=== PATIENT | female | born 1940 | race Caucasian/White ===

== ENCOUNTER 2019-07-25 18:19 | Inpatient (IN) | payer SELFPAY ==
[~2019-07-25] VITALS: Ht 162.6 cm; Wt 57.6 kg
--- OUTSIDE RECORDS SUMMARY | ~2019-07-25 | XMS | Encounter Summary ---
Demographics + + + | Address | [address] | | | [place] [address] | + + + | Home Phone | | + + + | Preferred Language | Unknown | + + + | Marital Status | | + + + | Restorationist Affiliation | 1025 | + + + | Race | Unknown | + + + | Ethnic Group | Unknown | + + + Author + + + | Author | [facility] | | | and [place] | + + + | Organization | [facility] | | | and [place] | + + + | Address | Unknown | + + + | Phone | Unavailable | + + + Support + + + + + | Name | Relationship | Address | Phone | + + + + + | Eron Benoit | ECON | NA | | | | | NA, | | + + + + + | Eron Benoit | ECON | [address] [place] [address] | | | | | [place] [address] | | + + + + + Care Team Providers + +------+ + | Care Sap Business Objects Developer Name | Role | Phone | + +------+ + | Juan M Huang DO | PCP | | + +------+ + Encounter Details +--------+ + + + + | Date | Type | Department | Care Team | Description | +--------+ + + + + | 09/12/ | Orders Only | [facility] | Cristian Tinoco, | Neck pain (Primary | | 2013 | | NEUROSURGERY [address] | DO [address] | Dx); Cervical | | | | [address] | [address] [place], [place] | spondylosis with | | | | [place], [place] | [address] | myelopathy; S/P | | | | [address] | | cervical spinal | | | | [phone] | | fusion; Cervical | | | | | | stenosis of spinal | | | | | | canal | +--------+ + + + + Social History + +-------+ +--------+------+ | Tobacco Use | Types | Packs/Day | Years | Date | | | | | Used | | + +-------+ +--------+------+ | Never Smoker | | | | | + +-------+ +--------+------+ + +---+---+---+ | Smokeless Tobacco: | | | | | Never Used | | | | + +---+---+---+ + + +---------+ + | Alcohol Use | Drinks/Week | oz/Week | Comments | + + +---------+ + | No | | | | + + +---------+ + + + + | Sex Assigned at | Date Recorded | | | | + + + | Not on file | | + + + + + + + | Job Start Date | Occupation | Industry | + + + + | Not on file | Not on file | Not on file | + + + + + + + + | Travel History | Travel Start | Travel End | + + + + + + | No recent travel history available. | + + documented as of this encounter Plan of Treatment Not on filedocumented as of this encounter Results XR Cervical Spine 4 or 5 Vws (09/20/2012 1:09 PM PDT) + + | Specimen | + + | | + + + + + | Narrative | Performed At | + + + | [facility] | [place] | | Department [address] [place] | [facility] | | [ rep [address]] [ rep ct [facility] | | st zip] Signed | - IMAGING | | | | | Patient Name: AKREN BENOIT Physician: | | | [id number] : 1940 Age: 72 Sex: F Unit #: [id number] | | | Exam Date: 09/20/12 Location[place] [facility] [place] | | | Report #: [id number] Page: | | | %(RAD)RES..mtdd.print.filter("pg") of %(RAD) | | | RES..mtdd.print.filter("tpg") | | | | | | Accession Number: [id number] | | | CERVICAL SPINE, 09/20/2012 CLINICAL HISTORY: NECK PAIN. | | | COMPARISON: None. FINDINGS: Four views | | | of the cervical spine. Alignment is assessed from C2 | | | through C7. There is fusion of C4-5. There is mild disk narrowing at | | | C3- 4 and C5-6. On flexion and extension, no abnormal translation | | | above or below the fused level. The atlantodens interval is | | | maintained throughout. There is some diffuse facet arthrosis. Uncinate | | | hypertrophy is present bilaterally at C4, C5, C6, and to a lesser | | | extent C7. The visible lung apices are clear. | | | IMPRESSION: 1. FUSION OF C4-5. 2. DEGENERATIVE | | | CHANGES ABOVE AND BELOW THE FUSED LEVEL. Dictated | | | Date/Time: 09/20/2012 13:09 Transcribed Date/Time: 09/20/2012 | | | 13:40 New Grad Rn: <<Signature | | | on File>> | | | Eron | | | Roxy Moreno MD09/20/12 [id number] <Electronically signed by Eron Ramsey | | Nhung Moreno MD> Eron Moreno MD 09/20/12 1309 | | | New Grad Rn: [employer] [id number]/17/13 1340 | | | | | + + + + + + + + | Performing | Address | City/State/Zipcode | Phone Number | | Organization | | | | + + + + + | [facility] | [address] | [place] | [phone] | | [facility] | | [address] | | | - IMAGING | | | | + + + + + documented in this encounter Visit Diagnoses + + | Diagnosis | + + | Neck pain - Primary Cervicalgia | + + | Cervical spondylosis with myelopathy | + + | S/P cervical spinal fusion Arthrodesis status | + + | Cervical stenosis of spinal canal Spinal stenosis in cervical region | + + documented in this encounter
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
--- OUTSIDE RECORDS SUMMARY | ~2019-07-25 | XMS | Encounter Summary ---
Demographics + + + | Address | [address] | | | [place] [address] | + + + | Home Phone | | + + + | Preferred Language | Unknown | + + + | Marital Status | | + + + | Latter Day Affiliation | Unknown | + + + | Race | White | + + + | Ethnic Group | Not or | + + + Author + + + | Author | [facility] | + + + | Organization | [facility] | + + + | Address | Unknown | + + + | Phone | Unavailable | + + + Support + + + + + | Name | Relationship | Address | Phone | + + + + + | Eron Gottlieb | ECON | [place] | | + + + + + Care Team Providers + +------+ + | Care Tree Fruit And Nut Crops Farmer Name | Role | Phone | + +------+ + PCP | Unavailable | + +------+ + Encounter Details +--------+ + + + + | Date | Type | Department | Care Team | Description | +--------+ + + + + | 11/21/ | Results | Registration [id number] | | | | 1996 | Only | [address] | | | | | | [address] Mailcode: [address] | | | | | | [place], [place] | | | | | | [address] | | | | | | [phone] | | | +--------+ + + + + Social History + +-------+ +--------+------+ | Tobacco Use | Types | Packs/Day | Years | Date | | | | | Used | | + +-------+ +--------+------+ | Never Assessed | | | | | + +-------+ +--------+------+ + + + | Sex Assigned at [...] Not on filedocumented as of this encounter Procedures + +--------+ + + + | Procedure Name | Priori | Date/Time | Associated Diagnosis | Comments | | | ty | | | | + +--------+ + + + | CHEMISTRY TESTS 4 | Routin | 11/21/1996 | | Results for this | | | e | 4:35 PM | | procedure are in the | | | | PDT | | results section. | + +--------+ + + + | CBC TESTS 2 | Routin | 11/21/1996 | | Results for this | | | e | 4:35 PM | | procedure are in the | | | | PDT | | results section. | + +--------+ + + + | COAGULATION TESTS 2 | Routin | 11/21/1996 | | Results for this | | | e | 4:35 PM | | procedure are in the | | | | PDT | | results section. | + +--------+ + + + | URINALYSIS TESTS | Routin | 11/21/1996 | | Results for this | | | e | 4:30 PM | | procedure are in the | | | | PDT | | results section. | + +--------+ + + + documented in this encounter Results CHEMISTRY TESTS 4 (11/21/1996 4:35 PM PDT) + + + + + + | Component | Value | Ref Range | Performed | Pathologist | | | | | At | Signature | + + + + + + | SODIUM, | 141. | mmol/l | | | | PLASMA | | | | | | (LAB) | | | | | + + + + + + | POTASSIUM, | 4.2 | mmol/l | | | | PLASMA | | | | | | (LAB) | | | | | + + + + + + | CHLORIDE, | 106. | mmol/l | | | | PLASMA | | | | | | (LAB) | | | | | + + + + + + | TOTAL CO2, | 29. | mmol/l | | | | PLASMA | | | | | | (LAB) | | | | | + + + + + + + + | Specimen | + + | | + + + + + + + | Performing | Address | City/State/Zipcode | Phone Number | | Organization | | | | + + + + + | [facility] | [address] | [place] [address] | | | PATHOLOGY | [address] | | | + + + + + COAGULATION TESTS 2 (11/21/1996 4:35 PM PDT) + + + + + + | Component | Value | Ref Range | Performed | Pathologist | | | | | At | Signature | + + + + + + | PROTHROMBIN | 11.9 | SECONDS | | | | TIME | | | | | + + + + + + | PROTIME | 1. | SECONDS | | | | RATIO | | | | | + + + + + + | PROTHROMBIN | 1.02 | INR | | | | INR | | | | | + + + + + + | APTT | 29. | SECONDS | | | + + + + + + + + | Specimen | + + | | + + + + + + + | Performing | Address | City/State/Zipcode | Phone Number | | Organization | | | | + + + + + | [facility] | [address] | [place] [address] | | | PATHOLOGY | [address] | | | + + + + + CBC TESTS 2 (11/21/1996 4:35 PM PDT) + + + + + + | Component | Value | Ref Range | Performed | Pathologist | | | | | At | Signature | + + + + + + | WHITE CELL | 6.3 | K/CU MM | | | | COUNT | | | | | + + + + + + | RED CELL | 4.72 | M/CU MM | | | | COUNT | | | | | + + + + + + | HEMOGLOBIN | 14.1 | GM/DL | | | + + + + + + | HEMATOCRIT | 42.1 | % | | | + + + + + + | MCV | 89. | FL | | | + + + + + + | MCH | 29.8 | PG | | | + + + + + + | MCHC | 33.5 | GM/DL | | | + + + + + + | RDW | 13.2 | % | | | + + + + + + | PLATELET | 310. | K/CU MM | | | | COUNT | | | | | + + + + + + | MPV | 8.3 | FL | | | + + + + + + + + | Specimen | + + | | + + + + + + + | Performing | Address | City/State/Zipcode | Phone Number | | Organization | | | | + + + + + | [facility] | [address] | [place] [address] | | | PATHOLOGY | [address] | | | + + + + + URINALYSIS TESTS (11/21/1996 4:30 PM PDT) + + + + + + | Component | Value | Ref Range | Performed | Pathologist | | | | | At | Signature | + + + + + + | COLOR(UR) | STRAW | | | | + + + + + + | APPEARANCE | SLIGHTLY CLOUDY | | | | + + + + + + | GLUCOSE(UR) | NEG | mg/dL | | | + + + + + + | BILIRUBIN | NEG | mg/dL | | | + + + + + + | KETONES | NEG | mg/dL | | | + + + + + + | SPECIFIC | 1.01 | mg/dL | | | | GRAVITY | | | | | + + + + + + | BLOOD | NEG | mg/dL | | | + + + + + + | PH(UR) | 5. | mg/dL | | | + + + + + + | PROTEIN(LAB | NEG | mg/dL | | | | ) | | | | | + + + + + + | UROBILINOGE | 0.2 | EDGARDO UNITS | | | | N | | | | | + + + + + + | NITRITES | NEG | EDGARDO UNITS | | | + + + + + + | LEUKOCYTE | NEG | [facility]ARDO UNITS | | | | ESTERASE | | | | | + + + + + + | URINE | MICROSCOPIC NOT | EDGARDO UNITS | | | | COMMENT1 | INDICATED | | | | + + + + + + + + | Specimen | + + | | + + + + + + + | Performing | Address | City/State/Zipcode | Phone Number | | Organization | | | | + + + + + | [facility] | [address] | [place] [address] | | | PATHOLOGY | [address] | | | + + + + + documented in this encounter Visit Diagnoses Not on filedocumented in this encounter"
--- OUTSIDE RECORDS SUMMARY | ~2019-07-25 | XMS | Encounter Summary ---
Demographics + + + | Address | [address] | | | [place] [address] | + + + | Home Phone | | + + + | Preferred Language | Unknown | + + + | Marital Status | | + + + | Hinduism Affiliation | 1025 | + + + | Race | Unknown | + + + | Ethnic Group | Unknown | + + + Author + + + | Author | [facility] | | | and [place] | + + + | Organization | [facility] | | | [...] Eron Benoit | ECON | [address] [place] [address] | | | | | [place] [address] | | + + + + + Care Team Providers + +------+ + | Care Rotary Furnace Tender Name | Role | Phone | + +------+ + | Juan M Huang DO | PCP | | + +------+ + Encounter Details +--------+ + + + + | Date | Type | Department | Care Team | Description | +--------+ + + + + | 06/13/ | Orders Only | [facility] | Jac Riley | Status post lumbar | | 2012 | | NEUROSURGERY [address] | F, [address] | spinal fusion | | | | [address] | [place], [place] | (Primary Dx); Back | | | | [place], [place] | [address] | pain | | | | [address] | [phone] | | | | | [phone] | | | +--------+ + + + [...] filedocumented as of this encounter Results XR Lumbar Spine 4 + Vw (06/21/2012 1:31 PM PDT) + + | Specimen | + + | | + + + + + | Narrative | Performed At | + + + | [facility] | [place] | | Department [address] | [facility] | | [ rep [address]] [ rep [facility] | | [facility]] Signed | - IMAGING | | | | | Patient Name: KAREN BENOIT Physician: | | | MILLY.01 : 1940 Age: 72 Sex: F Unit #: [id number] | | | Exam Date: 06/21/12 Location: [facility] | | | Report #: [id number] Page: | | | %(RAD)RES..mtdd.print.filter("pg") of %(RAD) | | | RES..mtdd.print.filter("tpg") | | | | | | Accession Number: [id number] | | | LUMBAR SPINE, 06/21/2012 CLINICAL HISTORY: STATUS POST | | | LUMBAR FUSION. COMPARISON: Numerous previous MRIs and | | | x-rays of the lumbar spine, most recently 11/12/2011. | | | FINDINGS: Four views of the lumbar spine including flexion and | | | extension were obtained. There is mild levoscoliosis of the | | | thoracolumbar spine. Again seen is hardware for posterior fusion | | | extending from L3 through S1 with interbody graft material at these | | | levels. Hardware remain intact. Vertebral body heights are | | | preserved with no evidence for compression fractures. Mild to | | | moderate anterior osteophytes are seen from L1 through L3. There | | | is no evidence for instability. Moderate disk height loss are at | | | L2-3. There is no evidence of spondylolysis. IMPRESSION: | | | 1. STATUS POST POSTERIOR FUSION FROM L3 THROUGH S1 WITH | | | HARDWARE INTACT. THERE IS NO EVIDENCE FOR INSTABILITY. | | | 2. DEGENERATIVE CHANGES DESCRIBED ABOVE. Dictated | | | Date/Time: 06/21/2012 13:31 Transcribed Date/Time: 06/21/2012 | | | 13:51 Plastic Tile Setter: <<Signature on | | | File>> | | | Augusto | | | MD Shaji06/21/[id number] <Electronically signed by Augusto Girard MD> | | | Augusto Girard MD 06/21/12 1331 Plastic Tile Setter: [employer] | | | Gnkobioyrtuuo16/17/13 5291 Jac Riley MD | | | | | + + + + + + + + | Performing | Address | City/State/Zipcode | Phone Number | | Organization | | | | + + + + + | [facility] | [address] | [place] | [phone] | | [facility] | | [address] | | | - IMAGING | | | | + + + + + documented in this encounter Visit Diagnoses + + | Diagnosis | + + | Status post lumbar spinal fusion - Primary Arthrodesis status | + + | Back pain Backache, unspecified | + + documented in this encounter
--- OUTSIDE RECORDS SUMMARY | ~2019-07-25 | XMS | Encounter Summary ---
Demographics + + + | Address | [address] | | | [place] [address] | + + + | Home Phone | | + + + | Preferred Language | Unknown | + + + | Marital Status | | + + + | Congregational Affiliation | Unknown | + + + | Race | White | + + + | Ethnic Group | Not or | + + + Author + + + | Author | [facility] | + + + | Organization | [facility] | + + + | Address | Unknown | + + + | Phone | Unavailable | + + + Support + + + + + | Name | Relationship | Address | Phone | + + + + + | Eron Benoit | ECON | [place] | | + + + + + Care Team Providers + +------+ + | Care Quality Control Supervisor Name | Role | Phone | + +------+ + PCP | Unavailable | + +------+ + Encounter Details +--------+ + + + + | Date | Type | Department | Care Team | Description | +--------+ + + + + | 06/08/ | Office | Registration [address] | [address] | | | 2006 | Visit - | [address] | [facility] | | | | Rehab | [address] Mail[address]: [address] | | | | | | [place], [place] | | | | | | [address] | | | | | | [phone] | | | +--------+ + + + [...] | + +--------+ + + + | PHYSICAL THERAPY | Routin | 06/08/2006 | | Results for this | | EVAL | e | 4:50 PM | | procedure are in the | | | | PDT | | results section. | + +--------+ + + + documented in this encounter Results PHYSICAL THERAPY EVAL (06/08/2006 4:50 PM PDT) + + + + + + | Component | Value | Ref Range | Performed | Pathologist | | | | | At | Signature | + + + + + + | PHYSICAL | [facility] | | [facility] | | | THERAPY | INITIAL EVALUATION | | REHABILITAT | | | EVAL | KAREN BENOIT MR# | | [facility] THERAPY | | | | [id number] Start of | | | | | | Care: 06/08/2006 | | | | | | Referring/Attending | | | | | | Practitioner: Alexei | | | | | | MD Quin | | | | | | Primary/Referral | | | | | | Diagnosis/ICD-9: | | | | | | Fibromyalgia/Myofascia | | | | | | l Pain/729.1/ Rule out | | | | | | Fibromyalgia/Myofascial | | | | | | pain Date of onset: | | | | | | 03/07/1995 ; in clinic | | | | | | today for FM diagnosis | | | | | | on 06/08/2006 Insurance: | | | | | | Commercial. Number | | | | | | of visits used: 1 | | | | | | Medicare 06/08/2006 | | | | | | to: 07/07/2006 | | | | | | SUBJECTIVE: History of | | | | | | Presenting Problem: | | | | | | Patient is a 66 year | | | | | | old F who wasdiagnosed | | | | | | with fibromyalgia. no | | | | | | known onset. Pt has | | | | | | sleep apnea but noton | | | | | | CPAP. Presently has R | | | | | | ankle/tibial stress | | | | | | fracture and ankle | | | | | | sparin 6 weeks ago.This | | | | | | is limiting her motion | | | | | | an dstanding ROM and | | | | | | endurance. Patient | | | | | | presents with the | | | | | | following complaints: | | | | | | fatigue,sleepdisturbance | | | | | | ,increased | | | | | | pain,depression,cognitiv | | | | | | e problem, | | | | | | exerciseintolerance,st | | | | | | iffness,no exercise | | | | | | program, | | | | | | hypersensitivity to | | | | | | light,noise, smells and | | | | | | or chemicals,work | | | | | | problems, Denies | | | | | | headaches, Precautions: | | | | | | recent Brain scan | | | | | | reviewed white dots in | | | | | | tht posteriorportion of | | | | | | her head: may be | | | | | | scaring, lesions or | | | | | | plaques. 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 Not | | | | | | able to move eyes | | | | | | inferiorly sometimes | | | | | | when reading (reads same | | | | | | line 2-3 times. | | | | | | History of Fainting: | | | | | | yes. History of | | | | | | lightheadedness and/or | | | | | | dizziness: yes with | | | | | | fatigue. but | | | | | | not able to describe | | | | | | other related sx. | | | | | | History of Radiation | | | | | | Exposure: no. . | | | | | | Negative history of | | | | | | diabetes. Pt describes | | | | | | potential history of | | | | | | ischemic or structural | | | | | | heart disease w/PVC | | | | | | potential, arrhythmia | | | | | | Patient currently on | | | | | | medications for blood | | | | | | pressure or heart | | | | | | conditions:see epic. | | | | | | Medications: see | | | | | | physician's note for | | | | | | this data. | | | | | | Prior/concurrent | | | | | | services related to the | | | | | | present problem: none | | | | | | massage no | | | | | | Patient Goals: safe | | | | | | exercise program,learn | | | | | | to manage pain,keep | | | | | | working, Present | | | | | | status: Current | | | | | | functional status: | | | | | | fatigue, cognitive | | | | | | issues impact | | | | | | dailyactivities. 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 not need to go | | | | | | up stairs as ahs | | | | | | allthings on main level | | | | | | they need. Activity | | | | | | Level/Exercise: none. | | | | | | walking Patient | | | | | | currently has access to | | | | | | the following equipment: | | | | | | treadmill, | | | | | | Shoes: non-supportive, | | | | | | heeled shoes mostly | | | | | | for work Pain is | | | | | | currently, on a scale of | | | | | | 0-10: 7 and riseing The | | | | | | best the pain ever gets | | | | | | on a scale of 0-10 is: | | | | | | 3 The worst the pain | | | | | | ever gets on a scale of | | | | | | 0-10 is: 10 Pain | | | | | | worsens with: | | | | | | overactivity,inactivit | | | | | | y,prolongedpositions,col | | | | | | d/dampness,weather | | | | | | changes,poor sleep, pain | | | | | | alwasys gets worse in | | | | | | the evenings and night. | | | | | | denies falls but noght | | | | | | balance is very poor and | | | | | | feels she falls back | | | | | | everytime she walks in | | | | | | dark or extends neck and | | | | | | walks Pain improves | | | | | | with: rest/good sleep, | | | | | | heat, stretching, | | | | | | balance ofrest/activity. | | | | | | Living | | | | | | situation/environment is | | | | | | limiting function: | | | | | | steps are limiting dueto | | | | | | LE and back pains. | | | | | | Equipment at home: none | | | | | | Requests family members | | | | | | or friends involved | | | | | | with rehabilitation | | | | | | therapy: | | | | | | present today . | | | | | | Anxieties or concerns | | | | | | about therapy: no | | | | | | OBJECTIVE: | | | | | | R hip sititng, legs | | | | | | crossed. Cranial nerves | | | | | | III-XII grossly intact. | | | | | | L deviation of | | | | | | tongue in tounge | | | | | | extension. Posture: | | | | | | Sitting Posture: flat | | | | | | low back, round/forward | | | | | | shoulders, forwardhead, | | | | | | Sitting Posture: | | | | | | head tilted to right. | | | | | | ROM (limitations | | | | | | only): Limited Arom hip | | | | | | flexion to PROM (25%), | | | | | | limted GHjnt mobility | | | | | | all planes R side bend | | | | | | pain on ipsilateral SI, | | | | | | back. Flexion wosre then | | | | | | ext. both limited. | | | | | | Cervical 50% or less all | | | | | | planes MMT | | | | | | (limitations only): 4/5 | | | | | | hils and ankles, 4/5 Gh | | | | | | jnoint flexio ext. 55 | | | | | | elbows 4/5 trunk | | | | | | Balance/coordination | | | | | | 360 degree turn | | | | | | continuous. head ext | | | | | | no falls or LOB in | | | | | | session. neutral | | | | | | vestibular apparatus w/ | | | | | | head ext no dizziness | | | | | | noted. sway eyes closed | | | | | | narrow VENECIA--no falls. | | | | | | Right unilateral stance | | | | | | duration (seconds): 11/19 | | | | | | sec Left | | | | | | unilateralstance | | | | | | duration (seconds): 10/19 | | | | | | sec Gait for 25 feet | | | | | | (Normal 5 sec for men, 6 | | | | | | seconds for | | | | | | women):Self-selectedspee | | | | | | d in seconds: 6.91 in 12 | | | | | | steps Fast speed in | | | | | | seconds: 5.83 in 10 | | | | | | steps Gait Deviations: | | | | | | forward lean(history | | | | | | of speed walking) | | | | | | Patient not able to heel | | | | | | walk. Patient limited | | | | | | in toe walk. negative | | | | | | vestibualr drift eyes | | | | | | closed marching Balance: | | | | | | Activities-specific | | | | | | Balance confidence (ABC) | | | | | | Scale: 700/1600=43.75% | | | | | | indicating poor | | | | | | confidence in balance in | | | | | | most of | | | | | | his/herenvironments. | | | | | | Pt notes most she | | | | | | avoids due to pains and | | | | | | fatigue. alloutside of | | | | | | home scores are | | | | | | estimates and coached by | | | | | | her . decreased | | | | | | light touch L LE. | | | | | | TREATMENT TODAY: | | | | | | Evaluation completed, | | | | | | Gave information | | | | | | on recommended PT and OT | | | | | | appointments. | | | | | | Discussed PT concept of | | | | | | pain is not bad,, will | | | | | | teach strategies | | | | | | tominimize/control in | | | | | | PT. pain is not | | | | | | idicative of something | | | | | | "going wrong or braking" | | | | | | ASSESSMENT: Treatment | | | | | | diagnosis/ICD-9 code = | | | | | | Fibromyalgia/729.1 | | | | | | *needs screaning for | | | | | | potenial CVA or MS due | | | | | | to scarring in brain | | | | | | scans Problems: Pain, | | | | | | morning stiffness, | | | | | | minimal activity and/or | | | | | | decreased ROMand | | | | | | inadequate/no program | | | | | | for exercise. Reported | | | | | | falling, pain with | | | | | | walkingand/or gait | | | | | | deviations noted. Pain | | | | | | and/or poor | | | | | | posture/positioning | | | | | | andinadequate seating at | | | | | | home, work, and/or car. | | | | | | Pain and needs | | | | | | instruction | | | | | | incompensation/pain | | | | | | management. pt has | | | | | | PT in local area that | | | | | | per pt desciprion is | | | | | | able to treat FM | | | | | | patients and has similar | | | | | | treatments as [facility] | | | | | | PT's. Short-term goals, | | | | | | as discussed with the | | | | | | patient, due in 13 | | | | | | weeks: Independent | | | | | | with 3 lower extremity | | | | | | stretches. Obtain/wear | | | | | | supportive shoewear. | | | | | | Know/demonstrate 1-2 | | | | | | strategies to decrease | | | | | | pain and increase | | | | | | function. Know how to | | | | | | initiate better seated | | | | | | posture. Long-term | | | | | | goals, as discussed | | | | | | with the patient, due in | | | | | | 26 weeks: | | | | | | Demonstrate independent | | | | | | home exercise program. | | | | | | Demonstrate safe, | | | | | | independent walking. | | | | | | Know proper seating for | | | | | | work, home and/or car. | | | | | | Demonstrate knowledge of | | | | | | pain | | | | | | compensation/management | | | | | | techniques todecrease | | | | | | pain and increase | | | | | | function. Obtain and use | | | | | | identified equipment | | | | | | /tools for pain | | | | | | management athome/work. | | | | | | PLAN: | | | | | | Treatment plan: One | | | | | | on one treatment to | | | | | | instruct in home | | | | | | exercise programwith | | | | | | appropriate | | | | | | self-monitoring, pain | | | | | | management/compensation | | | | | | techniques,posture/posit | | | | | | ioning during | | | | | | activities, proper gait | | | | | | with correct | | | | | | equipmentand | | | | | | identification of | | | | | | equipment needed as | | | | | | indicated in initial | | | | | | evaluation.Frequency/Dur | | | | | | ation: Treatment will be | | | | | | six visits for | | | | | | approximately one time | | | | | | per week over several | | | | | | months to give patient | | | | | | time to make | | | | | | recommendedchanges, | | | | | | begin home exercise | | | | | | program, note response | | | | | | and return to therapyfor | | | | | | further modifications | | | | | | if needed. Treatment | | | | | | began: 1350 Treatment | | | | | | ended: 1420 This note | | | | | | is to serve as the | | | | | | discharge summary if the | | | | | | patient fails toattend | | | | | | further Physical Therapy | | | | | | appointments or contact | | | | | | the therapistregarding | | | | | | any change in their | | | | | | status. The below | | | | | | signatures are only for | | | | | | completing Medicare | | | | | | charting. Non-Medicare | | | | | | patients do not need | | | | | | this section completed. | | | | | | Therapist Initials: | | | | | | I | | | | | | agree with the above | | | | | | proposed treatment plan. | | | | | | MD signature: | | | | | | | | | | | | Date: | | | | | | Print name: | | | | | | ___Alexei Tsai MD | | | | | | Jaspal Gauthier DPT | | | | | | License | | | | | | Number [id number] | | | | + + + + + + + + | Specimen | + + | | + + + + + + + | Performing | Address | City/State/Zipcode | Phone Number | | Organization | | | | + + + + + | [facility] | [address] | [place], [place] | | | REHABILITATION | [address] | [address] | | | THERAPY | | | | + + + + + | [facility] | [address] | [place], [place] | | | REHABILITATION | [address] | [address] | | | THERAPY | | | | + + + + + documented in this encounter Visit Diagnoses Not on filedocumented in this encounter
--- OUTSIDE RECORDS SUMMARY | ~2019-07-25 | XMS | Encounter Summary ---
Demographics + + + | Address | [address] | | | [place] [address] | + + + | Home Phone | | + + + | Preferred Language | Unknown | + + + | Marital Status | | + + + | Anglican Affiliation | 1025 | + + + | Race | Unknown | + + + | Ethnic Group | Unknown | + + + Author + + + | Author | [facility] | | | and [place] | + + + | Organization | [facility] | | | and [...] Eron Gottlieb | ECON | [address] [place] [address] | | | | | [place] [address] | | + + + + + Care Team Providers + +------+ + | Care Product Strategy Director Name | Role | Phone | + +------+ + | Juan M Huang DO | PCP | | + +------+ + Encounter Details +--------+ + + + + | Date | Type | Department | Care Team | Description | +--------+ + + + + | 06/21/ | Abstract | [facility] | Jac Riley | | | 2012 | | NEUROSURGERY [address] | F, MD [address] | | | | | [address] | [place], [place] | | | | | [place], [place] | [address] | | | | | [address] | [phone] | | | | [phone] | | | +--------+ + + + [...] filedocumented as of this encounter Visit Diagnoses Not on filedocumented in this encounter"
--- OUTSIDE RECORDS SUMMARY | ~2019-07-25 | XMS | Encounter Summary ---
Demographics + + + | Address | [address] | | | [place] [address] | + + + | Home Phone | | + + + | Preferred Language | Unknown | + + + | Marital Status | | + + + | Methodist Affiliation | Unknown | + + + | Race | White | + + + | Ethnic Group | Not or | + + + Author + + + | Author | [facility] | + + + | Organization | [facility] | + + + | Address | Unknown | + + + | Phone | Unavailable | + + + Support + + + + + | Name | Relationship | Address | Phone | + + + + + | Eron Gottlieb | ECON | [place] | | + + + + + Care Team Providers + +------+ + | Care Cooperage Shop Supervisor Name | Role | Phone | + +------+ + PCP | Unavailable | + +------+ + Encounter Details +--------+ + + + + | Date | Type | Department | Care Team | Description | +--------+ + + + + | 11/22/ | Procedure - | [facility] | Record, Operation | Operative Report | | 1996 | | [place] [address] | | | | | Transcribed | [address] | | | | | | Mailcode: [place] | | | | | | [facility] | | | | | | Healing, [address] | | | | | | [place], [place] | | | | | | [address] | | | | | | [phone] | | | +--------+ + + + [...] | + +--------+ + + + | OPERATION RECORD | | 11/22/1996 | | Results for this | | | | 12:00 AM | | procedure are in the | | | | PDT | | results section. | + +--------+ + + + documented in this encounter Results OPERATION RECORD (11/22/1996 12:00 AM PDT) + + | Procedure Note | + + | 11/22/1996 12:00 AM PDT [place] | | [facility] | | [address], [place] [address] | | [facility] | | | | OPERATION RECORD | | | | Med Rec No.: [id number] Date: 11/22/96 | | | | Name: Karen Gottlieb | | | | | | ATTENDING SURGEON: Brad Acharya Jr., M.D. | | Agency Service Coordinator, | | Neurosurgery | | | | | | TECHNOLOGY AUDITOR(S): Agatha Klein M.D. | | Resident, Neurosurgery | | | | | | POSTOPERATIVE DIAGNOSIS(ES): C4-5 herniated disk. | | | | OPERATION(S) PERFORMED: C4-5 anterior cervical diskectomy and | | fusion. | | | | SPECIMEN(S) REMOVED: None. | | | | COMPLICATIONS: None. | | | | ESTIMATED BLOOD LOSS: 50 cc. | | | | FINDINGS: Herniated disk at C4-5, worse on the right. | | | | INDICATIONS: The patient is a 56-year-old female with | | multiple neurologic complaints. Examination | | was consistent with a | | C5 radiculopathy, and imaging revealed a herniated disk at C4-5. This has | | failed to respond to conservative treatment. | | | | PROCEDURE: Informed consent was obtained and the | | patient was identified, then brought to the | | Operating Room where | | general endotracheal anesthesia was induced. Preoperative IV antibiotics | | and steroids were administered, and she was placed supine with the head | | supported on a horseshoe head char filter tank tender and a Holter traction device applied. | | The right side of the neck was prepped and draped in the usual sterile | | fashion, after a preoperative localizing film was obtained. Local | | anesthetic was not infiltrated into the skin, because of a previous adverse | | reaction. | | | | An incision was then made in a skin crease overlying C4-5, and carried | | through the level of the platysma, which was divided with the | | electrocautery. Dissection was then further carried out along the medial | | aspect of the sternocleidomastoid muscle and the medial aspect of the | | carotid sheath. Retraction was then placed in the plane of dissection along | | the anterior surface of the vertebral bodies. The fascia was dissected from | | the spine, using a peanut dissector. A second localizing film was obtained | | and the longus colli muscle was dissected from either side at the C4-5 | | level. Self-retaining retractors were placed and the disk space was incised | | with the #11 blade, to gauge the angle of the disk space. | | | | Once this had been done, the high speed drill was used to create the hole | | for the bone dowel to the predetermined depth of 15 mm. Because of bleeding | | from the dowel hole, Gelfoam was placed into the bone. This resulted in | | satisfactory hemostasis. The socrates bit was then attached and the end | | plates were drilled to widen the intervertebral space and facilitate access | | for removal of the disk. A moderate disk fragment and withdrawn, using | | pituitary rongeurs. Further disk material was removed, using the curets. | | | | Using the microscope, high magnification and microdissection, the posterior | | longitudinal ligament was then identified and incised using a blunt nerve | | hook and a #11 blade. The posterior longitudinal ligament was then removed | | using Kerrison rongeurs. This was done first towards the left, and then | | towards the right. There was a moderate amount of compression on the right | | side and a removal of posterior longitudinal ligament and disk material was | | carried out quite far laterally, until satisfactory decompression was | | obtained. The adequacy of the decompression was assessed using a blunt | | nerve hook. The nerve roots could be seen to be quite well-decompressed, as | | was the thecal sac. Once the decompression was satisfactory, the wound was | | copiously irrigated and inspected for hemostasis. As this was satisfactory, | | a small piece of Gelfoam was placed and the wound was prepared for the bone | | dowel. | | | | The entire dissection and removal of disk had been carried out under high | | magnification using the microscope. At the point when the dowel was ready | | to be placed, the operating microscope was withdrawn and the | | anesthesiologist was asked to maintain traction. The necessary size for the | | dowel hole was measured using the calipers and the dowel was then cut to | | fit. The dowel was then tamped into the hole until it was flush with the | | anterior surface of the spine. The anesthesiologist then discontinued the | | traction, and the fit of the dowel was assessed. This was very solid. | | | | The wound was again inspected for hemostasis, which was satisfactory. | | Further irrigation was performed and the wound was closed. This was done | | using interrupted #3-0 Vicryl for the platysma, and a running #4-0 Vicryl | | subcutaneous stitch for the skin. Steri-strips and dressing were placed. | | The patient was taken to the Post Anesthesia Recovery Unit in awake and | | stable condition. There were no complications noted from the procedure. | | Sponge and needle counts was reported as correct x 2. No specimens were | | sent. | | | | | | | | | | Agatha Klein M.D. | | Resident, Neurosurgery | | | | Brad Acharya Jr., M.D. | | Agency Service Coordinator, | | Neurosurgery | | | | | | AUDRA /liz | | | | P | | C: 12/24/96 allison | | | + + documented in this encounter Visit Diagnoses Not on filedocumented in this encounter"
--- OUTSIDE RECORDS SUMMARY | ~2019-07-25 | XMS | Encounter Summary ---
Demographics + + + | Address | [address] | | | [place] [address] | + + + | Home Phone | | + + + | Preferred Language | Unknown | + + + | Marital Status | | + + + | Temple Affiliation | 1025 | + + + | Race | Unknown | + + + | Ethnic Group | Unknown | + + + Author + + + | Author | [facility] | | | and [place] | + + + | Organization | [facility] | | | [...] Eron Gottlieb | ECON | [address] [place] [address] | | | | | [place] [address] | | + + + + + Care Team Providers + +------+ + | Care College Counselor Name | Role | Phone | + +------+ + | Juan M Huang DO | PCP | | + +------+ + Reason for Visit +--------+ + | Reason | Comments | +--------+ + | Other | | +--------+ + Encounter Details +--------+ + + + + | Date | Type | Department | Care Team | Description | +--------+ + + + + | 09/18/ | Telephone | [facility] | Cristian Tinoco, | Other | | 2013 | | NEUROSURGERY [address] | DO [address] | | | | | [address] | [address] [place], [place] | | | | | [place], [place] | [id number] | | | | | [address] | | | | | | [phone] | | | +--------+ + + + [...]
--- OUTSIDE RECORDS SUMMARY | ~2019-07-25 | XMS | Encounter Summary ---
Demographics + + + | Address | [address] | | | [place] [address] | + + + | Home Phone | | + + + | Preferred Language | Unknown | + + + | Marital Status | | + + + | Mormon Affiliation | 1025 | + + + | Race | Unknown | + + + | Ethnic Group | Unknown | + + + Author + + + | Author | [facility] | | | and [place] | + + + | Organization | [facility] | | | [...] Eron Gottlieb | ECON | [address] [place] [address] | | | | | , [place] [address] | | + + + + + Care Team Providers + +------+ + | Care Cooker Operator Name | Role | Phone | + +------+ + PCP | Unavailable | + +------+ + Encounter Details +--------+ + + + + | Date | Type | Department | Care Team | Description | +--------+ + + + + | 05/31/ | Hospital | [facility] | | | | 1994 | Encounter | [facility] | | | | | | [address] | | | | | | [place], [place] | | | | | | [address] | | | | | | [phone] | | | +--------+ + + + [...]
--- OUTSIDE RECORDS SUMMARY | ~2019-07-25 | XMS | Encounter Summary ---
Demographics + + + | Address | [address] | | | [place] [address] | + + + | Home Phone | | + + + | Preferred Language | Unknown | + + + | Marital Status | | + + + | Mosque Affiliation | Unknown | + + + | Race | White | + + + | Ethnic Group | Not or | + + + Author + + + | Organization | Unknown | + + + | Address | Unknown | + + + | Phone | Unavailable | + + + Support + + + + + | Name | Relationship | Address | Phone | + + + + + | Eron Benoit | CRISTINA | [place] | | + + + + + Care Team Providers + +------+ + | Care Tapper Balance Wheel Screw Hole Name | Role | Phone | + +------+ + PCP | Unavailable | + +------+ + Encounter Details +--------+ + + + + | Date | Type | Department | Care Team | Description | +--------+ + + + + | 08/29/ | Transcribed | | Dictation, Other | Transcribed | | 2001 | | | | | +--------+ + + + [...] + + documented as of this encounter Progress Notes Interface, Medical Service Representative In - 12/26/2005 3:01 AM [facility] [place] [address] [place], [place] [address] or August 29, 2000 Brad Acharya M.D. [facility] Department of Neurosurgery -3200 RE: KAREN BENOIT MR #: [id number] Dear Dr. Acharya: Thank you for consulting the [facility] Pain Management Center regarding Ms. Karen Benoit. I evaluated her today with a fellow. Please anticipate our detailed initial evaluation coming under separate cover. As you know, Ms. Benoit has a fairly complicated set of problems which she associates with work-related injury in 1992. She has mechanical back pain and has evidence of several levels of severe internal disk degeneration on her plain x-ray and MRI. She has a rather severe limitation in her functional range of motion, and when asked to lumbar flex, got to about 30 degree before she started to fall over forwards. She has a substantial amount of myofascial pain and has 18/18 myofascial tender points and 2/3 controls on the myofascial tender point survey today. This exam has more control points than is strictly allowable for the diagnosis of fibromyalgia, but her overall presentation was certainly consistent with this. She is also severely deactivated and deconditioned and apparently spends most of her time crying. Her has retired to look after her. She states that she wishes to remain out of a wheelchair and feels that her proposed diagnostic and therapeutic plan is her only hope for doing so. Her neurological examination is abnormal but not strictly diagnostic. She has some hypoesthesia on the right lateral foot and leg consistent with an L5 dermatomal defect. However, her left leg has a stocking-like distribution of hypoesthesia and dysesthesia at the level of the knee which is not consistent with either peripheral polyneuropathy or a radiculopathy. The diagnosis is unclear. Her reflex examination indicates global hyperreflexia in the lower extremities. Her power exam is complicated by a rather profound giveaway weakness. She has chronic depressed mood which is probably consistent with the diagnosis of major depression but may branch into other long-term depressed mood diagnoses. She has incomplete relief with her current medications despite the fact that she is using the long-acting opioids. Her medical regimen appears to be quite reasonable and is not based on short-acting opioids. She does not have acetaminophen overdose or risk for nonsteriodal anti-inflammatory drug toxicity at this point. I am quite concerned about Ms. Benoit' ability to tolerate diskography and obtain meaningful results. Certainly, her imagery indicates that she has intervertebral disk degeneration, but the fact that we had such a difficult time doing a physical examination and that she has such profound mood disorder associated with severe deactivation and deconditioning makes it seem to me that it is highly unlikely that we will get useful information and that the tests will be highly noxious for her. I went over in incredible detail what the potential risks of the procedure of diskography are and the likelihood that her hypersensitivity would affect the results in an untoward way. She wished to continue forward with this procedure. She also had some literature regarding intradiscal electrothermal therapy. While I can certainly try to do a diskography to assist with surgical diagnosis of her, I would not consider her a candidate for IDET in this institution. She would require extensive psychological counseling and rehabilitation to become prepared for this. Given her distance from [place] and her current medical insurance which would cover none of these benefits including IDET, physical therapy, or psychological services, I would definitely not consider her a candidate for this procedure at this institution nor do I know of any other institutions that would consider her a good candidate. Because you may find the diskography information useful and she was most insistent, I went ahead and scheduled the diskography. Hopefully, we will be able to get some useful information. However, if the procedure becomes exceedingly uncomfortable for her, I will have to terminate it before completion. I will keep you updated regarding our progress on this issue. Thank you again for this consultation. Please feel free to contact me for any further questions regarding this assessment. Very truly yours, Jeff Avila M.D. [facility], Pain Management Center [facility] / [id number] / [id number] / [id number] / cc: Juan M Huang D.O. [address] [place] [id number] signed by Interface, Medical Service Representative In at 12/26/2005 3:01 AM PDTdocume nted in this encounter Plan of Treatment Not on filedocumented as of this encounter Visit Diagnoses Not on filedocumented in this encounter"
--- OUTSIDE RECORDS SUMMARY | ~2019-07-25 | XMS | Encounter Summary ---
Demographics + + + | Address | [address] | | | [place] [address] | + + + | Home Phone | | + + + | Preferred Language | Unknown | + + + | Marital Status | | + + + | Nondenominational Affiliation | Unknown | + + + | Race | White | + + + | Ethnic Group | Not or | + + + Author + + + | Author | [facility] | + + + | Organization | [facility] | + + + | Address | Unknown | + + + | Phone | Unavailable | + + + Support + + + + + | Name | Relationship | Address | Phone | + + + + + | Eron Benoit | ECON | [place] | | + + + + + Care Team Providers + +------+ + | Care Sausage Machine 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 Name | Role | Phone | + +------+ + PCP | Unavailable | + +------+ + Encounter Details +--------+ + + + + | Date | Type | Department | Care Team | Description | +--------+ + + + + | 06/08/ | [facility] Allergy Clinic at | Letter, Clinic | Letters | | 2006 | scribed | [facility] [address] | | | | | | [facility] | | | | | | [facility] | | | | | | [address] | | | | | | [place], [place] | | | | | | [address] | | | | | | [phone] | | | +--------+ + + + [...] as of this encounter Progress Notes 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 [address] [place] [address] RE: KAREN BENOIT MR #: [id number] Dear Dr. Huang, Thank you for asking me to evaluate your delightful patient Karen Benoit. She and her , Drake, were seen at the [facility] on Thursday, June 08, 2006. The evaluation consisted of a fibromyalgia-focused history, physical examination, psychosocial questionnaires, evaluation by a physical therapist, occupational therapist, science tutor, and a 1-hour education session. I spent approximately 120 minutes with Karen and Him of which 50 percent of that time was spent in individualized treatment planning and counseling. History of the current problem: Karen was in her usual excellent state of health until 1994 when she had an on-the-job injury. She was working at [employer] and lifted a dahl of water. When she did she slightly slipped and felt a sharp, singing pain in her neck and upper back. Within a year that pain became widespread. Today she indicates she has pain above the waist, below the waist, to the left of midline, and the right of midline including the axial spine. In general, her lower body symptoms are worse than her upper body symptoms. On a good day, her pain is a 4. On a bad day, it is a 10. She has stiffness that is consistent with fibromyalgia in that it is worse in the morning and evening and somewhat relieved midday. She has no joint swelling which is consistent with fibromyalgia. She has muscle pain and weakness after exertion which is consistent with fibromyalgia and does not sound to be neurologic in nature. She also has unrefreshing sleep and daytime fatigue. When I asked her more about her unrefreshing sleep, it turns out that she had a sleep study in the . I am not sure why she had that, but she was diagnosed with sleep apnea at that time and not put on CPAP. Today her sleep history questionnaire screens positive for probable sleep apnea, so she may need to have that reevaluated. Her sleep questionnaire was also positive for restless leg syndrome in that she has uncomfortable restless feelings in her legs that are worse at night and worse with lying prone. It spares the body and is relieved by moving. She has never tried a dopamine agonist for that. Her opioid medicine does help. She says it has been years since she has had refreshing, restorative sleep despite staying in bed 8-10 hours at night. She also has jaw pain consistent with TMJ, and she also reports several falls or near-fall episodes which did not include syncope. She also has quite a history of being worked up for the neck and back pain related to a worker's comp issue. This even included having cervical spinal fusion at C4-C5 which she said did not help the pain or her functionality at all. This was in 1997. The remainder of her review of systems is noncontributory. Her past medical history is significant for carpal tunnel syndrome, hypertension, some sort of cardiac arrhythmia well controlled with medication and osteoporosis which we did not talk about. Family History: Her father at age 81. He had heart disease and had pneumonia after a bowel surgery. Her mother at age 75 of heart disease. She also had arthritis and lung cancer. A brother, age 69, alive with a similar heart rhythm disorder. A sister, age 55, with fibromyalgia. Two children, ages 44 and 46, both in good health with no signs of fibromyalgia. Her medication history is significant for an anaphylactic reaction after a Marcaine injection into the cerebrospinal space cervically and then a near syncopal and shaking reaction to a dental injection of a liberty-type drug. Her current treatments include ( ) in mood with that drug but very little improvement in pain, oxycodone ER 80 mg twice a day for 4 years and then was on short-acting for a total of an additional 8 years, stool softener as needed, verapamil 250 mg for her arrhythmia, triamterene 75 mg for hypertension, Protonix 40 mg for GERD, TENS unit, and heat treatment. Personal History: She is . This seems to be a safe, supportive relationship. Drake is in the room with her today. Her current exercise program is light exercise with a therapeutic ball and walking, and she was very active prior to 1994, and she stopped most of her physical activity in 1997. Her habits are negative for concerning dietary patterns, alcohol abuse, tobacco use, marijuana use, amphetamine use, or cocaine use. Her surgeries include a back surgery in 2003, C-spine fusion in 1997, tonsils and adenoids in 1955, carpal tunnel in 1996, some sort of bowel procedure in 1991, hysterectomy unrelated to cancer in 1975, sinus surgery in 1976 and 1997, and hemorrhoid and fissure repair in 1985. She has not worked since 1991 which is a bit confusing because I thought her symptoms starting in 1994 with an on-the-job injury. Her persistent stressors are her health and a neighbor who hernández a logging truck within just a few feet of their house and cranks the engines several times during the night. This keeps her from getting sleep and certainly worsens her fibromyalgia. There is a preponderance of evidence in fibromyalgia about light, fragmented, nonrefreshing sleep and easy arousability and about the strong correlation between sleep deficit and worsening pain and worsening overall fibromyalgia. Her PRIME-MD emotional problem checklist is positive for dysthymia but not major depressive disorder, positive for mild anxiety but not generalized anxiety disorder, PTSD, or panic, alcohol, drug abuse, or eating disorder. We do not screen specifically on this questionnaire for OCD. Her fibromyalgia impact questionnaire shows that her most distressing symptom is inability to sleep followed by pain. The labs that you did for us show that she had a normal TSH at 1.46, a negative hepatitis C, a sed rate of 5, an IGF-1 low at 54, a vitamin D 25 low at 18, a CBC normal, and a chem profile normal. She tells me in the past that she had an MRI for a lesion in her brain in 1979 that was followed up in 1996 with a negative lumbar puncture. I am not sure what the time lag represents there, and she says she has also had negative lower extremity EMG studies. She had 1 cortisone injection into her lumbar spine in 2004 with no improvement. Today, her vital signs are 160/80, pulse is 80. HEENT: PERRLA. Normal oropharynx. No lymphadenopathy or thyromegaly. Chest clear to auscultation A and P. Heart: Regular rate and rhythm without murmur, click, gallop or rub. Abdomen noted without masses or organomegaly. Skin noted without rashes or other lesions. Musculoskeletal: The small joints of her hands and feet are noted with full range of motion without deformity. She is not hypermobile per Beighton score. Her C-spine is about 30% normal range of motion whereas her L-spine is about 60% normal range of motion, so her C-spine is considerably more impaired. She has no obvious bursitis, tendinitis, plantar fasciitis, or digital neuroma, but she does have tenderness and pain over her TMJ joint and clicking when she opens her mouth. She has 16 of 18 ACR tender points equally scattered throughout. Her mini-cranial exam 2-12 is grossly intact. She is strong and equal in all 5 major muscle groups. Tone is appropriate. Tremors are absent. Cutting Table Operator First strength is equal. Her reflexes, however, are discordant in that her upper reflexes are 3 to 4+, and her lower reflexes are 1. She has a positive Bayron's and a negative Babinski's which may indicate a cervical myelopathy. Sensation is appropriate to sharp and dull. Coordination is normal for rapid hand, [id number] and xvtf-ic-xile exam. Gait is normal for casual, tandem, toe, and Trendelenburg. Diagnoses: 1. Fibromyalgia per 1990 ACR criteria. 2. Chronic fatigue syndrome per 1994 CDC criteria. 3. Temporomandibular joint dysfunction with headache. 4. Low vitamin D. 5. Restless leg syndrome. 6. Cardiac conduction problem, well controlled with verapamil. 7. Sleep apnea on sleep study in , not sure why she is not on CPAP. 8. Balance deficits and fall history. 9. Possible cervical myelopathy, may not be treatable post fusion. Recommendations: 1. Education. Attend the post-clinic education meeting where we discuss the etiology and treatments for fibromyalgia. Encouraged to go to our website, [employer], and read more about the treatments. Encouraged to go to our website, [employer], and read more about the treatments. Encouraged to go to [employer] and order the magazine, Fibromyalgia Aware. We endorse the articles but not the ads. Encouraged to go to [employer] and order a quarterly newsletter. Encouraged to read An Idiot's Guide to Fibromyalgia by Jena Royal and Fibromyalgia for Dummies by Serjio Prado. 2. Pain medication. Her most effective pain medication is oxycodone. I would keep that, but I would try some adjunctive medications to eventually give her better pain control and lower the total opioid dose. She is already on 1 of those medications, that being the SNRI Cymbalta, so I would consider trying Lyrica. Start with 50 mg nightly and slowly titrate up to 300 mg nightly and slowly titrate the morning dose up to 150 mg. Side effects of this are fluid retention and weight gain. If this happens, she may have to discontinue the drug. Alternatively she could try Neurontin, but its clinical efficacy does not seem to be quite as strong as Lyrica in fibromyalgia. Another adjunctive medication she has not tried is Zanaflex 2 mg nightly increasing by 2 mg per week to a maximum of 8-10 mg. This could be done in conjunction with Lyrica and oxycodone. In several months if her pain is significantly better, she may be able to reduce her oxycodone dose or even replace some of it with Ultram. These are my major pain medication recommendations with the exception of considering a GARRETT-2 NSAID for her osteoarthritis. 3. Sleep medications. The biggest problem with her sleep is her neighbor with the logging truck, and she and Drake have tried multiple legal channels to stop this problem. That is definitely making her fibromyalgia worse and adding to her dysfunctional sleep, her daytime fatigue, and her pain levels. Additionally, we could try treating her restless leg syndrome with a dopamine agonist. We most commonly use Mirapex 0.25 mg increasing every week to a maximum of 2 mg. Sometimes we divide the nighttime dose into 6 p.m. and 9 p.m. to minimize dizziness and nausea. If that is not effective, we move to Requip or Sinemet. Also for sleep, we often use short-acting hypnotics such as Ambien, Lunesta, or zopiclone or low-dose benzodiazepines such as Ativan or Klonopin. She could also read the book, A Woman's Guide to Sleep, use blackout curtains, Ruddy's silicone earplugs, and do whatever is legally possible to deal with the neighbor with the logging truck. 4. Psychiatric medications. She does not have an underlying psychiatric disorder and would not benefit from referral to see a psychiatrist. She is on an SNRI which has significantly helped her mood but is not helping her pain that much. I would not change her psychiatric medications at this point. 5. Fatigue medications. If she could get better sleep at night, she may not need a fatigue-enhancing medication. However, if she is not, we often using Provigil. It comes in 200-mg tablets. We use 50 in the morning and 50 at lunch. She did not screen positive for neurally mediated hypotension. We just finished a 4-year NIH-funded study with Mestinon 60 mg t.i.d. in conjunction with exercise. It helped anxiety and sleep but did not help pain or raise IGF-1. The side effect of that drug that was problematic was abdominal pain (2 of 165 people in the study discontinued due to that), but many people found relief from their constipation from the side effect of loosening of the stool. 6. Counseling. I think it is essential that she and Drake have some cognitive behavioral counseling focused on disease severity, realistic expectations, boundary setting for self and others particularly related to the neighbor with the logging truck issue. I recommend that they read several books. One is called, The End of Stress As We Know It, another is called, Does Stress Damage the Brain?, and the last is called The Relaxation and Stress Reduction Workbook. 7. Exercise. It is essential that she do some balance training. She has had recent falls and balance deficit and by self-report has osteoporosis. We have website videotape and DVD available on balance training at [employer]. She could also read the book, Fibromyalgia, Gentle Relief Through Movement. 8. PT and OT. She saw the physical and occupational therapists today who discussed myofascial techniques, pacing, ergonomic evaluation, and, if appropriate, orthotics. 9. Injections. I am concerned for her to have future tender point injection with any of the liberty medications because of her anaphylactic reaction to intrathecal Marcaine and then a more minor reaction to dental use of one of the bibiana. She could roll against the wall with a racket ball or tennis ball to do some myofascial release in place of tender point injections. She could do electroacupuncture in place of tender point injections or she could have dry needling done which in many studies have been shown to be as effective as a tender point injection. 10. TMJ and headaches. I think the Mirapex dopamine agonist may help her TMJ along with physical therapy delivered ultrasound treatment to the TMJ joint and anti-inflammatories for her osteoarthritis. 11. Further investigations. I think we should revisit why she is not on a CPAP machine if she had a positive sleep study for sleep apnea in the . 12. Low vitamin D and low IGF-1. I think her vitamin D is just borderline low, so I would consider treating it with [id number] 800 international units of vitamin D every day for the next 3 months and recheck it at that point. If it is still low, consider 50,000 units once a week for 8 weeks. If she did not have fibromyalgia, her IGF-1 would definitely need to be worked up with an arginine growth hormone stimulation test as usually any number below 80 is fairly sensitive and specific for a pituitary of origin growth hormone deficiency syndrome. However, this does not hold true in fibromyalgia in that it is usually of hypothalamic rather than pituitary origin, and growth hormone stimulation tests are usually positive. However, if you know that she has a history of head trauma, head and neck radiation, or pituitary disease, it would be worth getting an arginine growth hormone release and hormone stimulation test. We do those at the [facility]ocrine [facility] here at [facility]. I did not order that because I did not hear that in her history. 13. Regarding the neurological symptoms and the signs and the history consistent with possible cervical myelopathy, this is a growing interest in fibromyalgia, but we generally do not have a treatment for that once someone has had cervical fusion. There is some specific physical therapy that the PT will work on regarding body alignment and neck positioning, but I do not think it is worth ordering a flexion/extension MRI of her neck to further work that up. I think it could, however, be adding to her balance deficits and her fall risk. If you have any further questions about this patient, please feel free to call me at my desk at [phone]. Otherwise, thank you for asking me to see Karen and Drake and suggest some treatment options. Sincerely, Martita Javier N.P., Ph. D / [id number] / [id number] / [id number] / documented in this encounter Plan of Treatment Not on filedocumented as of this encounter Visit Diagnoses Not on filedocumented in this encounter"
--- OUTSIDE RECORDS SUMMARY | ~2019-07-25 | XMS | Encounter Summary ---
Demographics + + + | Address | [address] | | | [place] [address] | + + + | Home Phone | | + + + | Preferred Language | Unknown | + + + | Marital Status | | + + + | Taoism Affiliation | 1025 | + + + | Race | Unknown | + + + | Ethnic Group | Unknown | + + + Author + + + | Author | [facility] | | | and [place]ana | + + + | Organization | [facility] | | | [...] Eron Benoit | ECON | [address] [place] [address] | | | | | [place] [address] | | + + + + + Care Team Providers + +------+ + | Care Heat Treat Furnace Operator Name | Role | Phone | + +------+ + | Juan M Huang DO | PCP | | + +------+ + Encounter Details +--------+ + + + + | Date | Type | Department | Care Team | Description | +--------+ + + + + | 09/20/ | Hospital | [facility] | | Abnormal chest | | 2012 | Encounter | MED CTR XRAY [address] | | x-ray; Preoperative | | | | [place] | | testing; Neck pain; | | | | [place] [address] | | Cervical spondylosis | | | | [phone] | | with myelopathy; | | | | | | S/P cervical spinal | | | | | | fusion; Cervical | | | [...] + + documented as of this encounter Medications at Time of Discharge + + + +---------+ + + | Medication | Sig | Dispensed | Refills | Start | End Date | | | | | | Date | | + + + +---------+ + + | aspirin 81 mg EC | Take 81 mg by mouth | | 0 | | | | tablet | 2 times daily. | | | | | + + + +---------+ + + | Calcium Carbonate | Take 500 mg by mouth | | 0 | | | | (CALCIUM 500 PO) | Daily. | | | | | + + + +---------+ + + | Cholecalciferol | Take by mouth | | 0 | | | | (VITAMIN D3) 2000 | Daily. | | | | | | UNITS CAPS | | | | | | + + + +---------+ + + | cyclobenzaprine | Take 10 mg by mouth | | 0 | 11/19/19 | | | (FLEXERIL) 10 mg | 3 times daily. | | | 12 | | | tablet | | | | | | + + + +---------+ + + | | Take 25 mg by mouth | | 0 | | | | hydrochlorothiazide | Daily. | | | | | | 25 mg tablet | | | | | | + + + +---------+ + + | lidocaine | Place 1 patch onto | | 0 | | | | (LIDODERM) 5% patch | the skin Daily. | | | | | | | Apply for 12 hours, | | | | | | | then remove for 12 | | | | | | | hours. | | | | | + + + +---------+ + + | lubiprostone | Take 24 mcg by mouth | | 0 | 11/19/19 | | | (AMITIZA) 24 mcg | 2 times daily. | | | 12 | | | capsule | | | | | | + + + +---------+ + + | meloxicam (MOBIC) | Take 7.5 mg by mouth | | 0 | | | | 7.5 mg tablet | Daily. | | | | | + + + +---------+ + + | metoprolol | 1/2-1 tablets by | | 0 | 11/19/19 | | | succinate (TOPROL | mouth at bedtime | | | 12 | | | XL) 50 mg 24 hr | | | | | | | tablet | | | | | | + + + +---------+ + + | OxyCODONE HCl | Take 60 mg by mouth | | 0 | | | | (OXYCONTIN PO) | 2 times daily. | | | | | + + + +---------+ + + | | Take 1-3 tablets by | | 0 | | | | oxyCODONE-acetaminop | mouth Daily as | | | | | | hen (ENDOCET) | needed. | | | | | | 7.5-325 mg per | | | | | | | tablet | | | | | | + + + +---------+ + + | pantoprazole | Take 40 mg by mouth | | 0 | | | | (PROTONIX) 40 mg | Daily. | | | | | | tablet | | | | | | + + + +---------+ + + | venlafaxine | Take 75 mg by mouth | | 0 | | | | (EFFEXOR) 75 MG | Daily. | | | | | | tablet | | | | | | + + + +---------+ + + | verapamil (VERELAN | 03/08-1 tablet at | | 0 | 11/19/19 | | | PM) 240 MG 24 hr | bedtime | | | 12 | | | capsule | | | | | | + + + +---------+ + + documented as of this encounter Plan of Treatment Not on filedocumented as of this encounter Procedures + +--------+ + + + | Procedure Name | Priori | Date/Time | Associated Diagnosis | Comments | | | ty | | | | + +--------+ + + + | XR CHEST PA AND | Routin | 09/20/2012 | Abnormal chest | Results for this | | LATERAL | e | 1:11 PM | x-ray Preoperative | procedure are in the | | | | PDT | testing | results section. | + +--------+ + + + | XR CERVICAL SPINE 4 | Routin | 09/20/2012 | Neck pain | Results for this | | OR 5 VWS | e | 1:09 PM | Cervical spondylosis | procedure are in the | | | | PDT | with myelopathy | results section. | | | | | S/P cervical spinal | | | | | | fusion Cervical | | | | | | stenosis of spinal | | | | | | canal | | + +--------+ + + + documented in this encounter Results XR Chest PA and Lateral (09/20/2012 1:11 PM PDT) + + | Specimen | + + | | + + + + + | Narrative | Performed At | + + + | [facility] Diagnostic Imaging | STORY | | Department [address] [facility] [address], [place] | [facility] | | [ rep [address]] [ rep [facility] | | [facility]] Signed | - IMAGING | | | | | Patient Name: KAREN BENOIT Ricardo Physician: | | | [id number] : 1940 Age: 72 Sex: F Unit #: [id number] | | | Exam Date: 09/20/12 [place] [facility] [place] | | | Report #: [id number] Page: | | | %(RAD)RES..mtdd.print.filter("pg") of %(RAD) | | | RES..mtdd.print.filter("tpg") | | | | | | Accession Number: [id number] | | | CHEST PA AND LATERAL CLINICAL HISTORY: ABNORMAL | | | CHEST X-RAY ON PRIOR PREOP STUDY. COMPARISON: | | | 09/12/2012 FINDINGS: Frontal and lateral views of the | | | chest. Symmetric aeration of the lungs. The lungs are now | | | clear. No pleural effusions. No pneumothorax. Cardiac silhouette | | | is not enlarged. Hilar contours are not enlarged. Osseous | | | structures are unremarkable. IMPRESSION: 1. | | | NEGATIVE 2-VIEW CHEST RADIOGRAPH. Dictated | | | Date/Time: 09/20/2012 13:11 Transcribed Date/Time: 09/20/2012 | | | 13:39 Environmental Health Inspector: | | | <<Signature on File>> | | | Eron | | | Roxy Moreno MD09/20/12 2135 <Electronically signed by Eron Ramsey | | | Josh TRISTAN> Eron Moreno MD 09/20/12 1311 | | | Environmental Health Inspector: YASSSU Bwiowilpamhqo73/17/13 1339 | | | | | + + + + + + + + | Performing | Address | City/State/Zipcode | Phone Number | | Organization | | | | + + + + + | [facility] | [address] | [place], [place] | [phone] | | [facility] | | [address] | | | - IMAGING | | | | + + + + + XR Cervical Spine 4 or 5 Vws (09/20/2012 1:09 PM PDT) + + | Specimen | + + | | + + + + + | Narrative | Performed At | + + + | [facility] Diagnostic Imaging | STORY | | Department [address] [facility], [place] | [facility] | | [ rep [address]] [ rep ct [facility] | | st zip] Signed | - IMAGING | | | | | Patient Name: KAREN BENOIT Physician: | | | [id number] : 1940 Age: 72 Sex: F Unit #: [id number] | | | Exam Date: 09/20/12 Location: [facility] [place] | | | Report #: [id number] Page: | | | %(RAD)RES..mtdd.print.filter("pg") of %(RAD) | | | RES..mtdd.print.filter("tpg") | | | | | | Accession Number: [id number] | | | CERVICAL SPINE, 09/20/2012 CLINICAL [...] Transcribed Date/Time: 09/20/2012 | | | 13:40 Environmental Health Inspector: ÁngelJANET <<Signature | | | on File>> | | | Eron | | | Roxy Moreno MD09/20/12 2135 <Electronically signed by Eron Hooker | Nhung Moreno MD> Eron Moreno MD 09/20/12 1309 | | | Environmental Health Inspector: YASSSU [id number]/17/13 1340 | | | | | + + + + + + + + | Performing | Address | City/State/Zipcode | Phone Number | | Organization | | | | + + + + + | [facility] | [address] | [place] | [phone] | | [facility] | | [address] | | | - IMAGING | | | | + + + + + documented in this encounter Visit Diagnoses + + | Diagnosis | + + | Abnormal chest x-ray Other nonspecific abnormal finding of lung field | + + | Preoperative testing Preoperative examination, unspecified | + + | Neck pain Cervicalgia | + + | Cervical spondylosis with myelopathy | + + | S/P cervical spinal fusion Arthrodesis status | + + | Cervical stenosis of spinal canal Spinal stenosis in cervical region | + + documented in this encounter
--- OUTSIDE RECORDS SUMMARY | ~2019-07-25 | XMS | Encounter Summary ---
Demographics + + + | Address | [address] | | | [place] [address] | + + + | Home Phone | | + + + | Preferred Language | Unknown | + + + | Marital Status | | + + + | Buddhist Affiliation | 1025 | + + + | Race | Unknown | + + + | Ethnic Group | Unknown | + + + Author + + + | Author | [facility] | | | and [place] | + + + | Organization | [facility] | | | and [...] Eron Gottlieb | ECON | [address] [place] [address] | | | | | , [place] [address] | | + + + + + Care Team Providers + +------+ + | Care Shoeshiner Name | Role | Phone | + +------+ + PCP | Unavailable | + +------+ + Encounter Details +--------+ + + + + | Date | Type | Department | Care Team | Description | +--------+ + + + + | 10/31/ | Hospital | [facility] | Jac Riley | | | 2011 | Encounter | MED CTR XRAY [address] | F, MD [address] | | | | | [address] [place] | [address] [place], [place] | | | | | [place] [address] | [address] | | | | | [phone] | [phone] | | | | | | | | +--------+ + [...] + +--------+ + + + | XR LUMBAR SPINE 2 OR | | 11/01/2011 | | Results for this | | 3 VW | | 12:54 PM | | procedure are in the | | | | PDT | | results section. | + +--------+ + + + documented in this encounter Results XR Lumbar Spine 2 or 3 Vw (11/01/2011 12:54 PM PDT) + + | Specimen | + + | | + + + + + | Narrative | Performed At | + + + | [facility] Diagnostic Imaging Department | [facility] | | [address] [facility] [address] [facility] | [facility] | | TWO VIEWS LUMBAR SPINE, | DIAG IMG | | 11/01/2011 CLINICAL HISTORY: FOLLOWUP LUMBAR FUSION. | | | COMPARISON: Lumbar radiographs 09/09/2011 and 07/09/2011, lumbar MRI | | | 12/18/2010. FINDINGS: Five [id number]-[id number], lumbar-type | | | vertebrae are again visible. Interbody and posterior vu and pedicle | | | screw fusion hardware again extends from L3 through S1 and appears | | | stable and satisfacto ry in position and alignment. Leftward lumbar | | | curvature centered at L2-3 persists. Lumbar vertebral h eight and | | | alignment are otherwise maintained, without evident fracture or | | | spondylolisthesis. Moderate disk space narrowing and vertebral | | | spondylosis persist at L2-3, with slightly lesser degenerative ch | | | anges present at L1-2. The sacroiliac joints, imaged sacrum, bony | | | pelvis and lower ribs are unremarka ble. Surgical clips again project | | | at the level of the gallbladder fossa. IMPRESSION: 1. STABLE, | | | SATISFACTORY APPEARANCE STATUS POST INTERBODY AND POSTERIOR VU AND | | | PEDICLE SCREW FUSION A T L3-4, L4-5 AND L5-S1. 2. LUMBAR | | | LEVOSCOLIOSIS WITH DEGENERATIVE DISK DISEASE AND SPONDYLOSIS AT L1-2 | | | AND L2-3. Dictated Date/Time: 11/01/2011 13:55 Transcribed | | | Date/Time: 11/01/2011 14:19 Skimmer: | | | <Electronically Signed by Sammy Menezes MD> 11/01/112050 | | + + + + + | Procedure Note | + + | Tommy, Rad Conversion - 04/13/2013 5:55 PM [facility] | | Diagnostic Imaging Department [address] [place] [address] | | TWO VIEWS LUMBAR SPINE, 11/01/2011 CLINICAL HISTORY: | | FOLLOWUP LUMBAR FUSION. COMPARISON: Lumbar radiographs 09/09/2011 and 07/09/2011, | | lumbar MRI 12/18/2010. FINDINGS: Five lrw-[id number]-kyvjqhp, lumbar-type vertebrae are again | | visible. Interbody and posterior vu and pedicle screw fusion hardware again extends | | from L3 through S1 and appears stable and satisfactory in position and alignment. | | Leftward lumbar curvature centered at L2-3 persists. Lumbar vertebral height and | | alignment are otherwise maintained, without evident fracture or spondylolisthesis. | | Moderate disk space narrowing and vertebral spondylosis persist at L2-3, with slightly | | lesser degenerative changes present at L1-2. The sacroiliac joints, imaged sacrum, bony | | pelvis and lower ribs are unremarkable. Surgical clips again project at the level of the | | gallbladder fossa. IMPRESSION: 1. STABLE, SATISFACTORY APPEARANCE STATUS POST | | INTERBODY AND POSTERIOR VU AND PEDICLE SCREW FUSION AT L3-4, L4-5 AND L5-S1. 2. LUMBAR | | LEVOSCOLIOSIS WITH DEGENERATIVE DISK DISEASE AND SPONDYLOSIS AT L1-2 AND L2-3. | | Dictated Date/Time: 11/01/2011 13:55Transcribed Date/Time: 11/01/2011 | | 14:19Transcriptionist: <Electronically Signed by Sammy Menezes MD> 11/01/112050 | |anges present at L1-2. The sacroiliac joints, imaged sacrum, bony pelvis and lower ribs are unremarka | |ble. Surgical clips again project at the level of the gallbladder fossa. | | | |IMPRESSION: | |1. STABLE, SATISFACTORY APPEARANCE STATUS POST INTERBODY AND POSTERIOR VU AND PEDICLE SCRE W FUSION A | |T L3-4, L4-5 AND L5-S1. | | | |2. LUMBAR LEVOSCOLIOSIS WITH DEGENERATIVE DISK DISEASE AND SPONDYLOSIS AT L1-2 AND L2-3. | | | |Dictated Date/Time: 11/01/2011 13:55 | |Transcribed Date/Time: 11/01/2011 14:19 | |Skimmer: | |<Electronically Signed by Sammy Menezes MD> 11/01/112050 | + + + +---------+ + + | Performing | Address | City/State/[facility] | Phone Number | | Organization | | | | + +---------+ + + | [place] | | | | | [place] | | | | + +---------+ + + documented in this encounter Visit Diagnoses Not on filedocumented in this encounter"
--- OUTSIDE RECORDS SUMMARY | ~2019-07-25 | XMS | Encounter Summary ---
Demographics + + + | Address | [address] | | | [place] [address] | + + + | Home Phone | | + + + | Preferred Language | Unknown | + + + | Marital Status | | + + + | Jew Affiliation | Unknown | + + + | Race | White | + + + | Ethnic Group | Not or | + + + Author + + + | Author | [facility] | + + + | Organization | [facility] | + + + | Address [...] Team Providers + +------+ + | Care Assembler Bicycle Name | Role | Phone | + +------+ + PCP | Unavailable | + +------+ + Encounter Details +--------+ + + + + | Date | Type | Department | Care Team | Description | +--------+ + + + + | 08/09/ | Results | Registration [id number] | | | | 1997 | Only | [address] | | | | | | [address] Mailcode: [address] | | | | | | [place], [place] | | | | | | [address] | | | | | | [phone] | | | +--------+ + + + [...] | + +--------+ + + + | MISCELLANEOUS | Routin | 08/09/1997 | | Results for this | | CHEMISTRY TESTS | e | 6:20 PM | | procedure are in the | | | | PDT | | results section. | + +--------+ + + + | CHEMISTRY TESTS 4 | Routin | 08/09/1997 | | Results for this | | | e | 4:51 PM | | procedure are in the | | | | PDT | | results section. | + +--------+ + + + | CHEMISTRY TESTS 4 | Routin | 08/09/1997 | | Results for this | | | e | 4:51 PM | | procedure are in the | | | | PDT | | results section. | + +--------+ + + + | CBC TESTS 2 | Routin | 08/09/1997 | | Results for this | | | e | 4:51 PM | | procedure are in the | | | | PDT | | results section. | + +--------+ + + + | IMMUNOLOGY TESTS 1 | Routin | 08/09/1997 | | Results for this | | | e | 4:51 PM | | procedure are in the | | | | PDT | | results section. | + +--------+ + + + | MISCELLANEOUS | Routin | 08/09/1997 | | Results for this | | CHEMISTRY TESTS | e | 4:51 PM | | procedure are in the | | | | PDT | | results section. | + +--------+ + + + | URINALYSIS TESTS | Routin | 08/09/1997 | | Results for this | | | e | 4:51 PM | | procedure are in the | | | | PDT | | results section. | + +--------+ + + + documented in this encounter Results MISCELLANEOUS CHEMISTRY TESTS (08/09/1997 6:20 PM PDT) + + + + + + | Component | Value | Ref Range | Performed | Pathologist | | | | | At | Signature | + + + + + + | SAMPLE | GREEN TOP PLASMA | | | | | TYPE-ROUTIN | | | | | | G | | | | | + + + + + + | TEST | VERY LONG CHAIN FATTY | | | | | REQUESTED | ACIDS | | | | + + + + + + | SENT TO | [facility] | | | | | | LAB:EXT [phone] | | | | + + + + + + + + | Specimen | + + | | + + + + + + + | Performing | Address | City/State/Zipcode | Phone Number | | Organization | | | | + + + + + | [facility] | [address] | [place] [address] | | | PATHOLOGY | [address] | | | + + + + + CHEMISTRY TESTS 4 (08/09/1997 4:51 PM PDT) + + + + + [...] + + + + | POTASSIUM, | 4. | mmol/l | | | | PLASMA | | | | | | (LAB) | | | | | + + + + + + | CHLORIDE, | 107. | mmol/l | | | | PLASMA | | | | | | (LAB) | | | | | + + + + + + | TOTAL CO2, | 29. | mmol/l | | | | PLASMA | | | | | | (LAB) | | | | | + + + + + + | BUN, PLASMA | 15. | mg/dL | | | | (LAB) | | | | | + + + + + + | CREATININE | 1. | mg/dL | | | | PLASMA | | | | | | (LAB) | | | | | + + + + + + | GLUCOSE, | 100. | mg/dL | | | | PLASMA | | | | | | (LAB) | | | | | + + + + + + + + | Specimen | + + | | + + + + + + + | Performing | Address | City/State/Zipcode | Phone Number | | Organization | | | | + + + + + | [facility] | [address] | [place] [address] | | | PATHOLOGY | [address] | | | + + + + + URINALYSIS TESTS (08/09/1997 4:51 PM PDT) + + + + + + | Component | Value | Ref Range | Performed | Pathologist | | | | | At | Signature | + + + + + + | COLOR(UR) | STRAW | | | | + + + + + + | APPEARANCE | CLEAR | | | | + + + + + + | GLUCOSE(UR) | NEG | mg/dL | | | + + + + + + | BILIRUBIN | NEG | mg/dL | | | + + + + + + | KETONES | NEG | mg/dL | | | + + + + + + | SPECIFIC | 1.005 | mg/dL | | | | GRAVITY [...] | + + + + + | [facility] | [address] | [place] [address] | | | PATHOLOGY | [address] | | | + + + + + CBC TESTS 2 (08/09/1997 4:51 PM PDT) + + + + + + | Component | Value | Ref Range | Performed | Pathologist | | | | | At | Signature | + + + + + + | SEDIMENTATI | 11. | MM/HR | | | | ON RATE | | | | | + + + + + + + + | Specimen | + + | | + + + + + + + | Performing | Address | City/State/Zipcode | Phone Number | | Organization | | | | + + + + + | [facility] | [address] | [place] [address] | | | PATHOLOGY | [address] | | | + + + + + IMMUNOLOGY TESTS 1 (08/09/1997 4:51 PM PDT) + + + + + + | Component | Value | Ref Range | Performed | Pathologist | | | | | At | Signature | + + + + + + | LAKISHA SCREEN | POSITIVE | | | | | ON HEP | | | | | | 2,SERUM | | | | | + + + + + + | LAKISHA PATTERN | HOMOGENEOUS | | | | + + + + + + | LAKISHA TITER | 1:40 | DIL. | | | | ON HEP2 | | | | | + + + + + + | VITAMIN | 365. | pg/mL | | | | B12, SERUM | | | | | + + + + + + + + | Specimen | + + | | + + + + + + + | Performing | Address | City/State/Zipcode | Phone Number | | Organization | | | | + + + + + | [facility] | [address] | [place] [address] | | | PATHOLOGY | [address] | | | + + + + + MISCELLANEOUS CHEMISTRY TESTS (08/09/1997 4:51 PM PDT) + + + + + + | Component | Value | Ref Range | Performed | Pathologist | | | | | At | Signature | + + + + + + | TSH | 0.86 | mIU/ML | | | + + + + + + + + | Specimen | + + | | + + + + + + + | Performing | Address | City/State/Zipcode | Phone Number | | Organization | | | | + + + + + | [facility] | [address] | [place] [address] | | | PATHOLOGY | [address] | | | + + + + + CHEMISTRY TESTS 4 (08/09/1997 4:51 PM PDT) + + + + + + | Component | Value | Ref Range | Performed | Pathologist | | | | | At | Signature | + + + + + + | HEMOGLOBIN | 5.7 | % | | | | A1C | | | | | + + + + + + + + | Specimen | + + | | + + + + + + + | Performing | Address | City/State/Zipcode | Phone Number | | Organization | | | | + + + + + | [facility] | [address] | [place] [address] | | | PATHOLOGY | [address] | | | + + + + + documented in this encounter Visit Diagnoses Not on filedocumented in this encounter"
--- OUTSIDE RECORDS SUMMARY | ~2019-07-25 | XMS | Encounter Summary ---
Demographics + + + | Address | [address] | | | [place] [address] | + + + | Home Phone | | + + + | Preferred Language | Unknown | + + + | Marital Status | | + + + | Orthodoxy Affiliation | Unknown | + + + [...] + + + | Eron Gottlieb | CRISTINA | [place] | | + + + + + Care Team Providers + +------+ + | Care Cook Vegetable Name | Role | Phone | + +------+ + PCP | Unavailable | + +------+ + Encounter Details +--------+ + + + + | Date | Type | Department | Care Team | Description | +--------+ + + + + | 11/04/ | Procedure - | | Record, Operation | Operative Report | | 2000 | | | | | | | Transcribed | | | | +--------+ + + [...] + + | OPERATION RECORD | | 11/04/2000 | | Results for this | | | | | | procedure are in the | | | | | | results section. | + +--------+ + + + documented in this encounter Results OPERATION RECORD (11/04/2000) + + | Transcriptions | + + | Interface, Comparator Operator In - 12/13/2005 3:11 AM PDT | | [place] [address] | | [place], [place] [address] | | [facility] RECORDMed Rec No.: | | [id number] Date: 11/04/2000Name: Magdalene Gottlieb SURGEON: | | Jeff Avila M.D.MAP COMPILER: Cata | | Bartolome GarcíaPREOPERATIVE DIAGNOSIS:Mechanical lumbosacral pain.POSTOPERATIVE | | DIAGNOSIS:Mechanical lumbosacral pain probably associated with internal | | discdegeneration.PRINCIPAL PROCEDURE PERFORMED:Lumbosacral provocative | | discography.ANESTHESIA:Local anesthesia with sedation and monitoring supervised by | | Jeff Hart M.D., delivered by Werner Garcia R.N.SPECIMENS:None.URINE | | OUTPUT:None.ESTIMATED BLOOD LOSS:None.DRAINS:None.INTRAVENOUS FLUIDS:Lactated Ringers, | | 500 mL.COMPLICATIONS:There were no complications.INDICATIONS:The patient is a | | 61-year-old female with history of mechanical back painand evidence of several levels | | of severe internal disc degeneration on aplain x-ray and magnetic resonance | | imaging study. She has severelimitation in her function rate of motion. She also | | has a substantialamount of myofascial pain. The patient is here today for a | | lumbosacralprovacative discography in order to find out if she would be a | | surgicalcandidate.The patient, in the past, had been scheduled for a discography | | which waspostponed as the patient had an episode of probable | | paroxysmalsupraventricular tachycardia which resolved on its own without treatment.We | | had advised the patient to undergo a cardiological evaluation followingwhich we would | | do the procedure if everything was normal.The patient was evaluated by cardiology and | | the reports and consult sent tous by the loader operator/ground leader were reviewed and the decision | | was taken to proceedwith the procedure as there were no apparent contra-indications as | | far ascardiology was concerned.The patient today, again described her pain as 7/10 | | in her lower back onthe visual analog scale. The patient states that since her last | | visit, herpain has not changed considerably. She has numbness in the left side inthe | | front and back of her upper body and she complains of weakness in herlegs and arms. | | She does complain of some constipation and bowel pain. Hercurrent pain regimen provides | | her about 70 percent pain relief and she suzan OxyContin, 40 mg twice a day, | | lorazepam, 1 mg, 1 to 3 times a day foranxiety. She also takes Effexor XR, 75 mg | | once a day for sleep. Thepatient also takes some cardiac medications for her blood | | pressure.OPERATIVE FINDINGS:1) L2-L3 disc opening pressure is 6 PSI. The patient | | reported 5/10 pressure sensation at 32 PSI.2) L3-L4 opening pressure is 4 PSI. | | The patient reports pain in herback of 5/10 at 49 PSI.3) L4-5 opening pressure 8 PSI. | | The patient complained of her typicalpain at 37 PSI.4) L5-S1 opening pressure of 16 | | PSI and the patient reported her typicalpain at 37 PSI.5) Also the discs at L2-L3 | | and L3-L4 levels were incontinent.DESCRIPTION OF PROCEDURE:A detailed PARQ discussion | | was held with the patient. All questions wereanswered. The patient agreed to proceed | | with the procedure and signed awritten consent. A 20 gauge intravenous catheter | | was placed in her lefthand and 2 mg of intravenous cefazolin were given 1-1/2 hours | | prior to theprocedure. She was then escorted to the [facility] | | [facility] procedure suite, where she positioned herself proneon | | the examination table. Her back was prepared with Hibiclens, alcoholand Duraprep. | | She was prepped out in a sterile fashion and steriletechnique was used during the | | procedure.A fluoroscope was positioned to count the five lumbar vertebrae | | thenpositioned in a right lateral oblique position to expose the intersectionof the | | inferior endplate of the L5-S1 interspace at the facet articularprocess. Then 1 | | percent lidocaine skin wheal was placed here and a 20gauge introducer needle was | | then placed through that wheal. A 22 gauge 6.5inch Chiba needle was positioned during | | intermittent fluoroscopic guidanceinto the intervertebral discs and then was further | | positioned so the tipwas in the geometrical center of the disc. There were | | paraesthesias duringthe placement.At this point, the fluoroscope was positioned to | | indicate the L4-L5 disc germán similar fashion. After placement of a skin wheal and | | introducer needle,another Chiba needle was positioned under intermittent fluoroscopy | | into thegeometric center of the L4-L5 intervertebral disc on the first attempt.There | | were no paraesthesias.The fluoroscopy was repositioned over the L3-L4 intervertebral | | disc and inthe right oblique position, a skin wheal and introducer needle were placedin | | a similar fashion. The Chiba needle was then placed under intermittentfluoroscopy | | into the geometrical center of the intervertebral disc. Werepeated the same | | technique for the L2-L3 intervertebral disc and a 22gauge 6.5 inch Chiba needle was | | then placed into the geometrical center ofthe intervertebral disc.During this period | | of time, the patient had remained sedated with propofolintravenous infusion. This was | | discontinued and once the patient wasawake, we began to inject the L2-L3 | | intervertebral discs with Omnipaque 300with 10 mg per cc of cefazolin. The results of | | the injections are found inthe findings section.We then proceed to inject the L3-L4, | | L4-L5 and L5-S1 discs. The patientreported her typical pain sensations at the | | L4-L5 and the L5-S1 discinjections. After adequate clinical and fluoroscopic data | | were obtained,the needles were removed and the patient was given some | | intravenousfentanyl for pain control. She was then transferred by a stretcher to | | [facility] | | where she had an uneventful recovery.She was discharged with oral analgesic medications | | and we will review hercomputerized tomography scan before determining further plan. | | The patienttolerated the procedure well and had no apparent complications.ATTENDING | | SURGEON'S ATTESTATION:Pursuant to Federal Medicare billing and coding regulations, I | | certify thatduring this entire procedure, Jeff Avila M.D. was present.[facility] | | Amy García. Jeff Avila M.D.:x63D: 11/04/2000T: | | 11/06/2000cc:Brad Acharya Jr., M.D.[facility] | | [facility] [address] [place] [address] [id number]: | |1) L2-L3 disc opening pressure is 6 PSI. The patient reported 5/10 | | pressure sensation at 32 PSI. | |2) L3-L4 opening pressure is 4 PSI. The patient reports pain in her | |back of 5/10 at 49 PSI. | |3) L4-5 opening pressure 8 PSI. The patient complained of her typical | |pain at 37 PSI. | |4) L5-S1 opening pressure of 16 PSI and the patient reported her typical | |pain at 37 PSI. | |5) Also the discs at L2-L3 and L3-L4 levels were incontinent. | | | |DESCRIPTION OF PROCEDURE: | |A detailed PARQ discussion was held with the patient. All questions were | |answered. The patient agreed to proceed with the procedure and signed a | |written consent. A 20 gauge intravenous catheter was placed in her left | |hand and 2 mg of intravenous cefazolin were given 1-1/2 hours prior to the | |procedure. She was then escorted to the [facility] | |[facility] procedure suite, where she positioned herself prone | |on the examination table. Her back was prepared with Hibiclens, alcohol | |and Duraprep. She was prepped out in a sterile fashion and sterile | |technique was used during the procedure. | | | |A fluoroscope was positioned to count the five lumbar vertebrae then | |positioned in a right lateral oblique position to expose the intersection | |of the inferior endplate of the L5-S1 interspace at the facet articular | |process. Then 1 percent lidocaine skin wheal was placed here and a 20 | |gauge introducer needle was then placed through that wheal. A 22 gauge 6.5 | |inch Chiba needle was positioned during intermittent fluoroscopic guidance | |into the intervertebral discs and then was further positioned so the tip | |was in the geometrical center of the disc. There were paraesthesias during | |the placement. | | | |At this point, the fluoroscope was positioned to indicate the L4-L5 disc in | |a similar fashion. After placement of a skin wheal and introducer needle, | |another Chiba needle was positioned under intermittent fluoroscopy into the | |geometric center of the L4-L5 intervertebral disc on the first attempt. | |There were no paraesthesias. | | | |The fluoroscopy was repositioned over the L3-L4 intervertebral disc and in | |the right oblique position, a skin wheal and introducer needle were placed | |in a similar fashion. The Chiba needle was then placed under intermittent | |fluoroscopy into the geometrical center of the intervertebral disc. We | |repeated the same technique for the L2-L3 intervertebral disc and a 22 | |gauge 6.5 inch Chiba needle was then placed into the geometrical center of | |the intervertebral disc. | | | |During this period of time, the patient had remained sedated with propofol | |intravenous infusion. This was discontinued and once the patient was | |awake, we began to inject the L2-L3 intervertebral discs with Omnipaque 300 | |with 10 mg per cc of cefazolin. The results of the injections are found in | |the findings section. | | | |We then proceed to inject the L3-L4, L4-L5 and L5-S1 discs. The patient | |reported her typical pain sensations at the L4-L5 and the L5-S1 disc | |injections. After adequate clinical and fluoroscopic data were obtained, | |the needles were removed and the patient was given some intravenous | |fentanyl for pain control. She was then transferred by a stretcher to the | |[facility] Post Anest[facility] | |Care Unit where she had an uneventful recovery. | | | |She was discharged with oral analgesic medications and we will review her | |computerized tomography scan before determining further plan. The patient | |tolerated the procedure well and had no apparent complications. | | | |ATTENDING SURGEON'S ATTESTATION: | |Pursuant to Federal Medicare billing and coding regulations, I certify that | |during this entire procedure, Jeff Avila M.D. was present. | | | | | | | |Cata RickyBartolome M.D. | | | |:x63 | | | | | | | | | | | |cc: | | | | | | | |Brad Acharya Jr., M.D. | |[facility] | | | | | | | |THUAN TOLBERT DO | | [address] | |[facility] [address] | | | | | | | |[id number] | | | |CC: | + + documented in this encounter Visit Diagnoses Not on filedocumented in this encounter"
--- OUTSIDE RECORDS SUMMARY | ~2019-07-25 | XMS | Encounter Summary ---
Demographics + + + | Address | [address] | | | [place] [address] | + + + | Home Phone | | + + + | Preferred Language | Unknown | + + + | Marital Status | | + + + | Shinto Affiliation | Unknown | + + + | Race | White | + + + | Ethnic Group | Not or | + + + Author + + + | Author | [facility] | + + + | Organization | [facility] | + + + | Address [...] Team Providers + +------+ + | Care Truck Loader And Unloader Name | Role | Phone | + +------+ + PCP | Unavailable | + +------+ + Encounter Details +--------+ + + + + | Date | Type | Department | Care Team | Description | +--------+ + + + + | 02/19/ | Results | Registration [id number] | | | | 1996 | Only | [address] | | | | | | [address] Mailcode: [id number] | | | | | | [place], [place] | | | | | | [address] | | | | | | [phone] | | | +--------+ + + + [...] + + | MISCELLANEOUS | Routin | 04/30/1998 | | Results for this | | CHEMISTRY TESTS | e | 11:26 AM | | procedure are in the | | | | PST | | results section. | + +--------+ + + + | MISCELLANEOUS | Routin | 04/30/1998 | | Results for this | | CHEMISTRY TESTS | e | 11:24 AM | | procedure are in the | | | | PST | | results section. | + +--------+ + + + | MISCELLANEOUS | Routin | 04/30/1998 | | Results for this | | CHEMISTRY TESTS | e | 11:22 AM | | procedure are in the | | | | PST | | results section. | + +--------+ + + + | CHEMISTRY TESTS 4 | Routin | 02/19/1998 | | Results for this | | | e | 10:02 AM | | procedure are in the | | | | PST | | results section. | + +--------+ + + + | CHEMISTRY TESTS 4 | Routin | 02/19/1998 | | Results for this | | | e | 10:02 AM | | procedure are in the | | | | PST | | results section. | + +--------+ + + + | CHEMISTRY TESTS 4 | Routin | 02/19/1998 | | Results for this | | | e | 10:02 AM | | procedure are in the | | | | PST | | results section. | + +--------+ + + + | CBC TESTS 2 | Routin | 02/19/1998 | | Results for this | | | e | 10:02 AM | | procedure are in the | | | | PST | | results section. | + +--------+ + + + | IMMUNOLOGY TESTS 1 | Routin | 02/19/1998 | | Results for this | | | e | 10:02 AM | | procedure are in the | | | | PST | | results section. | + +--------+ + + + | IMMUNOLOGY TESTS 1 | Routin | 02/19/1998 | | Results for this | | | e | 10:02 AM | | procedure are in the | | | | PST | | results section. | + +--------+ + + + | MISCELLANEOUS | Routin | 02/19/1998 | | Results for this | | CHEMISTRY TESTS | e | 10:02 AM | | procedure are in the | | | | PST | | results section. | + +--------+ + + + documented in this encounter Results MISCELLANEOUS CHEMISTRY TESTS (04/30/1998 11:26 AM PST) + + + + + + | Component | Value | Ref Range | Performed | Pathologist | | | | | At | Signature | + + + + + + | MISC REF | GM1 AB, SERUM | | | | | TEST NAME | | | | | + + + + + + | MISC REF | <10 | | | | | TEST RESULT | | | | | + + + + + + | MISC REF | EIA UNITS | | | | | TEST UNITS | | | | | + + + + + + | REFERRAL | SPECIALTY,[facility] | | | | | LAB NAME | | | | | + + + + + + | NORMAL | <10 | | | | | RANGE | | | | | + + + + + + + + | Specimen | + + | | + + + + + + + | Performing | Address | City/State/Zipcode | Phone Number | | Organization | | | | + + + + + | [facility] | [address] | [place] [address] | | | PATHOLOGY | [address] | | | + + + + + MISCELLANEOUS CHEMISTRY TESTS (04/30/1998 11:24 AM PST) + + + + + + | Component | Value | Ref Range | Performed | Pathologist | | | | | At | Signature | + + + + + + | MISC REF | SULFATIDE AB, SERUM | | | | | TEST NAME | | | | | + + + + + + | MISC REF | <15 | | | | | TEST RESULT | | | | | + + + + + + | MISC REF | EIA UNITS | | | | | TEST UNITS | | | | | + + + + + + | REFERRAL | [facility] | | | | | LAB NAME | | | | | + + + + + + | NORMAL | <15 | | | | | RANGE | | | | | + + + + + + + + | Specimen | + + | | + + + + + + + | Performing | Address | City/State/Zipcode | Phone Number | | Organization | | | | + + + + + | [facility] | [address] | [place] [address] | | | PATHOLOGY | [address] | | | + + + + + MISCELLANEOUS CHEMISTRY TESTS (04/30/1998 11:22 AM PST) + + + + + + | Component | Value | Ref Range | Performed | Pathologist | | | | | At | Signature | + + + + + + | MISC REF | MAG AB, SERUM | | | | | TEST NAME | | | | | + + + + + + | MISC REF | <10 | | | | | TEST RESULT | | | | | + + + + + + | MISC REF | EIA UNITS | | | | | TEST UNITS | | | | | + + + + + + | REFERRAL | [facility] | | | | | LAB NAME | | | | | + + + + + + | NORMAL | <10 | | | | | RANGE | | | | | + + + + + + + + | Specimen | + + | | + + + + + + + | Performing | Address | City/State/Zipcode | Phone Number | | Organization | | | | + + + + + | [facility] | [address] | [place] [address] | | | PATHOLOGY | [address] | | | + + + + + CHEMISTRY TESTS 4 (02/19/1998 10:02 AM PST) + + + + + + | Component | Value | Ref Range | Performed | Pathologist | | | | | At | Signature | + + + + + + | LACTIC ACID | 0.9 | mmol/l | | | + + + + + + + + | Specimen | + + | | + + + + + + + | Performing | Address | City/State/Zipcode | Phone Number | | Organization | | | | + + + + + | [facility] | [address] | [place] [address] | | | PATHOLOGY | [address] | | | + + + + + CHEMISTRY TESTS 4 (02/19/1998 10:02 AM PST) + + + + + + | Component | Value | Ref Range | Performed | Pathologist | | | | | At | Signature | + + + + + + | AMMONIA | 49. (H) | umol/L | | | | (LAB) | | | | | + + + + + + + + | Specimen | + + | | + + + + + + + | Performing | Address | City/State/Zipcode | Phone Number | | Organization | | | | + + + + + | [facility] | [address] | [place] [address] | | | PATHOLOGY | [address] | | | + + + + + CHEMISTRY TESTS 4 (02/19/1998 10:02 AM PST) + + + + + + | Component | Value | Ref Range | Performed | Pathologist | | | | | At | Signature | + + + + + + | CK | 149. | U/L | | | + + + + + + + + | Specimen | + + | | + + + + + + + | Performing | Address | City/State/Zipcode | Phone Number | | Organization | | | | + + + + + | [facility] | [address] | [place] [address] | | | PATHOLOGY | [address] | | | + + + + + MISCELLANEOUS CHEMISTRY TESTS (02/19/1998 10:02 AM PST) + + + + + + | Component | Value | Ref Range | Performed | Pathologist | | | | | At | Signature | + + + + + + | TOTAL | 6.8 | GM/DL | | | | PROTEIN, | | | | | | SERUM - | | | | | | SPEP | | | | | + + + + + + | ALBUMIN,SER | 3.6 | GM/DL | | | | UM - SPEP | | | | | + + + + + + | ALPHA-1, | 0.5 (H) | GM/DL | | | | SERUM - | | | | | | SPEP | | | | | + + + + + + | ALPHA-2, | 0.8 | GM/DL | | | | SERUM - | | | | | | SPEP | | | | | + + + + + + | BETA, SERUM | 1. | GM/DL | | | | - SPEP | | | | | + + + + + + | GAMMA, | 0.9 | GM/DL | | | | SERUM - | | | | | | SPEP | | | | | + + + + + + | SPEP | NORMAL PATTERN | GM/DL | | | | COMMENT | | | | | + + + + + + | IMMUNOFIXAT | TEST NOT INDICATED | GM/DL | | | | ION, SERUM | | | | | + + + + + + + + | Specimen | + + | | + + + + + + + | Performing | Address | City/State/Zipcode | Phone Number | | Organization | | | | + + + + + | [facility] | [address] | [place] [address] | | | PATHOLOGY | [address] | | | + + + + + CBC TESTS 2 (02/19/1998 10:02 AM PST) + + + + + + | Component | Value | Ref Range | Performed | Pathologist | | | | | At | Signature | + + + + + + | WHITE CELL | 5.6 | K/CU MM | | | | COUNT | | | | | + + + + + + | RED CELL | 4.51 | M/CU MM | | | | COUNT | | | | | + + + + + + | HEMOGLOBIN | 13.7 | GM/DL | | | + + + + + + | HEMATOCRIT | 40.3 | % | | | + + + + + + | MCV | 89.4 | FL | | | + + + + + + | MCH | 30.3 | PG | | | + + + + + + | MCHC | 33.9 | GM/DL | | | + + + + + + | RDW | 12.6 | % | | | + + + + + + | PLATELET | 271. | K/CU MM | | | | COUNT | | | | | + + + + + + | MPV | 8. | FL | | | + + + + + + | NEUTROPHIL | 71. | % | | | | % | | | | | + + + + + + | LYMPHOCYTE | 22. | % | | | | % | | | | | + + + + + + | MONOCYTE % | 6. | % | | | + + + + + + | EOS % | 1. | % | | | + + + + + + | BASO % | 1. | % | | | + + + + + + | NEUTROPHIL | 4. | K/CU MM | | | | # | | | | | + + + + + + | LYMPHOCYTE | 1.2 | K/CU MM | | | | # | | | | | + + + + + + | MONOCYTE # | 0.3 | K/CU MM | | | + + + + + + | EOS # | 0.1 | K/CU MM | | | + + + + + + | BASO # | 0. | K/CU MM | | | + + + + + + | SEDIMENTATI | 36. (H) | MM/HR | | | | ON RATE | | | | | + + + + + + + + | Specimen | + + | | + + + + + + + | Performing | Address | City/State/Zipcode | Phone Number | | Organization | | | | + + + + + | [facility] | [address] | [place] [address] | | | PATHOLOGY | [address] | | | + + + + + IMMUNOLOGY TESTS 1 (02/19/1998 10:02 AM PST) + + + + + + | Component | Value | Ref Range | Performed | Pathologist | | | | | At | Signature | + + + + + + | CENTROMERE | NEGATIVE | | | | | AB | | | | | + + + + + + | MARTA AB | COLLECTD | | | | | IDENT. | | | | | + + + + + + | SSA AB | NEGATIVE | | | | + + + + + + | SSB AB | NEGATIVE | | | | + + + + + + | SM AB | NEGATIVE | | | | + + + + + + | RN STARS AB | NEGATIVE | | | | + + + + + + | SCL-70 AB | NEGATIVE | | | | + + + + + + | CHRISTIANO-1 AB | NEGATIVE | | | | + + + + + + + + | Specimen | + + | | + + + + + + + | Performing | Address | City/State/Zipcode | Phone Number | | Organization | | | | + + + + + | [facility] | [address] | [place] [address] | | | PATHOLOGY | [address] | | | + + + + + IMMUNOLOGY TESTS 1 (02/19/1998 10:02 AM PST) + +-------+ + + + | Component | Value | Ref Range | Performed | Pathologist | | | | | At | Signature | + +-------+ + + + | RHEUMATOID | <20 | IU/mL | | | | FACTOR | | | | | + +-------+ + + + + + | Specimen | + + | | + + + + + + + | Performing | Address | City/State/Zipcode | Phone Number | | Organization | | | | + + + + + | [facility] | [address] | [place] [address] | | | PATHOLOGY | [address] | | | + + + + + documented in this encounter Visit Diagnoses Not on filedocumented in this encounter"
--- OUTSIDE RECORDS SUMMARY | ~2019-07-25 | XMS | Encounter Summary ---
Demographics + + + | Address | [address] | | | [place] [address] | + + + | Home Phone | | + + + | Preferred Language | Unknown | + + + | Marital Status | | + + + | Tenriism Affiliation | 1025 | + + + | Race | Unknown | + + + | Ethnic Group | Unknown | + + + Author + + + | Author | [facility] | | | and [place] | + + + | Organization | [facility] | | [...] Eron Gottlieb | ECON | [address] [place] [address] | | | | | [place] [address] | | + + + + + Care Team Providers + +------+ + | Care Rn Baby Name | Role | Phone | + +------+ + | Juan M Huang DO | PCP | | + +------+ + Encounter Details +--------+ + + + + | Date | Type | Department | Care Team | Description | +--------+ + + + + | 08/18/ | Imaging | [facility] | Provider, | | | 2017 | Exam | [facility] | [facility] [address] | | | | | IMAGING [address] | | | | | [address] | [place] [address] | | | | | [place] [address] | | | | | | [phone] | | | +--------+ + + + [...] | + +--------+ + + + | MRI LUMBAR SPINE W | Routin | 08/27/2013 | | Results for this | | WO CONTRAST | e | 10:05 AM | | procedure are in the | | | | PDT | | results section. | + +--------+ + + + documented in this encounter Results MRI Lumbar Spine w wo Contrast (08/27/2013 10:05 AM PDT) + + | Specimen | + + | | + + + + + | Narrative | Performed At | + + + | External films for comparison only - no result from [facility]. | [facility] | + + + + +---------+ + + | Performing | Address | City/State/Zipcode | Phone Number | | Organization | | | | + +---------+ + + | [facility] | | | | + +---------+ + + documented in this encounter Visit Diagnoses Not on filedocumented in this encounter"
--- OUTSIDE RECORDS SUMMARY | ~2019-07-25 | XMS | Encounter Summary ---
Demographics + + + | Address | [address] | | | [place] [address] | + + + | Home Phone | | + + + | Preferred Language | Unknown | + + + | Marital Status | | + + + | Hindu Affiliation | Unknown | + + + | Race | White | + + + | Ethnic Group | Not or | + + + Author + + + | Author | [facility] | + + + | Organization | [facility] | + + + | [...] Team Providers + +------+ + | Care Storage Solutions Architect Name | Role | Phone | + +------+ + PCP | Unavailable | + +------+ + Encounter Details +--------+ + + + + | Date | Type | Department | Care Team | Description | +--------+ + + + + | 08/02/ | Transcribed | Allergy [facility] at | Dictation, Other | Transcribed | | 1997 | | [facility] | | | | | | [facility] | | | | | | [facility] | | | | | | [facility], [address] [place] [address] | | | | | | [place], [place] | | | | | | [address] | | | | | | [phone] | | | +--------+ + + + [...] as of this encounter Progress Notes Interface, Supervising Film Or Videotape Editor In - 03/25/2006 5:08 AM PST [address] [address] or August 02, 1997 THUAN TOLBERT MD [address] [place] [address] [place] [address] RE:KAREN BENOIT MR#:[id number] Tolbert: I had the pleasure of seeing Karen Benoit today in the Neurology area. As you know, she had been previously here by Dr. Acharya who operated on her neck in 1995, at the C4-5 level. He re-evaluated her in June of this year and didn't feel, based on her review of her more recent MRI of her cervical spine, that there was something further for him to do independent of a non-mechanical reason for her symptoms. I have the 1995 and 1996 MRIs to review. The previous preoperative MRI of the neck showed a C4-5 disk with several bulges at C3-4 and C6-7 as well, but the C4-5 level was the worst level. The lumbar region showed some disk bulges as well, but nothing outstanding, and on the 1996 MRI the cervical spine is entirely different with some relief of the C4-5 area. She has had complaints since 1992, when she slipped at that time, but didn't fall down, and jerked her body carrying a heavy pot of grease and since that time, she has had trouble with her neck and low back, pretty much the same symptoms, although they tend to be getting worse and sensory level of dysesthesias from T5 down on the left side. Her most outstanding complaints are her dysesthesias on the left side. She also claims the left leg is getting weak and the right leg is getting weak. She also has low back pain and radicular pain down the right leg. There is also low back pain radiating to the left hip area but not down the leg. She says that the left side of her body is numb including her vagina on the left side. Coughing and sneezing doesn't make this worse. She is not able to work. She is taking carbamazepine and opiates without much relief. On examination, she is bright, alert and cooperative. The gait is a bit antalgic. I am not sure there is any weakness but I can't be sure. She walks somewhat stiff-legged and protects her left hip. The heel and toe walking was done in a way that I wasn't sure there was or was not any weakness. The cranial nerves were unremarkable. Eye movements were full. Fundi were unremarkable. The neck was relatively supple. There was a spasm in the trapezius bilaterally. The strength in the uppers was normal at 5/5 and biceps, triceps, brachial radialis, finger flexor, hand extensors and flexors and the strength in the lowers was normal at 5/5 in the right iliopsoas. On the left she didn't give me full effort but was maybe 4+/5 and distally there seemed to be some decrease in strength and the foot dorsi and plantar flexion are 4/5 on the left compared to the right, but again it is not certain that I got a full effort there. The reflexes in the uppers revealed 1+ biceps, triceps, brachial radialis and finger flexors. The knee jerk was 1+ to 2 on the right and was absent on the left and the ankle jerk was diminished on the right but present with reinforcement at 1+ on the right at the ankle jerk and absent on the left, either with reinforcement. There were no Babinski signs. There were hard to do because of the sensory disturbance on the left, but the Chaddock and Jose are negative. The sensory exam revealed diminution touch and pin and dysesthesias on the entire left side including the buttocks and proximal buttock regions on the left, all the way to T5 on the left. That is an area under the breast that came around from the back from the T5 distribution. I think this sensory level is believable on the left as are the dysesthesias. Also believable are the lack of reflexes in the knee and ankle jerk on the left. The strength I don't know for sure about weakness in the left leg at this time. My impression is that there ought to be a lesion in the thoracic cord around T5 which is giving her sensory dysesthesias on the left. The vibration sense also, by the way, is down on the left. In a Brown-Sequard syndrome, the pin sensory and cold sensory disturbance should be on the other side not the same side, so it doesn't look like a typical Brown-Sequard syndrome. 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 Our plan is to follow-up with an MRI scan of the thoracic spine which has never been done and with gadolinium to look for a cord lesion. Since she had it since the time of the initial slip or fall, did she have some kind of a cord injury at that time? The second issue is the lower motor neuron findings on the left and I plan to get an MRI of the lumbosacral spine again which hasn't been done for several years and to do an EMG nerve conduction study on her leg and we will schedule these over a day or two period in the near future and will follow-up after that. I did switch her from carbamazepine, which I discontinued, to Neurontin 300 mg t.i.d. which she can advance up to 4, 5 or 6 a day, depending on relief, 300 mg three times a day or advance it. Thank you for this referral. Sincerely, Trent Borjas M.D. Professor and Aircraft Cleaner, Department of Neurology Nicola cc: Brad Acharya Jr., M.D. Teacher Kindergarten, Neurosurgery documented in this encounter Plan of Treatment Not on filedocumented as of this encounter Visit Diagnoses Not on filedocumented in this encounter"
--- OUTSIDE RECORDS SUMMARY | ~2019-07-25 | XMS | Encounter Summary ---
Demographics + + + | Address | [address] | | | [place] [address] | + + + | Home Phone | | + + + | Preferred Language | Unknown | + + + | Marital Status | | + + + | Confucianism Affiliation | 1025 | + + + | Race | Unknown | + + + | Ethnic Group | Unknown | + + + Author + + + | Author | [facility] | | | and [place] | + + + | Organization | [facility] | | | [...] Eron Benoit | ECON | [address] [place] [address] | | | | | [place] [address] | | + + + + + Care Team Providers + +------+ + | Care Circular Ripsaw Operator Name | Role | Phone | + +------+ + | Juan M Huang DO | PCP | | + +------+ + Encounter Details +--------+ + + + + | Date | Type | Department | Care Team | Description | +--------+ + + + + | 09/12/ | Hospital | [facility] | Jeff Guy MD | | | 2013 | Encounter | [facility] | [address] | | | | | [address] [place] | [place] [address] | | | | | [place] | [phone] | | | | | [address] | | | | | | [phone] | | | +--------+ + + + [...] XR CHEST PA AND | Routin | 09/12/2012 | | Results for this | | LATERAL | e | 4:28 PM | | procedure are in the | | | | PDT | | results section. | + +--------+ + + + | PTT | Routin | 09/12/2012 | | Results for this | | | e | 4:07 PM | | procedure are in the | | | | PDT | | results section. | + +--------+ + + + | PROTIME INR | Routin | 09/12/2012 | | Results for this | | | e | 4:07 PM | | procedure are in the | | | | PDT | | results section. | + +--------+ + + + | CBC NO DIFFERENTIAL | Routin | 09/12/2012 | | Results for this | | | e | 4:07 PM | | procedure are in the | | | | PDT | | results section. | + +--------+ + + + | BASIC METABOLIC | Routin | 09/12/2012 | | Results for this | | PANEL | e | 4:07 PM | | procedure are in the | | | | PDT | | results section. | + +--------+ + + + documented in this encounter Results XR Chest PA and Lateral (09/12/2012 4:28 PM PDT) + + | Specimen | + + | | + + + + + | Narrative | Performed At | + + + | [facility] | [place] | | Department [address] [facility] [place] | [facility] | | [ rep [address]] [ rep ct city | MEDICAL CENTER | | st zip] Signed | - IMAGING | | | | | Patient Name: KAREN BENOIT Physician: | | | HUMAD. : 1940 Age: 72 Sex: F Unit #: [id number] | | | Exam Date: 09/12/12 Location: LAB | | | Report #: [id number] Page: | | | %(RAD)RES..mtdd.print.filter("pg") of %(RAD) | | | RES..mtdd.print.filter("tpg") | | | | | | Accession Number: [id number] | | | CHEST, PA AND LATERAL CLINICAL HISTORY: PREOP. | | | COMPARISON: None. FINDINGS: Frontal and lateral | | | views of the chest. Frontal view is hypoventilatory. This results | | | in bronchovascular crowding bilaterally. This is somewhat | | | asymmetric with increased parenchymal densities on the left. There | | | is no pneumothorax. The cardiac contour is not enlarged given the | | | technique. There are no pleural effusions. The lungs appear more | | | clear on the lateral view. Again, no pleural effusions are | | | confirmed on this view. Osseous structures are unremarkable for age. | | | IMPRESSION: 1. FRONTAL VIEW. INCREASED PARENCHYMAL | | | DENSITIES BILATERALLY. THESE LIKELY ARE AT LEAST IN PART TECHNIQUE | | | RELATED. IT WOULD BE DIFFICULT TO EXCLUDE UNDERLYING PULMONARY VENOUS | | | CONGESTION AND EVEN EARLY INFILTRATE IN THE LEFT LUNG. CONSIDER PA | | | AND LATERAL TO ESTABLISH THE FINDINGS TECHNIQUE RELATED | | | OPPOSED TO TRUE ABNORMALITY. PLEASE CORRELATE CLINICALLY FOR ANY | | | SYMPTOMS RELATED RELATIVE TO THE CARDIOPULMONARY SYSTEM. | | | Dictated Date/Time: 09/12/2012 16:28 Transcribed Date/Time: | | | 09/12/2012 19:26 Facing Slitter: [email or web address] | | | <<Signature on File>> | | | Eron Hooker | | Roxy Moreno MD09/12/129 <Electronically signed by Eron Ramsey | Nhung Moreno MD> Eron Moreno MD 09/12/12 1628 | | | Facing Slitter: [email or web address] [id number] | | | Jeff Guy MD | | + + + + + + + + | Performing | Address | City/State/Zipcode | Phone Number | | Organization | | | | + + + + + | [facility] | [address] | [place] | [phone] | | [facility] | | [address] | | | - IMAGING | | | | + + + + + PTT (09/12/2012 4:07 PM PDT) + + + + + + | Component | Value | Ref Range | Performed | Pathologist | | | | | At | Signature | + + + + + + | aPTT | 48.1 (H)Comment: Normal | 22.1 - 36.0 | [facility] | | | | Patient Mean Value: 29.0 | seconds | [facility] | | | | seconds | | MEDICAL | | | | | | CENTER - | | | | | | LABORATORY | | + + + + + + + + | Specimen | + + | | + + + + + + + | Performing | Address | City/State/Zipcode | Phone Number | | Organization | | | | + + + + + | [facility] | [address] | [place], [place] | [phone] | | [facility] | | [address] | | | - LABORATORY | | | | + + + + + | [facility] | [address] | [place], [place] | | | [facility] | | [id number] [place] [address] | | | - LABORATORY | | | | + + + + + Eunime INR (09/12/2012 4:07 PM PDT) + + + + + + | Component | Value | Ref Range | Performed | Pathologist | | | | | At | Signature | + + + + + + | Prothrombin | 12.3 | 11.3 - 13.9 | [facility] | | | Time | | seconds | [facility] | | | | | | MEDICAL | | | | | | CENTER - | | | | | | LABORATORY | | + + + + + + | PATIENT | 12.5 | seconds | [facility] | | | NORMAL MEAN | | | [facility] | | | | | | MEDICAL | | | | | | CENTER - | | | | | | LABORATORY | | + + + + + + | INR | 1.0Comment: INR: USUAL | 0.9 - 1.1 | [facility] | | | | ORAL ANTICOAGULATION | | [facility] | | | | RANGE | | MEDICAL | | | | 2.0-3.0 HIGH | | CENTER - | | | | LEVEL ORAL | | LABORATORY | | | | ANTICOAGULATION RANGE | | | | | | 2.5-3.5 | | | | + + + + + + + + | Specimen | + + | | + + + + + + + | Performing | Address | City/State/Zipcode | Phone Number | | Organization | | | | + + + + + | [facility] | [address] | [place] | [phone] | | [facility] | | [address] | | | - LABORATORY | | | | + + + + + | [facility] | [address] | [place] | | | [facility] | | [address], [facility] | | | - LABORATORY | | | | + + + + + CBC no Differential (09/12/2012 4:07 PM PDT) + +-------+ + + + | Component | Value | Ref Range | Performed | Pathologist | | | | | At | Signature | + +-------+ + + + | WBC | 8.1 | 4.0 - 11.0 K/uL | [facility] | | | | | | [facility] | | | | | | MEDICAL | | | | | | CENTER - | | | | | | LABORATORY | | + +-------+ + + + | RBC | 4.77 | 3.70 - 5.20 | [facility] | | | | | M/uL | [facility] | | | | | | MEDICAL | | | | | | CENTER - | | | | | | LABORATORY | | + +-------+ + + + | Hemoglobin | 13.9 | 11.5 - 16.0 | [facility] | | | | | gm/dL | [facility] | | | | | | MEDICAL | | | | | | CENTER - | | | | | | LABORATORY | | + +-------+ + + + | Hematocrit | 43.2 | 34.0 - 47.0 % | [facility] | | | | | | [facility] | | | | | | MEDICAL | | | | | | CENTER - | | | | | | LABORATORY | | + +-------+ + + + | MCV | 90.5 | 83.0 - 101.0 fL | [facility] | | | | | | [facility] | | | | | | MEDICAL | | | | | | CENTER - | | | | | | LABORATORY | | + +-------+ + + + | MCH | 29.1 | 28.0 - 35.0 pg | [facility] | | | | | | [facility] | | | | | | MEDICAL | | | | | | CENTER - | | | | | | LABORATORY | | + +-------+ + + + | MCHC | 32.1 | 32.0 - 36.0 | [facility] | | | | | g/dL | [facility] | | | | | | MEDICAL | | | | | | CENTER - | | | | | | LABORATORY | | + +-------+ + + + | RDW-CV | 14.3 | <15.0 % | [facility] | | | | | | [facility] | | | | | | MEDICAL | | | | | | CENTER - | | | | | | LABORATORY | | + +-------+ + + + | Platelet | 201 | 140 - 440 K/uL | [facility] | | | Count | | | [facility] | | | | | | MEDICAL | | | | | | CENTER - | | | | | | LABORATORY | | + +-------+ + + + + + | Specimen | + + | | + + + + + + + | Performing | Address | City/State/Zipcode | Phone Number | | Organization | | | | + + + + + | [facility] | [address] | [place], [place] | [phone] | | [facility] | | [address] | | | - LABORATORY | | | | + + + + + | [facility] | [address] | [place], [place] | | | [facility] | | [id number] | | | - LABORATORY | | | | + + + + + Basic Metabolic Panel (09/12/2012 4:07 PM PDT) + + + + + + | Component | Value | Ref Range | Performed | Pathologist | | | | | At | Signature | + + + + + + | Glucose | 85 | 70 - 109 mg/dL | [facility] | | | | | | [facility] | | | | | | MEDICAL | | | | | | CENTER - | | | | | | LABORATORY | | + + + + + + | Calcium | 9.1 | 8.3 - 10.5 | [facility] | | | | | mg/dL | [facility] | | | | | | MEDICAL | | | | | | CENTER - | | | | | | LABORATORY | | + + + + + + | BUN | 17 | 7 - 18 mg/dL | [facility] | | | | | | [facility] | | | | | | MEDICAL | | | | | | CENTER - | | | | | | LABORATORY | | + + + + + + | Creatinine | 1.11 | 0.60 - 1.30 | [facility] | | | | | mg/dL | [facility] | | | | | | MEDICAL | | | | | | CENTER - | | | | | | LABORATORY | | + + + + + + | Estimated | 48 (L)Comment: For | >60 mL/min/A | [facility] | | | GFR | -Americans, | | [facility] | | | | please multiply the | | MEDICAL | | | | result by 1.210 | | CENTER - | | | | This is an estimated GFR | | LABORATORY | | | | and is based on a | | | | | | standard adult | | | | | | body mass (A=1.73m2) and | | | | | | serum creatinine | | | | + + + + + + | BUN/Creatin | 15.3 | 12 - 20 | [facility] | | | ine Ratio | | | [facility] | | | | | | MEDICAL | | | | | | CENTER - | | | | | | LABORATORY | | + + + + + + | Na | 138 | 136 - 149 mEq/L | [facility] | | | | | | [facility] | | | | | | MEDICAL | | | | | | CENTER - | | | | | | LABORATORY | | + + + + + + | K | 3.8 | 3.5 - 5.1 mEq/l | [facility] | | | | | | [facility] | | | | | | MEDICAL | | | | | | CENTER - | | | | | | LABORATORY | | + + + + + + | Cl | 106 | 98 - 109 mEq/l | [facility] | | | | | | [facility] | | | | | | MEDICAL | | | | | | CENTER - | | | | | | LABORATORY | | + + + + + + | CO2 | 28 | 24 - 31 mEq/L | [facility] | | | | | | [facility] | | | | | | MEDICAL | | | | | | CENTER - | | | | | | LABORATORY | | + + + + + + | Anion Gap | 7.8 | 6.0 - 17.0 | [facility] | | | | | | [facility] | | | | | | MEDICAL | | | | | | CENTER - | | | | | | LABORATORY | | + + + + + + + + | Specimen | + + | | + + + + + + + | Performing | Address | City/State/Zipcode | Phone Number | | Organization | | | | + + + + + | [facility] | [address] | [place] | [phone] | | [facility] | | [address] | | | - LABORATORY | | | | + + + + + | [facility] | [address] | [place] | | | [facility] | | [id number] | | | - LABORATORY | | | | + + + + + documented in this encounter Visit Diagnoses Not on filedocumented in this encounter
--- OUTSIDE RECORDS SUMMARY | ~2019-07-25 | XMS | Encounter Summary ---
Demographics + + + | Address | [address] | | | [place] [address] | + + + | Home Phone | | + + + | Preferred Language | Unknown | + + + | Marital Status | | + + + | Voodoo Affiliation | 1025 | + + + | Race | Unknown | + + + | Ethnic Group | Unknown | + + + Author + + + | Author | [facility] | | | and [place] | + + + | Organization | [facility] | | | [...] Eron Gottlieb | ECON | [address] [place] [address] | | | | | [place] [address] | | + + + + + Care Team Providers + +------+ + | Care Non Destructive Evaluation Manager Name | Role | Phone | + +------+ + PCP | Unavailable | + +------+ + Reason for Referral Evaluate & Treat (Routine) +--------+ + + + + + | Status | Reason | Specialty | Diagnoses / | Referred By | Referred To | | | | | Procedures | Contact | Contact | +--------+ + + + + + | Closed | Specialty | Physical | Diagnoses | Riley, | [facility] | | | Services | Therapy | Status post | Jac Aguilera, | [facility] | | | Required | | lumbar | MD [address] | HOSPITAL | | | | | spinal | [address] | [address] | | | | | fusion | [place], | [address]VE | | | | | | [place] [address] | [place], [place] | | | | | | Phone: | [address] | | | | | | [phone] | Phone: | | | | | | [phone] Fax: | [phone] | | | | | | | Fax: | | | | | | [phone] | [phone] | +--------+ + + + + + Encounter Details +--------+ + + + + | Date | Type | Department | Care Team | Description | +--------+ + + + + | 03/15/ | Orders Only | [facility] | Jac Riley | Status post lumbar | | 2012 | | NEUROSURGERY [address] | F, [address] | spinal fusion | | | | [address] | [place] | (Primary Dx) | | | | [place], [place] | [address] | | | | | [address] | [phone] | | | | | [phone] | | | +--------+ + + + [...] as of this encounter Plan of Treatment + + +--------+ + + | Name | Type | Priori | Associated Diagnoses | Order Schedule | | | | ty | | | + + +--------+ + + | Ambulatory referral | Outpatient | Routin | Status post lumbar | 1 Occurrences | | to Physical Therapy | Referral | e | spinal fusion | starting 03/15/2012 | | | | | | until 03/15/2013 | + + +--------+ + + documented as of this encounter Visit Diagnoses + + | Diagnosis | + + | Status post lumbar spinal fusion - Primary Arthrodesis status | + + documented in this encounter"
--- OUTSIDE RECORDS SUMMARY | ~2019-07-25 | XMS | Encounter Summary ---
Demographics + + + | Address | [address] | | | [place] [address] | + + + | Home Phone | | + + + | Preferred Language | Unknown | + + + | Marital Status | | + + + | Muslim Affiliation | 1025 | + + + | Race | Unknown | + + + | Ethnic Group | Unknown | + + + Author + + + | Author | [facility] | | | and [place] | + + + | Organization | [facility] | | | and [...] Eron Gottlieb | ECON | [address] [place] [address] | | | | | , [place] [address] | | + + + + + Care Team Providers + +------+ + | Care Industrial Truck Mechanic Name | Role | Phone | + +------+ + PCP | Unavailable | + +------+ + Encounter Details +--------+ + + + + | Date | Type | Department | Care Team | Description | +--------+ + + + + | 05/31/ | Hospital | [facility] | Unknown, | | | 1994 | Encounter | MED CTR XRAY [address] | MD Cesar . | | | | | [address] [place] | | | | | | [place] [address] | (Fax) | | | | | [phone] | | | +--------+ + + + [...]
--- OUTSIDE RECORDS SUMMARY | ~2019-07-25 | XMS | Encounter Summary ---
Demographics + + + | Address | [address] | | | [place] [address] | + + + | Home Phone | | + + + | Preferred Language | Unknown | + + + | Marital Status | | + + + | Cheondoism Affiliation | 1025 | + + + | Race | Unknown | + + + | Ethnic Group | Unknown | + + + Author + + + | Author | [facility] | | | and [place] | + + + | Organization | [facility] | | | and [...] Eron Gottlieb | ECON | [address] [place] [address] | | | | | [place] [address] | | + + + + + Care Team Providers + +------+ + | Care Fur Grader Name | Role | Phone | + +------+ + | Juan M Huang DO | PCP | | + +------+ + Reason for Visit +--------+ + | Reason | Comments | +--------+ + | Other | back and leg pain/weakness | +--------+ + Encounter Details +--------+ + + + + | Date | Type | Department | Care Team | Description | +--------+ + + + + | 06/08/ | Telephone | [facility] | Jac Riley | Other (back and leg | | 2012 | | NEUROSURGERY [address] | [facility] [address] | pain/weakness ) | | | | [address] | [place], [place] | | | | | [place] | [address] | | | | | [address] | [phone] | | | | | [phone] | | | +--------+ + + + [...]
--- OUTSIDE RECORDS SUMMARY | ~2019-07-25 | XMS | Encounter Summary ---
Demographics + + + | Address | [address] | | | [place] [address] | + + + | Home Phone | | + + + | Preferred Language | Unknown | + + + | Marital Status | | + + + | Jainism Affiliation | Unknown | + + + | Race | White | + + + | Ethnic Group | Not or | + + + Author + + + | Author | [facility] | + + + | Organization | [facility] | + + + | Address [...] Team Providers + +------+ + | Care Package Lift Operator Name | Role | Phone | + +------+ + PCP | Unavailable | + +------+ + Encounter Details +--------+ + + + + | Date | Type | Department | Care Team | Description | +--------+ + + + + | 06/14/ | Transcribed | Allergy Clinic at | Dictation, Other | Transcribed | | 1997 | | [facility] [address] | | | | | | [facility] | | | | | | [facility] | | | | | | [facility], [address] [place] [address] | | | | | | [place], [place] | | | | | | [address] | | | | | | [phone] | | | +--------+ + + + [...] as of this encounter Progress Notes Interface, Bss Solution Architect In - 04/01/2006 3:06 AM PST [address] [address] or June 14, 1997 THUAN TOLBERT MD [address] [place] [address] [place] [address] RE:Karen Gottlieb MR#:[id number] Tolbert: I had the privilege of seeing Karen Gottlieb back in my neurosurgery clinic. She is the one who I saw in 1995 with complaints of neck and pain radiating to the right side. She underwent an anterior cervical discectomy and fusion at that time and had improvement of her pain. This was at C4,5. She now presents to me with complaints of neck stiffness. She denies any radicular complaints in her upper extremities but also complains of complete numbness in her left leg extending up into her groin region and vagina and extending up into the middle portion of her back. She denies any numbness in her right leg, although she does say it is starting to have pain on that side occur at times. She indicates that her legs feel burning and cold and her entire skin is sensitive to touch. She also feels that she is diffusely weak in that leg. Ms. Gottlieb carries a diagnosis of fibromyalgia in the past and during our discussion discusses this quite frequently. She denies any bowel or bladder problems. She denies any other significant complaints. Her examination shows she is alert and oriented, times three, her speech is fluent. Her extraocular movements are intact, her pupils are equal, round, reactive to light. Her face is symmetrical, tongue protrudes to midline, palate is midline, she has normal sensation to the face. She has full range of motion of her neck. She has 5/5 strength in her deltoids, biceps, triceps, hand lamp shade joiner and muscles bilaterally. She has some mild decreased sensation on the left index finger compared to the right, but otherwise I find no sensory deficits to light touch. She has negative Spurling sign. Reflexes are one plus in the biceps and triceps bilaterally. Lower extremity exam reveals 5/5 strength on the right, lower extremity being an iliopsoas, quadriceps, gastrocnemius, tibialis anterior, and extensor longus and 4/5 on the left leg in the same muscles. Reflexes are absent in the knees and ankles. She has decreased sensation throughout her entire leg up into her back region. She has decreased sensation up the entire left leg up to her waist and normal sensation on the right. She is using a walker to walk. [id number] exam shows no evidence of dysmetria. I reviewed her recent cervical MRI and she does have some mild cervical spondylosis. She does not have any evidence of cord compression nor of foraminosus causing nerve root compression. She has had a lumbar MRI done last year, which essentially shows some mild bulges in several levels, but no nerve root compression. When discussing with her the leg symptoms on the left, she says that she had these last year when she had the MRI, but now they have become worse. They are in the same distribution as before. It is my impression that Ms. Gottlieb has complaints not compatible with a structure abnormality. I think it would be reasonable at this time to ask one of our neurology colleagues to evaluate her to be absolutely sure she does not have a systemic disease process or metabolic disease process regarding her complaints. I have also recommended that she may consider physical therapy to her neck. We will wait for our neurology service to evaluate her regarding whether she needs additional imaging studies of her low back and thoracic spine and whether an EMG might be helpful. Sincerely, Brad Acharya Jr., M.D. Client Application Support Engineer, Neurosurgery CARMENCITA/maisha C: 06/28/97 ds documented in this encounter Plan of Treatment Not on filedocumented as of this encounter Visit Diagnoses Not on filedocumented in this encounter"
--- OUTSIDE RECORDS SUMMARY | ~2019-07-25 | XMS | Encounter Summary ---
Demographics + + + | Address | [address] | | | [place] [address] | + + + | Home Phone | | + + + | Preferred Language | Unknown | + + + | Marital Status | | + + + | Yarsanism Affiliation | Unknown | + + + [...] Team Providers + +------+ + | Care Chemical Milling Processor Name | Role | Phone | + +------+ + PCP | Unavailable | + +------+ + Encounter Details +--------+ + + + + | Date | Type | Department | Care Team | Description | +--------+ + + + + | 08/08/ | Results | | Other, Faculty | | | 1998 | Only | | [phone] | | +--------+ + + + + [...] + +--------+ + + + | MRI T SPINE WO/W | Routin | 08/08/1997 | | Results for this | | [facility] | e | 5:50 PM | | procedure are in the | | | | PDT | | results section. | + +--------+ + + + | MRI L SPINE WO/W | Routin | 08/08/1997 | | Results for this | | [facility] | e | 5:50 PM | | procedure are in the | | | | PDT | | results section. | + +--------+ + + + documented in this encounter Results MRI T SPINE WO/W [facility] (08/08/1997 5:50 PM PDT) + + + + + + | Component | Value | Ref Range | Performed | Pathologist | | | | | At | Signature | + + + + + + | MRI T SPINE | Radiologist 1: ALIN, | | | | | WO/W | CHATA Steele, | | | | | [facility] | MÁngelDÁngel-Radiologist 2: | | | | | | CHATA OGDEN M.D.MRI | | | | | | THORACIC AND LUMBAR | | | | | | SPINE: 08/08/97 AT | | | | | | 1750 HOURS DICTATED: | | | | | | 08/09/97 CLINICAL | | | | | | INFORMATION: | | | | | | Myelopathy. TECHNIQUE: | | | | | | Pre and post contrast | | | | | | thoracic and lumbar | | | | | | spine MRI withT1, T2, | | | | | | and post contrast axial | | | | | | and sagittal images. | | | | | | FINDINGS: The thoracic | | | | | | and lumbar spine are | | | | | | normally aligned | | | | | | withgood preservation of | | | | | | vertebral body heights. | | | | | | Mild disc | | | | | | spacenarrowing is | | | | | | present at L2-L3 with | | | | | | degenerative signal disc | | | | | | signalchanges present | | | | | | in the lumbar spine as | | | | | | well as some mild | | | | | | facetdegenerative | | | | | | changes in the mid to | | | | | | lower lumbar spine. | | | | | | Marrow anddisc signal | | | | | | are otherwise | | | | | | unremarkable. The | | | | | | thoracic and spinal | | | | | | canalare normal in | | | | | | caliber. The spinal | | | | | | cord is also normal in | | | | | | caliber andwithout | | | | | | signal abnormality. | | | | | | Visualized neural | | | | | | foramina | | | | | | areunremarkable. | | | | | | IMPRESSION: Mild lumbar | | | | | | degenerative changes but | | | | | | otherwise unremarkable | | | | | | thoracicand lumbar spine | | | | | | study. No abnormally | | | | | | enhancing structures | | | | | | areidentified. END OF | | | | | | IMPRESSION: | | | | + + + + + + + + | Specimen | + + | | + + + + + | Narrative | Performed At | + + + | Ordered by LINDA ELISE M.D. | | + + + + +---------+ + + | Performing | Address | City/State/Zipcode | Phone Number | | Organization | | | | + +---------+ + + | [facility] DEPARTMENT OF | | | | | RADIOLOGY | | | | + +---------+ + + MRI L SPINE WO/W [facility] (08/08/1997 5:50 PM PDT) + + + + + + | Component | Value | Ref Range | Performed | Pathologist | | | | | At | Signature | + + + + + + | MRI L SPINE | Radiologist 1: ALIN, | | | | | WO/Stephany | Nhugn KNIGHT | | | | WINSOME HIDALGO | Bartolome-Radiologist 2: | | | | | | ALIN, CHATA M., M.D.MRI | | | | | | THORACIC AND LUMBAR | | | | | | SPINE: 08/08/97 AT | | | | | | 1750 HOURS DICTATED: | | | | | | 08/09/97 CLINICAL | | | | | | INFORMATION: | | | | | | Myelopathy. TECHNIQUE: | | | | | | Pre and post contrast | | | | | | thoracic and lumbar | | | | | | spine MRI withT1, T2, | | | | | | and post contrast axial | | | | | | and sagittal images. | | | | | | FINDINGS: The thoracic | | | | | | and lumbar spine are | | | | | | normally aligned | | | | | | withgood preservation of | | | | | | vertebral body heights. | | | | | | Mild disc | | | | | | spacenarrowing is | | | | | | present at L2-L3 with | | | | | | degenerative signal disc | | | | | | signalchanges present | | | | | | in the lumbar spine as | | | | | | well as some mild | | | | | | facetdegenerative | | | | | | changes in the mid to | | | | | | lower lumbar spine. | | | | | | Marrow anddisc signal | | | | | | are otherwise | | | | | | unremarkable. The | | | | | | thoracic and spinal | | | | | | canalare normal in | | | | | | caliber. The spinal | | | | | | cord is also normal in | | | | | | caliber andwithout | | | | | | signal abnormality. | | | | | | Visualized neural | | | | | | foramina | | | | | | areunremarkable. | | | | | | IMPRESSION: Mild lumbar | | | | | | degenerative changes but | | | | | | otherwise unremarkable | | | | | | thoracicand lumbar spine | | | | | | study. No abnormally | | | | | | enhancing structures | | | | | | areidentified. END OF | | | | | | IMPRESSION: | | | | + + + + + + + + | Specimen | + + | | + + + + + | Narrative | Performed At | + + + | Ordered by LINDA ELISE M.D. | | + + + + +---------+ + + | Performing | Address | City/State/Zipcode | Phone Number | | Organization | | | | + +---------+ + + | [facility] DEPARTMENT OF | | | | | RADIOLOGY | | | | + +---------+ + + documented in this encounter Visit Diagnoses Not on filedocumented in this encounter"
--- OUTSIDE RECORDS SUMMARY | ~2019-07-25 | XMS | Encounter Summary ---
Demographics + + + | Address | [address] | | | [place] [address] | + + + | Home Phone [...] Eron Gottlieb | ECON | [address] [place] [address] | | | | | [place] [address] | | + + + + + Care Team Providers + +------+ + | Care Lithograph Printer Name | Role | Phone | + +------+ + | Juan M Huang DO | PCP | | + +------+ + Encounter Details +--------+ + + + + | Date | Type | Department | Care Team | Description | +--------+ + + + + | 09/21/ | Orders Only | [facility] | Cristian Tinoco, | Status post cervical | | 2013 | | NEUROSURGERY [address] | DO [address] | spinal fusion | | | | [address] | [address] [place], [place] | (Primary Dx) | | | | [place], [place] | [address] | | | | | [address] | | | | | | [phone] | | | +--------+ + + + [...] Diagnosis | + + | Status post cervical spinal fusion - Primary Arthrodesis status | + + documented in this encounter"
--- OUTSIDE RECORDS SUMMARY | ~2019-07-25 | XMS | Encounter Summary ---
Demographics + + + | Address | [address] | | | [place] [address] | + + + | Home Phone | | + + + | Preferred Language | Unknown | + + + | Marital Status | | + + + | Christian Affiliation | Unknown | + + + | Race | White | + + + | Ethnic Group | Not or | + + + Author + + + | Author | [facility] | + + + | Organization | [facility] | + + + | Address [...] Team Providers + +------+ + | Care Tile Machine Operator Name | Role | Phone | + +------+ + PCP | Unavailable | + +------+ + Encounter Details +--------+ + + + + | Date | Type | Department | Care Team | Description | +--------+ + + + + | 12/07/ | Office | General Internal | Note, Outpatient | Progress Note | | 1996 | Visit-Trans | Medicine [address] | Clinic | | | | cribed | [address] | | | | | | Mailcode: [id number] | | | | | | Outpatient Clinic | | | | | | [facility], [address] | | | | | | [place], [place] | | | | | | [address] | | | | | | [phone] | | | +--------+ + + + [...] as of this encounter Progress Notes Interface, Blower Room Attendant In - 04/19/2006 5:03 AM PST CLINIC DATE: 12/07/96 NEUROSURGERY CLINIC: Ms. Gottlieb returns two weeks status post C4-5 anterior cervical discectomy fusion (ACDF). She has a complaint of some right shoulder pain in addition to some left leg pain. Her incision is healing nicely. An x-ray was obtained which shows good fusion and no evidence of graft collapse or motion. Neurologically she is unchanged. We have plans to see her back in one month. Prescription for Tylox was given, #40, and we will see her in one month to determine whether she needs to be seen by Physical Therapy. Bryon White M.D. Resident, Neurosurgery Brad Acharya Jr., M.D. Resourcing Consultant, Neurosurgery TK:allison C: 12/17/96 shravan documented in this encounter Plan of Treatment Not on filedocumented as of this encounter Visit Diagnoses Not on filedocumented in this encounter"
--- OUTSIDE RECORDS SUMMARY | ~2019-07-25 | XMS | Encounter Summary ---
Demographics + + + | Address | [address] | | | [place] [address] | + + + | Home Phone | | + + + | Preferred Language | Unknown | + + + | Marital Status | | + + + | Taoism Affiliation | 1025 | + + + | Race | Unknown | + + + | Ethnic Group | Unknown | + + + Author + + + | Author | [facility] | | | and [place] | + + + | Organization | [facility] | | | [...] Eron Gottlieb | ECON | [address] [place] [address] | | | | | [place] [address] | | + + + + + Care Team Providers + +------+ + | Care Psychologist Military Personnel Name | Role | Phone | + +------+ + | Juan M Huang DO | PCP | | + +------+ + Reason for Referral Diagnostic/Screening (Routine) +--------+--------+ + + + + | Status | Reason | Specialty | Diagnoses / | Referred By | Referred To | | | | | Procedures | Contact | Contact | +--------+--------+ + + + + | Closed | | Radiology | Diagnoses | Van Amrit, | [facility] | | | | | Failed back | Troy, | [address] | | | | | syndrome | PA-C [address] | [place], | | | | | Lumbar | [address] | [place] | | | | | radicular | [place], | [address] | | | | | pain | [place] [address] | Phone: | | | | | Lumbago | Phone: | [phone] | | | | | Neural | [phone] | Fax: | | | | | foraminal | Fax: | [phone] | | | | | stenosis of | [phone] | | | | | | lumbar spine | | | | | | | S/P lumbar | | | | | | | fusion | | | | | | | Procedures | | | | | | | MRI Lumbar | | | | | | | Spine w wo | | | | | | | Contrast | | | +--------+--------+ + + + + Reason for Visit + + + | Reason | Comments | + + + | Follow-up | back pain | + + + Evaluate & Treat (Routine) +--------+--------+ + + + + | Status | Reason | Specialty | Diagnoses / | Referred By | Referred To | | | | | Procedures | Contact | Contact | +--------+--------+ + + + + | Closed | | Neurosurgery | Diagnoses | Sal, | Earnest, | | | | | | Juan M Jimenez DO | Cristian Norris DO | | | | | Displacement | [address] | [address] | | | | | of lumbar | [address] | [address] | | | | | intervertebr | [place] | YOBANI MD | | | | | al disc | 3-106 | [address] Phone: | | | | | without | [place] | [phone] | | | | | myelopathy | [phone] | Fax: | | | | | Procedures | Phone: | [phone] | | | | | [place] OFFICE | [phone] | | | | | | CONSULTATION | | | | | | | NEW/ESTAB | | | | | | | PATIENT 60 | | | | | | | MIN | | | +--------+--------+ + + + + Encounter Details +--------+---------+ + + + | Date | Type | Department | Care Team | Description | +--------+---------+ + + + | 08/16/ | Office | [facility] | Troy Goel, | Failed back syndrome | | 2013 | Visit | NEUROSURGERY [address] | PA-C [address] | (Primary Dx); | | | | [address] | [place], [place] | Lumbar radicular | | | | [place], [place] | [address] | pain; Lumbago; | | | | [address] | | Neural foraminal | | | | [phone] | | stenosis of lumbar | | | | | | spine; S/P lumbar | | | | | | fusion; S/P cervical | | | | | | spinal fusion | +--------+---------+ + + + Social History [...] + + + | Blood Pressure | 110/60 | 08/16/2013 8:32 AM | | | | | PDT | | + + + + + | Pulse | 50 | 08/16/2013 8:32 AM | | | | | PDT | | + + + + + | Temperature | - | - | | + + + + + | Respiratory Rate | 18 | 08/16/2013 8:32 AM | | | | | PDT | | + + + + + | Oxygen Saturation | - | - | | + + + + + | Inhaled Oxygen | - | - | | | Concentration | | | | + + + + + | Weight | 90.7 kg (200 lb) | 08/16/2013 8:32 AM | | | | | PDT | | + + + + + | Height | 160 cm (5' 3") | 08/16/2013 8:32 AM | | | | | PDT | | + + + + + | Body Mass Index | 35.43 | 08/16/2013 8:32 AM | | | | | PDT | | + + + + + documented in this encounter Patient Instructions Patient Instructions Troy Goel PA-C - 08/16/2013 9:20 AM PDTPlease have a lumbar MRI and let Dr. Huang know the plans. I will have you come back to see Dr. Tinoco to discuss surgery documented in this encounter Progress Notes Troy Goel PA-C - 08/16/2013 8:34 AM PDT Troy Goel PA-C [address] [facility], [address] [place], [place] [address] FAX: NEUROSURGERY SURGICAL FOLLOW-UP CHIEF COMPLAINT: Chief Complaint Patient presents with Follow-up back pain HISTORY OF PRESENT ILLNESS: The patient is a 73 y.o. female that had a C3-4 cervical fusio n by Dr. Tinoco for myelopathy 09/28/2012. She returns and overall is doing well. The patie nt has been walking as much as possible and has been following their restrictions overall. The patient has had no issues with her surgical site. So far issues with swallowing have no t been a major issue. She has not had major issues with hoarseness. She says her headaches from before surgery are resolved. In addition, she continues to complain of constant low back pain, which is dull in nature a nd never goes away. She rates her pain a constant 8/10 on the pain scale. She reports that ever since she had lumbar surgery 09/07/[address] Riley that she "just never felt any b sheryl." She has attempted 6+ months of physical therapy both land and aqua and has not felt any relief of symptoms. Her main complaint is left sided leg pain, which feels like a ligh tening bolt of pain down the lateral aspect of her and thigh and front of her lower leg and includes the top of her foot. Her right side is less severe, but she feels like it is start ing to feel like her left side too. She is tired of this pain and wants to have something a ddressed. CURRENT MEDICATIONS: Current Outpatient Prescriptions Medication Sig Dispense Refill aspirin 81 mg EC tablet Take 81 mg by mouth 2 times daily. Calcium Carbonate (CALCIUM 500 PO) Take 500 mg by mouth Daily. Cholecalciferol (VITAMIN D3) 2000 UNITS CAPS Take by mouth Daily. cyclobenzaprine (FLEXERIL) 10 mg tablet Take 10 mg by mouth 3 times daily. diazepam (VALIUM) 5 mg tablet Take 1 tablet by mouth every 6 hours as needed for Anxiet y. 60 tablet 0 hydrochlorothiazide 25 mg tablet Take 25 mg by mouth Daily. Lactulose 20 GM/30ML SOLN Take 20 g by mouth every 6 hours as needed. 240 mL 1 lidocaine (LIDODERM) 5% patch Place 1 patch [...] tablet Take 40 mg by mouth Daily. UNABLE TO FIND Med Name: Tenbinafine HCl 250 mg once a day venlafaxine (EFFEXOR) 75 MG tablet Take 75 mg by mouth Daily. verapamil (VERELAN PM) 240 MG 24 hr capsule 1/2-1 tablet at bedtime ALLERGIES: Allergies Allergen Reactions Marcaine Anaphylaxis Fentanyl Meperidine Nausea Only Mushroom Extract Complex Other (See Comments) Yeast Infection Morphine Sulfate REVIEW OF SYSTEMS GENERALLY: No fever, no night sweats, no anemia, + fatigue, + recent profound weight change s. EYES: + eye problems, no use of corrective lenses, no eye injury, no double vision, no blin dness. EARS, NOSE, AND THROAT: No changes in taste or smell, + hearing difficulty, no ringing in t he ears, no ear drainage, no dizziness, no voice changes, no difficulty swallowing, + signif icant snoring, + sleep apnea, + sinus problems, + major dental work. NEUROLOGICALLY: Please see the review of systems discussed above in the history of present illness. In addition, the patient has numbness/pain of legs, awake with numbness/pain, pain in back, shaking, numbness of face. PSYCHIATRIC: + depression, no sleep disorders, no anxiety, no bipolar disorder, no psychoti c episodes. CARDIOVASCULAR: No heart attacks, no heart murmur, no heart fluttering, no chest pain, no a nkle swelling. LUNG DISEASE: No shortness of breath, no cough, no tuberculosis, no bloody cough, no asthma , no emphysema/COPD. GASTROINTESTINAL: No bowel disease, no nausea or vomiting, no rectal bleeding, no constipat ion, no stool incontinence, no liver disease, no gallbladder disease, no abdominal pain, no ulcers. KIDNEY DISEASE: No urinary frequency, no painful or difficult urination, no incontinence. ENDOCRINE: No diabetes, no thyroid disease, no osteopenia or osteoporosis, no breast draina ge. SKIN: No breast lumps, no skin changes, no rashes, no itches. HEMATOLOGIC/LYMPHATIC: No enlarged lymph nodes, no easy or unusual bleeding, no personal hi story of cancer. RHEUMATOLOGIC: No joint arthritis, no rheumatoid arthritis. SOCIAL HISTORY: The patient reports that she has never smoked. She has never used smokeless tobacco. She r eports that she does not drink alcohol or use illicit drugs. INTERIM PHYSICAL EXAMINATION: Height 1.6 m (5' 3"), weight 90.719 kg (200 lb). Body mass index is 35.44 kg/(m^2). GENERAL: Karen Gottlieb is in no acute distress with unlabored respirations. HEENT: HEAD/FACE: Normocephalic and atraumatic. There are no areas of recent trauma. SPINE: The patient s incision is healed There is not significant erythema or discharge. EXTREMITIES: No lower extremity edema. NEUROLOGICAL EXAMINATION: MENTAL STATUS: The patient is awake, alert, and oriented. She follows simple and complex commands MOTOR EXAM: Motor strength is 4/5 throughout the left lower extremity. 5/5 on the right. SENSORY EXAM: The sensory examination shows subjective left L5 dysethesia. REFLEXES: Reflexes are 0 to lower extremities. Escalera's sign persists on the left. Positive left SLR. RADIOGRAPHIC REVIEW: Lumbar MRI from 07/10/2012 shows lumbar fusion from L3-S1. Left L5-S1 neural foraminal steno sis, otherwise normal postoperative changes. ASSESSMENT: Lumbar L5 radiculopathy S/P fusion C3-4 No diagnosis found. Past Medical History Diagnosis Date Hypertension Atrial fibrillation (HCC) Gastric reflux Diverticulosis Anxiety Depression Fibromyalgia Sleep apnea Arthritis TMJ syndrome Injury Right leg fracture and neck injury 1996. 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 She is having a progressive left L5 radiculopathy. I will have her get a new lumbar w/ and w/o. She has e xhausted conservative therapy and failed this and she would like to proceed with surgical in tervention. She reports that her pain is too intense to continue doing nothing. She reports that she is doing well since her cervical fusion and continues to be headache f ree. She retains her left Escalera's sign. She will follow up with Dr. Tinoco to discuss options further. ELECTRONICALLY SIGNED BY: Troy Goel PA-C, 08/16/2013 8:45 documented in thi s encounter Plan of Treatment + +---------+--------+ + + | Name | Type | Priori | Associated Diagnoses | Order Schedule | | | | ty | | | + +---------+--------+ + + | MRI Lumbar Spine w | Imaging | Routin | Failed back | Expected: 08/26/2013 | | wo Contrast | | e | syndrome Lumbar | (Approximate), | | | | | radicular pain | Expires: 08/15/2014 | | | | | Lumbago Neural | | | | | | foraminal stenosis | | | | | | of lumbar spine S/P | | | | | | lumbar fusion | | + +---------+--------+ + + documented as of this encounter Visit Diagnoses + + | Diagnosis | + + | Failed back syndrome - Primary Other unspecified back disorder | + + | Lumbar radicular pain Thoracic or lumbosacral neuritis or radiculitis, unspecified | + + | Lumbago | + + | Neural foraminal stenosis of lumbar spine Spinal stenosis, lumbar region, without | | neurogenic claudication | + + | S/P lumbar fusion Arthrodesis status | + + | S/P cervical spinal fusion Arthrodesis status | + + documented in this encounter
--- OUTSIDE RECORDS SUMMARY | ~2019-07-25 | XMS | Encounter Summary ---
Demographics + + + | Address | [address] | | | [place] [address] | + + + | Home Phone | | + + + | Preferred Language | Unknown | + + + | Marital Status | | + + + | Mandaen Affiliation | Unknown | + + + | Race | White | + + + | Ethnic Group | Not or | + + + Author + + + | Author | [facility] | + + + | Organization | [facility] | + + + | Address [...] Team Providers + +------+ + | Care Progress Clerk Name | Role | Phone | + +------+ + PCP | Unavailable | + +------+ + Encounter Details +--------+ + + + + | Date | Type | Department | Care Team | Description | +--------+ + + + + | 02/09/ | Document-Sc | UNKNOWN DEPARTMENT | Other, Faculty | | | 2009 | anned | [address] [facility] | [phone] | | | | | [address] | | | | | | [place], [place] | | | | | | [address] | | | +--------+ + + + [...]
--- OUTSIDE RECORDS SUMMARY | ~2019-07-25 | XMS | Encounter Summary ---
Demographics + + + | Address | [address] | | | [place] [address] | + + + | Home Phone | | + + + | Preferred Language | Unknown | + + + | Marital Status | | + + + | Catholic Affiliation | Unknown | + + + | Race | White | + + + | Ethnic Group | Not or | + + + Author + + + | Author | [facility] | + + + | Organization | [facility] | + + + | Address [...] Team Providers + +------+ + | Care Senior Mechanical Estimator Name | Role | Phone | + +------+ + PCP | Unavailable | + +------+ + Encounter Details +--------+ + + + + | Date | Type | Department | Care Team | Description | +--------+ + + + + | 08/09/ | Procedure - | UNKNOWN DEPARTMENT | Other, Faculty | EEG | | 1997 | | [address] [facility] | [phone] | | | | Transcribed | [address] | | | | | | [place], [place] | | | | | | [address] | | | +--------+ + + + [...] documented as of this encounter Progress Notes Other, Faculty - 08/09/1997 12:00 AM PDTAssociated Order(s): EEG ROUTINE CLINIC DATE: 08/09 Log #[id number] CLINICAL COMMENTS: The patient is a 57-year-old woman who complains of several years of numbness over the left leg that has slowly spread proximally all the way to the left shoulder blade. On the other hand, she also notes similar but milder numbness over the right foot. She attributed all these symptoms to a slip (without falling) while she was carrying hot water in 1992. Her current symptoms, however, did not appear until about a year later. Brief examination was only notable for giveaway weakness in the left leg, brisk reflexes in the arms, 1+ knee jerks bilaterally, and absent ankle jerks. TEST DESCRIPTION: Bilateral peroneal and left tibial motor nerve conduction studies were normal. F-responses were of normal latencies. Bilateral sural sensory nerve conduction studies were only notable for mild reduction of amplitude of the sensory nerve action potentials bilaterally. Needle electromyographic examination of the left L4 to S1 myotomes showed no evidence of significant denervation or reinnervation. IMPRESSION: These electrodiagnostic studies provide evidence for a mild, predominantly sensory, axonal polyneuropathy. There is no evidence for a radiculopathy or cauda equina lesion to account for the patient's symptoms. Clinical correlation is suggested. Silvia Young M.D., Ph.D. Building Consultant, Neurology [facility] documented in this encou nter Plan of Treatment Not on filedocumented as of this encounter Procedures + +--------+ + + + | Procedure Name | Priori | Date/Time | Associated Diagnosis | Comments | | | ty | | | | + +--------+ + + + | EEG ROUTINE | | 08/09/1997 | | Results for this | | | | 12:00 AM | | procedure are in the | | | | PDT | | results section. | + +--------+ + + + documented in this encounter Results EEG ROUTINE (08/09/1997 12:00 AM PDT) + + | Procedure Note | + + | Other, Faculty - 08/09/1997 12:00 AM PDT CLINIC DATE: 08/09/97 | | Log #[id number] | | | | | | CLINICAL COMMENTS: | | | | The patient is a 57-year-old woman who complains of several years of | | numbness over the left leg that has slowly spread proximally all the way to | | the left shoulder blade. On the other hand, she also notes similar but | | milder numbness over the right foot. She attributed all these symptoms to a | | slip (without falling) while she was carrying hot water in 1992. Her | | current symptoms, however, did not appear until about a year later. | | | | Brief examination was only notable for giveaway weakness in the left leg, | | brisk reflexes in the arms, 1+ knee jerks bilaterally, and absent ankle | | jerks. | | | | | | TEST DESCRIPTION: | | | | Bilateral peroneal and left tibial motor nerve conduction studies were | | normal. F-responses were of normal latencies. Bilateral sural sensory | | nerve conduction studies were only notable for mild reduction of amplitude | | of the sensory nerve action potentials bilaterally. | | | | Needle electromyographic examination of the left L4 to S1 myotomes showed no | | evidence of significant denervation or reinnervation. | | | | | | IMPRESSION: | | | | These electrodiagnostic studies provide evidence for a mild, predominantly | | sensory, axonal polyneuropathy. There is no evidence for a radiculopathy or | | cauda equina lesion to account for the patient's symptoms. Clinical | | correlation is suggested. | | | | | | | | | | Silvia Young M.D., Ph.D. | | Building Consultant, Neurology | | | | [facility] | | | | | | | + + documented in this encounter Visit Diagnoses Not on filedocumented in this encounter"
--- OUTSIDE RECORDS SUMMARY | ~2019-07-25 | XMS | Encounter Summary ---
Demographics + + + | Address | [address] | | | [place] [address] | + + + | Home Phone | | + + + | Preferred Language | Unknown | + + + | Marital Status | | + + + | Taoism Affiliation | Unknown | + + + | Race | White | + + + | Ethnic Group | Not or | + + + Author + + + | Author | [facility] | + + + | Organization | [facility] | + + + | Address [...] Team Providers + +------+ + | Care Chain Maker Hand Name | Role | Phone | + +------+ + PCP | Unavailable | + +------+ + Encounter Details +--------+ + + + + | Date | Type | Department | Care Team | Description | +--------+ + + + + | 08/29/ | Office | [facility] | Report, Outpatient | Progress Note | | 2000 | Visit-Trans | | Consultation | | | | cribed | | | | +--------+ + + [...] as of this encounter Progress Notes Interface, Needle Maker In - 12/26/2005 3:01 AM [facility] OR [facility] OUTPATIENT CONSULTATION REPORT [id number] [place], [place] [address] or REFERRING PHYSICIANS: Nasir Graves M.D. ATTENDING PHYSICIAN: Jeff Avila M.D. DICTATING PHYSICIAN: Shanita Green M.D. PATIENT: Karen Gottlieb MR#: [id number] DATE OF CONSULTATION: August 29, 2000 REASON FOR CONSULTATION: Karen Gottlieb is a 60-year-old white woman who presents with a chief complaint of back pain. HISTORY OF PRESENT ILLNESS: Ms. Gottlieb presents to the pain management center with a chief complaint of back pain and leg pain. However, she also endorses pain in numerous other areas of her body including her neck and her right upper arm. She states that the onset of her pain dates to February 1993 when she sustained an injury at work. She states she was carrying something and slipped. She did not fall, but she sustained what she describes as a whiplash-like injury. She states the next day she noted pain in her neck and radiating into her arm, but over the years she has developed increasing problems with low back pain as well as leg pain. She states her worst pain is in her lower back and in her left leg. She states she has consulted numerous physicians regarding the pain. Has had medications for the pain. She has had spinal manipulation, physical therapy, TENS (transcutaneous electrical nerve stimulator) unit and traction. She states that the medications have been helpful. She did have a neck fusion in 1994 that was helpful. She had nerve blocks, manipulations and physical therapy which she describes as not that helpful. TENS (transcutaneous electrical nerve stimulator) unit has been somewhat helpful and she states that traction has been helpful as well. She describes her pain as a deep intense throbbing that is present continuously. It is worse in the lower back and leg, worse in the left leg. She states that traction and massage as well as medications are helpful and she states the pain is made worse by riding in a bumpy car, lifting, bending forward, walking, cold, stressful situations, sexual activity, and weather changes. She states she has been on a variety of medications for her pain. She states that she had adverse reactions to fentanyl, Demerol, marcaine and Lanacane. She has been on amitriptyline which she states made her feel "weird and gain weight". She states she had a bowel obstruction from Neurontin. She did not describe any other nonsteroidal antiinflammatory drugs or other anticonvulsants. She states she has also been on other antidepressants, either for depression or pain, including Zoloft and Prozac which were not helpful, and she is currently on Effexor which she believes is helpful for sleep. She states that her pain interferes with all aspects of her life and has made her feel somewhat depressed. She is currently able to sleep eight hours a night and she denies any suicidal ideation. She states she has been sent to this clinic for discography to rule out degenerative disk disease which hopefully would lead to a diagnosis and the patient states she is hoping for "the back surgery she needs." The patient also describes associated numbness with her pain. She states she has numbness of her entire left leg from her toes up to the top of her thighs. Also has numbness along her left flank to just below her shoulder and around her left breast. She describes numbness on her right lower leg from the lateral aspect of the toes up to the knees. She states she does have some weakness of her left leg and denies any tingling anywhere. She also states she has been diagnosed with fibromyalgia and chronic fatigue syndrome which she describes as being tired all the time and having aches all over. PAST MEDICAL HISTORY: Significant for history of hypertension. She states also she has had problems with chest pain, has been in the emergency room a number of times with symptoms consistent with myocardial infarction, but apparently has always ruled out. She states she has been diagnosed with fibromyalgia. She states she has arthritis of her neck and back. She states she has mild depression. She states she has been diagnosed with chronic fatigue syndrome as well as "nervous legs syndrome." PAST SURGICAL HISTORY: She has had a tonsillectomy and adenoidectomy in 1955, tick removal in 1968. Hysterectomy in 1975, sinus surgery in 1981, hemorrhoidectomy in 1983, release of a bowel obstruction in 1977, right carpal tunnel surgery in 1993, right and left carpal tunnel surgery in 1995, neck fusion in 1994, sinus surgery in 2000, and another hospitalization in 1995 for anaphylactic shock. MEDICATIONS: 1. OxyContin 20 mg t.i.d. 2. Hydrocodone APAP 7.5, 750, 1 tablet every 6 hours for breakthrough pain. 3. Toprol XL 50 mg, two tablets a day for hypertension. 4. Triamterene hydrochorothiazide 75/50, 1 tablet a day for hypertension. 5. Miacalcin nasal spray, daily for osteoporosis. 6. Climara patch 0.1 mg weekly. 7. Effexor XR 75 mg h.s. 8. Pepcid 40 mg per day. 9. Verapamil 120 mg a day for hypertension. 10. Vitamins. ALLERGIES: SHE DESCRIBES BEING ALLERGIC TO FENTANYL PATCH HAVING RESPIRATORY DEPRESSION WELL BOWEL AND BLADDER DYSFUNCTION. SHE DESCRIBES NAUSEA WITH DEMEROL. SHE STATES SHE HAD ANAPHYLACTIC SHOCK WITH MARCAINE WHICH MAY HAVE ACTUALLY BEEN COMPLICATIONS OF IT BEING INJECTED INTO A VEIN, AND ARM SWELLING WITH LANACANE. FAMILY HISTORY: Noncontributory. SOCIAL HISTORY: The patient is , lives with her spouse in [facility]. 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 She is currently on social security disability and apparently has litigation pending because of her work related injury. REVIEW OF SYSTEMS: Significant for the history of hypertension, history of chest pain, history of fibromyalgia. She has had a history of pneumonia once in the remote past. History of constipation secondary to medications. History of recurrent urinary tract infections, history of arthritis, history of neck and lower back neuropathy, history of depression. She has a history of easy bruisability, she has chronic fatigue syndrome, fibromyalgia and "nervous legs syndrome." PHYSICAL EXAMINATION: GENERAL: This is a well-developed, well-nourished pleasant, neatly dressed and groomed white woman who is cooperative with the interview and examination. HEENT: Grossly shows no abnormalities. LUNGS: Clear to auscultation. CARDIAC: Regular rate and rhythm with no murmurs, rubs or gallops. ABDOMEN: Moderately obese, soft with voluntary guarding. There are good bowel sounds. MUSCULOSKELETAL: She is well-developed. Examination of the thorax shows flexion is performed to 30 degrees with the patient having trouble with falling forward at that point and complaining of low back pain. Extension is to less than 10 degrees with complaint of low back pain. Right rotation and extension is intact to 30 degrees with complaint of low back pain. Left rotation and extension also to 30 degrees with complaint of low back pain. Side glide is positive on the left to right with complaint of right hip pain. Negative right to left. Straight leg raising is performed on the right to 45 degrees with complaint of low back pain, and on the left to 20 degrees also with complaint of severe low back pain. NEUROLOGIC: Gait is intact. The patient is able to walk on her heels and toes. She is able to tandem walk, but is somewhat unbalanced. Her Romberg is negative. Deep tendon reflexes are 2+ and equal in the upper extremities. 1+ right patellar reflex. Left patellar reflex is absent and Achilles reflexes are absent bilaterally. SENSORY: In the left lower extremity she has decreased sensation to pinprick and vibration and complains of tingling with light touch in the entire left lower extremity. In the right lower extremity she has decreased sensation to pinprick and light touch laterally, but otherwise intact. MOTOR EXAMINATION: Give away weakness in the lower extremities bilaterally. Manual tender point survey, 18 sites were positive and two control sites were positive. IMPRESSION: This is a 60-year-old woman with the following problems: 1. Mechanical low back pain. She has several levels of degenerative disk disease and arthritis. 2. Myofascial pain and fibromyalgia. She has deactivation and deconditioning. 3. She has an abnormal, nondiagnostic neurologic examination. 4. She has chronic depression. 5. She has issues with medications and incomplete relief from her current medications. RECOMMENDATIONS: 1. The patient comes in requesting discography and possible procedure following the discography, assuming it was diagnostic. After a long discussion with the patient in which it was noted that discography was an extremely painful procedure, and it might not be diagnostic in her case, the patient elected to proceed. 2. The alternatives of physical therapy and more conservative approaches were suggested. The patient is agreeable to having physical therapy, but did not feel that as the only therapy that it would be that helpful to her. 3. No recommendations are made at this point with regard to changing her medications. 4. The patient did give informed consent to the discography procedure after a long discussion. The procedure was explained to her. The risks were explained, the alternatives were explained, and the patient did give informed consent to discography at this time. This will be scheduled in the near future. The patient was seen and evaluated with Dr. Jeff Avila present and he participated in the evaluation. Thank you for the opportunity to see this patient. Shanita Green M.D. Jeff Avila M.D. MF:[id number] CC: THUAN TOLBERT DO [address] [facility] [address] [facility] [id number] Brad Acharya M.D. [facility] cc: [id number] signed by Interface, Needle Maker In at 12/26/2005 3:01 AM PDTdocume nted in this encounter Plan of Treatment Not on filedocumented as of this encounter Visit Diagnoses Not on filedocumented in this encounter
--- OUTSIDE RECORDS SUMMARY | ~2019-07-25 | XMS | Encounter Summary ---
Demographics + + + | Address | [address] | | | [place] [address] | + + + | Home Phone | | + + + | Preferred Language | Unknown | + + + | Marital Status | | + + + | Episcopal Affiliation | [id number] | + + + | Race | Unknown | + + + | Ethnic Group | Unknown | + + + Author + + + | Author | [facility] | | | and [place] | + + + | Organization | [facility] | | | [...] Eron Gottlieb | ECON | [address] [place] [address] | | | | | , [place] [address] | | + + + + + Care Team Providers + +------+ + | Care In Flight Refueling Craftsman Name | Role | Phone | + +------+ + PCP | Unavailable | + +------+ + Encounter Details +--------+ + + + + | Date | Type | Department | Care Team | Description | +--------+ + + + + | 04/08/ | Hospital | [facility] | Phillip Max | | | 2011 | Encounter | MED CTR XRAY [address] | T, MD [address] | | | | | [address] | [address] [place], [place] | | | | | [place] [address] | [address] | | | | | [phone] | | | +--------+ + + + [...] | + +--------+ + + + | FL EPIDURAL STEROID | | 04/08/2011 | | Results for this | | INJECTION LUMBAR | | 12:46 PM | | procedure are in the | | TRANSFORAMINAL | | PST | | results section. | + +--------+ + + + documented in this encounter Results FL VY Lumbar Transforaminal (04/08/2011 12:46 PM PST) + + | Specimen | + + | | + + + + + | Narrative | Performed At | + + + | [facility] | [facility] | | [address], [facility] | [facility] | | PROCEDURE: EPIDURAL STEROID | DIAG IMG | | INJECTION ICD-9 code 724.4, lumbar radiculitis. Ms. Jones | | | Bull presents to the fluoroscopy suite for a fluoroscopically guided | | | right L3-L4 transfor aminal epidural steroid injection and a left | | | L4-L5 transforaminal epidural steroid injection as part of | | | conservative management for chronic pain and lumbar radiculopathy with | | | degenerative disc disease. After informed consent was obtained, | | | the patient lay in a prone position on the fluoroscopy table. The | | | areas were identified under fluoroscopic guidance. The areas were | | | prepped and draped in a sterile fashion. A 25-gauge 1.5-inch | | | needle was inserted into each region and approximately 2 mL of buffere | | | d 1% lidocaine was infused. Then a 22-gauge spinal needle was | | | inserted into the posterior superior tr ansforaminal space at each | | | level and advanced into the epidural space under fluoroscopic | | | guidance. C onfirmation into the epidural space was obtained with | | | infusion of approximately 1 mL of Isovue contra st, which showed | | | epidural flow as well as nerve sheath flow, then a combination of 2 mL | | | of 1% lidocai ne and 2 mL of 6 mg/mL Celestone was infused divided | | | between the two sides. The patient tolerated th e procedure well | | | without complications. Pre- and postprocedure blood pressures were | | | stable. The pat ient was given verbal as well as written followup | | | instructions. The patient reported good improvemen t in pain | | | symptoms postprocedure. Prior to the start of the procedure the | | | following were performed or verified including correct patien t | | | identity, correct site and side marked and visible, agreement on the | | | procedure to be done, correct patient positioning and an accurate | | | procedure consent form, and any safety precautions based on clini heather | | | history and/or medications have been addressed. I personally | | | performed the procedure above. Dictated Date/Time: 04/08/2011 | | | 15:13 Transcribed Date/Time: 04/08/2011 15:19 Corporate Manager: | | | <Electronically Signed by Phillip Max MD> 04/14/11 | | | 0847 | | + + + + + | Procedure Note | + + | Roberto Sanders Conversion - 04/13/2013 4:40 PM [facility] | | Diagnostic Imaging Department [address] [place] [address] | | PROCEDURE: EPIDURAL STEROID INJECTION ICD-9 code 724.4, | | lumbar radiculitis. Ms. Karen Gottlieb presents to the fluoroscopy suite for a | | fluoroscopically guided right L3-L4 transforaminal epidural steroid injection and a left | | L4-L5 transforaminal epidural steroid injection as part of conservative management for | | chronic pain and lumbar radiculopathy with degenerative disc disease. After informed | | consent was obtained, the patient lay in a prone position on the fluoroscopy table. The | | areas were identified under fluoroscopic guidance. The areas were prepped and draped in | | a sterile fashion. A 25-gauge 1.5-inch needle was inserted into each region and | | approximately 2 mL of buffered 1% lidocaine was infused. Then a 22-gauge spinal needle | | was inserted into the posterior superior transforaminal space at each level and advanced | | into the epidural space under fluoroscopic guidance. Confirmation into the epidural | | space was obtained with infusion of approximately 1 mL of Isovue contrast, which showed | | epidural flow as well as nerve sheath flow, then a combination of 2 mL of 1% lidocaine | | and 2 mL of 6 mg/mL Celestone was infused divided between the two sides. The patient | | tolerated the procedure well without complications. Pre- and postprocedure blood | | pressures were stable. The patient was given verbal as well as written followup | | instructions. The patient reported good improvement in pain symptoms postprocedure. | | Prior to the start of the procedure the following were performed or verified including | | correct patient identity, correct site and side marked and visible, agreement on the | | procedure to be done, correct patient positioning and an accurate procedure consent | | form, and any safety precautions based on clinical history and/or medications have been | | addressed. I personally performed the procedure above. Dictated Date/Time: 04/08/2011 | | 15:13Transcribed Date/Time: 04/08/2011 15:19Transcriptionist: <Electronically | | Signed by Phillip Max MD> 04/14/11 0847 | |t identity, correct site and side marked and visible, agreement on the procedure to be done , correct | |patient positioning and an accurate procedure consent form, and any safety precautions base d on clini | |heather history and/or medications have been addressed. | | | |I personally performed the procedure above. | | | |Dictated Date/Time: 04/08/2011 15:13 | |Transcribed Date/Time: 04/08/2011 15:19 | |Corporate Manager: | |<Electronically Signed by Phillip Max MD> 04/14/11 0847 | + + + +---------+ + + | Performing | Address | City/State/Zipcode | Phone Number | | Organization | | | | + +---------+ + + | [place] | | | | | [facility] | | | | + +---------+ + + documented in this encounter Visit Diagnoses Not on filedocumented in this encounter"
--- OUTSIDE RECORDS SUMMARY | ~2019-07-25 | XMS | Clinical Summary ---
Demographics + + + | Address | [address] | | | [place] [address] | + + + | Home Phone | | + + + | Preferred Language | Unknown | + + + | Marital Status | | + + + | Catholic Affiliation | Unknown | + + + | Race | White | + + + | Ethnic Group | Not or | + + + Author + + + | Author | [facility] | + + + | Organization | [facility] | + + + | Address | Unknown | + + + | Phone | Unavailable | + + + Support + + + + + | Name | Relationship | Address | Phone | + + + + + | Eron Gottlieb | ECON | [place] | | + + + + + Care Team Providers + +------+ + | Care Boiler Mechanic Name | Role | Phone | + +------+ + PCP | Unavailable | + +------+ + Source Comments KRISHNA is fully live on both [facility] Allergies + + + + + + | Active Allergy | Reactions | Severity | Noted | Comments | | | | | Date | | + + + + + + | Bupivacaine Hcl | | | 11/22/18 | | | | | | 97 | | + + + + + + | Meperidine Hcl | | | 11/22/18 | | | | | | 97 | | + + + + + + Medications + + + +---------+------+------+-------+ | Medication | Sig | Dispensed | Refills | Star | End | Statu | | | | | | t | Date | s | | | | | | Date | | | + + + +---------+------+------+-------+ | OXYCODONE SR 80 MG | None Entered | | 0 | | | Activ | | 12 HR TAB | | | | | | e | + + + +---------+------+------+-------+ | EFFEXOR OR | None Entered | | 0 | | | Activ | | | | | | | | e | + + + +---------+------+------+-------+ | VERAPAMIL SR 240 | None Entered | | 0 | | | Activ | | MG 24 HR CAP | | | | | | e | + + + +---------+------+------+-------+ | PROTONIX 40 MG TAB | None Entered | | 0 | | | Activ | | | | | | | | e | + + + +---------+------+------+-------+ Active Problems Not on file Social History + +-------+ +--------+------+ | Tobacco [...] recent travel history available. | + + Last Filed Vital Signs Not on file Plan of Treatment + + + + + | Health Maintenance | Due Date | Last Done | Comments | + + + + + | Pneumococcal | | | | | vaccination (1 of 2 | 7 | | | | - PCV13) | | | | + + + + + | Influenza (Flu) | | | | | vaccination (#1) | 9 | | | + + + + + Results Not on filefrom Last 3 Months Insurance + +--------+ +--------+-------+---------+------+ | Payer | Benefi | Subscriber | Effect | Phone | Address | Type | | | t Plan | ID | antionette | | | | | | / | | Dates | | | | | | Group | | | | | | + +--------+ +--------+-------+---------+------+ | MEDICARE HMO | MEDICA | xxxxxxxxxxx | 03/07/19 | | | HMO | | | RE HMO | | 07-Pre | | | | | | | | sent | | | | + +--------+ +--------+-------+---------+------+ + +--------+ +--------+ + + | Guarantor Name | Accoun | Relation to | Date | Phone | Billing Address | | | t Type | Patient | of | | | | | | | | | | + +--------+ +--------+ + + | KAREN GOTTLIEB | Person | Self | [birth year] | [address] [employer] | | | al/Fam | | 1941 | [phone] | [place] [address] | | | jennifer | | | 1 (Home) | | + +--------+ +--------+ + + Advance Directives + + + + + | Type | Date Recorded | Patient | Explanation | | | | Manager Car | | + + + + + | Advance | | | | | Directives and | | | | | Living Will | | | | + + + + + | Power of | | | | | On Site Services Specialist | | | | + + + + +"
--- OUTSIDE RECORDS SUMMARY | ~2019-07-25 | XMS | Encounter Summary ---
Demographics + + + | Address | [address] | | | [place] [address] | + + + | Home Phone | | + + + | Preferred Language | Unknown | + + + | Marital Status | | + + + | Religion Affiliation | 1025 | + + + | Race | Unknown | + + + | Ethnic Group | Unknown | + + + Author + + + | Author | [facility] | | | and [place] | + + + | Organization | [facility] | | [...] Gottlieb | ECON | [address] [place] [address] | | | | | , [place] [address] | | + + + + + Care Team Providers + +------+ + | Care Commercial Electrician Name | Role | Phone | + +------+ + PCP | Unavailable | + +------+ + Encounter Details +--------+ + + + + | Date | Type | Department | Care Team | Description | +--------+ + + + + | 09/06/ | Hospital | [facility] | Jac Riley | | | 2011 - | Encounter | MED CTR SURGICAL | MD Ale [address] | | | | | [address] | [facility] [place] | | | 09/09/ | | [place] [address] | [id number] | | | 2011 | | [phone] | [phone] | | | | | | | [...] + + documented as of this encounter Discharge Summaries Jac Riley MD - 01/01/2012 10:19 [place] [address] Patient Name: KAYCEEKAREN Provider: Jac Riley MD Unit #: [id number] Location : 3ES : 1940 ADMISSION DATE: 09/07/2011 DISCHARGE DATE: 09/10/2011 DISCHARGE SUMMARY ATTENDING PHYSICIAN: Jac Riley MD. ADMITTING DIAGNOSIS 1. Degenerative levoscoliosis. 2. Lumbar spondylolisthesis and instability. 3. Coronal instability. 4. Neural foraminal stenosis. 5. Radiculopathy. 6. Osteopenia. 7. Hypertension. 8. History of cardiac dysrhythmia. 9. Anxiety. 10. Depression. 11. Fibromyalgia. 12. Diverticulosis. 13. Gastric reflux. 14. Obesity. 15. Arthritis. DISCHARGE DIAGNOSES 1. STATUS POST L3-4 AND L4-5 LATERAL ANTERIOR INTERBODY ARTHRODESIS WITH L5-S1 TRANSFORAMI NAL LUMBAR INTERBODY ARTHRODESIS AND BILATERAL POSTERIOR SEGMENTAL PEDICLE SCREW ARTHRODESI S L3-4, L4-5, L5-S1. 2. DEGENERATIVE LEVOSCOLIOSIS. 3. LUMBAR SPONDYLOLISTHESIS AND INSTABILITY. 4. CORONAL INSTABILITY. 5. NEURAL FORAMINAL STENOSIS. 6. RADICULOPATHY. 7. OSTEOPENIA. 8. HYPERTENSION. 9. HISTORY OF CARDIAC DYSRHYTHMIA. 10. ANXIETY. 11. DEPRESSION. 12. FIBROMYALGIA. 13. DIVERTICULOSIS. 14. GASTRIC REFLUX. 15. OBESITY. 16. ARTHRITIS. PROCEDURES 1. L3-4, L4-5 lateral interbody arthrodesis. 2. L5-S1 transforaminal lumbar interbody arthrodesis. 3. L3-4, L4-5 and L5-S1 bilateral posterior segmental pedicle screw arthrodesis. CONSULTATIONS 1. Hospitalist, Aramis Harrison MD. 2. Rehab, Rowena Giraldo MD, PHD. BRIEF HISTORY: Ms. Gottlieb is a 71-year-old female with a long history of significant back a nd leg pains who has attempted and failed conservative management. After discussion of the risks, alternatives and benefits of surgical intervention in clinic, she has elected to pro ceed with surgical intervention. HOSPITAL COURSE: Ms. Gottlieb was admitted to Same Day and underwent her surgical procedure. She tolerated the procedure well. Postoperatively, she did develop some atrial fibrillation intermittently. She remains relatively asymptomatic from it, but did have some issues with rate control. A hospitalist consult was obtained and they assisted in management with beta blockade. Aspirin was restarted on postoperative day #2. She was evaluated by rehab and fe lt to be a good candidate. Neurologically she remained in good condition, gradually progres sing with her ambulation, improving strength and pain control and sensation. On 07/06, post operative day #3, she was deemed to be stable and in good condition and ready for discharge to rehab. DISCHARGE DISPOSITION: To rehab. CONDITION: Good. DISCHARGE INSTRUCTIONS: She is to continue on lumbosacral precautions which means no heavy lifting anything greater than 5 pounds, no bending or twisting, and no sitting for greater than 45 minutes. DISCHARGE MEDICATIONS She is to continue on her pain medications and her cardiac medications, and further medic ation changes per the hospitalist and rehab team. DISCHARGE DIET: She is to continue on her preoperative diet. FOLLOWUP: With me approximately 2 weeks after discharge from rehab. DICTATED BY: Jac Riley MD Neurosurgery JOB #: [id number] EXT JOB #:[id number] <<Signature on File>> Jac Riley MD01/03/12 0729 < Brian Pal MD - 09/07/2011 11:30 PM PDTADMISSION DATE: 09/07/2011 DISCHARGE DATE: 09/10/2011 DISCHARGE SUMMARY ATTENDING PHYSICIAN: Jac Riley MD. ADMITTING DIAGNOSIS 1. Degenerative levoscoliosis. 2. Lumbar spondylolisthesis and instability. 3. Coronal instability. 4. Neural foraminal stenosis. 5. Radiculopathy. 6. Osteopenia. 7. Hypertension. 8. History of cardiac dysrhythmia. 9. Anxiety. 10. Depression. 11. Fibromyalgia. 12. Diverticulosis. 13. Gastric reflux. 14. Obesity. 15. Arthritis. DISCHARGE DIAGNOSES 1. STATUS POST L3-4 AND L4-5 LATERAL ANTERIOR INTERBODY ARTHRODESIS WITH L5-S1 TRANSFORAMIN AL LUMBAR INTERBODY ARTHRODESIS AND BILATERAL POSTERIOR SEGMENTAL PEDICLE SCREW ARTHRODESIS L3-4, L4-5, L5-S1. 2. DEGENERATIVE LEVOSCOLIOSIS. 3. LUMBAR SPONDYLOLISTHESIS AND INSTABILITY. 4. CORONAL INSTABILITY. 5. NEURAL FORAMINAL STENOSIS. 6. RADICULOPATHY. 7. OSTEOPENIA. 8. HYPERTENSION. 9. HISTORY OF CARDIAC DYSRHYTHMIA. 10. ANXIETY. 11. DEPRESSION. 12. FIBROMYALGIA. 13. DIVERTICULOSIS. 14. GASTRIC REFLUX. 15. OBESITY. 16. ARTHRITIS. PROCEDURES 1. L3-4, L4-5 lateral interbody arthrodesis. 2. L5-S1 transforaminal lumbar interbody arthrodesis. 3. L3-4, L4-5 and L5-S1 bilateral posterior segmental pedicle screw arthrodesis. CONSULTATIONS 1. Hospitalist, Aramis Harrison MD. 2. Rehab, Rowena Giraldo MD, PHD. BRIEF HISTORY: Ms. Gottlieb is a 71-year-old female with a long history of significant back an d leg pain s who has attempted and failed conservative management. After discussion of the risks, alternatives a nd benefits of surgical intervention in clinic, she has elected to pr oceed with surgical intervention . HOSPITAL COURSE: Ms. Gottlieb was admitted to Same Day and underwent her surgical procedure. S he tolerat ed the procedure well. Postoperatively, she did develop some atrial fibrillation intermittently. She remains relatively asymptomatic from it, but did have some issues with rate control. A hospitalist co nsult was obtained and they assisted in management with bet a blockade. Aspirin was restarted on posto perative day #2. She was evaluated by rehab and felt to be a good candidate. Neurologically she remai corrie in good condition, gradually prog ressing with her ambulation, improving strength and pain control and sensation. On 07, p ostoperative day #3, she was deemed to be stable and in good condition and ready for discha rge to rehab. DISCHARGE DISPOSITION: To rehab. CONDITION: Good. DISCHARGE INSTRUCTIONS: She is to continue on lumbosacral precautions which means no heavy lifting an ything greater than 5 pounds, no bending or twisting, and no sitting for greater than 45 minutes. DISCHARGE MEDICATIONS She is to continue on her pain medications and her cardiac medications, and further medica tion andrae es per the hospitalist and rehab team. DISCHARGE DIET: She is to continue on her preoperative diet. FOLLOWUP: With me approximately 2 weeks after discharge from rehab. DICTATED BY: Jac Riley MD Neurosurgery JOB #: [id number] EXT JOB #:[id number] <Electronicall y Signed by Jac Riley MD> 01/03/12 0729 documented in this encounter Plan of Treatment Not on filedocumented as of this encounter Procedures + +--------+ + + + | Procedure Name | Priori | Date/Time | Associated Diagnosis | Comments | | | ty | | | | + +--------+ + + + | TROPONIN I | Routin | 09/08/2011 | | Results for this | | | e | 1:15 AM | | procedure are in the | | | | PDT | | results section. | + +--------+ + + + | PROTIME INR | Routin | 09/08/2011 | | Results for this | | | e | 1:15 AM | | procedure are in the | | | | PDT | | results section. | + +--------+ + + + | CBC WITH | Routin | 09/08/2011 | | Results for this | | DIFFERENTIAL | e | 1:15 AM | | procedure are in the | | | | PDT | | results section. | + +--------+ + + + | TSH | Routin | 09/08/2011 | | Results for this | | | e | 1:15 AM | | procedure are in the | | | | PDT | | results section. | + +--------+ + + + | PHOSPHORUS | Routin | 09/08/2011 | | Results for this | | | e | 1:15 AM | | procedure are in the | | | | PDT | | results section. | + +--------+ + + + | MAGNESIUM | Routin | 09/08/2011 | | Results for this | | | e | 1:15 AM | | procedure are in the | | | | PDT | | results section. | + +--------+ + + + | COMPREHENSIVE | Routin | 09/08/2011 | | Results for this | | METABOLIC PANEL | e | 1:15 AM | | procedure are in the | | | | PDT | | results section. | + +--------+ + + + | XR LUMBAR SPINE 2 OR | | 09/07/2011 | | Results for this | | 3 VW | | 11:30 PM | | procedure are in the | | | | PDT | | results section. | + +--------+ + + + documented in this encounter Results Protime INR (09/08/2011 1:15 AM PDT) + + + + + + | Component | Value | Ref Range | Performed | Pathologist | | | | | At | Signature | + + + + + + | Prothrombin | 12.7 | 11.3 - 13.9 | [facility] | | | Time | | seconds | [facility] | | | | | | MEDICAL | | | | | | CENTER - | | | | | | LABORATORY | | + + + + + + | INR | 1.0Comment: INR: USUAL | 0.9 - 1.1 | [facility] | | | | ORAL ANTICOAGULATION | | [facility] | | | | RANGE | | MEDICAL | | | | 2.0-3.0 | | CENTER - | | | | HIGH LEVEL ORAL | | LABORATORY | | [...] + | [facility] | [address] | [place], [place] | [phone] | | [facility] | | [address] | | | - LABORATORY | | | | + + + + + | [facility] | [address] | [place] | | | [facility] | | [id number] [place] [address] | | | - LABORATORY | | | | + + + + + TSH (09/08/2011 1:15 AM PDT) + + + + + + | Component | Value | Ref Range | Performed | Pathologist | | | | | At | Signature | + + + + + + | TSH | 0.49Comment: Testing | 0.34 - 5.60 | [facility] | | | | performed on the [facility] | uIU/mL | [facility] | | | | [facility] | | MEDICAL | | | | Analyzer. | | CENTER - | | | | | | LABORATORY | | + + + + + + + + | Specimen | + + | | + + + + + + + | Performing | Address | City/State/Zipcode | Phone Number | | Organization | | | | + + + + + | [facility] | [address] | [place] | [phone] | | [facility] | | [address] | | | - LABORATORY | | | | + + + + + | [facility] | [address] | [place], [place] | | | [facility] | | [address] | | | - LABORATORY | | | | + + + + + Comprehensive Metabolic Panel (09/08/2011 1:15 AM PDT) + + + + + + | Component | Value | Ref Range | Performed | Pathologist | | | | | At | Signature | + + + + + + | Glucose | 152 (H) | 70 - 109 mg/dL | [facility] | | | | | | [facility] | | | | | | MEDICAL | | | | | | CENTER - | | | | | | LABORATORY | | + + + + + + | Calcium | 8.4 | 8.3 - 10.5 | [facility] | | | | | mg/dL | [facility] | | | | | | MEDICAL | | | | | | CENTER - | | | | | | LABORATORY | | + + + + + + | Alkaline | 57 | 40 - 110 IU/L | [facility] | | | Phosphatase | | | [facility] | | | | | | MEDICAL | | | | | | CENTER - | | | | | | LABORATORY | | + + + + + + | AST | 40 | 10 - 42 IU/L | [facility] | | | | | | [facility] | | | | | | MEDICAL | | | | | | CENTER - | | | | | | LABORATORY | | + + + + + + | ALT | 24 | 6 - 45 IU/L | [facility] | | | | | | [facility] | | | | | | MEDICAL | | | | | | CENTER - | | | | | | LABORATORY | | + + + + + + | Bilirubin | 0.6 | 0.2 - 1.0 mg/dL | [facility] | | | Total | | | [facility] | | | | | | MEDICAL | | | | | | CENTER - | | | | | | LABORATORY | | + + + + + + | Total | 6.5 | 6.0 - 7.8 gm/dL | [facility] | | | Protein | | | [facility] | | | | | | MEDICAL | | | | | | CENTER - | | | | | | LABORATORY | | + + + + + + | Albumin | 3.6 | 3.2 - 5.0 gm/dL | [facility] | | | | | | [facility] | | | | | | MEDICAL | | | | | | CENTER - | | | | | | LABORATORY | | + + + + + + | BUN | 14 | 7 - 18 mg/dL | [facility] | | | | | | [facility] | | | | | | MEDICAL | | | | | | CENTER - | | | | | | LABORATORY | | + + + + + + | Creatinine | 1.22 | 0.60 - 1.30 | [facility] | | | | | mg/dL | [facility] | | | | | | MEDICAL | | | | | | CENTER - | | | | | | LABORATORY | | + + + + + + | Estimated | 44 (L)Comment: For | >60 mL/min/A | [facility] | | | GFR | -Americans, | | [facility] | | | | please multiply the | | MEDICAL | | | | result by 1.210 | | CENTER - | | | | This is an estimated | | LABORATORY | | | | GFR and is based on a | | | | | | standard adult | | | | | | body mass (A=1.73m2) and | | | | | | serum creatinine | | | | + + + + + + | BUN/Creatin | 11.5 (L) | 12 - 20 | [facility] | | | ine Ratio | | | [facility] | | | | | | MEDICAL | | | | | | CENTER - | | | | | | LABORATORY | | + + + + + + | Na | 135 (L) | 136 - 149 mEq/L | [facility] | | | | | | [facility] | | | | | | MEDICAL | | | | | | CENTER - | | | | | | LABORATORY | | + + + + + + | K | 4.4 | 3.5 - 5.1 mEq/l | [facility] | | | | | | [facility] | | | | | | MEDICAL | | | | | | CENTER - | | | | | | LABORATORY | | + + + + + + | Cl | 101 | 98 - 109 mEq/l | [facility] | | | | | | [facility] | | | | | | MEDICAL | | | | | | CENTER - | | | | | | LABORATORY | | + + + + + + | CO2 | 25 | 24 - 31 mEq/L | [facility] | | | | | | [facility] | | | | | | MEDICAL | | | | | | CENTER - | | | | | | LABORATORY | | + + + + + + | Anion Gap | 13.4 | 6.0 - 17.0 | [facility] | | | | | [...] + | [facility] | [address] | [place] | [phone] | | [facility] | | [address] | | | - LABORATORY | | | | + + + + + | [facility] | [address] | [place], [place] | | | [facility] | | [id number] [place] [address] | | | - LABORATORY | | | | + + + + + Troponin I (09/08/2011 1:15 AM PDT) + + + + + + | Component | Value | Ref Range | Performed | Pathologist | | | | | At | Signature | + + + + + + | Troponin I | 0.01Comment: Reference | <0.06 ng/mL | [facility] | | | | Ranges: | | [facility] | | | | 0.00-0.06 = NORMAL | | MEDICAL | | | | >0.06 | | CENTER - | | | | = SUSPICIOUS FOR | | LABORATORY | | | | MYOCARDIAL DAMAGE | | | | | | NOTE: Values greater | | | | | | than 0.50 ng/mL have | | | | | | been shown to be | | | | | | strongly associated with | | | | | | acute myocardial | | | | | | infarction. The | | | | | | [employer] | | | | | | Cardiology (ACC) | | | | | | recommends a decision | | | | | | limit of 0.06 ng/mL for | | | | | | this assay. Results | | | | | | greater than 0.06 can | | | | | | reflect a pre-infarct | | | | | | acute coronary | | | | | | syndrome, but can also | | | | | | reflect myocardial | | | | | | necrosis or injury | | | | | | that is not due to | | | | | | coronary artery | | | | | | disease. Some of these | | | | | | causes are sepsis, | | | | | | hypocolemia, atrial | | | | | | fibrillation, heart | | | | | | failure, pulmonary | | | | | | embolism, myocarditis, | | | | | | myocardial contusion, | | | | | | and renal failure. The | | | | | | diagnosis of myocardial | | | | | | infarction should be | | | | | | based on a combination | | | | | | of the patient's | | | | | | clinical presentation | | | | | | and the clinical | | | | | | laboratory test results | | | | | | (especially serial | | | | | | troponin levels). | | | | + + + + + + + + | Specimen | + + | | + + + + + + + | Performing | Address | City/State/Zipcode | Phone Number | | Organization | | | | + + + + + | [facility] | [address] | [place] | [phone] | | [facility] | | [address] | | | - LABORATORY | | | | + + + + + | [facility] | [address] | [place] | | | [facility] | | [address] | | | - LABORATORY | | | | + + + + + Magnesium (09/08/2011 1:15 AM PDT) + +-------+ + + + | Component | Value | Ref Range | Performed | Pathologist | | | | | At | Signature | + +-------+ + + + | Magnesium | 2.4 | 1.8 - 2.5 mg/dL | [facility] | | | | | | [facility] [...] + | [facility] | [address] | [place], [place] | [phone] | | [facility] | | [address] | | | - LABORATORY | | | | + + + + + | [facility] | [address] | [place], [place] | | | [facility] | | [address] | | | - LABORATORY | | | | + + + + + Phosphorus (09/08/2011 1:15 AM PDT) + +-------+ + + + | Component | Value | Ref Range | Performed | Pathologist | | | | | At | Signature | + +-------+ + + + | Phosphorus | 2.9 | 2.5 - 4.6 mg/dL | [facility] | | | | | | [facility] | [address] | [place] | [phone] | | [facility] | | [address] | | | - LABORATORY | | | | + + + + + | [facility] | [address] | [place] | | | [facility] | | [address], [facility] | | | - LABORATORY | | | | + + + + + CBC with Differential (09/08/2011 1:15 AM PDT) + + + + + + | Component | Value | Ref Range | Performed | Pathologist | | | | | At | Signature | + + + + + + | WBC | 13.9 (H) | 4.0 - 11.0 K/uL | [facility] | | | | | | [facility] | | | | | | MEDICAL | | | | | | CENTER - | | | | | | LABORATORY | | + + + + + + | RBC | 4.74 | 3.70 - 5.20 | [facility] | | | | | M/uL | [facility] | | | | | | MEDICAL | | | | | | CENTER - | | | | | | LABORATORY | | + + + + + + | Hemoglobin | 14.5 | 11.5 - 16.0 | [facility] | | | | | gm/dL | [facility] | | | | | | MEDICAL | | | | | | CENTER - | | | | | | LABORATORY | | + + + + + + | Hematocrit | 42.0 | 34.0 - 47.0 % | [facility] | | | | | | [facility] | | | | | | MEDICAL | | | | | | CENTER - | | | | | | LABORATORY | | + + + + + + | MCV | 88.6 | 83.0 - 101.0 fL | [facility] | | | | | | [facility] | | | | | | MEDICAL | | | | | | CENTER - | | | | | | LABORATORY | | + + + + + + | MCH | 30.5 | 28.0 - 35.0 pg | [facility] | | | | | | [facility] | | | | | | MEDICAL | | | | | | CENTER - | | | | | | LABORATORY | | + + + + + + | MCHC | 34.4 | 32.0 - 36.0 | [facility] | | | | | g/dL | [facility] | | | | | | MEDICAL | | | | | | CENTER - | | | | | | LABORATORY | | + + + + + + | RDW-CV | 13.8 | <15.0 % | [facility] | | | | | | [facility] | | | | | | MEDICAL | | | | | | CENTER - | | | | | | LABORATORY | | + + + + + + | Platelet | 193 | 140 - 440 K/uL | [facility] | | | Count | | | [facility] | | | | | | MEDICAL | | | | | | CENTER - | | | | | | LABORATORY | | + + + + + + | % | 87.1 (H) | 45 - 75 % | [facility] | | | Neutrophils | | | [facility] | | | | | | MEDICAL | | | | | | CENTER - | | | | | | LABORATORY | | + + + + + + | % | 9.7 (L) | 20 - 45 % | [facility] | | | Lymphocytes | | | [facility] | | | | | | MEDICAL | | | | | | CENTER - | | | | | | LABORATORY | | + + + + + + | % Monocytes | 2.7 (L) | 4 - 12 % | [facility] | | | | | | [facility] | | | | | | MEDICAL | | | | | | CENTER - | | | | | | LABORATORY | | + + + + + + | % | 0.0 | 0 - 5 % | [facility] | | | Eosinophils | | | [facility] | | | | | | MEDICAL | | | | | | CENTER - | | | | | | LABORATORY | | + + + + + + | % Basophils | 0.5 | 0 - 1 % | [facility] | | | | | | [facility] | | | | | | MEDICAL | | | | | | CENTER - | | | | | | LABORATORY | | + + + + + + | Absolute | 12.1 (H) | 1.5 - 6.6 K/uL | [facility] | | | Neutrophils | | | [facility] | | | | | | MEDICAL | | | | | | CENTER - | | | | | | LABORATORY | | + + + + + + | Absolute | 1.4 | 0.6 - 3.2 K/uL | [facility] | | | Lymphocytes | | | [facility] | | | | | | MEDICAL | | | | | | CENTER - | | | | | | LABORATORY | | + + + + + + | Absolute | 0.4 | 0.0 - 1.0 K/uL | [facility] | | | Monocytes | | | [facility] | | | | | | MEDICAL | | | | | | CENTER - | | | | | | LABORATORY | | + + + + + + | Absolute | 0.0 | 0.0 - 0.4 K/uL | [facility] | | | Eosinophils | | | [facility] | | | | | | MEDICAL | | | | | | CENTER - | | | | | | LABORATORY | | + + + + + + | Absolute | 0.1 | 0.0 - 0.1 K/uL | [facility] | | | Basophils | | | [facility] | | [...] + | [facility] | [address] | [place], [place] | [phone] | | [facility] | | [address] | | | - LABORATORY | | | | + + + + + | [facility] | [address] | [place], [place] | | | [facility] | | [id number] [place] [address] | | | - LABORATORY | | | | + + + + + XR Lumbar Spine 2 or 3 Vw (09/07/2011 11:30 PM PDT) + + | Specimen | + + | | + + + + + | Narrative | Performed At | + + + | [facility] Diagnostic Imaging Department | [facility] | | [address] [facility] | [facility] | | LUMBAR SPINE CLINICAL | DIAG IMG | | HISTORY: POSTOP LUMBAR FUSION. FINDINGS: Standing AP and | | | lateral views of the lumbar spine are taken through external brace. | | | Poste rior pedicle screw and gideon fixation is present from L3 to | | | sacrum with screws at each level. Radiopaq ue markers indicate the | | | location of interbody spacers in each of the interspaces. Alignment | | | is manny l in the sagittal plane. There has also been significant | | | improvement in the patient's levoscoliosis and left lateral | | | subluxation of L3. No adjacent abnormalities are seen. | | | IMPRESSION: 1. POSTOP L3-S1 FUSION. Dictated Date/Time: | | | 09/10/2011 09:01 Transcribed Date/Time: 09/10/2011 09:11 | | | Hub Associate: <Electronically Signed by Dean Us | | | MD Patrick> 09/10/11 8000 | | + + + + + | Procedure Note | + + | Tommy, Rad Conversion - 04/13/2013 5:38 PM [facility] | | Diagnostic Imaging Department [address] [facility] | | LUMBAR SPINE CLINICAL HISTORY: POSTOP LUMBAR FUSION. | | FINDINGS: Standing AP and lateral views of the lumbar spine are taken through external | | brace. Posterior pedicle screw and gideon fixation is present from L3 to sacrum with | | screws at each level. Radiopaque markers indicate the location of interbody spacers in | | each of the interspaces. Alignment is normal in the sagittal plane. There has also | | been significant improvement in the patient's levoscoliosis and left lateral subluxation | | of L3. No adjacent abnormalities are seen. IMPRESSION: 1. POSTOP L3-S1 FUSION. | | Dictated Date/Time: 09/10/2011 09:01Transcribed Date/Time: 09/10/2011 | | 09:11Transcriptionist: <Electronically Signed by Dean Nguyen MD> 09/10/11 | | 1608 | |ue markers indicate the location of interbody spacers in each of the interspaces. Alignmen t is manny | |l in the sagittal plane. There has also been significant improvement in the patient's levo scoliosis | |and left lateral subluxation of L3. No adjacent abnormalities are seen. | | | |IMPRESSION: | |1. POSTOP L3-S1 FUSION. | | | |Dictated Date/Time: 09/10/2011 09:01 | |Transcribed Date/Time: 09/10/2011 09:11 | |Hub Associate: | |<Electronically Signed by Dean Nguyen MD> 09/10/11 1608 | + + + +---------+ + + [...]
--- OUTSIDE RECORDS SUMMARY | ~2019-07-25 | XMS | Encounter Summary ---
Demographics + + + | Address | [address] | | | [place] [address] | + + + | Home Phone | | + + + | Preferred Language | Unknown | + + + | Marital Status | | + + + | Rastafarian Affiliation | Unknown | + + + | Race | White | + + + | Ethnic Group | Not or | + + + Author + + + | Author | [facility] | + + + | Organization | [facility] | + + + | Address | Unknown | + + + | Phone | Unavailable | + + + Support + + + + + | Name | Relationship | Address | Phone | + + + + + | Eron Gottlieb | ECON | [place] | | + + + + + Care Team Providers + +------+ + | Care Denial Resolution Specialist Name | Role | Phone | + +------+ + PCP | Unavailable | + +------+ + Encounter Details +--------+ + + + + | Date | Type | Department | Care Team | Description | +--------+ + + + + | 08/09/ | Transcribed | Allergy Clinic at | Dictation, Other | Transcribed | | 1997 | | [facility] [address] | | | | | | [facility] | | | | | | [facility] | | | | | | [facility], [address] [place] [address] | | | | | | [place], [place] | | | | | | [address] | | | | | | [phone] | | | +--------+ + + + [...] as of this encounter Progress Notes Interface, Polysomnographic Technologist In - 03/25/2006 5:08 AM PST [address] [address] or August 09, 1997 THUAN TOLBERT DO [address] [place] [address] [place] [address] RE:KAREN Gottlieb MR#:[id number] Tolbert: I saw Karen Gold in follow-up today. She had an MRI of the thoracic spine yesterday with gadolinium enhancement and to my review it is totally normal. We will be getting an official report in a day or so. Secondly, she had an EMG nerve conduction study done today by Dr. 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 I reexamined her today and indeed she has, as before, diminished, if not absent, ankle jerks and knee jerks. I could not get knee jerks either today. I think there may be some weakness in foot dorsi and ventroflexion 4/5; again, I am not sure. The gait is a little jmhbama-kjwtfh-oamv and a little elaborated and it is hard to be sure any visual muscle testing is normal without the heel and toe testing. The sensory examination is abnormal in both feet as well with hyperesthesia, in particular on the left but bilaterally to the touch and pin, or dysesthesias, and hypesthesia to the ankles probably; I am not sure. Vibration sense is down in the feet to some degree, not profoundly, and it is also slightly diminished in the hands compared to knee, so I think she has a little neuropathy in her hands as well. I think the new information here is that this woman has a peripheral neuropathy, sensory primarily. On top of everything else, she is complaining of low back discomfort and today she is complaining of bladder incontinence, which she said you gave her something for that. She did not have a chance to get it before she came over here. We are getting a urinalysis and starting her on Cipro 500 mg b.i.d. for five days. I gave her a supply for that. She said she had some fluid retention on the carbamazepine. 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 I am continuing the carbamazepine at the moment, 200 mg t.i.d. which is what she is taking, because it seems to be helping her. We also ordered today tests related to peripheral neuropathy, so we obtained a B12 level, hemoglobin A1C, sedimentation rate, and thyroid. Some of these tests she probably had recently with you, but I do not have all the records here. She does not use any alcohol and is not exposed to toxins, so we are in the process now of working up her peripheral neuropathy on top of everything else. She is an unhappy woman in terms of her medical story. I think there is some elaboration here but there is also some real disease, and she is complicated. I will be giving you a call early next week to discuss her case with you and report the results as we obtain them. Thank you for allowing me to share in the care of the challenging issues here. Best regards, Trent Borjas M.D. Professor and Wash Box Operator, Department of Neurology TAHIR:reagan documented in this encounter Plan of Treatment Not on filedocumented as of this encounter Visit Diagnoses Not on filedocumented in this encounter"
--- OUTSIDE RECORDS SUMMARY | ~2019-07-25 | XMS | Encounter Summary ---
Demographics + + + | Address | [address] | | | [place] [address] | + + + | Home Phone | | + + + | Preferred Language | Unknown | + + + | Marital Status | | + + + | Temple Affiliation | 1025 | + + + | Race | Unknown | + + + | Ethnic Group | Unknown | + + + Author + + + | Author | [facility] | | | and [place] | + + + | Organization | [facility] | | | [...] Eron Gottlieb | ECON | [address] [place] [address] | | | | | , [place] [address] | | + + + + + Care Team Providers + +------+ + | Care Produce Department Manager Name | Role | Phone | + +------+ + PCP | Unavailable | + +------+ + Encounter Details +--------+ + + + + | Date | Type | Department | Care Team | Description | +--------+ + + + + | 02/02/ | Hospital | [facility] | Phillip Max | | | 2010 | Encounter | MED CTR XRAY [address] | T, MD [address] | | | | | [place] | [address] [place], [place] | | | | | [place] [address] | [address] | | | | | [phone] | | | +--------+ + + + [...] + | FL EPIDURAL STEROID | | 02/02/2011 | | Results for this | | INJECTION LUMBAR | | 2:49 PM | | procedure are in the | | TRANSFORAMINAL | | PST | | results section. | + +--------+ + + + documented in this encounter Results FL VY Lumbar Transforaminal (02/02/2011 2:49 PM PST) + + | Specimen | + + | | + + + + + | Narrative | Performed At | + + + | [facility] Diagnostic Imaging Department | [facility] | | [address] [facility] | [facility] | | PROCEDURE NOTE LUMBAR | DIAG IMG | | TRANSFORAMINAL EPIDURAL STEROID INJECTION, 02/02/2011 CLINICAL | | | HISTORY: ICD-9 CODE 724.4 lumbar radiculitis. Ms. Karen Gottlieb | | | presents to the fluoroscopy suite for a fluoroscopically-guided right | | | L3-L4 and left L4-L5 epidural steroid injection as part of | | | conservative management for chronic pain with lumbar rad iculopathy | | | and degenerative disk disease. After informed consent was obtained, | | | the patient lay in th e prone position on the fluoroscopy table. | | | The areas were identified under fluoroscopic guidance. T he areas | | | were prepped and draped in sterile fashion. A 25-gauge, 1.5-inch | | | needle was inserted into e ach region and approximately 3 mL of | | | buffered 1% lidocaine was infused and a 22-gauge spinal needle w as | | | inserted into the posterior superior transforaminal space at each | | | level and advanced into the epid ural space under fluoroscopic | | | guidance. Confirmation into the epidural space with contrast was | | | not performed due to an iodine or contrast allergy. A combination | | | of 2 mL of 1% lidocaine and 2 mL of 40 mg/mL Kenalog was infused | | | divided between the two levels and two sides. The patient tolerated | | | the p rocedure well without complications. Pre- and post-procedure | | | blood pressures were stable. The patie nt was given verbal as well | | | as written followup instructions, and the patient reported no | | | significant change in pain symptoms post procedure. Prior to | | | the start of the procedure, the following were performed and verified, | | | including correct pat ient identity, correct site/side marked and | | | visible, agreement on the procedure to be done, correct p atient | | | positioning and an accurate procedure consent form. Any safety | | | precautions based on clinical history and/or medication use have | | | been addressed. I personally performed the procedure above. | | | Dictated Date/Time: 02/02/2011 16:33 Transcribed Date/Time: | | | 02/02/2011 17:33 Director Power: <Electronically Signed | | | by Phillip Max MD> 02/03/11 1747 | | + + + + + | Procedure Note | + + | Roberto Sanders Conversion - 04/13/2013 4:18 PM [facility] | | Diagnostic Imaging Department [address] [facility] | | PROCEDURE NOTE LUMBAR TRANSFORAMINAL EPIDURAL STEROID | | INJECTION, 02/02/2011 CLINICAL HISTORY: ICD-9 CODE 724.4 lumbar radiculitis. Ms. Jones | | Bull presents to the fluoroscopy suite for a fluoroscopically-guided right L3-L4 and | | left L4-L5 epidural steroid injection as part of conservative management for chronic | | pain with lumbar radiculopathy and degenerative disk disease. After informed consent | | was obtained, the patient lay in the prone position on the fluoroscopy table. The areas | | were identified under fluoroscopic guidance. The areas were prepped and draped in | | sterile fashion. A 25-gauge, 1.5-inch needle was inserted into each region and | | approximately 3 mL of buffered 1% lidocaine was infused and a 22-gauge spinal needle was | | inserted into the posterior superior transforaminal space at each level and advanced | | into the epidural space under fluoroscopic guidance. Confirmation into the epidural | | space with contrast was not performed due to an iodine or contrast allergy. A | | combination of 2 mL of 1% lidocaine and 2 mL of 40 mg/mL Kenalog was infused divided | | between the two levels and two sides. The patient tolerated the procedure well without | | complications. Pre- and post-procedure blood pressures were stable. The patient was | | given verbal as well as written followup instructions, and the patient reported no | | significant change in pain symptoms post procedure. Prior to the start of the | | procedure, the following were performed and verified, including correct patient | | identity, correct site/side marked and visible, agreement on the procedure to be done, | | correct patient positioning and an accurate procedure consent form. Any safety | | precautions based on clinical history and/or medication use have been addressed. I | | personally performed the procedure above. Dictated Date/Time: 02/02/2011 | | 16:33Transcribed Date/Time: 02/02/2011 17:33Transcriptionist: <Electronically | | Signed by Phillip Max MD> 02/03/11 1747 | |Prior to the start of the procedure, the following were performed and verified, including c orrect pat | |ient identity, correct site/side marked and visible, agreement on the procedure to be done, correct p | |atient positioning and an accurate procedure consent form. Any safety precautions based on clinical | |history and/or medication use have been addressed. | | | |I personally performed the procedure above. | | | |Dictated Date/Time: 02/02/2011 16:33 | |Transcribed Date/Time: 02/02/2011 17:33 | |Director Power: | |<Electronically Signed by Phillip Max MD> 02/03/11 1747 | + + + +---------+ + + | Performing | Address | City/State/Zipcode | Phone Number | | Organization | | | | + +---------+ + + | [place] | | | | | [facility] | | | | + +---------+ + + documented in this encounter Visit Diagnoses Not on filedocumented in this encounter"
--- OUTSIDE RECORDS SUMMARY | ~2019-07-25 | XMS | Encounter Summary ---
Demographics + + + | Address | [address] | | | [place] [address] | + + + | Home Phone | | + + + | Preferred Language | Unknown | + + + | Marital Status | | + + + | Congregational Affiliation | 1025 | + + + | Race | Unknown | + + + | Ethnic Group | Unknown | + + + Author + + + | Author | [facility] | | | and [place] | + + + | Organization | [facility] | | [...] Eron Benoit | ECON | [address] [place] [address] | | | | | [place] [address] | | + + + + + Care Team Providers + +------+ + | Care Methods Analyst Data Processing Name | Role | Phone | + +------+ + | Juan M Huang DO | PCP | | + +------+ + Encounter Details +--------+ + + + + | Date | Type | Department | Care Team | Description | +--------+ + + + + | 09/14/ | Orders Only | [facility] | Cristian Tinoco, | Abnormal chest x-ray | | 2012 | | NEUROSURGERY [address] | DO [address] | (Primary Dx); | | | | [address] | [address] [place], [place] | Preoperative testing | | | | [place], [place] | [address] | | | | | [address] | | | | | | [phone] | | | +--------+ + + + [...] filedocumented as of this encounter Results XR Chest PA and Lateral (09/20/2012 1:11 PM PDT) + + | Specimen | + + | | + + + + + | Narrative | Performed At | + + + | [facility] | [place] | | Department [address] [facility] [place] | [facility] | | [ rep [address]] [ rep ct [facility] | | [facility]] Signed | - IMAGING | | | | | Patient Name: KAREN BENOIT Ricardo Physician: | | | [id number] : 1940 Age: 72 Sex: F Unit #: [id number] | | | Exam Date: 09/20/12 Location: [facility] | | | Report #: [id number] Page: | | | %(RAD)RES..mtdd.print.filter("pg") of %(RAD) | | | RES..mtdd.print.filter("tpg") | | | | | | Accession Number: [id number] | | | CHEST PA AND LATERAL [...] Transcribed Date/Time: 09/20/2012 | | | 13:39 Inspector Water Pollution Control: | | | <<Signature on File>> | | | Eron | | | Roxy Moreno MD09/20/125 <Electronically signed by Eron Ramsey | | | Josh TRISTAN> Eron Moreno MD 09/20/12 1311 | | | Inspector Water Pollution Control: [employer] Ijkkdecwvwzct40/17/13 1339 | | | | | + + + + + + + + | Performing | Address | City/State/Zipcode | Phone Number | | Organization | | | | + + + + + | [facility] | [address] | [place] | [phone] | | [facility] | | [address] | | | - IMAGING | | | | + + + + + documented in this encounter Visit Diagnoses + + | Diagnosis | + + | Abnormal chest x-ray - Primary Other nonspecific abnormal finding of lung field | + + | Preoperative testing Preoperative examination, unspecified | + + documented in this encounter
--- OUTSIDE RECORDS SUMMARY | ~2019-07-25 | XMS | Encounter Summary ---
Demographics + + + | Address | [address] | | | [place] [address] | + + + | Home Phone | | + + + | Preferred Language | Unknown | + + + | Marital Status | | + + + | Oriental Orthodox Affiliation | 1025 | + + + | Race | Unknown | + + + | Ethnic Group | Unknown | + + + Author + + + | Author | [facility] | | | and [place] | + + + | Organization | [facility] | | | and [...] Eron Benoit | ECON | [address] [place] [address] | | | | | [place] [address] | | + + + + + Care Team Providers + +------+ + | Care Metal Patternmaker Name | Role | Phone | + +------+ + | Juan M Huang DO | PCP | | + +------+ + Encounter Details +--------+ + + + + | Date | Type | Department | Care Team | Description | +--------+ + + + + | 06/21/ | Hospital | [facility] | RileyJac layne | Status post lumbar | | 2013 | Encounter | MED CTR XRAY [address] | F, [address] | spinal fusion; Back | | | | [address] [place] | [address] [place], [place] | pain | | | | [place] [address] | [address] | | | | | [phone] | | | | | | | [...] mcg by mouth | | 0 | 09/14/20 | | | (AMITIZA) 24 mcg | [...] + + + +---------+ + + | oxyCODONE | Take 60 mg by mouth | | 0 | | | | (OXYCONTIN) 30 MG | Twice daily as | | | | 3 | | TB12 | needed. | | | | | + + + +---------+ + + | | 2-1 tablets daily | | 0 | 11/19/19 | | | triamterene-hydrochl | | | | 12 | 3 | | orothiazide | | | | | | | (MAXZIDE) 75-50 mg | | | | | | | per tablet | | | | | | + + + +---------+ + + documented as of this encounter Plan of Treatment Not on filedocumented as of this encounter Procedures + +--------+ + + + | Procedure Name | Priori | Date/Time | Associated Diagnosis | Comments | | | ty | | | | + +--------+ + + + | XR LUMBAR SPINE 4 + | Routin | 06/21/2012 | Status post lumbar | Results for this | | VW | e | 1:31 PM | spinal fusion Back | procedure are in the | | | | PDT | pain | results section. | + +--------+ + + + documented in this encounter Results XR Lumbar Spine 4 + Vw (06/21/2012 1:31 PM PDT) + + | Specimen | + + | | + + + + + | Narrative | Performed At | + + + | [facility] | [place] | | Department [address] [place] [address] | [facility] | | [ rep ct [address]] [ rep [facility] | | [facility]] Signed | - IMAGING | | | | | Patient Name: KAREN BENOIT Physician: | | | [id number] : 1940 Age: 72 Sex: F Unit #: [id number] | | | Exam Date: 06/21/12 Location: [facility] | | | Report #: [id number] Page: | | | %(RAD)RES..mtdd.print.filter("pg") of %(RAD) | | | RES..mtdd.print.filter("tpg") | | | | | | Accession Number: [id number] | | | LUMBAR SPINE, 06/21/2012 CLINICAL [...] Transcribed Date/Time: 06/21/2012 | | | 13:51 Sales Representative Sales Manager: <<Signature on | | | File>> | | | Augusto | | | MD Shaji06/21/12 1742 <Electronically signed by Augusto Girard MD> | | | Augusto Girard MD 06/21/12 1331 Sales Representative Sales Manager: Zulahoomedx | | | Nxyfchiwgeghr78/17/13 1351 Jac Riley MD | | | | | + + + + + + + + | Performing | Address | City/State/Zipcode | Phone Number | | Organization | | | | + + + + + | [facility] | [address] | [place] | [phone] | | [facility] | | [address] | | | - IMAGING | | | | + + + + + documented in this encounter Visit Diagnoses + + | Diagnosis | + + | Status post lumbar spinal fusion Arthrodesis status | + + | Back pain Backache, unspecified | + + documented in this encounter
--- OUTSIDE RECORDS SUMMARY | ~2019-07-25 | XMS | Encounter Summary ---
Demographics + + + | Address | [address] | | | [place] [address] | + + + | Home Phone | | + + + | Preferred Language | Unknown | + + + | Marital Status | | + + + | Buddhism Affiliation | 1025 | + + + | Race | Unknown | + + + | Ethnic Group | Unknown | + + + Author + + + | Author | [facility] | | | and [place] | + + + | Organization | [facility] | | | and [...] Eron Gottlieb | ECON | [address] [place] [address] | | | | | [place] [address] | | + + + + + Care Team Providers + +------+ + | Care Sprayer Insecticide Name | Role | Phone | + +------+ + | Juan M Huang DO | PCP | | + +------+ + Reason for Visit +--------+ + | Reason | Comments | +--------+ + | Other | Post operative update | +--------+ + Encounter Details +--------+ + + + + | Date | Type | Department | Care Team | Description | +--------+ + + + + | 10/04/ | [facility] | [facility] | Cristian Tinoco, | Other (Post | | 2012 | | NEUROSURGERY [address] | DO [address] | operative update) | | | | [address] | [address] [place], [place] | | | | | [place], [place] | [address] | | | | | [address] | | | | | | [phone] | | | +--------+ + + + [...]
--- OUTSIDE RECORDS SUMMARY | ~2019-07-25 | XMS | Encounter Summary ---
Demographics + + + | Address | [address] | | | [place] [address] | + + + | Home Phone | | + + + | Preferred Language | Unknown | + + + | Marital Status | | + + + | Latter Day Affiliation | 1025 | + + + | Race | Unknown | + + + | Ethnic Group | Unknown | + + + Author + + + | Author | [facility] | | | and [place] | + + + | Organization | [facility] | | [...] Eron Gottlieb | ECON | [address] [place] [address] | | | | | , [place] [address] | | + + + + + Care Team Providers + +------+ + | Care Ship'S Pilot Name | Role | Phone | + +------+ + PCP | Unavailable | + +------+ + Encounter Details +--------+ + + + + | Date | Type | Department | Care Team | Description | +--------+ + + + + | 09/04/ | Hospital | [facility] | Stephane Roque | | | 2001 | Encounter | MED CTR SLEEP | [place] [address] [address] | | | | | CENTER [address] | [place], [place] | | | | | [place] | [address] | | | | | [address] | | | | | | [phone] | | | +--------+ + + + [...]
--- OUTSIDE RECORDS SUMMARY | ~2019-07-25 | XMS | Encounter Summary ---
Demographics + + + | Address | [address] | | | [place] [address] | + + + | Home Phone | | + + + | Preferred Language | Unknown | + + + | Marital Status | | + + + | Yarsani Affiliation | 1025 | + + + | Race | Unknown | + + + | Ethnic Group | Unknown | + + + Author + + + | Author | [facility] | | | and [place] | + + + | Organization | [facility] | | [...] Eron Gottlieb | ECON | [address] [place] [address] | | | | | , [place] [address] | | + + + + + Care Team Providers + +------+ + | Care Estate Conservator Name | Role | Phone | + +------+ + PCP | Unavailable | + +------+ + Encounter Details +--------+ + + + + | Date | Type | Department | Care Team | Description | +--------+ + + + + | 09/09/ | Hospital | [facility] | Natalio Giraldo | | | 2011 - | Encounter | MED CTR IR[facility] [address] | | | | | [place], | [place] | | | 09/20/ | | [place] [address] | [place] [address] | | | 2011 | | [phone] | [phone] | | | | | | | [...] documented as of this encounter Discharge Summaries Natalio Giraldo MD - 09/10/2011 3:40 PM PDTADMISSION DATE: 09/10/2011 DISCHARGE DATE: 09/21/2011 DISCHARGE DIAGNOSES LUMBAR RADICULOPATHY STATUS POST L3 THROUGH 5 ARTHRODESIS AND DECOMPRESSION. IDIOPATHIC PERIPHERAL NEUROPATHY. OBESITY WITH BODY MASS INDEX 37. TCISL-OT-SYVIOKP PAIN SYNDROME. DEPRESSION. ATRIAL FIBRILLATION WITH RAPID RATE. MILD HYPONATREMIA. HISTORY: This 71-year-old woman had back and radicular pain due to a lumbar stenosis and alyssa ar radic ulopathy. Thus, on 09/07/2011 she had an L3 through L5 decompression with anteri or and posterior arth rodesis by Dr. Riley with excellent benefit. Postoperatively, she was needing moderate assistance with toileting and out of bed and able to walk 30 feet wit h minimal assistance and still on oxygen. Thus, once she was medically ready, she was trans ferred to [facility] [address] for further rehabilitation. [place] also [place] area, [place], and just needed a short stay in inpatient reha bilitation to make it back home. PERTINENT POSITIVES ON PHYSICAL EXAMINATION ON ADMISSION: Right hip strength 2+ to -3 minus , right kn ee 4-, tibialis anterior 2, gastroc 3, left hip strength 2+ to -3 minus, hip 4-, tibialis anterior 2, gastroc 3 with decreased sensation in her feet through the ankles. HOSPITAL COURSE: Overall, the patient did relatively well. She did have some breakthrough p ain samuel e of her tzoki-nb-xmgkype pain syndrome. Thus, I ended up having to give some ex tra oxycodone in deni tion to her 80 mg of OxyContin she is on b.i.d. at home. No problems with her mood. She remained on Effexor throughout. She did have one episode of atrial fibrillation with rapid rate up to 117 or higher, and th us ended u p having to get her verapamil transiently increased with good control of that an d back to rehab in ab out a day and restarted, and she did excellent since then with no pro blems. Heart rate before dischar ge was in the 70s to 80s and occasional 90. Blood pressure 108 through 128 systolic. She was weaned o ff oxygen, O2 saturation 96% on room air. PVRs were checked at 127 on 09/16/2011. Her obesity did slow her rehab somewhat since it worsened her balance and endurance but ove rall she d id well. Her peripheral neuropathy also decreases her balance somewhat and slowe d her rehab, but agai n she was able to achieve goals. Shortly before discharge, right hip strength 4-, knee 4, tibialis interior 3-, left hip 4, knee 4+, t ibialis anterior 3. Decreased sensation in the feet. THERAPIES: By discharge, min assist upper and lower body dressing, modified independent in and out of bed, standby assistance for toileting. She is modified independent in gait with a front-wheel walker and apparently has all equipment. She had a significant other that can help with dressings. She is a ble to be discharged back to [place] [facility] DISCHARGE MEDICATIONS 1. Aspirin 81 mg daily. 2. Effexor 150 mg daily. 3. Flexeril 10 mg t.i.d 4. Fosamax 70 mg weekly Maxzide daily. 5. OxyContin 80 mg twice a day. 6. Toprol-XL 25 mg daily. 7. Verapamil 240 mg daily. 8. Vitamin D3 2000 international unit daily. 9. Percocet 7.5/325 sent home with a p.r.n. order as well as some oxycodone 10 mg for sever e breakthr ough pain. FOLLOWUP: Followup appointment with Dr. Juan M Huang in about 2 weeks since she is having lee rgery, and this affects her pain management. She also will see Dr. Riley in about [address] Huang is sc heduled 10/07/2011 at 3 p.m. DICTATED BY: Rowena Giraldo MD, PHD Physiatry JOB #: [id number] EXT JOB #:[id number] cc: Juan M Huang DO <Electronically Signed by Rowena Giraldo MD> 09/22/11 [id number] documented in this encounter Plan of Treatment Not on filedocumented as of this encounter Procedures + +--------+ + + + | Procedure Name | Priori | Date/Time | Associated Diagnosis | Comments | | | ty | | | | + +--------+ + + + | UA, MICROSCOPIC, | Routin | 09/16/2011 | | Results for this | | REFLEX | e | 1:23 PM | | procedure are in the | | | | PDT | | results section. | + +--------+ + + + | URINALYSIS, REFLEX | Routin | 09/16/2011 | | Results for this | | MICROSCOPIC AND/OR | e | 1:23 PM | | procedure are in the | | CULTURE | | PDT | | results section. | + +--------+ + + + | CBC WITH | Routin | 09/15/2011 | | Results for this | | DIFFERENTIAL | e | 6:43 AM | | procedure are in the | | | | PDT | | results section. | + +--------+ + + + | COMPREHENSIVE | Routin | 09/15/2011 | | Results for this | | METABOLIC PANEL | e | 6:43 AM | | procedure are in the | | | | PDT | | results section. | + +--------+ + + + | CBC WITH | Routin | 09/13/2011 | | Results for this | | DIFFERENTIAL | e | 6:28 AM | | procedure are in the | | | | PDT | | results section. | + +--------+ + + + | BASIC METABOLIC | Routin | 09/13/2011 | | Results for this | | PANEL | e | 6:28 AM | | procedure are in the | | | | PDT | | results section. | + +--------+ + + + | URINALYSIS, REFLEX | Routin | 09/10/2011 | | Results for this | | MICROSCOPIC AND/OR | e | 9:46 PM | | procedure are in the | | CULTURE | | PDT | | results section. | + +--------+ + + + documented in this encounter Results UA, Microscopic, Reflex (09/16/2011 1:23 PM PDT) + +-------+ + + + | Component | Value | Ref Range | Performed | Pathologist | | | | | At | Signature | + +-------+ + + + | White Blood | 2-4 | 0 - 1 /hpf | [facility] | | | Cells, | | | [facility] | | | Urine | | | MEDICAL | | | | | | CENTER - | | | | | | LABORATORY | | + +-------+ + + + | Red Blood | 0-2 | 0 - 4 /hpf | [facility] | | | Cells, | | | [facility] | | | Urine | | | MEDICAL | | | | | | CENTER - | | | | | | LABORATORY | | + +-------+ + + + | Squamous | RARE | FEW /hps | [facility] | | | Epithelial | | | [facility] | | | Cells, | | | MEDICAL | | | Urine | | | CENTER - | | | | | | LABORATORY | | + +-------+ + + + | Bacteria, | FEW | NONE /hpf | [facility] | | | Urine | | | [facility] | | | | | | MEDICAL | | | | | | CENTER - | | | | | | LABORATORY | | + +-------+ + + + | Culture | NO | | [facility] | | | Indicated | | | [facility] | | [...] ST. | [address] | [place] | [phone] | | [facility] | | [address] | | | - LABORATORY | | | | + + + + + | [facility] | [address] | [place], [place] | | | [facility] | | [id number] | | | - LABORATORY | | | | + + + + + Urinalysis, Reflex Microscopic and/or Culture (09/16/2011 1:23 PM PDT) + + + + + + | Component | Value | Ref Range | Performed | Pathologist | | | | | At | Signature | + + + + + + | COLLECTION | VOID | | [facility] | | | METHOD 1 | | | [facility] | | | | | | MEDICAL | | | | | | CENTER - | | | | | | LABORATORY | | + + + + + + | Color, | YELLOW | | [facility] | | | Urine | | | [facility] | | | | | | MEDICAL | | | | | | CENTER - | | | | | | LABORATORY | | + + + + + + | Clarity | HAZY | | [facility] | | | | | | [facility] | | | | | | MEDICAL | | | | | | CENTER - | | | | | | LABORATORY | | + + + + + + | Glucose, | NEGATIVE | NEGATIVE mg/dL | [facility] | | | Urine | | | [facility] | | | | | | MEDICAL | | | | | | CENTER - | | | | | | LABORATORY | | + + + + + + | Bilirubin, | NEGATIVE | NEGATIVE | [facility] | | | Urine | | | [facility] | | | | | | MEDICAL | | | | | | CENTER - | | | | | | LABORATORY | | + + + + + + | Ketones, | NEGATIVE | NEGATIVE | [facility] | | | Urine | | | [facility] | | | | | | MEDICAL | | | | | | CENTER - | | | | | | LABORATORY | | + + + + + + | Specific | 1.015 | 1.001 - 1.030 | [facility] | | | [place], | | | [facility] | | | Urine | | | MEDICAL | | | | | | CENTER - | | | | | | LABORATORY | | + + + + + + | Blood, | NEGATIVE | NEGATIVE | [facility] | | | Urine | | | [facility] | | | | | | MEDICAL | | | | | | CENTER - | | | | | | LABORATORY | | + + + + + + | pH, Urine | 8.5 (H) | 5.0 - 8.0 | [facility] | | | | | | [facility] | | | | | | MEDICAL | | | | | | CENTER - | | | | | | LABORATORY | | + + + + + + | Protein, | NEGATIVE | NEGATIVE mg/dL | [facility] | | | Urine | | | [facility] | | | | | | MEDICAL | | | | | | CENTER - | | | | | | LABORATORY | | + + + + + + | Urobilinoge | NORMAL | NORMAL EU/dL | [facility] | | | n, Urine | | | [facility] | | | | | | MEDICAL | | | | | | CENTER - | | | | | | LABORATORY | | + + + + + + | Nitrite, | POSITIVE | NEGATIVE | [facility] | | | Urine | | | [facility] | | | | | | MEDICAL | | | | | | CENTER - | | | | | | LABORATORY | | + + + + + + | Leukocyte | SMALL | NEGATIVE | [facility] | | | Esterase, | | | [facility] | | | Urine | | | MEDICAL | | | | | | CENTER - | | | | | | LABORATORY | | + + + + + + | MICROSCOPIC | YES | | [facility] | | | ? | | | [facility] | | [...] + | [facility] | [address] | [place] | [phone] | | [facility] | | [address] | | | - LABORATORY | | | | + + + + + | [facility] | [address] | [place] | | | [facility] | | [id number] | | | - LABORATORY | | | | + + + + + CBC with Differential (09/15/2011 6:43 AM PDT) + +-------+ + + + | Component | Value | Ref Range | Performed | Pathologist | | | | | At | Signature | + +-------+ + + + | WBC | 8.0 | 4.0 - 11.0 K/uL | [facility] | | | | | [facility] | | | | | | MEDICAL | | | | | | CENTER - | | | | | | LABORATORY | | + +-------+ + + + | RBC | 4.33 | 3.70 - 5.20 | [facility] | | | | | M/uL | [facility] | | | | | | MEDICAL | | | | | | CENTER - | | | | | | LABORATORY | | + +-------+ + + + | Hemoglobin | 13.0 | 11.5 - 16.0 | [facility] | | | | | gm/dL | [facility] | | | | | | MEDICAL | | | | | | CENTER - | | | | | | LABORATORY | | + +-------+ + + + | Hematocrit | 38.4 | 34.0 - 47.0 % | [facility] | | | | | | [facility] | | | | | | MEDICAL | | | | | | CENTER - | | | | | | LABORATORY | | + +-------+ + + + | MCV | 88.8 | 83.0 - 101.0 fL | [facility] | | | | | | [facility] | | | | | | MEDICAL | | | | | | CENTER - | | | | | | LABORATORY | | + +-------+ + + + | MCH | 30.1 | 28.0 - 35.0 pg | [facility] | | | | | | [facility] | | | | | | MEDICAL | | | | | | CENTER - | | | | | | LABORATORY | | + +-------+ + + + | MCHC | 33.8 | 32.0 - 36.0 | [facility] | | | | | g/dL | [facility] | | | | | | MEDICAL | | | | | | CENTER - | | | | | | LABORATORY | | + +-------+ + + + | RDW-CV | 13.6 | <15.0 % | [facility] | | | | | | [facility] | | | | | | MEDICAL | | | | | | CENTER - | | | | | | LABORATORY | | + +-------+ + + + | Platelet | 302 | 140 - 440 K/uL | [facility] | | | Count | | | [facility] | | | | | | MEDICAL | | | | | | CENTER - | | | | | | LABORATORY | | + +-------+ + + + | % | 59.4 | 45 - 75 % | [facility] | | | Neutrophils | | | [facility] | | | | | | MEDICAL | | | | | | CENTER - | | | | | | LABORATORY | | + +-------+ + + + | % | 27.1 | 20 - 45 % | [facility] | | | Lymphocytes | | | [facility] | | | | | | MEDICAL | | | | | | CENTER - | | | | | | LABORATORY | | + +-------+ + + + | % Monocytes | 8.7 | 4 - 12 % | [facility] | | | | | | [facility] | | | | | | MEDICAL | | | | | | CENTER - | | | | | | LABORATORY | | + +-------+ + + + | % | 4.2 | 0 - 5 % | [facility] | | | Eosinophils | | | [facility] | | | | | | MEDICAL | | | | | | CENTER - | | | | | | LABORATORY | | + +-------+ + + + | % Basophils | 0.6 | 0 - 1 % | [facility] | | | | | | [facility] | | | | | | MEDICAL | | | | | | CENTER - | | | | | | LABORATORY | | + +-------+ + + + | Absolute | 4.8 | 1.5 - 6.6 K/uL | [facility] | | | Neutrophils | | | [facility] | | | | | | MEDICAL | | | | | | CENTER - | | | | | | LABORATORY | | + +-------+ + + + | Absolute | 2.2 | 0.6 - 3.2 K/uL | [facility] | | | Lymphocytes | | | [facility] | | | | | | MEDICAL | | | | | | CENTER - | | | | | | LABORATORY | | + +-------+ + + + | Absolute | 0.7 | 0.0 - 1.0 K/uL | [facility] | | | Monocytes | | | [facility] | | | | | | MEDICAL | | | | | | CENTER - | | | | | | LABORATORY | | + +-------+ + + + | Absolute | 0.3 | 0.0 - 0.4 K/uL | [facility] | | | Eosinophils | | | [facility] | | | | | | MEDICAL | | | | | | CENTER - | | | | | | LABORATORY | | + +-------+ + + + | Absolute | 0.0 | 0.0 - 0.1 K/uL | [facility] [...] + | [facility] | [address] | [place], [place] | [phone] | | [facility] | | [address] | | | - LABORATORY | | | | + + + + + | [facility] | [address] | [place], [place] | | | [facility] | | [address] | | | - LABORATORY | | | | + + + + + Comprehensive Metabolic Panel (09/15/2011 6:43 AM PDT) + + + + + + | Component | Value | Ref Range | Performed | Pathologist | | | | | At | Signature | + + + + + + | Glucose | 106 | 70 - 109 mg/dL | [facility] | | | | | | [facility] | | | | | | MEDICAL | | | | | | CENTER - | | | | | | LABORATORY | | + + + + + + | Calcium | 8.8 | 8.3 - 10.5 | [facility] | | | | | mg/dL | [facility] | | | | | | MEDICAL | | | | | | CENTER - | | | | | | LABORATORY | | + + + + + + | Alkaline | 90 | 40 - 110 IU/L | [facility] | | | Phosphatase | | | [facility] | | | | | | MEDICAL | | | | | | CENTER - | | | | | | LABORATORY | | + + + + + + | AST | 28 | 10 - 42 IU/L | [facility] | | | | | | [facility] | | | | | | MEDICAL | | | | | | CENTER - | | | | | | LABORATORY | | + + + + + + | ALT | 36 | 6 - 45 IU/L | [facility] | | | | | | [facility] | | | | | | MEDICAL | | | | | | CENTER - | | | | | | LABORATORY | | + + + + + + | Bilirubin | 0.3 | 0.2 - 1.0 mg/dL | [facility] [...] + + + + | Albumin | 3.3 | 3.2 - 5.0 gm/dL | [facility] | | | | | | [facility] | | | | | | MEDICAL | | | | | | CENTER - | | | | | | LABORATORY | | + + + + + + | BUN | 24 (H) | 7 - 18 mg/dL | [facility] | | | | | | [facility] | | | | | | MEDICAL | | | | | | CENTER - | | | | | | LABORATORY | | + + + + + + | Creatinine | 1.28 | 0.60 - 1.30 | [facility] | | | | | mg/dL | [facility] | | | | | | MEDICAL | | | | | | CENTER - | | | | | | LABORATORY | | + + + + + + | Estimated | 41 (L)Comment: For | >60 mL/min/A | [facility] [...] + + + + | BUN/Creatin | 18.8 | 12 - 20 | [facility] | | | ine Ratio | | | [facility] | | | | | | MEDICAL | | | | | | CENTER - | | | | | | LABORATORY | | + + + + + + | Na | 140 | 136 - 149 mEq/L | [facility] [...] + + + + | Cl | 100 | 98 - 109 mEq/l | [facility] | | | | | | [facility] | | | | | | MEDICAL | | | | | | CENTER - | | | | | | LABORATORY | | + + + + + + | CO2 | 33 (H) | 24 - 31 mEq/L | [facility] | | | | | | [facility] | | | | | | MEDICAL | | | | | | CENTER - | | | | | | LABORATORY | | + + + + + + | Anion Gap | 11.4 | 6.0 - 17.0 | [facility] | | | | | [...] [address] | [place] | [phone] | | [facility] | | [address] | | | - LABORATORY | | | | + + + + + | [facility] | [address] | [place] | | | [facility] | | [address], [facility] | | | - LABORATORY | | | | + + + + + Basic Metabolic Panel (09/13/2011 6:28 AM PDT) + + + + + + | Component | Value | Ref Range | Performed | Pathologist | | | | | At | Signature | + + + + + + | Glucose | 99 | 70 - 109 mg/dL | [facility] [...] + + + + | BUN | 25 (H) | 7 - 18 mg/dL | [facility] | | | | | | [facility] | | | | | | MEDICAL | | | | | | CENTER - | | | | | | LABORATORY | | + + + + + + | Creatinine | 1.12 | 0.60 - 1.30 | [facility] | | | | | mg/dL | [facility] | | | | | | MEDICAL | | | | | | CENTER - | | | | | | LABORATORY | | + + + + + + | Estimated | 48 (L)Comment: For | >60 mL/min/A | [facility] | | | GFR | -Americans, | [...] + + + + | BUN/Creatin | 22.3 (H) | 12 - 20 | [facility] | | | ine Ratio | | | [facility] | | | | | | MEDICAL | | | | | | CENTER - | | | | | | LABORATORY | | + + + + + + | Na | 133 (L) | 136 - 149 mEq/L | [facility] | | | | | | [facility] | | | | | | MEDICAL | | | | | | CENTER - | | | | | | LABORATORY | | + + + + + + | K | 4.2 | 3.5 - 5.1 mEq/l | [facility] | | | | | | [facility] | | | | | | MEDICAL | | | | | | CENTER - | | | | | | LABORATORY | | + + + + + + | Cl | 98 | 98 - 109 mEq/l | [facility] [...] + + + | Anion Gap | 11.2 | 6.0 - 17.0 | [facility] | [...] + | [facility] | [address] | [place], [place] | [phone] | | [facility] | | [address] | | | - LABORATORY | | | | + + + + + | [facility] | [address] | [place], [place] | | | [facility] | | [address] [place] [address] | | | - LABORATORY | | | | + + + + + CBC with Differential (09/13/2011 6:28 AM PDT) + +---------+ + + + | Component | Value | Ref Range | Performed | Pathologist | | | | | At | Signature | + +---------+ + + + | WBC | 8.3 (A) | 4.0 - 11.0 K/uL | [facility] | | | | | | [facility] | | | | | | MEDICAL | | | | | | CENTER - | | | | | | LABORATORY | | + +---------+ + + + | RBC | 4.10 | 3.70 - 5.20 | [facility] | | | | | M/uL | [facility] | | | | | | MEDICAL | | | | | | CENTER - | | | | | | LABORATORY | | + +---------+ + + + | Hemoglobin | 12.1 | 11.5 - 16.0 | [facility] | | | | | gm/dL | [facility] | | | | | | MEDICAL | | | | | | CENTER - | | | | | | LABORATORY | | + +---------+ + + + | Hematocrit | 36.5 | 34.0 - 47.0 % | [facility] | | | | | | [facility] | | | | | | MEDICAL | | | | | | CENTER - | | | | | | LABORATORY | | + +---------+ + + + | MCV | 89.1 | 83.0 - 101.0 fL | [facility] | | | | | | [facility] | | | | | | MEDICAL | | | | | | CENTER - | | | | | | LABORATORY | | + +---------+ + + + | MCH | 29.6 | 28.0 - 35.0 pg | [facility] | | | | | | [facility] | | | | | | MEDICAL | | | | | | CENTER - | | | | | | LABORATORY | | + +---------+ + + + | MCHC | 33.2 | 32.0 - 36.0 | [facility] | | | | | g/dL | [facility] | | | | | | MEDICAL | | | | | | CENTER - | | | | | | LABORATORY | | + +---------+ + + + | RDW-CV | 13.6 | <15.0 % | [facility] | | | | | | [facility] | | | | | | MEDICAL | | | | | | CENTER - | | | | | | LABORATORY | | + +---------+ + + + | Platelet | 255 | 140 - 440 K/uL | [facility] | | | Count | | | [facility] | | | | | | MEDICAL | | | | | | CENTER - | | | | | | LABORATORY | | + +---------+ + + + | % | 59.5 | 45 - 75 % | [facility] | | | Neutrophils | | | [facility] | | | | | | MEDICAL | | | | | | CENTER - | | | | | | LABORATORY | | + +---------+ + + + | % | 28.1 | 20 - 45 % | [facility] | | | Lymphocytes | | | [facility] | | | | | | MEDICAL | | | | | | CENTER - | | | | | | LABORATORY | | + +---------+ + + + | % Monocytes | 7.7 | 4 - 12 % | [facility] | | | | | | [facility] | | | | | | MEDICAL | | | | | | CENTER - | | | | | | LABORATORY | | + +---------+ + + + | % | 4.1 | 0 - 5 % | [facility] | | | Eosinophils | | | [facility] | | | | | | MEDICAL | | | | | | CENTER - | | | | | | LABORATORY | | + +---------+ + + + | % Basophils | 0.6 | 0 - 1 % | [facility] | | | | | | [facility] | | | | | | MEDICAL | | | | | | CENTER - | | | | | | LABORATORY | | + +---------+ + + + | Absolute | 4.9 (A) | 1.5 - 6.6 K/uL | [facility] | | | Neutrophils | | | [facility] | | | | | | MEDICAL | | | | | | CENTER - | | | | | | LABORATORY | | + +---------+ + + + | Absolute | 2.3 | 0.6 - 3.2 K/uL | [facility] | | | Lymphocytes | | | [facility] | | | | | | MEDICAL | | | | | | CENTER - | | | | | | LABORATORY | | + +---------+ + + + | Absolute | 0.6 | 0.0 - 1.0 K/uL | [facility] | | | Monocytes | | | [facility] | | | | | | MEDICAL | | | | | | CENTER - | | | | | | LABORATORY | | + +---------+ + + + | Absolute | 0.3 | 0.0 - 0.4 K/uL | [facility] | | | Eosinophils | | | [facility] | | | | | | MEDICAL | | | | | | CENTER - | | | | | | LABORATORY | | + +---------+ + + + | Absolute | 0.0 | 0.0 - 0.1 K/uL | [facility] | | | Basophils | | | [facility] | | | | | | MEDICAL | | | | | | CENTER - | | | | | | LABORATORY | | + +---------+ + + + + + | Specimen | + + | | + + + + + + + | Performing | Address | City/State/Zipcode | Phone Number | | Organization | | | | + + + + + | [facility] | [address] | [place], [place] | [phone] | | [facility] | | [address] | | | - LABORATORY | | | | + + + + + | [facility] | [address] | [place], [place] | | | [facility] | | [id number] [place] [address] | | | - LABORATORY | | | | + + + + + Urinalysis, Reflex Microscopic and/or Culture (09/10/2011 9:46 PM PDT) + + + + + + | Component | Value | Ref Range | Performed | Pathologist | | | | | At | Signature | + + + + + + | COLLECTION | VOID | | [facility] | | | METHOD 1 | | | [facility] | | | | | | MEDICAL | | | | | | CENTER - | | | | | | LABORATORY | | + + + + + + | Color, | YELLOW | | [facility] | | | Urine | | | [facility] | | | | | | MEDICAL | | | | | | CENTER - | | | | | | LABORATORY | | + + + + + + | Clarity | CLEAR | | [facility] | | | | | | [facility] | | | | | | MEDICAL | | | | | | CENTER - | | | | | | LABORATORY | | + + + + + + | Glucose, | NEGATIVE | NEGATIVE mg/dL | [facility] | | | Urine | | | [facility] | | | | | | MEDICAL | | | | | | CENTER - | | | | | | LABORATORY | | + + + + + + | Bilirubin, | NEGATIVE | NEGATIVE | [facility] | | | Urine | | | [facility] | | | | | | MEDICAL | | | | | | CENTER - | | | | | | LABORATORY | | + + + + + + | Ketones, | NEGATIVE | NEGATIVE | [facility] | | | Urine | | | [facility] | | | | | | MEDICAL | | | | | | CENTER - | | | | | | LABORATORY | | + + + + + + | Specific | 1.015 | 1.001 - 1.030 | [facility] | | | [place], | | | [facility] | | | Urine | | | MEDICAL | | | | | | CENTER - | | | | | | LABORATORY | | + + + + + + | Blood, | NEGATIVE | NEGATIVE | [facility] | | | Urine | | | [facility] | | | | | | MEDICAL | | | | | | CENTER - | | | | | | LABORATORY | | + + + + + + | pH, Urine | 6.5 | 5.0 - 8.0 | [facility] | | | | | | [facility] | | | | | | MEDICAL | | | | | | CENTER - | | | | | | LABORATORY | | + + + + + + | Protein, | NEGATIVE | NEGATIVE mg/dL | [facility] | | | Urine | | | [facility] | | | | | | MEDICAL | | | | | | CENTER - | | | | | | LABORATORY | | + + + + + + | Urobilinoge | NORMAL | NORMAL EU/dL | [facility] | | | n, Urine | | | [facility] | | | | | | MEDICAL | | | | | | CENTER - | | | | | | LABORATORY | | + + + + + + | Nitrite, | NEGATIVE | NEGATIVE | [facility] | | | Urine | | | [facility] | | | | | | MEDICAL | | | | | | CENTER - | | | | | | LABORATORY | | + + + + + + | Leukocyte | NEGATIVE | NEGATIVE | [facility] | | | Esterase, | | | [facility] | | | Urine | | | MEDICAL | | | | | | CENTER - | | | | | | LABORATORY | | + + + + + + | MICROSCOPIC | NO | | [facility] | | | ? | | | [facility] | | [...] ST. | [address] | [place] | [phone] | | [facility] | | [id number] | | | - LABORATORY | | | | + + + + + | [facility] | [address] | [place] | | | [facility] | | [address] [place] [address] | | | - LABORATORY | | | | + + + + + documented in this encounter Visit Diagnoses Not on filedocumented in this encounter"
--- OUTSIDE RECORDS SUMMARY | ~2019-07-25 | XMS | Encounter Summary ---
Demographics + + + | Address | [address] | | | [place] [address] | + + + | Home Phone | | + + + | Preferred Language | Unknown | + + + | Marital Status | | + + + | Gnosticism Affiliation | 1025 | + + + | Race | Unknown | + + + | Ethnic Group | Unknown | + + + Author + + + | Author | [facility] | | | and [place] | + + + | Organization | [facility] | | | [...] Eron Gottlieb | ECON | [address] [place] [address] | | | | | , [place] [address] | | + + + + + Care Team Providers + +------+ + | Care Instructor Hairspring Name | Role | Phone | + +------+ + PCP | Unavailable | + +------+ + Encounter Details +--------+ + + + + | Date | Type | Department | Care Team | Description | +--------+ + + + + | 03/09/ | Hospital | [facility] | Phillip Max | | | 2011 | Encounter | MED CTR XRAY [address] | T, MD [address] | | | | | [place] | [place], [place] | | | | | [place] [address] | [address] | | | | | [phone] | | | +--------+ + + + [...] + | FL EPIDURAL STEROID | | 03/09/2011 | | Results for this | | INJECTION LUMBAR | | 3:23 PM | | procedure are in the | | TRANSFORAMINAL | | PST | | results section. | + +--------+ + + + documented in this encounter Results FL VY Lumbar Transforaminal (03/09/2011 3:23 PM PST) + + | Specimen | + + | | + + + + + | Narrative | Performed At | + + + | [facility] | [facility] | | [address] | [facility] | | 03/09/2011, EPIDURAL STEROID | DIAG IMG | | INJECTION CLINICAL HISTORY: ICD-9 CODE IS 724.4, LUMBAR | | | RADICULITIS. FINDINGS: Ms. Karen Gottlieb presents to the | | | fluoroscopy suite for a fluoroscopically guided right L3- L4 and left | | | L4-L5 transforaminal epidural steroid injections as part of | | | conservative management for c hronic pain with lumbar radiculopathy | | | and degenerative disk disease. After informed consent was obta ined | | | the patient laid in the prone position on the fluoroscopy table. | | | The areas were identified unde r fluoroscopic guidance. The areas | | | were prepped and draped in sterile fashion. A 25 gauge 1-1/2 inc h | | | needle was inserted into each region and approximately 3 mL of | | | buffered 1% lidocaine was infused. Then a 22 gauge spinal needle | | | was inserted into the posterior superior transforaminal space at each | | | l evel and advanced into the epidural space under fluoroscopic | | | guidance. Confirmation into the epidura l space was obtained with | | | the infusion of approximately 1 mL of Isovue contrast which showed | | | epidural flow as well as nerve sheath flow. Then a combination of | | | 1.5 mL of 1% lidocaine and 1.5 mL of 6 mg per milliliter Celestone | | | was infused. The patient tolerated the procedure well without | | | complications . Pre- and post procedure blood pressures were | | | stable. The patient was given verbal as well as writ ten followup | | | instructions. The patient reported no significant change in pain | | | symptoms post procedur e. Prior to the start of the procedure the | | | following were performed and verified including correct patie nt | | | identity, correct site/side marked and visible, agreement of the | | | procedure to be done, correct pat ient positioning and an accurate | | | procedure consent form. Any safety precautions based on clinical hi | | | story and/or medications have been addressed. I personally | | | performed the procedure above. Dictated Date/Time: 03/09/2011 | | | 17:38 Transcribed Date/Time: 03/09/2011 17:58 Learning Solutions Specialist: | | | <Electronically Signed by Phillip Max MD> 03/11/11 | | | 1638 | | + + + + + | Procedure Note | + + | Roberto Sanders Conversion - 04/13/2013 4:30 PM [facility] | | Diagnostic Imaging Department [address] [place] [address] | | 03/09/2011, EPIDURAL STEROID INJECTION CLINICAL HISTORY: | | ICD-9 CODE IS 724.4, LUMBAR RADICULITIS. FINDINGS: Ms. Karen Gottlieb presents to the | | fluoroscopy suite for a fluoroscopically guided right L3-L4 and left L4-L5 | | transforaminal epidural steroid injections as part of conservative management for | | chronic pain with lumbar radiculopathy and degenerative disk disease. After informed | | consent was obtained the patient laid in the prone position on the fluoroscopy table. | | The areas were identified under fluoroscopic guidance. The areas were prepped and | | draped in sterile fashion. A 25 gauge 1-1/2 inch needle was inserted into each region | | and approximately 3 mL of buffered 1% lidocaine was infused. Then a 22 gauge spinal | | needle was inserted into the posterior superior transforaminal space at each level and | | advanced into the epidural space under fluoroscopic guidance. Confirmation into the | | epidural space was obtained with the infusion of approximately 1 mL of Isovue contrast | | which showed epidural flow as well as nerve sheath flow. Then a combination of 1.5 mL | | of 1% lidocaine and 1.5 mL of 6 mg per milliliter Celestone was infused. The patient | | tolerated the procedure well without complications. Pre- and post procedure blood | | pressures were stable. The patient was given verbal as well as written followup | | instructions. The patient reported no significant change in pain symptoms post | | procedure. Prior to the start of the procedure the following were performed and verified | | including correct patient identity, correct site/side marked and visible, agreement of | | the procedure to be done, correct patient positioning and an accurate procedure consent | | form. Any safety precautions based on clinical history and/or medications have been | | addressed. I personally performed the procedure above. Dictated Date/Time: 03/09/2011 | | 17:38Transcribed Date/Time: 03/09/2011 17:58Transcriptionist: <Electronically | | Signed by Phillip Max MD> 03/11/11 1638 | |nt identity, correct site/side marked and visible, agreement of the procedure to be done, c orrect pat | |ient positioning and an accurate procedure consent form. Any safety precautions based on nicolás villavicencio hi | |story and/or medications have been addressed. | | | |I personally performed the procedure above. | | | |Dictated Date/Time: 03/09/2011 17:38 | |Transcribed Date/Time: 03/09/2011 17:58 | |Learning Solutions Specialist: | |<Electronically Signed by Phillip Max MD> 03/11/11 1638 | + + + +---------+ + + [...]
--- OUTSIDE RECORDS SUMMARY | ~2019-07-25 | XMS | Encounter Summary ---
Demographics + + + | Address | [address] | | | [place] [address] | + + + | Home Phone | | + + + | Preferred Language | Unknown | + + + | Marital Status | | + + + | Yazidism Affiliation | Unknown | + + + | Race | White | + + + | Ethnic Group | Not or | + + + Author + + + | Author | [facility] | + + + | Organization | [facility] | + + + | Address | Unknown | + + + | Phone | Unavailable | + + + Support + + + + + | Name | Relationship | Address | Phone | + + + + + | Eron Gottlieb | ECON | [place] | | + + + + + Care Team Providers + +------+ + | Care Crochet Beader Name | Role | Phone | + +------+ + PCP | Unavailable | + +------+ + Encounter Details +--------+ + + + + | Date | Type | Department | Care Team | Description | +--------+ + + + + | 02/19/ | Office | [facility] | Note, Outpatient | Progress Note | | 1998 | Visit-Trans | MEDICINE | Clinic | | | | cribed | | [...] as of this encounter Progress Notes Interface, Time Buyer In - 03/10/2006 5:06 AM PSTCLINIC DATE: 02/19/1998 GENERAL NEUROLOGY CLINIC SUBJECTIVE: Karen Gottlieb was referred to me by Dr. Linda Elise for further evaluation of lower extremity numbness, weakness and pain. As you know, she is a 57 year old right handed woman who was in excellent health until an accident in February of 1993. 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 She slipped on a puddle of liquid and in the processing of trying not to fall, pulled her neck and back. She felt an immediate sensation of pain, but continues to work. The following morning she woke with severe pain in her neck, up and down her back, and pain radiating down the right arm. She is unclear of the time course of events, but feels that it is also about that time that her feet started to go numb. She has had progressive symptoms since then. She underwent evaluation and was found to have a herniated disk at C4-5 and underwent a laminectomy by in 1995. She has apparently had follow up with him and he does not feel that there is a recurrence of her problem. Her current complaints are pain in her neck, low back, and left hip. The pain does not significantly radiate into the arms or legs. She describes progressive numbness involving her lower extremities. She now says that she has numbness on the left all the way up to her neck and numbness on the right just involving her foot. She has pain as described above. She describes generalized weakness and is not able to tell me more specifically the things that she is having trouble doing. She has noted progressive difficulties with gait. She says that her bowel movements are regular, but her urinary function is variable. She at times has frequency and urgency, and at other times has difficulty emptying her bladder. She does not awaken at night to void. She originally denied any bulbar symptoms, but then said that she has had progressive numbness of the left side of her face with tingling around her mouth. She denied diplopia, vertigo, dizziness, dysarthria, dysphagia, change in vision. She does not have a significant component of headache. She has not had any additional significant falls. She says that she frequently awakes at night with numbness and tingling of her hands, but also reports that she has a long history of carpal tunnel syndrome, status post several surgeries for this. Previous evaluation has included a number of routine chemistries including a TSH (thyroid-stimulating hormone) of 0.86, LAKISHA (antinuclear antibody) that was positive only at 140, hemoglobin A1C of 5.7, sedimentation rate of 11, normal metabolic profile, normal complete blood count. She has also had an EMG (electromyogram) study, which showed only a very mild neuropathy with bilateral lower extremity reduced sural nerve action potentials of 3. There were no other focal findings. She has had a recent thoracic and lumbar MRI (magnetic resonance imaging) which were unremarkable. She has not had a cervical MRI (magnetic resonance imaging) since 1995. CURRENT MEDICATIONS: 1. Neurontin 5 tablets q.day 2. Oxycodone 5 tablets q.day 3. Prozac 1 tablet q.day 4. A fluid pill, which she doesn't remember the name of. PAST MEDICAL HISTORY: Significant for: 1. Fibromyalgia 2. Chronic fatigue syndrome 3. TMJ (temporomandibular joint syndrome) 4. Irritable bowel syndrome 5. Anxiety PAST SURGICAL HISTORY: Significant for: 1. C4-5 laminectomy in 1995. 2. Bilateral CTS (carpal tunnel syndrome) surgery twice on the right. 3. Hysterectomy 4. Tonsillectomy 5. Hemorrhoidal surgery SOCIAL HISTORY: Patient is . She is on SSI for fibromyalgia. She has not worked since 1993. She has two children. She doesn't smoke and rarely drinks alcohol. PHYSICAL EXAMINATION: Mrs. Gottlieb was a pleasant appearing white female in no acute distress. Her weight was 186 pounds. Her blood pressure was 140/88. Her pulse was 76 and regular. Her pulses were full and symmetric throughout. There were no carotid, orbital, or occipital bruits. Range of neck movement was good. She did not have any tenderness with palpation of the spine. She did have tenderness with palpation over the left hip and pain with movement of the leg about the hip. Cranial nerve examination was intact to detailed testing. Motor exam revealed normal tone throughout. There was slightly decreased bulk distally and bilateral lower extremities. Strength was difficult to assess. Patient had a significant amount of pain. It generally seems to be 5 out of 5 with the exception of left lower extremity. Foot dorsiflexion was 4+ out of 5. Eversion was 4 out of 5, inversion was 5- out of 5 on the left. Reflexes were 3+ in the upper extremities, 2+ at the knees, absent at the ankles, toes were down-going. Sensory exam revealed decreased sensation to all modalities over the left side of the body to the level of about C4. She described this as about 40 to 50% sensation on the right. She could perceive vibration for about two seconds at the left big toe and had no position sense at the big toe. On the right, she could perceive position sense for five seconds at the big toe and also had remarkably reduced position sense at the big toe. She had a gradient that was decreased to light touch and pinprick on the right at the level of the ankle. Fine motor movements - the strength was relatively preserved as noted above. Cerebellar exam showed intact [id number], slow bilateral rapid alternating movements. Gait was slightly wide-based and unsteady. She had difficulty standing with her feet together. She fell over immediately with her eyes closed. She was unable to tandem without assistance. She could not walk on heels, but could walk on her toes with assistance regarding balance. ASSESSMENT: Ms. Gottlieb is a 57 year old woman with multiple complaints and multiple diagnoses including fibromyalgia, chronic fatigue syndrome, and irritable bowel syndrome who presents with progressive neurologic symptoms including decreased sensation over the left side of her body, progressive decreased sensation involving both feet, pain in her neck and low back, and generalized weakness. Her exam is remarkable for a left C4 sensory level with dense loss of position and vibration in bilateral lower extremities and a positive Romberg related to that. She may have some generalized weakness and her examination was difficult, but she does have more focal weakness involving the left leg, particularly in the distribution of the common perineal nerve. Her previous EMG (electromyogram) study done in August of this year did not reveal a peripheral etiology of her symptoms. Clearly she has mild neuropathy. This does not explain the marked decrease in position and vibration in the lower extremities. Based on her examination at the sensory level, I wonder whether at least some of her complaints may be stemming from persistent disease in the cervical spinal cord or new intracord abnormalities. Other possibilities, particularly with the symptoms that she relates with left facial numbness, are abnormalities in the brain as well. These could be vascular or demyelinating. I would like to proceed with some additional evaluation to include a repeat MRI (magnetic resonance imaging) with and without gadolinium of her cervical spine and brain, since she has not had a MRI (magnetic resonance imaging) of the cervical spine since 1995. I have also ordered evoked potentials of her lower extremities to document an abnormality somewhere in the pathway of sensation where she has the most sensory loss. I will also send a few additional laboratory tests to evaluate underlying causes of these problems. In the future, depending upon these results, we could consider further testing to include more extensive EMG (electromyogram) and potentially lumbar puncture, but we will wait to order the additional testing until I have further results back. Andria Glover M.D., Ph.D. Title Processor, Neurology ZAC/jenni cc: THUAN TOLBERT DO [address] [place] [address] LINDA ELISE MD PROFESSOR AND MILLING OPERATOR DEPARTMENT OF NEUROLOGY THUAN TOLBERT DO [address] [place] [address] LINDA ELISE MD PROFESSOR AND MILLING OPERATOR DEPARTMENT OF NEUROLOGY documented in this encounter Plan of Treatment Not on filedocumented as of this encounter Visit Diagnoses Not on filedocumented in this encounter"
--- OUTSIDE RECORDS SUMMARY | ~2019-07-25 | XMS | Clinical Summary ---
Demographics + + + | Address | [address] | | | [place] [address] | + + + | Home Phone | | + + + | Preferred Language | Unknown | + + + | Marital Status | | + + + | Jehovah'S Witness Affiliation | 1025 | + + + | Race | Unknown | + + + | Ethnic Group | Unknown | + + + Author + + + | Author | [facility] | | | and [place] | + + + | Organization | [facility] [...] Eron Gottlieb | ECON | [address] [place] [address] | | | | | [place] [address] | | + + + + + Care Team Providers + +------+ + | Care Director Clinical Pharmacology Name | Role | Phone | + +------+ + | Juan M Huang DO | PCP | | + +------+ + Allergies + + + + + + | Active Allergy | Reactions | Severity | Noted | Comments | | | | | Date | | + + + + + + | Bupivacaine Hcl | Anaphylaxis | High | 04//20 | | | | | | 13 | | + + + + + + | Meperidine | Nausea Only | Medium | 04/20 | | | | | | 13 | | + + + + + + | Fentanyl | | Medium | 04/1020 | | | | | | 13 | | + + + + + + | Morphine Sulfate | | | | | + + + + + + | Mushroom | Other (See Comments) | Medium | 06/15/19 | Yeast Infection | | | | | 13 | | + + + + + + Medications + + + +---------+------+------+-------+ | Medication | Sig | Dispensed | Refills | Star | End | Statu | | | | | | t | Date | s | | | | | | Date | | | + + + +---------+------+------+-------+ | cyclobenzaprine | Take 10 mg by mouth | | 0 | 11/05 | | Activ | | (FLEXERIL) 10 mg | 3 times daily. | | | 06/24 | | e | | tablet | | | | 12 | | | + + + +---------+------+------+-------+ | lubiprostone | Take 24 mcg by mouth | | 0 | 11/05 | | Activ | | (AMITIZA) 24 mcg | 2 times daily. | | | 4 | | e | | capsule | | | | 12 | | | + + + +---------+------+------+-------+ | verapamil (VERELAN | 03/08-1 tablet at | | 0 | 11/05 | | Activ | | PM) 240 MG 24 hr | bedtime | | | 06/24 | | e | | capsule | | | | 12 | | | + + + +---------+------+------+-------+ | metoprolol | 03/08-1 tablets by | | 0 | 11/05 | | Activ | | succinate (TOPROL | mouth at bedtime | | | 06/24 | | e | | XL) 50 mg 24 hr | | | | 12 | | | | tablet | | | | | | | + + + +---------+------+------+-------+ | | Take 1-3 tablets by | | 0 | | | Activ | | oxyCODONE-acetaminop | mouth Daily as | | | | | e | | hen (ENDOCET) | needed. | | | | | | | 7.5-325 mg per | | | | | | | | tablet | | | | | | | + + + +---------+------+------+-------+ | aspirin 81 mg EC | Take 81 mg by mouth | | 0 | | | Activ | | tablet | 2 times daily. | | | | | e | + + + +---------+------+------+-------+ | pantoprazole | Take 40 mg by mouth | | 0 | | | Activ | | (PROTONIX) 40 mg | Daily. | | | | | e | | tablet | | | | | | | + + + +---------+------+------+-------+ | meloxicam (MOBIC) | Take 7.5 mg by mouth | | 0 | | | Activ | | 7.5 mg tablet | Daily. | | | | | e | + + + +---------+------+------+-------+ | Cholecalciferol | Take by mouth | | 0 | | | Activ | | (VITAMIN D3) 2000 | Daily. | | | | | e | | UNITS CAPS | | | | | | | + + + +---------+------+------+-------+ | lidocaine | Place 1 patch onto | | 0 | | | Activ | | (LIDODERM) 5% patch | the skin Daily. | | | | | e | | | Apply for 12 hours, | | | | | | | | then remove for 12 | | | | | | | | hours. | | | | | | + + + +---------+------+------+-------+ | OxyCODONE HCl | Take 60 mg by mouth | | 0 | | | Activ | | (OXYCONTIN PO) | 2 times daily. | | | | | e | + + + +---------+------+------+-------+ | | Take 25 mg by mouth | | 0 | | | Activ | | hydrochlorothiazide | Daily. | | | | | e | | 25 mg tablet | | | | | | | + + + +---------+------+------+-------+ | venlafaxine | Take 75 mg by mouth | | 0 | | | Activ | | (EFFEXOR) 75 MG | Daily. | | | | | e | | tablet | | | | | | | + + + +---------+------+------+-------+ | Calcium Carbonate | Take 500 mg by mouth | | 0 | | | Activ | | (CALCIUM 500 PO) | Daily. | | | | | e | + + + +---------+------+------+-------+ | diazepam (VALIUM) | Take 1 tablet by | 60 | 0 | 07/1 | | Activ | | 5 mg | mouth every 6 hours | tablet | | 8/20 | | e | | tabletIndications: | as needed for | | | 13 | | | | Status post cervical | Anxiety. | | | | | | | spinal fusion | | | | | | | + + + +---------+------+------+-------+ | Lactulose 20 | Take 20 g by mouth | 240 mL | 1 | 07/1 | | Activ | | GM/30ML | every 6 hours as | | | 8/20 | | e | | SOLNIndications: | needed. | | | 13 | | | | Status post cervical | | | | | | | | spinal fusion | | | | | | | + + + +---------+------+------+-------+ | UNABLE TO FIND | Med Name: | | 0 | | | Activ | | | Tenbinafine HCl 250 | | | | | e | | | mg once a day | | | | | | + + + +---------+------+------+-------+ Active Problems + + + | Problem | Noted Date | + + + | Sacroiliac joint pain | 09/12/2012 | + + + | S/P cervical spinal fusion | 07/10/2012 | + + + | Cervical stenosis of spinal canal | 07/10/2012 | + + + | Leg swelling | 07/10/2012 | + + + | S/P lumbar fusion | 06/21/2012 | + + + | Lumbago | 06/21/2012 | + + + | Bilateral hip pain | 06/21/2012 | + + + | Left knee pain | 06/21/2012 | + + + | Cervical spondylosis with myelopathy | 06/21/2012 | + + + | LUMBAR RADICULOPATHY | | + + + | CAUDA EQUINA SYNDROME | | + + + | OBESITY | | + + + | FIBROMYALGIA | | + + + | PERIPHERAL NEUROPATHY | | + + + | DISC DISEASE, LUMBOSACRAL SPINE | | + + + Social History + +-------+ [...] | + + Last Filed Vital Signs + + + + + | Vital Sign | Reading | Time Taken | Comments | + + + + + | Blood Pressure | 123/68 | 09/13/2013 8:02 AM | | | | | PDT | | + + + + + | Pulse | 72 | 09/13/2013 8:02 AM | | | | | PDT | | + + + + + | Temperature | - | - | | + + + + + | Respiratory Rate | 18 | 09/13/2013 8:02 AM | | | | | PDT | | + + + + + | Oxygen Saturation | - | - | | + + + + + | Inhaled Oxygen | - | - | | | Concentration | | | | + + + + + | Weight | 90.7 kg (200 lb) | 09/13/2013 8:02 AM | | | | | PDT | | + + + + + | Height | 160 cm (5' 3") | 09/13/2013 8:02 AM | | | | | PDT | | + + + + + | Body Mass Index | 35.43 | 09/13/2013 8:02 AM | | | | | PDT | | + + + + + Plan of Treatment + + + + + | Health Maintenance | Due Date | Last Done | Comments | + + + + + | Vaccine: | | | | | Dtap/Tdap/Td (1 - | 3 | | | | Tdap) | | | | + + + + + | Vaccine: Zoster (1 | | | | | of 2) | 2 | | | + + + + + | Breast Cancer | | | | | Screening | 7 | | | + + + + + | Vaccine: | | | | | Pneumococcal 65+ (1 | 7 | | | | of 2 - PCV13) | | | | + + + + + | Vaccine: Influenza | | | | | (Season Ended) | 0 | | | + + + + + Results Not on filefrom Last 3 Months Advance Directives + + + + + | Type | Date Recorded | Patient | Explanation | | | | System Software Developer | | + + + + + | Power of | | | | | Embryology Professor | | | | + + + + + | Advance | | | | | Directive | | | | + + + + +
--- OUTSIDE RECORDS SUMMARY | ~2019-07-25 | XMS | Encounter Summary ---
Demographics + + + | Address | [address] | | | [place] [address] | + + + | Home Phone | | + + + | Preferred Language | Unknown | + + + | Marital Status | | + + + | Christianity Affiliation | Unknown | + + + [...] | + + + + + | Hai Gottlieb | CRISTINA | [place] | | + + + + + Care Team Providers + +------+ + | Care Cloud Consultant Name | Role | Phone | + +------+ + PCP | Unavailable | + +------+ + Encounter Details +--------+ + + + + | Date | Type | Department | Care Team | Description | +--------+ + + + + | 03/13/ | Results | | Other, Faculty | | | 1998 | Only | | [phone] | | +--------+ + + + + [...] + +--------+ + + + | MRI C-SPINE, 3 SEQ, | Routin | 03/13/1998 | | Results for this | | [facility] | e | 2:55 PM | | procedure are in the | | | | PST | | results section. | + +--------+ + + + | MRI BRAIN WO/W | Routin | 03/13/1998 | | Results for this | | [facility] | e | 2:15 PM | | procedure are in the | | | | PST | | results section. | + +--------+ + + + documented in this encounter Results MRI C-SPINE, 3 SEQ, [facility] (03/13/1998 2:55 PM PST) + + + + + + | Component | Value | Ref Range | Performed | Pathologist | | | | | At | Signature | + + + + + + | MRI | Radiologist 1: GYPSY, | | | | | C-SPINE, 3 | [facility], | | | | | [facility], [facility] | M.DÁngel-Radiologist 2: | | | | | | [facility] | | | | | | [facility] | | | | | | OF THE CERVICAL SPINE: | | | | | | 03/13/98 [id number] hours. | | | | | | Dictated: 03/13/98 | | | | | | COMPARISON: There are no | | | | | | films available for | | | | | | comparison. PROCEDURE: | | | | | | The following sequences | | | | | | were performed:1. | | | | | | Sagittal T1 and T2.2. | | | | | | Axial T1 and T2.3. | | | | | | Post-contrast axial | | | | | | and sagittal T1. | | | | | | FINDINGS: The patient | | | | | | has had a previous | | | | | | anterior discectomy | | | | | | andvertebral body fusion | | | | | | of the C4 and C5 | | | | | | levels. There is | | | | | | associatedmild | | | | | | degenerative disc | | | | | | disease at the C3-4 and | | | | | | C5-6 levels. There | | | | | | ismild canal stenosis | | | | | | and flattening of the | | | | | | cord at the C4 through | | | | | | [id number] secondary to | | | | | | posterior osteophyte. | | | | | | The neural foramina | | | | | | arepatent at all the | | | | | | levels visualized. The | | | | | | cord shows no | | | | | | signalabnormalities, and | | | | | | the soft tissues are | | | | | | normal. IMPRESSION: 1. | | | | | | Status post anterior | | | | | | discectomy and fusion of | | | | | | the C4-5 | | | | | | vertebralbodies. 2. | | | | | | Degenerative disc | | | | | | disease at the C3-4 and | | | | | | C5-6 levels. 3. Mild | | | | | | canal stenosis at the C4 | | | | | | through C7 levels | | | | | | secondary toposterior | | | | | | osteophyte. END OF | | | | | | IMPRESSION: | | | | + + + + + + + + | Specimen | + + | | + + + + + | Narrative | Performed At | + + + | Ordered by MARYANA VASQUEZ M.D. | | + + + + +---------+ + + | Performing | Address | City/State/Zipcode | Phone Number | | Organization | | | | + +---------+ + + | [facility] DEPARTMENT OF | | | | | RADIOLOGY | | | | + +---------+ + + MRI BRAIN WO/W [facility] (03/13/1998 2:15 PM PST) + + + + + + | Component | Value | Ref Range | Performed | Pathologist | | | | | At | Signature | + + + + + + | MRI BRAIN | Radiologist 1: GYPSY, | | | | | WO/W | [facility], | | | | | [facility] | M.D.-Radiologist 2: | | | | | | [facility] | | | | | | [facility] | | | | | | OF THE BRAIN: 03/13/98 | | | | | | at 1415 hours. | | | | | | Dictated: 03/13/98 | | | | | | COMPARISON: There are no | | | | | | films available for | | | | | | comparison. PROCEDURE: | | | | | | The following sequences | | | | | | were performed:1. | | | | | | Sagittal T1.2. Axial | | | | | | proton density, T2, | | | | | | T1.3. Post-contrast | | | | | | axial and coronal T1. | | | | | | FINDINGS: There is a | | | | | | rounded area of | | | | | | increased signal in the | | | | | | left maxillarysinus | | | | | | consistent with mucus | | | | | | retention cyst. There | | | | | | are rounded areas | | | | | | ofincreased signal | | | | | | within the left | | | | | | occipital bone which | | | | | | have theappearance of | | | | | | arachnoid granulations | | | | | | or venous lakes. There | | | | | | are afew foci of T2 | | | | | | hyperintensity in the | | | | | | deep white matter | | | | | | consistentwith small | | | | | | vessel ischemic disease. | | | | | | Otherwise, the brain | | | | | | shows noother signal | | | | | | abnormalities. There is | | | | | | no evidence of mass | | | | | | effect ormidline shift. | | | | | | There are no abnormally | | | | | | enhancing lesions | | | | | | identified.The | | | | | | ventricles and basal | | | | | | cisterns are normal in | | | | | | size andconfiguration. | | | | | | The orbits and mastoids | | | | | | are normal. IMPRESSION: | | | | | | 1. Left maxillary | | | | | | sinus mucus retention | | | | | | cyst. 2. Several | | | | | | punctate foci of T2 | | | | | | hyperintensity in the | | | | | | deep whitematter, most | | | | | | consistent with small | | | | | | vessel ischemic disease. | | | | | | 3. No mass or | | | | | | abnormally enhancing | | | | | | lesion identified. END | | | | | | OF IMPRESSION: | | | | + + + + + + + + | Specimen | + + | | + + + + + | Narrative | Performed At | + + + | Ordered by MARYANA VASQUEZ M.D. | | + + + + +---------+ + + | Performing | Address | City/State/Zipcode | Phone Number | | Organization | | | | + +---------+ + + | [facility] DEPARTMENT OF | | | | | RADIOLOGY | | | | + +---------+ + + documented in this encounter Visit Diagnoses Not on filedocumented in this encounter"
--- OUTSIDE RECORDS SUMMARY | ~2019-07-25 | XMS | Encounter Summary ---
Demographics + + + | Address | [address] | | | [place] [address] | + + + | Home Phone | | + + + | Preferred Language | Unknown | + + + | Marital Status | | + + + | Taoist Affiliation | Unknown | + + + [...] Team Providers + +------+ + | Care Loss Control Representative Name | Role | Phone | + +------+ + PCP | Unavailable | + +------+ + Encounter Details +--------+ + + + + | Date | Type | Department | Care Team | Description | +--------+ + + + + | 06/08/ | Office | Registration 3[address] | Rehab Therapist, O | | | 2006 | Visit - | [facility] | T | | | | Rehab | [place] Mailcode: [id number] | | | | | | [place], [place] | | | | | | [address] | | | | | | [phone] | | | +--------+ + + + [...] | + +--------+ + + + | OCCUPATIONAL THERAPY | Routin | 06/08/2006 | | Results for this | | EVAL | e | 4:45 PM | | procedure are in the | | | | PDT | | results section. | + +--------+ + + + documented in this encounter Results OCCUPATIONAL THERAPY EVAL (06/08/2006 4:45 PM PDT) + + + + + + | Component | Value | Ref Range | Performed | Pathologist | | | | | At | Signature | + + + + + + | OCCUP[facility] | [facility] | | [facility] | | | [facility] | THERAPY EVALUATION: | | REHABILITAT | | | EVAL | [facility] Medicare | | [facility] | | | | Certification KAREN | | | | | | KAYCEE MR# [id number] | | | | | | Start of Care: | | | | | | 06/08/06 | | | | | | Referring/Attending | | | | | | Physician: Alexei | | | | | | MD Quin Primary | | | | | | Diagnosis/ICD-9: | | | | | | Fibromyalgia 729.1 | | | | | | Referral | | | | | | Diagnosis/ICD-9: | | | | | | Fibromyalgia 729.1 | | | | | | Date of onset: | | | | | | 03/07/1989 | | | | | | Insurance: Medicare. | | | | | | Number visits | | | | | | used/authorized: | | | | | | eval/eval and treat | | | | | | Medicare certification | | | | | | from: 06/08/06 | | | | | | to: | | | | | | SUBJECTIVE: History | | | | | | of Presenting Problem: | | | | | | Patient is a 66 | | | | | | year old F who | | | | | | wasdiagnosed with | | | | | | fibromyalgia. Patient | | | | | | presents with the | | | | | | followingcomplaints: | | | | | | fatigue, pain, | | | | | | dizziness, cognitive | | | | | | problems, depression, | | | | | | sleepproblems, | | | | | | stiffness, restless | | | | | | legs, decreased | | | | | | endurance, | | | | | | hypersensitivityto | | | | | | noise, Past | | | | | | Medical History: see | | | | | | LCR, includes pain | | | | | | induced high BP | | | | | | (multipletrips to ER for | | | | | | this) Concurrent | | | | | | Treatment: none. | | | | | | Precautions: overdoing | | | | | | Meds: See physician's | | | | | | note for this date. | | | | | | Pain Rating (0-10): Pain | | | | | | Rating (0-10 scale): | | | | | | 7/10 Pain worse with: | | | | | | overdoing, weather | | | | | | change. cold, prolonged | | | | | | positions, heat Pain | | | | | | improves with: heat, | | | | | | stretching, Current | | | | | | functional status: | | | | | | fatigue, pain, cognitive | | | | | | issues impact | | | | | | dailyactivities Most | | | | | | significant pain sites: | | | | | | lower back, hips, chest, | | | | | | knees, legs, | | | | | | Equipment: supportive | | | | | | pillow, supportive | | | | | | chair. Water bed | | | | | | Computer set up at home: | | | | | | NA Exercise: | | | | | | stretching, | | | | | | Transportation: private | | | | | | car. pain with driving. | | | | | | Living situation: | | | | | | with spouse. Type of | | | | | | house: multiple levels | | | | | | Work status: Not | | | | | | working. SSDI | | | | | | Occupation: on | | | | | | disability since 1993 | | | | | | Pt unable to do | | | | | | home tasks: yes. | | | | | | Vocational rehab: | | | | | | no. Household tasks: | | | | | | Pain and fatigue limits | | | | | | ability to do home | | | | | | tasks and ADLs. | | | | | | Difficulty with: | | | | | | activities that require | | | | | | prolonged | | | | | | contraction,vacuuming, | | | | | | laundry, doing hair, | | | | | | shopping. Cognition: | | | | | | memory, Cognitive | | | | | | changes are: | | | | | | moderately problematic | | | | | | indaily life. severely | | | | | | problematic in daily | | | | | | life. Fatigue: | | | | | | varying but always | | | | | | present. Functional | | | | | | status prior to onset: | | | | | | Independent and active | | | | | | in home andcommunity | | | | | | without impact of | | | | | | cognitive issues, pain | | | | | | or fatigue. Aspects | | | | | | of living situation that | | | | | | are limiting function: | | | | | | none Requests family | | | | | | members or friends | | | | | | involved with | | | | | | rehabilitationtherapy: | | | | | | none Anxieties or | | | | | | concerns about therapy: | | | | | | none Equipment | | | | | | athome: sample carrier | | | | | | Patient's goal: is to | | | | | | learn how to manage pain | | | | | | and/or | | | | | | fatigueindependently. | | | | | | Learn to manage | | | | | | cognitive changes. | | | | | | OBJECTIVE: Posture: head | | | | | | forward, slouched | | | | | | sitting. Wearing | | | | | | glasses R hand dominant | | | | | | Relying on to | | | | | | "fill in the blanks" | | | | | | with her memory | | | | | | Treatment: Evaluation | | | | | | completed goals | | | | | | collaboratively | | | | | | established. | | | | | | ASSESSMENT: 729.1 | | | | | | Cognitive changes | | | | | | interfere with daily | | | | | | life. Pain and fatigue | | | | | | limitspatients ability | | | | | | to do daily activities. | | | | | | Rehab Potential: | | | | | | good. Short-Term | | | | | | Goals, as discussed with | | | | | | patient, due in | | | | | | 3 weeks: | | | | | | Complete diary of daily | | | | | | activities noting pain | | | | | | and | | | | | | fatigue.Demonstrateknowl | | | | | | edge of correct posture | | | | | | and positioning.Adopt | | | | | | modifications in | | | | | | dailyactivities.Demonstr | | | | | | ate independence in | | | | | | head/neck/shoulder/upper | | | | | | | | | | | | backstretches.Demonstrat | | | | | | e increased awareness of | | | | | | cognitive | | | | | | compensatorystrategies. | | | | | | Long-Term Goals, as | | | | | | discussed with patient, | | | | | | due in 6 | | | | | | weeks: Adopt | | | | | | identified adaptations | | | | | | in daily | | | | | | activities.Adopt energy | | | | | | conservation activities | | | | | | to decrease pain and | | | | | | fatigue.Demonstrateindep | | | | | | endence in home | | | | | | stretching program to | | | | | | increase | | | | | | functionalflexibility.Ob | | | | | | tain and utilize | | | | | | identified equipment to | | | | | | increaseindependence in | | | | | | function at | | | | | | home/work.Demonstrate | | | | | | knowledge of | | | | | | paincompensation | | | | | | techniques to decrease | | | | | | pain and increase | | | | | | function.Optimalposture | | | | | | in daily | | | | | | activities.Demonstrate | | | | | | ability to incorporate | | | | | | cognitivecompensatory | | | | | | strategies into daily | | | | | | activities. PLAN: | | | | | | Training in appropriate | | | | | | upper body | | | | | | stretches.Energy | | | | | | conservation/pacingtrain | | | | | | ing.Posture/positioning | | | | | | training.Pain | | | | | | management/compensationt | | | | | | raining.Cognitive | | | | | | compensatory strategy | | | | | | training.Identification | | | | | | ofequipment. | | | | | | Frequency/Duration: | | | | | | Patient will be seen | | | | | | once a week for six | | | | | | visits over aseveral | | | | | | month period. This | | | | | | allows patient the time | | | | | | to make the | | | | | | recommendedchanges and | | | | | | return for further | | | | | | modification. | | | | | | Treatment began: 14:30 | | | | | | Treatment ended: 15:15 | | | | | | This note is to | | | | | | serve as the discharge | | | | | | summary if the patient | | | | | | fails toattend further | | | | | | Occupational Therapy | | | | | | [...] | | | | | | I agree | | | | | | with the above proposed | | | | | | treatment plan. MD | | | | | | signature: | | | | | | | | | | | | | | | | | | Date: | | | | | | Print MD name: | | | | | | | | | | | | Cailin | | | | | | Nicholas, MS, OTR | | | | | | License Number | | | | | | [id number] | | | | + + + + + + + + | Specimen | + + | | + + + + + + + | Performing | Address | City/State/Zipcode | Phone Number | | Organization | | | | + + + + + | [facility] | [address] | [place] | | | REHABILITATION | [address] | [address] | | | THERAPY | | | | + + + + + | [facility] | [address] | [place] | | | REHABILITATION | [address] | [phone] | | | THERAPY | | | | + + + + + documented in this encounter Visit Diagnoses Not on filedocumented in this encounter
--- OUTSIDE RECORDS SUMMARY | ~2019-07-25 | XMS | Encounter Summary ---
Demographics + + + | Address | [address] | | | [place] [address] | + + + | Home Phone | | + + + | Preferred Language | Unknown | + + + | Marital Status | | + + + | Sikhism Affiliation | Unknown | + + + | Race | White | + + + | Ethnic Group | Not or | + + + Author + + + | Author | [facility] | + + + | Organization | [facility] | + + + | Address [...] Team Providers + +------+ + | Care Foxer Name | Role | Phone | + +------+ + PCP | Unavailable | + +------+ + Encounter Details +--------+ + + + + | Date | Type | Department | Care Team | Description | +--------+ + + + + | 03/13/ | Procedure - | UNKNOWN DEPARTMENT | Other, Faculty | EEG | | 1998 | | [address] [facility] | [phone] | | | | Transcribed | [address] | | | | | | [place], [place] | | | | | | [address] | | | +--------+ + + + [...] this encounter Progress Notes Other, Faculty - 03/13/1998 12:00 AM PSTAssociated Order(s): EEG ROUTINE Care Unit: NEUROLO GY Req by: Dr. VASQUEZ Test Date: 03-13-98 EP Number: [id number] Pertinent Medications: NEURONTIN, OXYCONTIN POSTERIOR TIBIAL SOMATOSENSORY EVOKED POTENTIALS LEFT RIGHT LP None none N/P37 41.7 43.1 CLINICAL HISTORY: DETAIL: There were no reproducible lumbar point waveforms bilaterally. The cortical waveforms were present but with a low signal to noise ratio and a broad noisy peak with a peak latency prolonged for height (ULN about 40 msec). The muscle twitch response was obtained on the right at an intensity of 24 milliamps 200 micsec pulse duration. On the left it was harder to obtain a twitch (20 milliamps 500 micsec duration). The patient developed some pains in her legs during the testing and there was much EMG artifact throughout. IMPRESSION: Mildly abnormal posterior tibial somatosensory evoked potentials bilaterally because of mild bilateral delays in large fiber somatosensory conduction between the ankle and sensory cortex that is not further localized. The difficulty obtaining a twitch response at usual intensities and stimulus durations suggests that the delay may be peripheral. Willard Arreguin M.D. [id number] ther, Faculty - 999 12:00 AM PSTAssociated Order(s): EEG ROUTINE Care Unit: NEUROLOGY Req by: Dr. VASQUEZ Test Date: 03-13-98 EP Number: [id number] Pertinent Medications: OXYCONTIN, NEURONTIN MEDIAN NERVE SOMATOSENSORY EVOKED POTENTIALS CONTROL VALUES (mean + 3 S.D.) LEFT RIG HT EP 12.0 ?9 9.1 P/N13 16.3 ?14.5 14.0 N19 22.1 19.0 19.5 EP-N19 10.9 10 10.4 CLINICAL HISTORY: DETAIL: There were well reproducible thalamo-cortical waveforms bilaterally occurring at normal latencies. The Erb=s point potentials were not well-defined nor were the P/N13's although they were present. IMPRESSION: Probably normal median somatosensory evoked potentials bilaterally. There are normal conduction times to the thalamus bilaterally. The poor definition of the EP potentials could be due to technical problems or possibly a mild defect in peripheral pathways. Willard Arreguin M.D. [id number] documented in this encou nter Plan of Treatment Not on filedocumented as of this encounter Procedures + +--------+ + + + | Procedure Name | Priori | Date/Time | Associated Diagnosis | Comments | | | ty | | | | + +--------+ + + + | EEG ROUTINE | | 03/13/1998 | | Results for this | | | | 12:00 AM | | procedure are in the | | | | PST | | results section. | + +--------+ + + + documented in this encounter Results EEG ROUTINE (03/13/1998 12:00 AM [facility]) + + | Procedure Note | + + | Other, Faculty - 03/13/1998 12:00 AM [facility] Care Unit: NEUROLOGY Req by: Dr. VASQUEZ | | Test Date: 03-13-98 EP Number: [id number] | | Pertinent Medications: OXYCONTIN, NEURONTIN | | | | | | MEDIAN NERVE SOMATOSENSORY EVOKED POTENTIALS | | | | | | CONTROL VALUES | | (mean + 3 S.D.) LEFT RIG | | HT | | | | | | EP 12.0 ?9 9.1 | | | | P/N13 16.3 ?14.5 14.0 | | | | N19 22.1 19.0 19.5 | | | | EP-N19 10.9 10 10.4 | | | | | | | | CLINICAL HISTORY: | | | | DETAIL: There were well reproducible thalamo-cortical waveforms | | bilaterally occurring at normal latencies. The Erb=s point potentials were | | not well-defined nor were the P/N13's although they were present. | | | | IMPRESSION: Probably normal median somatosensory evoked potentials | | bilaterally. There are normal conduction times to the thalamus | | bilaterally. The poor definition of the EP potentials could be due to | | technical problems or possibly a mild defect in peripheral pathways. | | | | | | | | | | | | Willard Arreguin M.D. | | [id number] | | | + + + + | Transcriptions | + + | Other, Faculty - 03/13/1998 12:00 AM PST Care Unit: NEUROLOGY Req by: Dr. VASQUEZ | | Test Date: 03-13-98 EP Number: [id number] | | Pertinent Medications: NEURONTIN, OXYCONTIN | | | | | | POSTERIOR TIBIAL SOMATOSENSORY EVOKED POTENTIALS | | | | | | LEFT RIGHT | | | | | | LP None none | | | | N/P37 41.7 43.1 | | | | CLINICAL HISTORY: | | | | DETAIL: There were no reproducible lumbar point waveforms bilaterally. The | | cortical waveforms were present but with a low signal to noise ratio and a | | broad noisy peak with a peak latency prolonged for height (ULN about 40 | | msec). The muscle twitch response was obtained on the right at an intensity | | of 24 milliamps 200 micsec pulse duration. On the left it was harder to | | obtain a twitch (20 milliamps 500 micsec duration). The patient developed | | some pains in her legs during the testing and there was much EMG artifact | | throughout. | | | | IMPRESSION: Mildly abnormal posterior tibial somatosensory evoked | | potentials bilaterally because of mild bilateral delays in large fiber | | somatosensory conduction between the ankle and sensory cortex that is not | | further localized. The difficulty obtaining a twitch response at usual | | intensities and stimulus durations suggests that the delay may be | | peripheral. | | | | | | | | | | | | Willard Arreguin M.D. | | [id number] | | | + + documented in this encounter Visit Diagnoses Not on filedocumented in this encounter"
--- OUTSIDE RECORDS SUMMARY | ~2019-07-25 | XMS | Encounter Summary ---
Demographics + + + | Address | [address] | | | [place] [address] | + + + | Home Phone | | + + + | Preferred Language | Unknown | + + + | Marital Status | | + + + | Scientology Affiliation | 1025 | + + + | Race | Unknown | + + + | Ethnic Group | Unknown | + + + Author + + + | Author | [facility] | | | and [place] | + + + | Organization | [facility] | | | [...] Eron Gottlieb | ECON | [address] [place] [address] | | | | | [place] [address] | | + + + + + Care Team Providers + +------+ + | Care Orchard Sprayer Name | Role | Phone | + +------+ + PCP | Unavailable | + +------+ + Reason for Visit +--------+ + | Reason | Comments | +--------+ + | Other | Current Symptoms | +--------+ + Encounter Details +--------+ + + + + | Date | Type | Department | Care Team | Description | +--------+ + + + + | 03/14/ | Telephone | [facility] | Jac Riley | Other (Current | | 2012 | | [address] | [facility] [address] | Symptoms ) | | | | [address] | [place] | | | | | [place] | [address] | | | | | [address] | [phone] | | | | | [phone] | | | +--------+ + + + [...]
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
--- OUTSIDE RECORDS SUMMARY | ~2019-07-25 | XMS | Encounter Summary ---
Demographics + + + | Address | [address] | | | [place] [address] | + + + | Home Phone | | + + + | Preferred Language | Unknown | + + + | Marital Status | | + + + | Jewish Affiliation | 1025 | + + + [...] Eron Gottlieb | ECON | [address] [place] [address] | | | | | [place] [address] | | + + + + + Care Team Providers + +------+ + | Care Manager Clinical Research Name | Role | Phone | + [...] | Specialty | Physical | Diagnoses | Earnest, | | | | Services | Therapy | S/P | Cristian Norris DO | | | | Required | | cervical | [address] | | | | | spinal | [address] | | | | | | fusion | [place] | | | | | | | [address] | | | | | | | Phone: | | | | | | | [phone] | | | | | | | Fax: | | | | | | | [phone] | | +--------+ + + + + + Reason for Visit + + + | Reason | Comments | + + + | Follow-up | 2 Week PO | + + + | Hip Pain | Left hip | + + + Encounter Details +--------+---------+ + + + | Date | Type | Department | Care Team | Description | +--------+---------+ + + + | 10/13/ | Office | [facility] | Cristian Tinoco, | S/P cervical spinal | | 2012 | Visit | NEUROSURGERY [address] | DO [address] | fusion (Primary Dx) | | | | [address] | [address] [place], [place] | | | | | [place], [place] | [address] | | | | | [address] | | | | | | [phone] | | | +--------+---------+ + + + Social History [...] + + + | Blood Pressure | 143/79 | 10/13/2012 10:24 AM | | | | | PDT | | + + + + + | Pulse | 74 | 10/13/2012 10:24 AM | | | | | PDT | | + + + + + | Temperature | - | - | | + + + + + | Respiratory Rate | 18 | 10/13/2012 10:24 AM | | | | | PDT | | + + + + + | Oxygen Saturation | - | - | | + + + + + | Inhaled Oxygen | - | - | | | Concentration | | | | + + + + + | Weight | 95.7 kg (211 lb) | 10/13/2012 10:24 AM | | | | | PDT | | + + + + + | Height | 160 cm (5' 3") | 10/13/2012 10:24 AM | | | | | PDT | | + + + + + | Body Mass Index | 37.38 | 10/13/2012 10:24 AM | | | | | PDT | | + + + + + documented in this encounter Patient Instructions Patient Instructions Cristian Tinoco DO - 10/13/2012 10:45 AM PDTPlease obtain x-rays of t he neck at 6 weeks and 3 months after surgery. Please follow-up with me at 3 months postop. documented in this encounter Progress Notes Cristian Tinoco DO - 10/13/2012 10:47 AM PDTFormatting of this note might be different fro m the original. Cristian Tinoco DO [address] [facility] [address] [place], [place] [id number] FAX: NEUROSURGERY SURGICAL FOLLOW-UP CHIEF COMPLAINT: Chief Complaint Patient presents with Follow-up 2 Week PO Hip Pain Left hip HISTORY OF PRESENT ILLNESS: The patient is a 72 y.o. female that had a C3-4 cervical fusio n by me for myelopathy around 2 weeks ago. She returns and overall is doing well. The bina ent has been walking as much as possible and has been following their restrictions overall. The patient has had no issues with her surgical site. So far issues with swallowing have n ot been a major issue. She has not had major issues with hoarseness. She says her headache s from before surgery are resolved. She continues to complain of left hip pain, but wants to address this issue after the neck heals more. CURRENT MEDICATIONS: Current Outpatient Prescriptions Medication Sig [...] or use illicit drugs. INTERIM PHYSICAL EXAMINATION: Blood pressure 143/79, pulse 74, resp. rate 18, height 1.6 m (5' 3"), weight 95.709 kg (211 lb). Body mass index is 37.38 kg/(m^2). GENERAL: Karen Gottlieb is in no acute distress with unlabored respirations. HEENT: HEAD/FACE: Normocephalic and atraumatic. There are no areas of recent trauma. SPINE: The patient s incision is healing well. There is not significant erythema or disc harge. EXTREMITIES: No lower extremity edema. NEUROLOGICAL EXAMINATION: MENTAL STATUS: The patient is awake, alert, and oriented. She follows simple and complex commands MOTOR EXAM: Motor strength is 5/5. This is unchanged from the preoperative exam. SENSORY EXAM: The sensory examination improved from the preoperative exam. Her occipital-r egion headaches have resolved. REFLEXES: Reflexes are unchanged from her preoperative history and physical. Escalera's sign persists. RADIOGRAPHIC REVIEW: No new imaging ASSESSMENT: S/P fusion C3-4 Encounter Diagnosis Name Primary? S/P cervical spinal fusion Yes Past Medical History Diagnosis Date Hypertension Atrial fibrillation Gastric reflux Diverticulosis Anxiety Depression Fibromyalgia Sleep apnea Arthritis TMJ syndrome Injury Right leg fracture and neck injury 1996. Back Injury in 1997 PLAN: Overall, the patient is doing well. The timers inspector to recovery will take many months and pe rhaps years. Hopefully, we will see further improvement over time. So far, things are progressing as planned. She wishes to proceed with left hip SI joint fusion, but we will discuss this at her 3 martinez h postop visit. I spent 30 minutes in visit with Karen Gottlieb today with the majority of time spent couns elling the patient on her recovery and coordinating her future care. The patient will follo w-up with me in around 5-7 weeks for re-evaluation. ELECTRONICALLY SIGNED BY: Cristian Tinoco DO, 10/13/2012 10:52 Additionally, the patient says that she is walking better - much more coordinated. We will order physical therapy to start at 4 weeks postop. documented in this encounter Plan of Treatment + +---------+--------+ + + | Name | Type | Priori | Associated Diagnoses | Order Schedule | | | | ty | | | + +---------+--------+ + + | XR Cervical Spine 3 | Imaging | Routin | S/P cervical | Expected: | | Vws or Less | | e | spinal fusion | 10/13/2012, Expires: | | | | | | 10/13/2013 | + +---------+--------+ + + | XR Cervical Spine 3 | Imaging | Routin | S/P cervical | Expected: | | Vws or Less | | e | spinal fusion | 10/13/2012, Expires: | | | | | | 10/13/2013 | + +---------+--------+ + + + + +--------+ + + | Name | Type | Priori | Associated Diagnoses | Order Schedule | | | | ty | | | + + +--------+ + + | Ambulatory referral | Outpatient | Routin | S/P cervical | 1 Occurrences | | to Physical Therapy | Referral | e | spinal fusion | starting 10/13/2012 | | | | | | until 10/13/2013 | + + +--------+ + + documented as of this encounter Visit Diagnoses + + | Diagnosis | + + | S/P cervical spinal fusion - Primary Arthrodesis status | + + documented in this encounter
--- OUTSIDE RECORDS SUMMARY | ~2019-07-25 | XMS | Encounter Summary ---
Demographics + + + | Address | [address] | | | [place] [address] | + + + | Home Phone | | + + + | Preferred Language | Unknown | + + + | Marital Status | | + + + | Shinto Affiliation | Unknown | + + + | Race | White | + + + | Ethnic Group | Not or | + + + Author + + + | Author | [facility] | + + + | Organization | [facility] | + + + | [...] Team Providers + +------+ + | Care Food Beverage Supervisor Name | Role | Phone | + +------+ + PCP | Unavailable | + +------+ + Encounter Details +--------+ + + + + | Date | Type | Department | Care Team | Description | +--------+ + + + + | 06/09/ | Abstract | Rheumatology | Clinic, | | | 2006 | [facility] | Fibromyalgia [address] | Fibromyalgia | | | | | [facility] | | | | | | Mailcode: OPC5 | | | | | | Outpatient Clinic | | | | | | [facility] | | | | | | [place] [address] | | | | | | [phone] | | | +--------+ + + + [...]
--- OUTSIDE RECORDS SUMMARY | ~2019-07-25 | XMS | Encounter Summary ---
Demographics + + + | Address | [address] | | | [place] [address] | + + + | Home Phone [...] Eron Gottlieb | ECON | [address] [place] [address] | | | | | [place] [address] | | + + + + + Care Team Providers + +------+ + | Care Tie In Hand Name | Role | Phone | + +------+ + | Juan M Huang DO | PCP | | + +------+ + Encounter Details +--------+ + + + + | Date | Type | Department | Care Team | Description | +--------+ + + + + | 06/14/ | Abstract | [facility] [place] | Jac Riley | | | 2012 | | NEUROSURGERY [address] | F, MD [address] | | | | | [address] | St [place], [place] | | | | | [place], [place] | [address] | | | | | [address] | [phone] | | | | | [phone] | | | +--------+ + + + [...]
--- OUTSIDE RECORDS SUMMARY | ~2019-07-25 | XMS | Encounter Summary ---
Demographics + + + | Address | [address] | | | [place] [address] | + + + | Home Phone | | + + + | Preferred Language | Unknown | + + + | Marital Status | | + + + | Hindu Affiliation | 1025 | + + + | Race | Unknown | + + + | Ethnic Group | Unknown | + + + Author + + + | Author | [facility] | | | and [place] | + + + | Organization | [facility] | | | and [...] Eron Gottlieb | ECON | [address] [place] [address] | | | | | , [place] [address] | | + + + + + Care Team Providers + +------+ + | Care Rn Dialysis Name | Role | Phone | + +------+ + PCP | Unavailable | + +------+ + Encounter Details +--------+ + + + + | Date | Type | Department | Care Team | Description | +--------+ + + + + | 07/08/ | Hospital | [facility] | Jac Riley | | | 2012 | Encounter | MED CTR XRAY [address] | F, MD [address] | | | | [address] [place] | [address] [place], [place] | | | | | [place] [address] | [address] | | | | | [phone] | | | | | | | [...] | XR LUMBAR SPINE 4 + | | 07/09/2011 | | Results for this | | VW | | 8:06 AM | | procedure are in the | | | | PDT | | results section. | + +--------+ + + + documented in this encounter Results XR Lumbar Spine 4 + Vw (07/09/2011 8:06 AM PDT) + + | Specimen | + + | | + + + + + | Narrative | Performed At | + + + | [facility] Diagnostic Imaging Department | [facility] | | [address] [facility] | [facility] | | LUMBAR SPINE WITH FLEX/EX VIEWS | DIAG IMG | | 07/09/2011 CLINICAL HISTORY: BACK PAIN. FINDINGS: The | | | frontal view demonstrates lumbar laminectomies at 4-5 and 5-1. | | | There is levoscoliosis with lateral slippage of L3 over 4 on the | | | frontal projection. The lateral neutral position view demonstrates | | | advanced multilevel spondylosis particularly from L3 through L5. | | | There is normal alignment of the lumbar bodies on the neutral | | | position lateral. No motion is identified on flex/ ex maneuvers. | | | Bones are diffusely osteopenic. No compression deformities are | | | identified. IMPRESSION: 1. SPONDYLOSIS WITH SCOLIOSIS AND | | | LATERAL INSTABILITY. 2. NO MOTION IDENTIFIED ON FLEX/EX | | | MANEUVERS. Dictated Date/Time: 07/09/2011 09:50 Transcribed | | | Date/Time: 07/09/2011 09:58 Physical Aerodynamicist: | | | <Electronically Signed by Mark Guardado MD> 07/09/11 1318 | | + + + + + | Procedure Note | + + | Tommy, Rad Conversion - 04/13/2013 5:15 PM [facility] | | Diagnostic Imaging Department | | [address] | | | | | | | | LUMBAR SPINE WITH FLEX/EX VIEWS 07/09/2011 | | | | CLINICAL HISTORY: BACK PAIN. | | | | FINDINGS: The frontal view demonstrates lumbar laminectomies at 4-5 and 5-1. | | There is levoscoliosis with lateral slippage of L3 over 4 on the frontal | | projection. The lateral neutral position view demonstrates advanced multilevel | | spondylosis particularly from L3 through L5. There is normal alignment of the | | lumbar bodies on the neutral position lateral. No motion is identified on flex/ | | ex maneuvers. Bones are diffusely osteopenic. No compression deformities are | | identified. | | | | IMPRESSION: | | 1. SPONDYLOSIS WITH SCOLIOSIS AND LATERAL INSTABILITY. | | | | 2. NO MOTION IDENTIFIED ON FLEX/EX MANEUVERS. | | | | Dictated Date/Time: 07/09/2011 09:50 | | Transcribed Date/Time: 07/09/2011 09:58 | | Physical Aerodynamicist: | | <Electronically Signed by Mark Guardado MD> 07/09/11 1169 | + + + +---------+ + + [...]
--- OUTSIDE RECORDS SUMMARY | ~2019-07-25 | XMS | Encounter Summary ---
Demographics + + + | Address | [address] | | | [place] [address] | + + + | Home Phone | | + + + | Preferred Language | Unknown | + + + | Marital Status | | + + + | Synagogue Affiliation | 1025 | + + + | Race | Unknown | + + + | Ethnic Group | Unknown | + + + Author + + + | Author | [facility] | | | and [place] | + + + | Organization | [facility] | | [...] Eron Benoit | ECON | [address] [place] [address] | | | | | [place] [address] | | + + + + + Care Team Providers + +------+ + | Care Library Services Coordinator Name | Role | Phone | + +------+ + | Juan M Huang DO | PCP | | + +------+ + Reason for Referral Diagnostic/Screening (Urgent) +--------+--------+ + + + + | Status | Reason | Specialty | Diagnoses / | Referred By | Referred To | | | | | Procedures | Contact | Contact | +--------+--------+ + + + + | Closed | | Radiology | Diagnoses | Riley, | [facility] | | | | | S/P lumbar | Jac F, | [address] | | | | | fusion | MD [address] | [place], | | | | | Lumbago | [address] | [place] | | | | | Bilateral | [place], | [address] | | | | | hip pain | [place] [address] | Phone: | | | | | Left knee | Phone: | [phone] | | | | | pain | [phone] | Fax: | | | | | Cervical | [phone] Fax: | [phone] | | | | | spondylosis | | | | | | | with | [phone] | | | | | | myelopathy | | | | | | | Procedures | | | | | | | MRI Cervical | | | | | | | Spine wo | | | | | | | Contrast | | | +--------+--------+ + + + + Diagnostic/Screening (Routine) +--------+--------+ + + + + | Status | Reason | Specialty | Diagnoses / | Referred By | Referred To | | | | | Procedures | Contact | Contact | +--------+--------+ + + + + | Closed | | Radiology | Diagnoses | Riley, | [address] | | | | | S/P lumbar | Jac F, | [address] | | | | | fusion | MD [address] | [place], | | | | | Lumbago | [address] | [place] [address] | | | | | Bilateral | [place], | Phone: | | | | | hip pain | [place] [address] | [phone] | | | | | Left knee | Phone: | Fax: | | | | | pain | [phone] | [phone] | | | | | Cervical | [phone] Fax: | | | | | | spondylosis | | | | | | | with | [phone] | | | | | | myelopathy | | | | | | | Procedures | | | | | | | CT Lumbar | | | | | | | Spine wo | | | | | | | Contrast | | | +--------+--------+ + + + + Diagnostic/Screening (Routine) +--------+--------+ + + + + | Status | Reason | Specialty | Diagnoses / | Referred By | Referred To | | | | | Procedures | Contact | Contact | +--------+--------+ + + + + | Closed | | Radiology | Diagnoses | Riley, | [facility] | | | | | S/P lumbar | Jac F, | [address] | | | | | fusion | MD [address] | [place], | | | | | Lumbago | [address] | [place] | | | | | Bilateral | [place], | [address] | | | | | hip pain | [place] [address] | Phone: | | | | | Left knee | Phone: | [phone] | | | | | pain | [phone] | Fax: | | | | | Cervical | [phone] Fax: | [phone] | | | | | spondylosis | | | | | | | with | [phone] | | | | | | myelopathy | | | | | | | Procedures | | | | | | | MRI Lumbar | | | | | | | Spine w wo | | | | | | | Contrast | | | +--------+--------+ + + + + Reason for Visit + + + | Reason | Comments | + + + | Back Pain | | + + + | Other | s/p lumbar fusion 09/2011 | + + + Encounter Details +--------+---------+ + + + | Date | Type | Department | Care Team | Description | +--------+---------+ + + + | 06/21/ | Office | [facility] | Jac Riley | S/P lumbar fusion | | 2012 | Visit | NEUROSURGERY [address] | FMD [address] | (Primary Dx); | | | | [address] | St [place], [place] | Lumbago; Bilateral | | | | [place], [place] | [address] | hip pain; Left knee | | | | [address] | [phone] | pain; Cervical | | | | [phone] | | spondylosis with | | | | | | myelopathy | +--------+---------+ + + + Social History [...] + + + | Blood Pressure | 135/68 | 06/21/2012 10:04 AM | | | | | PDT | | + + + + + | Pulse | 69 | 06/21/2012 10:04 AM | | | | | PDT | | + + + + + | Temperature | - | - | | + + + + + | Respiratory Rate | 18 | 06/21/2012 10:04 AM | | | | | PDT | | + + + + + | Oxygen Saturation | - | - | | + + + + + | Inhaled Oxygen | - | - | | | Concentration | | | | + + + + + | Weight | 94.9 kg (209 lb 3.2 | 06/21/2012 10:04 AM | | | | oz) | PDT | | + + + + + | Height | 162 cm (5' 3.78") | 06/21/2012 10:04 AM | | | | | PDT | | + + + + + | Body Mass Index | 36.16 | 06/21/2012 10:04 AM | | | | | PDT | | + + + + + documented in this encounter Progress Notes Jac Riley MD - 06/21/2012 10:10 AM PDTFormatting of this note might be differen t from the original. Jac Riley MD [address] [facility] [place], [place] [id number] FAX: NEUROSURGERY FOLLOW-UP CHIEF COMPLAINT: Chief Complaint Patient presents with Back Pain Other s/p lumbar fusion 09/2011 HISTORY OF PRESENT ILLNESS: The patient is a 72 y.o. female that had a L3-S1 fusion by me for scoliosis, spondylolisthesis, and instability after a prior L3-S1 decompression around 9 months ago. She returns and overall is doing fairly well. The patient complains of persi stent left hip pain which she finds is present all day and generally improves when she lays down. She also complains of low back pain towards the evening and as she gets tired. She a lso complains of left knee pain and pain in the back of her knee and finds that her knee wan ts to "go backwards". Finally she also complains of right heel pain and left bottom of the foot pain as well as some brandon and calf sharp pains which she finds are worse in the morning when she still laying in bed in which improve and go away once she is up and out. She also describes a loss of temperature sensation in the left foot. She also describes that interm ittently her entire left leg will go numb. She describes that her urine has become hot and t hat with a consistency of her stool is changed but she is not describing urinary retention o r bowel incontinence. She has been doing physical therapy for the last 5 months and has not noticed much improvement with that. She did manage to decrease the amount of OxyContin dar t she was taking from 80 mg twice a day to 60 mg twice a day. When she tried to go to 40 mg she went into withdrawal. Apparently her primary care at this point as instructed her not to continue to taper her high-dose narcotic medications. She also complains of intermittent leg swelling. Her main complaint though is a loss of balance and feeling as if she is unst able in her gait. PAST MEDICAL HISTORY: Past Medical History Diagnosis Date Hypertension Atrial fibrillation Gastric reflux Diverticulosis Anxiety Depression Fibromyalgia Sleep apnea Arthritis TMJ syndrome Injury Right leg fracture and neck injury 1996. Back Injury in 1997 PAST SURGICAL HISTORY: Past Surgical History Procedure Date Stomach flap and appendectomy 1987 Tonsillectomy and adenoidectomy 1955 Hysterectomy 1975 Back surgery 1994 [facility] Bilateral carpal tunnel release 1996 Hemorrhoid surgery 1987 Lumbar disc surgery 1997 Cholecystectomy 1997 CURRENT MEDICATIONS: Current Outpatient Prescriptions Medication Sig Dispense Refill cyclobenzaprine (FLEXERIL) 10 mg tablet Take 10 mg by mouth 3 times daily. lubiprostone (AMITIZA) 24 mcg capsule Take 24 mcg by mouth 2 times daily. alendronate (FOSAMAX) 70 mg tablet Take 70 mg by mouth Once a week. OIL OF OREGANO PO CAPS two times daily as needed ciclopirox (PENLAC) 8 % solution one application daily cyclobenzaprine (AMRIX) 15 MG 24 hr capsule 1-2 capsules at bedtime estradiol (CLIMARA) 0.05 mg/24 hr apply one patch weekly esomeprazole (NEXIUM) 40 mg capsule Take 40 mg by mouth 2 times daily. verapamil (VERELAN PM) 240 MG 24 hr capsule 1/2-1 tablet at bedtime triamterene-hydrochlorothiazide (MAXZIDE) 75-50 mg per tablet 1/2-1 tablets daily metoprolol succinate (TOPROL XL) 50 mg 24 hr tablet 1/2-1 tablets by mouth at bedtime venlafaxine (EFFEXOR XR) 75 mg 24 hr capsule Take 75 mg by mouth Daily. meloxicam (MOBIC) 15 mg tablet Take 15 mg by mouth Daily. oxyCODONE (OXYCONTIN) 80 mg 12 hr tablet Take 80 mg by mouth 2 times daily. ALLERGIES: Allergies Allergen Reactions Marcaine Anaphylaxis Fentanyl Meperidine Nausea Only Mushroom Extract Complex Other (See Comments) Yeast Infection Morphine Sulfate SOCIAL HISTORY: The patient reports that she has never smoked. She has never used smokeless tobacco. She r eports that she does not drink alcohol or use illicit drugs. FAMILY HISTORY: No family history on file. INTERIM PHYSICAL EXAMINATION: Blood pressure 135/68, pulse 69, resp. rate 18, height 1.62 m (5' 3.78"), weight 94.892 kg (209 lb 3.2 oz). Body mass index is 36.16 kg/(m^2). GENERAL: Karen Benoit is in no acute distress with unlabored respirations. HEENT: HEAD/FACE: Normocephalic and atraumatic. There are no areas of recent trauma. CHEST: Clear to ausculation without crackles or wheeze. HEART: Regular rate and rhythm without murmurs. SPINE: The patient s incisions are healed well. She has exquisite tenderness over the le ft sacroiliac region. She has moderate tenderness over her midline lumbar incision. EXTREMITIES: She has minimal lower extremity edema. She does have positive Matthieu and im pingement tests bilaterally. She also has a positive Yury sign for left SI joint pain. She has negative straight leg raises. NEUROLOGICAL EXAMINATION: MENTAL STATUS: The patient is awake, alert, and oriented. She follows simple and complex commands MOTOR EXAM: Motor strength is 5 out of 5. This is improved from the preoperative exam. SENSORY EXAM: She has subjective numbness of the left lower extremity which involves the fr ont back and both sides from that hip down to the foot. REFLEXES: She has symmetric one out of four reflexes in the upper extremities at the bicep s triceps brachioradialis. She has a Escalera sign on the left. She has 2-3 and brisk at th e patellar. He has absent at the Achilles. She has bilateral equivocal plantar responses. RADIOGRAPHIC REVIEW: We reviewed the x-rays AP and lateral as well as flexion extension lumbar spine with form henrik egan with her and her . These demonstrate stable fixation and what appears to be pro gressive arthrodesis with no evidence of any adjacent segment instability. The amount of sc oliosis present is stable in comparison to previous films from last year. Overall the films are unremarkable. ASSESSMENT: S/P L3-4 and L4-5 LAIF from the right and L5-S1 TLIF from the left for scoliosis, spondylol isthesis, instability, and status post L3-S1 laminectomy and decompression: Encounter Diagnoses Name Primary? S/P lumbar fusion Yes Lumbago Past Medical History Diagnosis Date Hypertension Atrial fibrillation Gastric reflux Diverticulosis Anxiety Depression Fibromyalgia Sleep apnea Arthritis TMJ syndrome Injury Right leg fracture and neck injury 1996. Back Injury in 1997 PLAN: Overall, the patient is doing fairly well. Unfortunately she continues to have significant pains. I do believe the majority of her pains are related to her degenerative hips and kne e on the left side. Additionally she may have a component of sacroiliitis also on the left. I do worry that she has chronic pain syndrome as a result of the long-term use of high-dos e narcotic medications. If this is the case then treating her pains will be very difficult. At this point there does not appear to be anything significantly wrong with her fusion. H owever we will interrogate this extensively. This will take the form of an MRI of the lumba r spine with and without contrast as well as a CT scan of the lumbar spine. Additionally th e presence of abnormal reflexes particular the left Escalera's does make me worry about cervi heather myelopathy. Her gait is significantly unstable and could be consistent with myelopathy. Therefore we'll also obtain an MRI the cervical spine as well. I spent 30 minutes in visit with Karen Benoit and her Drake today with the majority of time spent counselling the patient on her recovery and coordinating her future care. The patient will follow-up with my clinic in around 2 weeks for re-evaluation after we obta in the studies.. ELECTRONICALLY SIGNED BY: Jac Riley MD, 06/21/2012 10:10 documented in this encounter Plan of Treatment Not on filedocumented as of this encounter Results CT Lumbar Spine wo Contrast (07/10/2012 3:51 PM PDT) + + | Specimen | + + | | + + + + + | Narrative | Performed At | + + + | [facility] | [place] | | Department [address] , [place] | [facility] | | [ rep [address]] [ rep ct [facility] | | st zip] Signed | - IMAGING | | | | | Patient Name: KAREN BENOIT Ricardo Physician: | | | ARRE.01 : 1940 Age: 72 Sex: F Unit #: [id number] | | | Exam Date: 07/10/12 [place] [facility] [place] | | Report #: [id number] Page: | | | %(RAD)RES..mtdd.print.filter("pg") of %(RAD) | | | RES..mtdd.print.filter("tpg") | | | | | | Accession Number: [id number] | | | CT LUMBAR SPINE CLINICAL HISTORY: FOLLOWUP FUSION. | | | TECHNIQUE: Axial images were obtained from T12 to sacrum, without | | | the use of contrast. COMPARISON: MRI of the lumbar spine | | | from , November 2011 and MRI of the lumbar spine from this | | | center today. FINDINGS: There are five lumbar-type | | | vertebral bodies. Posterior pedicle screw and vu fixation with | | | interbody fusion has been performed across L3-4, L4-5 and L5-S1. | | | Fixation hardware is intact and in unchanged position. Interbody | | | bone grafts are also in stable position. There is mild subsidence of | | | the vertebral endplates, especially at L5-S1, around the grafts. | | | Alignment is maintained through the fused segments and above. | | | Vertebral body heights are normal. No adjacent soft tissue | | | abnormalities are seen. Level by level analysis of the axial images | | | follows: L1-2: There is mild disk space narrowing at this | | | level, along with mild facet degenerative change. No central canal | | | or foraminal encroachment. L2-3: There is disk space | | | narrowing and vacuum disk phenomenon. Mild circumferential disk bulge | | | is seen. There is also mild facet degenerative change. No central | | | canal or foraminal encroachment. L3-4: Laminectomy has been | | | performed at this level. Fusion changes as described above. The | | | pedicle screws do produce some metallic artifact across the region, | | | but the central canal appears to be maintained and no foraminal | | | encroachment is seen. L4-5: Laminectomy has also been | | | performed at this level. The central canal appears to be widely | | | patent. L5-S1: Laminectomy has been performed. Posterior | | | osteophytic ridging is present, especially directed to the left. | | | This results in significant bony encroachment on the left-sided | | | foramen. IMPRESSION: 1. L3 TO S1 POSTERIOR PEDICLE | | | SCREW/VU AND INTERBODY FUSION AND LAMINECTOMY. THE FUSION AND FUSION | | | HARDWARE APPEARS STABLE WHEN COMPARED TO PRIOR STUDIES. 2. | | | LARGE OSTEOPHYTES PROTRUDING FROM THE VERTEBRAL ENDPLATES | | | POSTEROLATERALLY TO THE LEFT AT L5-S1, SIGNIFICANTLY ENCROACHING | | | UPON THE NEURAL FORAMEN. 3. DISK SPACE NARROWING, WITH | | | VACUUM DISK PHENOMENON AT L2-3. NO CENTRAL CANAL ENCROACHMENT IS | | | APPRECIATED BY THIS MODALITY. Dictated Date/Time: | | | 07/10/2012 15:51 Transcribed Date/Time: 07/10/2012 18:06 | | | Onshore Diver: <<Signature on File>> | | | | | | Dean Nguyen MD07/11/12 0802 <Electronically signed by | | | Dean Nguyen MD> Dean Nguyen MD 07/10/12 | | | 1551 Onshore Diver: [employer] Heim[place]p[employer]vipo14/06/13 1806 | | | Jac Riley MD | | + + + + + + + + | Performing | Address | City/State/Zipcode | Phone Number | | Organization | | | | + + + + + | [facility] | [address] | [place] | [phone] | | [facility] | | [address] | | | - IMAGING | | | | + + + + + MRI Lumbar Spine w wo Contrast (07/10/2012 3:15 PM PDT) + + | Specimen | + + | | + + + + + | Narrative | Performed At | + + + | [facility] | [place] | | Department [address] [place] [address] | [facility] | | [ rep [address]] [ rep [facility] | | [facility]] Signed | - IMAGING | | | | | Patient Name: KAREN BENOIT Physician: | | | MILLY.[id number] : 1940 Age: 72 Sex: F Unit #: [id number] | | | Exam Date: 07/10/12 [place] [facility] | | | Report #: [id number] Page: | | | %(RAD)RES..mtdd.print.filter("pg") of %(RAD) | | | RES..mtdd.print.filter("tpg") | | | | | | Accession Number: [id number] | | | MRI OF THE LUMBAR SPINE WITH AND WITHOUT IV CONTRAST, 07/10/2012 | | | CLINICAL HISTORY: STATUS POST LUMBAR SPINAL FUSION. | | | COMPARISON: 11/12/2011. TECHNIQUE: Axial T1, T2; sagittal | | | T1, T2, STIR, T1 postcontrast; coronal T2, T1 fat-saturated | | | postcontrast MR images of the lumbar spine were obtained. Postcontrast | | | images were obtained following administration of 10 mL Gadavist | | | contrast. FINDINGS: Posterior spinal fusion hardware | | | consisting of paired pedicle screws with vertical fusion rods is | | | again seen extending from the levels of L3 through S1, with disk | | | spacers seen at the intervening levels. There is no evidence of | | | subsidence at the disk spacers. There is levoconvex lumbar scoliotic | | | curvature centered at L2-3. Alignment of the vertebral bodies is | | | otherwise preserved, as is vertebral body height. There is loss of | | | disk height at L1-2 and L2-3, stable to slightly worsened as | | | compared with 11/12/2011. Loss of disk hydration signal at these | | | levels is also seen. The conus medullaris terminates normal at the | | | level of L1. No abnormal contrast enhancement is evident. | | | On sagittal images, the disks, thecal sac, and neural foramina appear | | | normal from the levels of T11-12 through T12-L1. On axial | | | images: At L1-2, there is a posterior disk bulge, which minimally | | | contours the thecal sac. The thecal sac measures 15 mm in midline | | | AP diameter at this level. There is mild facet degenerative | | | hypertrophy with bilateral facet joint effusions. The neural | | | foramina remain patent bilaterally. At L2-3, there is a posterior | | | disk bulge and facet degenerative hypertrophy, with ligamentum flavum | | | thickening and bilateral facet joint effusions. No significant | | | spinal canal narrowing is seen at this level. There is very mild | | | bilateral neural foraminal narrowing at this level. At L3-4, | | | postsurgical changes related to discectomy, fusion, and laminectomy | | | are seen. There is no spinal canal narrowing. Artifact secondary to | | | adjacent fixation hardware limits evaluation of the neural foramina, | | | with probable mild-moderate right neural foraminal narrowing and | | | uncertain neural foraminal narrowing on the left. At | | | L4-5, postsurgical changes related to discectomy and fusion and | | | laminectomy are present. There is no spinal canal narrowing. No | | | significant neural foraminal narrowing is visualized. At L5-S1, no | | | significant spinal canal narrowing is present. There is probable left | | | neural foraminal narrowing. The visualized | | | intraabdominal structures are unremarkable. The visualized paraspinal | | | structures are unremarkable other than for postsurgical change. | | | IMPRESSION: POSTERIOR SPINAL FUSION DESCRIBED ABOVE, | | | WITH DISK SPACERS AT THE INTERVENING LEVELS, WITHOUT EVIDENCE OF | | | SUBSIDENCE OR OTHER COMPLICATION. DEGENERATIVE DISK DISEASE AND | | | SPONDYLOTIC CHANGE, DESCRIBED ABOVE. Dictated Date/Time: | | | 07/10/2012 15:15 Transcribed Date/Time: 07/10/2012 17:36 | | | Onshore Diver: <<Signature on File>> | | | | | | Jeff Puri MD07/11/12 1004 <Electronically signed by Jeff | | | Christopher Puri MD> Jeff Puri MD 07/10/12 1515 | | | Onshore Diver: Avery Barnes07/10/12 1736 | | | Jac Riley MD | | + + + + + + + + | Performing | Address | City/State/Zipcode | Phone Number | | Organization | | | | + + + + + | [facility] | [address] | [place] | [phone] | | [facility] | | [address] | | | - IMAGING | | | | + + + + + MRI Cervical Spine wo Contrast (07/10/2012 3:00 PM PDT) + + | Specimen | + + | | + + + + + | Narrative | Performed At | + + + | [facility] | [place] | | Department [address] [facility] | [facility] | | [ rep ct [address]] [ rep [facility] | | [facility]] Signed | - IMAGING | | | | | Patient Name: KAREN BENOIT Physician: | | | ARRChristopher.[email or web address] : 1940 Age: 72 Sex: F Unit #: [id number] | | | Exam Date: 07/10/12 [place] [facility] [place] | | | Report #: [id number] Page: | | | %(RAD)RES..mtdd.print.filter("pg") of %(RAD) | | | RES..mtdd.print.filter("tpg") | | | | | | Accession Number: [id number] | | | MRI CERVICAL SPINE WITHOUT CONTRAST CLINICAL HISTORY: | | | CERVICAL MYELOPATHY. COMPARISON: None available. | | | TECHNIQUE: Axial GRE magnification, T2 magnification; | | | sagittal T1, T2, STIR; and coronal T1 MRI images of the cervical | | | spine were obtained. FINDINGS: There is straightening | | | of the cervical lordosis, with mild reversal of the cervical | | | lordosis centered at C3-4. There is near-obliteration of the disk | | | space with spontaneous fusion seen at C4-5. Increased T2-weighted | | | signal is seen at the central portion of the fused C4-C5 vertebral | | | body at the location of some residual central disk material. No | | | significant adjacent bone marrow edema is evident. The bone marrow | | | signal is otherwise unremarkable for the patient's age. The | | | prevertebral and paraspinal soft tissues are unremarkable. | | | Incidental note is made of fluid-signal intensity foci in the | | | diploic space of the posterior inferior calvarium, with imaging | | | appearance consistent with prominent arachnoid granulations, of | | | incidental note. The foramen magnum and visible posterior fossa | | | structures are otherwise unremarkable. The intracranial structures | | | at the base of the skull are normal. The visualized pharyngeal | | | structures are normal. On axial imaging: At C2-3, there | | | is a posterior disk bulge, with a small focal protrusion, which | | | contours the thecal sac. The thecal sac measures 9 mm in midline | | | AP diameter. No neural foraminal narrowing is seen. At C3-4, | | | there is a posterior disk bulge with a central disk protrusion, which | | | mildly contours the cervical cord. No abnormal cord signal is | | | evident at this level. The thecal sac measures 7 mm in midline AP | | | diameter at this level. There is mild bilateral neural foraminal | | | narrowing. At C4-5, there is virtual obliteration of the disk | | | space, with some residual disk material seen centrally within the | | | vertebral body. There is facet degenerative hypertrophy. Moderate | | | right and mild left neural foraminal narrowing is seen. At | | | C5-6, there is a posterior disk bulge, with a focal posterior | | | protrusion, which contours the thecal sac but does not contact the | | | cord. The thecal sac measures 8 mm in midline AP diameter at this | | | level. There is facet degenerative change. Mild bilateral neural | | | foraminal narrowing is seen. At C6-7, there is a posterior disk | | | bulge, which contours the thecal sac but does not contact the cord. | | | The thecal sac measures almost 9 mm in midline AP diameter at this | | | level. There is facet degenerative hypertrophy. Uncinate process | | | spurring is also present. There is moderate bilateral neural | | | foraminal narrowing. At C7-T1, the disk and neural foramina and | | | spinal canal are within normal limits. IMPRESSION: | | | CONTOURING OF THE CERVICAL CORD AT THE LEVEL OF C3-4 SECONDARY TO | | | POSTERIOR DISK BULGE, WITHOUT EVIDENCE OF ABNORMAL CORD SIGNAL. | | | NEAR OBLITERATION OF THE DISK SPACE AT C4-5, WITH SPONTANEOUS | | | FUSION AT THIS LEVEL. DISK BULGES AT THE LEVELS OF C2-3, C3-4, | | | C5-6, AND C6-7, WITH VARYING DEGREES OF SPINAL CANAL AND NEURAL | | | FORAMINAL NARROWING Dictated Date/Time: 07/10/2012 15:00 | | | Transcribed Date/Time: 07/10/2012 17:25 Onshore Diver: | | | <<Signature on File>> | | | Jeff | | | Christopher Puri MD07/11/12 1003 <Electronically signed by Jeff White | | | Khushi TRISTAN> Jeff Puri MD 07/10/12 1500 | | | Onshore Diver: Avery Barnes07/10/12 7255 | | | Jac Riley MD | | + + + + + + + + | Performing | Address | City/State/[facility] | Phone Number | | Organization | | | | + + + + + | [facility] | [address] | [place] | [phone] | | [facility] | | [address] | | | - IMAGING | | | | + + + + + documented in this encounter Visit Diagnoses + + | Diagnosis | + + | S/P lumbar fusion - Primary Arthrodesis status | + + | Lumbago | + + | Bilateral hip pain Pain in joint, pelvic region and thigh | + + | Left knee pain Pain in joint, lower leg | + + | Cervical spondylosis with myelopathy | + + documented in this encounter
--- OUTSIDE RECORDS SUMMARY | ~2019-07-25 | XMS | Encounter Summary ---
Demographics + + + | Address | [address] | | | [place] [address] | + + + | Home Phone | | + + + | Preferred Language | Unknown | + + + | Marital Status | | + + + | Taoism Affiliation | Unknown | + + + | Race | White | + + + | Ethnic Group | Not or | + + + Author + + + | Author | [facility] | + + + | Organization | [facility] | + + + | [...] Team Providers + +------+ + | Care Alarm Signaler Name | Role | Phone | + +------+ + PCP | Unavailable | + +------+ + Encounter Details +--------+ + + + + | Date | Type | Department | Care Team | Description | +--------+ + + + + | 10/05/ | Office | [facility] | Note, Outpatient | Progress Note | | 2000 | Visit-Trans | MEDICINE | Clinic | [...] as of this encounter Progress Notes Interface, Registration Scheduling Specialist In - 12/17/2005 3:06 AM PDTCLINIC DATE: 10/05/2000 [facility] Today, the patient presented to the [facility] for her scheduled lumbar discography. While the patient was being monitored in the holding area, she developed an episode of a tachydysrhythmia to a rate of 200. This is monitored by feeling her pulse, and when the hospital monitor was applied to her, her heart rate was in the low 30s,and she had a junctional bradycardia. The patient at that moment did not have any symptoms of chest pain or shortness of breath but did complain of palpitations when she had the episode of tachycardia, and she says that she felt like her heart had drooled over. The patient was monitored with the pulse oximetry, and EKG monitored for about 15-20 minutes. There was no repetition of the arrhythmia again. A detailed discussion was held with the patient, and it was decided to cancel the procedure today as this patient has a history of having palpitations in the past whenever she has undergone any stress. We felt that it was not safe for us to proceed on an elective procedure in the patient who has given us a history of such episodes in the past. We recommended the patient to follow up with a supervisor waterproofing and sent us the report of the supervisor waterproofing regarding her arrhythmias, and we discussed other treatment modalities with her because the patient feels that she would greatly benefit from the discography, but her potential to tolerate the stress is very limited. We asked her not to send us the copy of her supervisor waterproofing's evaluation and told her to follow up with us for about 40 minutes in her next visit to discuss other treatment modalities that we could offer her. The patient understood and agreed with the plan. The patient was discharged with these instructions and was told to follow up with us after her evaluation. During the entire evaluation and the formulation of the plan, Dr. Avila was available, and he explained the risks of this procedure to the patient and her in great detail. MD Jeff Whitfield M.D. / [id number] / [id number] / [id number] / C: 10/06/2000 SEE cc: Juan M Huang D.O. [address] [place] [id number] Brad Acharya M.D. [id number] docum ented in this encounter Plan of Treatment Not on filedocumented as of this encounter Visit Diagnoses Not on filedocumented in this encounter"
--- OUTSIDE RECORDS SUMMARY | ~2019-07-25 | XMS | Encounter Summary ---
Demographics + + + | Address | [address] | | | [place] [address] | + + + | Home Phone | | + + + | Preferred Language | Unknown | + + + | Marital Status | | + + + | Catholic Affiliation | Unknown | + + + | Race | White | + + + | Ethnic Group | Not or | + + + Author + + + | Author | [facility] | + + + | Organization | [facility] | + + + | Address | Unknown | + + + | Phone | Unavailable | + + + Support + + + + + | Name | Relationship | Address | Phone | + + + + + | Eorn Gottlieb | ECON | [place] | | + + + + + Care Team Providers + +------+ + | Care Greige Goods Examiner Name | Role | Phone | + +------+ + PCP | Unavailable | + +------+ + Encounter Details +--------+ + + + + | Date | Type | Department | Care Team | Description | +--------+ + + + + | 06/14/ | Results | Neurosurgery 3250 | Brad Acharya, | | | 1997 | Only | HEMA Hooker MD | | | | | [place] Mailcode:OP14B | | | | | | [facility] | | | | | | [place], [place] | | | | | | [address] | | | | | | [phone] | | | +--------+ + + + [...] | + +--------+ + + + | X-RAY SPINE CERVICAL | Routin | 06/14/1997 | | Results for this | | 2 VIEWS | e | 8:55 AM | | procedure are in the | | | | PDT | | results section. | + +--------+ + + + documented in this encounter Results SPINE CERVICAL 2 VIEWS (06/14/1997 8:55 AM PDT) + + + + + + | Component | Value | Ref Range | Performed | Pathologist | | | | | At | Signature | + + + + + + | SPINE | Radiologist 1: SEN | | | | | CERVICAL 2 | Bartolome GUZMAN-Radiologist | | | | | VIEWS | 2: THOMAS CHATTERJEE | | | | | Nhung MancusoCERVICAL SPINE, TWO | | | | | | VIEWS: 06-14-97 AT 0855 | | | | | | HOURS DICTATED: | | | | | | 06-17-97 COMPARISON: | | | | | | December 07, 1996. | | | | | | FINDINGS: There has | | | | | | been discectomy with | | | | | | fusion at C4-C5. | | | | | | Flexionand extension | | | | | | views show stable | | | | | | vertebral body | | | | | | alignment. There is | | | | | | nomotion noted at C4-C5. | | | | | | IMPRESSION: Stable | | | | | | anterior fusion at | | | | | | C4-C5. END OF | | | | | | IMPRESSION: | | | | + + + + + + + + | Specimen | + + | | + + + +---------+ + [...]
--- OUTSIDE RECORDS SUMMARY | ~2019-07-25 | XMS | Encounter Summary ---
Demographics + + + | Address | [address] | | | [place] [address] | + + + | Home Phone | | + + + | Preferred Language | Unknown | + + + | Marital Status | | + + + | Taoist Affiliation | 1025 | + + + | Race | Unknown | + + + | Ethnic Group | Unknown | + + + Author + + + | Author | [facility] | | | and [place] | + + + | Organization | [facility] | | | [...] Eron Gottlieb | ECON | [address] [place] [address] | | | | | [place] [address] | | + + + + + Care Team Providers + +------+ + | Care Pipe Fitter Helper Name | Role | Phone | + [...] + + | Closed | Specialty | Pain Medicine | Diagnoses | Earnest, | Ignacia, | | | Services | | Lumbar | Cristian Norris DO | Erwin Muller DO | | | Required | | spondylosis | [address] | [address] | | | | | Lumbar | [address] | [address] | | | | | radicular | [place], [place] | [address] | | | | | pain | [address] | [place], [place] | | | | | Lumbago S/P | Phone: | [phone] | | | | | lumbar | [phone] | Phone: | | | | | fusion | Fax: | [phone] | | | | | | [phone] | Fax: | | | | | | | [phone] | +--------+ + + + + + Reason for Visit + + + | Reason | Comments | + + + | Follow-up | Discuss MRI results | + + + Encounter Details +--------+---------+ + + + | Date | Type | Department | Care Team | Description | +--------+---------+ + + + | 09/13/ | Office | [facility] | Cristian Tinoco, | Lumbar spondylosis | | 2013 | Visit | NEUROSURGERY [address] | DO [address] | (Primary Dx); Lumbar | | | | [address] | [address] [place], [place] | radicular pain; | | | | [place], [place] | [phone] | Lumbago; S/P lumbar | | | | [address] | | fusion | | | | [phone] | | | +--------+---------+ + + + [...] Instructions Patient Instructions Cristian Tinoco DO - 09/13/2013 8:27 AM PDTPlease follow-up with the pain management specialists for possible spinal cord stimulator trial, facet injections, et c. Please follow-up with me as needed.Electronically signed by Cristian Tinoco DO at 4 8:27 AM PDT documented in this encounter Progress Notes Cristian Tinoco DO - 09/13/2013 8:28 AM PDTFormatting of this note might be different fro m the original. Cristian Tinoco DO [address], [address] [place] [address] FAX: NEUROSURGERY SURGICAL FOLLOW-UP CHIEF COMPLAINT: Chief Complaint Patient presents with Follow-up Discuss MRI results HISTORY OF PRESENT ILLNESS: The patient is a 73 y.o. female that had a C3-4 cervical fusio n by ut for myelopathy 09/28/2012. She returns and overall is doing well. The patient has b een walking as much as possible and has been following their restrictions overall. The bina ent has had no issues with her surgical site. So far issues with swallowing have not been a major issue. She has not had major issues with hoarseness. She says her headaches from be fore surgery are resolved. In addition, she continues [...] and wants to have something a ddressed. Since her last visit, the pain is relatively unchanged. She has been to the ED twice and askew d a new MRI of the lumbar spine in August 2013. She presents to discuss the MRI and her next o ptions. CURRENT MEDICATIONS: Current Outpatient Prescriptions Medication Sig [...] illicit drugs. INTERIM PHYSICAL EXAMINATION: Blood pressure 123/68, pulse 72, resp. rate 18, height 1.6 m (5' 3"), weight 90.719 kg [...] left SLR. RADIOGRAPHIC REVIEW: Lumbar MRI from 08/27/13 demonstrates postoperative changes from L3-S1. There is spondylosis diffusely. There is no significant foraminal, lateral recess, or central stenosis. ASSESSMENT: Encounter Diagnoses Name Primary? Lumbar spondylosis Yes Lumbar radicular pain Lumbago S/P lumbar fusion Past Medical History Diagnosis Date Hypertension Atrial fibrillation (HCC) Gastric reflux Diverticulosis Anxiety Depression Fibromyalgia Sleep apnea Arthritis TMJ syndrome Injury Right leg fracture and neck injury 1996. 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 Her MRI from 2013 is stable. After a full discussion, she would like to undergo evaluation and treatme nt by the pain management team at [facility]. I will refer her to them to consider possib le spinal cord stimulator and/or facet injections/rhizotomy. She will follow-up with me as needed. I spent approximately 30 minutes with Karen Gottlieb today. ELECTRONICALLY SIGNED BY: Cristian Tinoco DO, 09/13/2013 8:33 documented in this en counter Plan of Treatment + + +--------+ + + | Name | Type | Priori | Associated Diagnoses | Order Schedule | | | | ty | | | + + +--------+ + + | Pain Clinic, | Outpatient | Routin | Lumbar spondylosis | Ordered: 09/13/2013 | | External - AMB | Referral | e | Lumbar radicular | | | Referral | | | pain Lumbago S/P | | | | | | lumbar fusion | | + + +--------+ + + documented as of this encounter Visit Diagnoses + + | Diagnosis | + + | Lumbar spondylosis - Primary Lumbosacral spondylosis without myelopathy | + + | Lumbar radicular pain Thoracic or lumbosacral neuritis or radiculitis, unspecified | + + | Lumbago | + + | S/P lumbar fusion Arthrodesis status | + + documented in this encounter
--- OUTSIDE RECORDS SUMMARY | ~2019-07-25 | XMS | Encounter Summary ---
Demographics + + + | Address | [address] | | | [place] [address] | + + + | Home Phone | | + + + | Preferred Language | Unknown | + + + | Marital Status | | + + + | Spiritism Affiliation | 1025 | + + + [...] Eron Gottlieb | ECON | [address] [place] [address] | | | | | , [place] [address] | | + + + + + Care Team Providers + +------+ + | Care End Finder Forming Department Name | Role | Phone | + +------+ + PCP | Unavailable | + +------+ + Encounter Details +--------+ + + + + | Date | Type | Department | Care Team | Description | +--------+ + + + + | 07/09/ | Hospital | [facility] | Don Alfredo | Atrial Fibrillation | | 2007 - | Encounter | [facility] | [address] | ([facility]) | | | | CARE FLOOR [address] | [address] [place], [place] | | | 07/11/ | | [address] | [address] | | | 2007 | | [place], [place] | | | | | | [address] | | | | | | [phone] | | | +--------+ + + + [...] + | Diagnosis | + + | Atrial fibrillation (HCC) Atrial fibrillation | + + documented in this encounter"
--- OUTSIDE RECORDS SUMMARY | ~2019-07-25 | XMS | Encounter Summary ---
Demographics + + + | Address | [address] | | | [place] [address] | + + + | Home Phone [...] + + + | Author | [facility] | + + + | Organization | [facility] | + + + | [...] Team Providers + +------+ + | Care Baking Factory Worker Name | Role | Phone | + +------+ + PCP | Unavailable | + +------+ + Encounter Details +--------+ + + + + | Date | Type | Department | Care Team | Description | +--------+ + + + + | 11/22/ | Results | Neurosurgery [address] | Brad Acharya, | | | 1996 | Only | HEMA Hooker MD | | | | | [place] Mailcode:OP14B | | | | | | [facility], [facility] | | | | | | [place], [place] | | | | | | [address] | | | | | | [phone] | | | +--------+ + + + [...] | X-RAY SPINE CERVICAL | Routin | 12/07/1996 | | Results for this | | 1 VIEW | e | 10:16 AM | | procedure are in the | | | | PDT | | results section. | + +--------+ + + + | SPINE, CERVICAL, 2 | Urgent | 11/22/1996 | | Results for this | | VIEW PORT. | | 11:00 AM | | procedure are in the | | | | PDT | | results section. | + +--------+ + + + | SPINE, CERVICAL, 1 | Routin | 11/22/1996 | | Results for this | | VIEW PORT. | e | 9:20 AM | | procedure are in the | | | | PDT | | results section. | + +--------+ + + + | SPINE, CERVICAL, 1 | Routin | 11/22/1996 | | Results for this | | VIEW PORT. | e | 8:45 AM | | procedure are in the | | | | PDT | | results section. | + +--------+ + + + | X-RAY CHEST 2 VIEW | Priori | 11/21/1996 | | Results for this | | | ty | 5:23 PM | | procedure are in the | | | | PDT | | results section. | + +--------+ + + + documented in this encounter Results SPINE CERVICAL 1 VIEW (12/07/1996 10:16 AM PDT) + + + + + + | Component | Value | Ref Range | Performed | Pathologist | | | | | At | Signature | + + + + + + | SPINE | Radiologist 1: KASSIE, | | | | | CERVICAL 1 | Mary CARRILLO | | | | | VIEW | MRupinder-Radiologist 2: LEO | | | | | | TRISTON WEBB, | | | | | | KAREN POLK | | | | | | | | | | | | | | | | | | [birth year] | | | | | | CERVICAL SPINE, PORTABLE | | | | | | LATERAL VIEW: 12-07-96 | | | | | | AT 1016 HOURS | | | | | | DICTATED: 12-10-96 | | | | | | Comparison is made with | | | | | | 11-22-96. FINDINGS: | | | | | | The patient has | | | | | | undergone anterior | | | | | | cervical fusionat the | | | | | | C4-C5 level with | | | | | | placement of bone plug. | | | | | | There is | | | | | | normalalignment of the | | | | | | cervical spine. There | | | | | | is some residual | | | | | | increasedsoft tissues | | | | | | anterior to the C4-C5 | | | | | | level. There is no | | | | | | evidence forbony | | | | | | destruction or | | | | | | prevertebral soft tissue | | | | | | gas. No extrusion of | | | | | | thebone graft is seen. | | | | | | IMPRESSION: No change in | | | | | | position or alignment | | | | | | of the fusion with bone | | | | | | graft atC4-C5 level. | | | | | | END OF IMPRESSION: | | | | + + + + + + + + | Specimen | + + | | + + + +---------+ + + | Performing | Address | City/State/Zipcode | Phone Number | | Organization | | | | + +---------+ + + | [facility] DEPARTMENT OF | | | | | RADIOLOGY | | | | + +---------+ + + SPINE, CERVICAL, 2 VIEW PORT. (11/22/1996 11:00 AM PDT) + + + + + + | Component | Value | Ref Range | Performed | Pathologist | | | | | At | Signature | + + + + + + | SPINE, | Radiologist 1: KASSIE, | | | | | CERVICAL, 2 | JAM LAMAS, | | | | | VIEW PORT. | KAREN | | | | | | | | | | | | | | | | | | [phone] CERVICAL | | | | | | SPINE, AP AND LATERAL | | | | | | VIEWS PORTABLE, 11/22/96 | | | | | | AT 1100: Dictated: | | | | | | 11/26/96 No previous | | | | | | films are available for | | | | | | comparison. FINDINGS: | | | | | | There is anterior | | | | | | cervical spine fusion at | | | | | | C4-5. The intervening | | | | | | bonegraft is not | | | | | | displaced, and the | | | | | | alignment appears normal | | | | | | at the levelof fusion. | | | | | | I can not visualize C6 | | | | | | and C7 on lateral view | | | | | | withoutbenefit of | | | | | | swimmers. On anterior | | | | | | view, there is some | | | | | | milduncovertebral joint | | | | | | degenerative disease at | | | | | | C5-6. IMPRESSION: C4-5 | | | | | | anterior fusion with | | | | | | normal alignment. END | | | | | | OF IMPRESSION: | | | | + + + + + + + + | Specimen | + + | | + + + +---------+ + + | Performing | Address | City/State/Zipcode | Phone Number | | Organization | | | | + +---------+ + + | [facility] DEPARTMENT OF | | | | | RADIOLOGY | | | | + +---------+ + + SPINE, CERVICAL, 1 VIEW PORT. (11/22/1996 9:20 AM PDT) + + + + + + | Component | Value | Ref Range | Performed | Pathologist | | | | | At | Signature | + + + + + + | SPINE, | Radiologist 1: KASSIE, | | | | | CERVICAL, 1 | Mary CARRILLO, | | | | | VIEW PORT. | M.D.-Radiologist 2: | | | | | | Mary FERNANDO, | | | | | | M.KAREN GAITAN | | | | | | | | | | | | | | | | | | [birth year] | | | | | | CERVICAL SPINE, AP AND | | | | | | LATERAL VIEWS: 11-22-96 | | | | | | at 0845 hours | | | | | | DICTATED: 12-10-96 | | | | | | There are no old films | | | | | | available for | | | | | | comparison. FINDINGS: | | | | | | The lateral | | | | | | view shows C1 through | | | | | | C5. C4-D1lelgzmcb | | | | | | fusion with placement of | | | | | | bone graft is evident. | | | | | | There isnormal | | | | | | alignment of the | | | | | | visualized cervical | | | | | | vertebral bodies. | | | | | | Thevertebral body | | | | | | heights are maintained. | | | | | | Some soft tissue | | | | | | swellinganterior to the | | | | | | site of fusion is | | | | | | present. IMPRESSION: | | | | | | Status post anterior | | | | | | cervical fusion at C4-C5 | | | | | | with placement of | | | | | | bonegraft. Normal | | | | | | alignment is maintained. | | | | | | END OF IMPRESSION: | | | | + + + + + + + + | Specimen | + + | | + + + +---------+ + + | Performing | Address | City/State/Zipcode | Phone Number | | Organization | | | | + +---------+ + + | [facility] DEPARTMENT OF | | | | | RADIOLOGY | | | | + +---------+ + + SPINE, CERVICAL, 1 VIEW PORT. (11/22/1996 8:45 AM PDT) + + + + + + | Component | Value | Ref Range | Performed | Pathologist | | | | | At | Signature | + + + + + + | SPINE, | Radiologist 1: KASSIE, | | | | | CERVICAL, 1 | Mary CARRILLO, | | | | | VIEW [place]. | M.D.-Radiologist 2: | | | | | | Mary FERNANDO, | | | | | | M.KAREN GAITAN | | | | | | | | | | | | | | | | | | 73- | | | | | | CERVICAL SPINE, AP AND | | | | | | LATERAL VIEWS: 11-22-96 | | | | | | at 0845 hours | | | | | | DICTATED: 12-10-96 | | | | | | There are no old films | | | | | | available for | | | | | | comparison. FINDINGS: | | | | | | The lateral | | | | | | view shows C1 through | | | | | | C5. C4-T9qediepox | | | | | | fusion with placement of | | | | | | bone graft is evident. | | | | | | There isnormal | | | | | | alignment of the | | | | | | visualized cervical | | | | | | vertebral bodies. | | | | | | Thevertebral body | | | | | | heights are maintained. | | | | | | Some soft tissue | | | | | | swellinganterior to the | | | | | | site of fusion is | | | | | | present. IMPRESSION: | | | | | | Status post anterior | | | | | | cervical fusion at C4-C5 | | | | | | with placement of | | | | | | bonegraft. Normal | | | | | | alignment is maintained. | | | | | | END OF IMPRESSION: | | | | + [...] | | | + +---------+ + + CHEST 2 VIEW (11/21/1996 5:23 PM PDT) + + + + + + | Component | Value | Ref Range | Performed | Pathologist | | | | | At | Signature | + + + + + + | CHEST, 2 | Radiologist 1: | | | | | VIEWS [place] | ROSEMARY PELAYO, | | | | | IVON | KAREN MAN | | | | | | | | | | | | | | | | | | [birth year] TWO | | | | | | VIEWS OF THE CHEST | | | | | | PERFORMED ON 11/21/96 AT | | | | | | 1723 HOURS DICTATED | | | | | | ON 11/21/96 COMPARISON: | | | | | | NONE AVAILABLE. | | | | | | FINDINGS: The lungs | | | | | | are clear. There is no | | | | | | pleural fluid. | | | | | | Thecardiomediastinal | | | | | | silhouette is within | | | | | | normal limits. | | | | | | IMPRESSION: Negative | | | | | | chest. END OF | | | | | | IMPRESSION: | | | | + + + + + + + + | Specimen | + + | | + + + +---------+ + + | Performing | Address | City/State/Zipcode | Phone Number | | Organization | | | | + +---------+ + + | [facility] DEPARTMENT | | | | | RADIOLOGY | | | | + +---------+ + + documented in this encounter Visit Diagnoses Not on filedocumented in this encounter"
--- OUTSIDE RECORDS SUMMARY | ~2019-07-25 | XMS | Encounter Summary ---
Demographics + + + | Address | [address] | | | [place] [address] | + + + | Home Phone | | + + + | Preferred Language | Unknown | + + + | Marital Status | | + + + | Lutheran Affiliation | Unknown | + + + | Race | White | + + + | Ethnic Group | Not or | + + + Author + + + | Author | [facility] | + + + | Organization | [facility] | + + + | [...] Team Providers + +------+ + | Care Travel Administrator Name | Role | Phone | + +------+ + PCP | Unavailable | + +------+ + Encounter Details +--------+ + + + + | Date | Type | Department | Care Team | Description | +--------+ + + + + | 11/04/ | Results | [facility] | Jeff Avila MD | | | 2000 | Only | Center Outpatient | [address] | | | | | Therapy Center [address] | [place], [place] | | | | | [address] | [address] | | | | | Outpatient Therapy | [phone] | | | | | Center 2nd floor | | | | | | Mailcode: OP26 | | | | | | [place], [place] | | | | | | [address] | | | | | | [phone] | | | +--------+ + + + [...] | + +--------+ + + + | CT L SPINE W/PRIOR | Routin | 11/04/2000 | | Results for this | | CONTRAST | e | 12:10 PM | | procedure are in the | | | | PDT | | results section. | + +--------+ + + + | FLUOROSCOPY, | Routin | 11/04/2000 | | Results for this | | INDEPENDENT PORT. | e | 10:30 AM | | procedure are in the | | | | PDT | | results section. | + +--------+ + + + documented in this encounter Results CT L SPINE W/PRIOR CONTRAST (11/04/2000 12:10 PM PDT) + + + + + + | Component | Value | Ref Range | Performed | Pathologist | | | | | At | Signature | + + + + + + | CT L SPINE | Radiologist 1: TUAN, | | | | | W/PRIOR | Nhung MORENO | | | | WINSOME | Bartolome-Radiologist 2: | | | | | | CAITLIN DICKERSON M.D.CT | | | | | | LUMBAR SPINE FOLLOWING | | | | | | DISCOGRAPHY: | | | | | | 11/04/2000 Dictated | | | | | | 12/16/2000 COMPARISON | | | | | | STUDY: None available. | | | | | | TECHNICAL FACTORS: 5 | | | | | | mm axial imaging was | | | | | | performed from the | | | | | | inferioraspect of T12 | | | | | | through S1. Bone and | | | | | | soft tissue window | | | | | | images arereviewed. | | | | | | Sagittal and coronal | | | | | | reformatted images are | | | | | | obtained andreviewed. | | | | | | Additional 3 mm images | | | | | | are obtained through | | | | | | thelevels of | | | | | | discography. FINDINGS: | | | | | | The T12-L1 disc space is | | | | | | normal. There is mild | | | | | | degenerativedisc space | | | | | | narrowing, end plate | | | | | | sclerosis, osteophytes | | | | | | and diffuseannular disc | | | | | | bulge at the L1-2 level. | | | | | | The spinal canal and | | | | | | neuralforamen remain | | | | | | patent. At the L2-3 | | | | | | level, there is | | | | | | degenerative disc change | | | | | | with diffuseannular | | | | | | disc bulge. There is | | | | | | dilute contrast | | | | | | centrally with | | | | | | suspectedperipheral | | | | | | extension of contrast, | | | | | | particularly on the | | | | | | right. No focalannular | | | | | | tear is identified. A | | | | | | small amount of | | | | | | epidural gas is | | | | | | presenton the right. | | | | | | Facet joints are | | | | | | well-maintained. At the | | | | | | L3-4 level, there is | | | | | | again diffuse annular | | | | | | disc bulge | | | | | | anddegenerative disc | | | | | | change with diffuse | | | | | | peripheral extension | | | | | | ofcontrast. Disc bulge | | | | | | is slightly focally | | | | | | asymmetric in the | | | | | | rightparacentral region. | | | | | | It minimally impinges | | | | | | upon the thecal sac. | | | | | | Thereis very mild | | | | | | degenerative change in | | | | | | the facet joints. There | | | | | | is a similar appearance | | | | | | of the disc at L4-5 with | | | | | | diffuse annulardisc | | | | | | bulge, peripheral | | | | | | extension of contrast | | | | | | and a right | | | | | | paracentralfocal disc | | | | | | bulge and contrast | | | | | | collection. There is | | | | | | mild | | | | | | hypertrophicdegenerative | | | | | | facet joint change. | | | | | | This causes a mild | | | | | | central spinalcanal | | | | | | stenosis in conjunction | | | | | | with diffuse disc bulge. | | | | | | There is a shallow | | | | | | central and right | | | | | | paracentral focal disc | | | | | | bulge withlinear | | | | | | extension of contrast | | | | | | into this region at the | | | | | | L5-S1 disc space.This | | | | | | suggests a small focal | | | | | | annular tear and focal | | | | | | disc protrusion.This | | | | | | does not impinge upon | | | | | | the thecal sac or | | | | | | displace the nerve | | | | | | root.There is | | | | | | degenerative facet joint | | | | | | change which does not | | | | | | narrow theneural | | | | | | foramen. There is | | | | | | degenerative disc | | | | | | narrowing. IMPRESSION: | | | | | | 1. Degenerative disc | | | | | | change and disc space | | | | | | narrowing, L2-3 | | | | | | throughL5-S1. 2. | | | | | | Diffuse annular disc | | | | | | bulges with relatively | | | | | | dilute contrast, L2-3and | | | | | | L3-4. 3. | | | | | | Central/right | | | | | | paracentral focal disc | | | | | | bulges or protrusions, | | | | | | L3-4,L4-5 and L5-S1. | | | | | | There appears to be an | | | | | | associated annular tear | | | | | | at theL5-S1 level. 4. | | | | | | Mild central spinal | | | | | | canal narrowing, L4-5. | | | | | | END OF IMPRESSION: | | | | + + + + + + + + | Specimen | + + | | + + + +---------+ + + | Performing | Address | City/State/Zipcode | Phone Number | | Organization | | | | + +---------+ + + | [place] [facility]PARTMENT OF | | | | | RADIOLOGY | | | | + +---------+ + + FLUOROSCOPY, INDEPENDENT PORT. (11/04/2000 10:30 AM PDT) + + + + + + | Component | Value | Ref Range | Performed | Pathologist | | | | | At | Signature | + + + + + + | FLUOROSCOPY | Radiologist 1: SEN, | | | | | , | Bartolome GUZMAN IMPRESSION: | | | | | INDEPENDENT | FLUOROSCOPY SERVICES | | | | | PORT. | WERE PERFORMED UNDER THE | | | | | | DIRECTION OF | | | | | | THEORDERING PHYSICIAN. | | | | | | END OF IMPRESSION: | | | | | | | | | | | | | | | | | |END OF IMPRESSION: | | | | | | | [...] | | + +---------+ + + | [facility] DEPARTMENT OF | | | | | RADIOLOGY | | | | + +---------+ + + documented in this encounter Visit Diagnoses Not on filedocumented in this encounter"
--- OUTSIDE RECORDS SUMMARY | ~2019-07-25 | XMS | Encounter Summary ---
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 [place], [place] [address] or November 27, 1997 THUAN Pérez TOLBERT DO [address] [place] [address] RE: KAREN BENOIT MR# [id number] Dear Doctor Sal: I saw Karen in follow-up today. She tells me that she has a progressive numbness to her knee on the left and the mid-calf on the right, and that she wants a nerve biopsy that is being considered for further evaluation. I reexamined her today and I am not convinced that there is any significant progression of the neuropathy, but she is a difficult examination and sensory examination in particular. Certainly there is no new weakness or gait changes. She can still stand on one foot, which she does some fancy pirouetting on bilaterally. Her gait is odd. Sensory examination is difficult. I am not sure there is any change in it. I was able to get the knee jerks today with reinforcement at 1 minus or trace plus. Ankle jerks do not seem to be present. Essentially I did not find anything new but continuing consternation. She said she got diarrhea and the Neurontin was stopped as a possible cause and hasn't been restarted and the diarrhea disappeared. She has a TENS unit on the left hip and complains of pain in the left leg which has been going for some time. I think a way to further resolve this question about the neuropathy might be for reevaluation and I am going to ask her to come back and see my colleague, Martita Glover, in another month or so and have her repeat an electrical study, and have Martita review this at that time. I understand the difficulties with this patient and hope that we can shed some further light although I personally don't think that a nerve biopsy would be very productive in this case. Her neuropathy is extremely mild, can be seen in people who are chronically ill and on those medications, but I think we can pursue it further with Dr. Glover helping me us out here. Best Regards, Trent Borjas M.D. Professor and Spa Consultant, Department of Neurology TAHIR:vanessa d ocumented in this encounter Plan of Treatment Not on filedocumented as of this encounter Visit Diagnoses Not on filedocumented in this encounter"
--- OUTSIDE RECORDS SUMMARY | ~2019-07-25 | XMS | Encounter Summary ---
Demographics + + + | Address | [address] | | | [place] [address] | + + + | Home Phone | | + + + | Preferred Language | Unknown | + + + | Marital Status | | + + + | Latter-Day Affiliation | 1025 | + + + [...] Eron Benoit | ECON | [address] [place] [address] | | | | | [place] [address] | | + + + + + Care Team Providers + +------+ + | Care Cardio Clinician Name | Role | Phone | + [...] lumbar | Jac F, | [address] | | | | | fusion | MD [address] | [place], | | | | | Lumbago | [address] | [place] | | | | | Bilateral | [place], | [address] | | | | | hip pain | [place] [address] | Phone: | | | | | Left knee | Phone: | [phone] | | | | | pain | [phone] | Fax: | | | | | Cervical | [phone] Fax: | [phone] | | | | | spondylosis | | | | | | | with | [phone] | | | | | | myelopathy [...] S/P lumbar | Jac F, | [address] | | | | | fusion | MD [address] | [place], | | | | | Lumbago | [address] | [place] [address] | | | | | Bilateral | [place], | Phone: | | | | | hip pain | [place] [address] | [phone] | | | | | Left knee | Phone: | Fax: | | | | | pain | [phone] | [phone] | | | | | Cervical | [phone] Fax: | | | | | | spondylosis | | | | | | | with | [phone] | | | | | | myelopathy | | | | | | | Procedures | | | | | | | CT Lumbar | | | | | | | Spine wo | | | | | | | Contrast | | | +--------+--------+ + + + + Diagnostic/Screening (Urgent) +--------+--------+ + + + + | Status | Reason | Specialty | Diagnoses / | Referred By | Referred To | | | | | Procedures | Contact | Contact | +--------+--------+ + + + + | Closed | | Radiology | Diagnoses | Riley, | [facility] | | | | | S/P lumbar | Jac F, | [address] | | | | | fusion | MD [address] | [place], | | | | | Lumbago | [address] | [place] | | | | | Bilateral | [place], | [address] | | | | | hip pain | [place] [address] | Phone: | | | | | Left knee | Phone: | [phone] | | | | | pain | [phone] | Fax: | | | | | Cervical | [phone] Fax: | [phone] | | | | | spondylosis | | | | | | | with | [phone] | | | | | | myelopathy | | | | | | | Procedures | | | | | | | MRI Cervical | | | | | | | Spine wo | | | | | | | Contrast | | | +--------+--------+ + + + + Encounter Details +--------+ + + + + | Date | Type | Department | Care Team | Description | +--------+ + + + + | 07/10/ | Hospital | [facility] | Riley Jac | S/P lumbar fusion; | | 2012 | Encounter | MED CTR XRAY [address] | F, MD [address] | Lumbago; Bilateral | | | | [address] [place] | [address] [place], [place] | hip pain; Left knee | | | | [place] [address] | [address] | pain; Cervical | | | | [phone] | [phone] | spondylosis with | | | | | | myelopathy; Leg | | | | | | swelling | +--------+ + + + + Social [...] +---------+ + + | verapamil (VERELAN | 2-1 tablet at | | 0 | 11/19/19 | | | PM) 240 MG 24 hr | bedtime | | | 12 | | | capsule | | | | | | + + + +---------+ + + | | 1/2-1 tablets daily | | 0 | 11/19/19 [...] | + +--------+ + + + | VAS LOWER EXTREMITY | STAT | 07/10/2012 | S/P lumbar fusion | Results for this | | VENOUS LEFT | | 5:39 PM | Leg swelling | procedure are in the | | | | PDT | | results section. | + +--------+ + + + | CT LUMBAR SPINE WO | Routin | 07/10/2012 | S/P lumbar fusion | Results for this | | CONTRAST | e | 3:51 PM | Lumbago Bilateral | procedure are in the | | | | PDT | hip pain Left knee | results section. | | | | | pain Cervical | | | | | | spondylosis with | | | | | | myelopathy | | + +--------+ + + + | MRI LUMBAR SPINE W | Routin | 07/10/2012 | S/P lumbar fusion | Results for this | | WO CONTRAST | e | 3:15 PM | Lumbago Bilateral | procedure are in the | | | | PDT | hip pain Left knee | results section. | | | | | pain Cervical | | | | | | spondylosis with | | | | | | myelopathy | | + +--------+ + + + | MRI CERVICAL SPINE | DOMINIQUE | 07/10/2012 | S/P lumbar fusion | Results for this | | WO CONTRAST | | 3:00 PM | Lumbago Bilateral | procedure are in the | | | | PDT | hip pain Left knee | results section. | | | | | pain Cervical | | | | | | spondylosis with | | | | | | myelopathy | | + +--------+ + + + documented in this encounter Results VAS Lower Extremity Venous Left (07/10/2012 5:39 PM PDT) + + | Specimen | + + | | + + + + + | Narrative | Performed At | + + + | [facility] | [facility] | | Department [address] [place] [address] | [facility] | | [ rep [address]] [ [facility] | | [facility]] Signed | - IMAGING | | | | | Patient Name: KAYCEEKAREN Physician: | | | MILLY. : 1940 Age: 72 Sex: F Unit #: [id number] | | | Exam Date: 07/10/12 [place] [facility] [place] | | Report #: [id number] Page: | | | %(RAD)RES..mtdd.print.filter("pg") of %(RAD) | | | RES..mtdd.print.filter("tpg") | | | | | | Accession Number: [id number] | | | LEFT LOWER EXTREMITY DUPLEX VENOUS ULTRASOUND, 07/10/2012 | | | CLINICAL HISTORY: Left leg swelling, possible DVT. | | | COMPARISON: None. FINDINGS: Gayle-scale, color Doppler | | | and duplex Doppler interrogation of the left lower extremity deep | | | veins is performed. The left common femoral, superficial femoral and | | | popliteal veins are patent, with normal phasicity, compressibility | | | and augmentation. The central greater saphenous vein and profunda | | | femoral veins are patent and unremarkable, along with the right common | | | femoral vein. Interrogation of the lateral left thigh in the | | | region of pain and lump reported by the patient identifies no defined | | | mass or fluid collection. IMPRESSION: NO EVIDENCE | | | OF DVT IN THE LEFT LOWER EXTREMITY. Results of the study | | | were communicated to Dr. Riley by the loft patternmaker performing the | | | study on 08/2012 at 1635 hours. Dictated | | | Date/Time: 07/10/2012 17:39 Transcribed Date/Time: 07/11/2012 | | | 02:10 Special Education Inclusion Teacher: <<Signature | | | on File>> | | | Sammy Suarez | | | MD Clif07/11/12 0809 <Electronically signed by Sammy Menezes MD> | | | Sammy Menezes MD 07/10/12 1739 Special Education Inclusion Teacher: | | | Webmedx Cqopmvimdbvbk74/07/13 0210 Jac Riley, | | | MD | | + + + + + + + + | Performing | Address | City/State/Zipcode | Phone Number | | Organization | | | | + + + + + | [facility] | [address] | [place] | [phone] | | [facility] | | [address] | | | - IMAGING | | | | + + + + + CT Lumbar Spine wo Contrast (07/10/2012 3:51 PM PDT) + + | Specimen | + + | | + + + + + | Narrative | Performed At | + + + | [facility] | [facility] | | Department [address] | [facility] | | [ rep [address]] [ [facility] | | [facility]] Signed | - IMAGING | | | | | Patient Name: KAREN BENOIT Physician: | | | ARRE.01 : 1940 Age: 72 Sex: F Unit #: [id number] | | | Exam Date: 07/10/12 [place] [facility] [place] | | | Report #: [id number] Page: | | | %(RAD)RES..mtdd.print.filter("pg") of %(RAD) | | | RES..mtdd.print.filter("tpg") | | | | | | Accession Number: [id number] | | | CT LUMBAR SPINE CLINICAL HISTORY: FOLLOWUP FUSION. | | | TECHNIQUE: Axial images were obtained from T12 to sacrum, without | | | the use of contrast. COMPARISON: MRI of the lumbar spine | | | from [place], November 2011 and MRI of the lumbar [...] Transcribed Date/Time: 07/10/2012 18:06 | | | Special Education Inclusion Teacher: <<Signature on File>> | | | | | | Dean Nguyen MD07/11/12 0802 <Electronically signed by | | | Dean Nguyen MD> Dean Nguyen MD 07/10/12 | | | 1551 Special Education Inclusion Teacher: Al Detal Qxijfttkeygsk04/06/13 1806 | | | Jac Riley MD | | + + + + + + + + | Performing | Address | City/State/Zipcode | Phone Number | | Organization | | | | + + + + + | [facility] | [address] | [place], [place] | [phone] | | [facility] | | [address] | | | - IMAGING | | | | + + + + + MRI Lumbar Spine w wo Contrast (07/10/2012 3:15 PM PDT) + + | Specimen | + + | | + + + + + | Narrative | Performed At | + + + | [facility] | [facility] | | Department [address] [place] | [facility] | | [ rep [address]] [ rep ct city | [facility] | | st zip] Signed | - IMAGING | | | | | Patient Name: KAREN BENOIT Physician: | | | ARRE.01 : 1940 Age: 72 Sex: F Unit #: [id number] | | | Exam Date: 07/10/12 [place] [facility] [place] | | Report #: [id number] Page: | | | %(RAD)RES..mtdd.print.filter("pg") of %(RAD) | | | RES..mtdd.print.filter("tpg") | | | | | | Accession Number: [id number] | | | MRI OF THE LUMBAR [...] Transcribed Date/Time: 07/10/2012 17:36 | | | Special Education Inclusion Teacher: <<Signature on File>> | | | | | | Jeff Puri MD07/11/12 1004 <Electronically signed by Jeff | | | Christopher Puri MD> Jeff Puri MD 07/10/12 1515 | | | Special Education Inclusion Teacher: Al Detal Amdubxmazwmvz00/06/13 7306 | | | Jac Riley MD | | + + + + + + + + | Performing | Address | City/State/[facility] | Phone Number | | Organization | | | | + + + + + | [facility] | [address] | [place] | [phone] | | [facility] | | [address] | | | - IMAGING | | | | + + + + + MRI Cervical Spine wo Contrast (07/10/2012 3:00 PM PDT) + + | Specimen | + + | | + + + + + | Narrative | Performed At | + + + | [facility] | [facility] | | Department [address] [place] | [place] | | [ rep ct [address]] [ rep [facility] | | st zip] Signed | - IMAGING | | | | | Patient Name: KAYCEEKAREN Ricardo Physician: | | | ARRE.01 : 1940 Age: 72 Sex: F Unit #: [id number] | | | Exam Date: 07/10/12 [place] [facility] [place] | | Report #: [id number] Page: | | | %(RAD)RES..mtdd.print.filter("pg") of %(RAD) | | | RES..mtdd.print.filter("tpg") | | | | | | Accession Number: [id number] | | | MRI CERVICAL SPINE WITHOUT [...] | | | Transcribed Date/Time: 07/10/2012 17:25 Special Education Inclusion Teacher: | | | <<Signature on File>> | | | Jeff | | | Christopher Puri MD07/11/12 1003 <Electronically signed by Jeff White | | Nhung Puri MD> Jeff Puri MD 07/10/12 1500 | | | Special Education Inclusion Teacher: Al Detal Tosetpudmokzx15/06/13 5692 | | | Jac Riley MD | | + + + + + + + + | Performing | Address | City/State/[facility] | Phone Number | | Organization | | | | + + + + + | [facility] | [address] | [place] | [phone] | | [facility] | | [address] | | | - IMAGING | | [...] spondylosis with myelopathy | + + | Leg swelling Swelling of limb | + + documented in this encounter
--- OUTSIDE RECORDS SUMMARY | ~2019-07-25 | XMS | Encounter Summary ---
Demographics + + + | Address | [address] | | | [place] [address] | + + + | Home Phone [...] + + + | Author | [facility] | + + + | Organization | [facility] | + + + | [...] Team Providers + +------+ + | Care Emergency Room Tech Name | Role | Phone | + +------+ + PCP | Unavailable | + +------+ + Encounter Details +--------+ + + + + | Date | Type | Department | Care Team | Description | +--------+ + + + + | 06/08/ | Ancillary | Registration [address] | Martita Javier, NIRALI | | | 2006 | Registratio | [facility] | [address] | | | | [address] | [address] Mailcode: RPB[address] | [place], | | | | | [place], [place] | [place] [address] | | | | | [address] | [phone] | | | | | [phone] | | | +--------+ + + + [...]
--- OUTSIDE RECORDS SUMMARY | ~2019-07-25 | XMS | Encounter Summary ---
Demographics + + + | Address | [address] | | | [place] [address] | + + + | Home Phone | | + + + | Preferred Language | Unknown | + + + | Marital Status | | + + + | Amish Affiliation | 1025 | + + + | Race | Unknown | + + + | Ethnic Group | Unknown | + + + Author + + + | Author | [facility] | | | and [place] | + + + | Organization | [facility] | | | [...] Eron Gottlieb | ECON | [address] [place] [address] | | | | | , [place] [address] | | + + + + + Care Team Providers + +------+ + | Care Professional Driver Name | Role | Phone | + +------+ + PCP | Unavailable | + +------+ + Encounter Details +--------+ + + + + | Date | Type | Department | Care Team | Description | +--------+ + + + + | 11/17/ | Abstract | [facility] | [facility] | | | 2011 | | Conversion Location | SR | | | | | [address] | | | | | | [place], [place] | | | | | | [address] | | | | | | [phone] | | | +--------+ + + + [...] + + + | Blood Pressure | - | - | | + + + + + | Pulse | - | - | | + + + + + | Temperature | - | - | | + + + + + | Respiratory Rate | - | - | | + + + + + | Oxygen Saturation | - | - | | + + + + + | Inhaled Oxygen | - | - | | | Concentration | | | | + + + + + | Weight | 86.2 kg (190 lb) | 01/27/2011 12:00 AM | | | | | PST | | + + + + + | Height | 160 cm (5' 3") | 01/27/2011 12:00 AM | | | | | PST | | + + + + + | Body Mass Index | 33.66 | 01/27/2011 12:00 AM | | | | | PST | | + + + + + documented in this encounter Plan of Treatment Not on filedocumented as of this encounter Visit Diagnoses Not on filedocumented in this encounter
--- OUTSIDE RECORDS SUMMARY | ~2019-07-25 | XMS | Encounter Summary ---
Demographics + + + | Address | [address] | | | [place] [address] | + + + | Home Phone [...] Providers + +------+ + | Care Sales Consultant Insurance Name | Role | Phone | + +------+ + PCP | Unavailable | + +------+ + Encounter Details +--------+ + + + + | Date | Type | Department | Care Team | Description | +--------+ + + + + | 02/19/ | Results | | Other, Faculty | | | 1997 | Only | | [phone] | | +--------+ + + + + [...] | + +--------+ + + + | HIP, 2 VIEWS | Routin | 02/19/1998 | | Results for this | | | e | 9:58 AM | | procedure are in the | | | | PST | | results section. | + +--------+ + + + documented in this encounter Results HIP, 2 VIEWS (02/19/1998 9:58 AM PST) + + + + + + | Component | Value | Ref Range | Performed | Pathologist | | | | | At | Signature | + + + + + + | HIP, 2 | Radiologist 1: KASSIE, | | | | | VIEWS | Mary CARRILLO, | | | | | | Bartolome-Radiologist 2: | | | | | | JANINA CARMONA M.D.AP | | | | | | AND LEFT LATERAL VIEW OF | | | | | | THE HIP: 02/19/98 | | | | | | Dictated 02/20/98 | | | | | | COMPARISON: No prior | | | | | | studies are available | | | | | | for comparison. | | | | | | FINDINGS: No bony | | | | | | fracture or focal | | | | | | destruction is seen. | | | | | | The jointspaces of the | | | | | | hips are maintained. | | | | | | The articular surface of | | | | | | thefemoral heads are | | | | | | smooth. The frog-leg | | | | | | lateral view of the left | | | | | | hipshows no | | | | | | abnormality. | | | | | | IMPRESSION: Normal hip. | | | | | | END OF IMPRESSION: | | | | + + + + + + + + | Specimen | + + | | + + + + + | Narrative | Performed At | + + + | Ordered by MARYANA GOSLIN M.D. | | + + + + +---------+ + + | Performing | Address | City/State/Zipcode | Phone Number | | Organization | | | | + +---------+ + + | [facility] DEPARTMENT OF | | | | | RADIOLOGY | | | | + +---------+ + + documented in this encounter Visit Diagnoses Not on filedocumented in this encounter"
--- OUTSIDE RECORDS SUMMARY | ~2019-07-25 | XMS | Encounter Summary ---
Demographics + + + | Address | [address] | | | [place] [address] | + + + | Home Phone | | + + + | Preferred Language | Unknown | + + + | Marital Status | | + + + | Moravian Affiliation | Unknown | + + + | Race | White | + + + | Ethnic Group | Not or | + + + Author + + + | Author | [facility] | + + + | Organization | [facility] | + + + | Address [...] Team Providers + +------+ + | Care Leasing Specialist Name | Role | Phone | + +------+ + PCP | Unavailable | + +------+ + Encounter Details +--------+ + + + + | Date | Type | Department | Care Team | Description | +--------+ + + + + | 10/19/ | Office | [facility] | Note, [...] as of this encounter Progress Notes Interface, Patent Examiner In - 01/18/2006 5:05 AM PSTCLINIC DATE: 10/20/1999 NEUROLOGY CLINIC SUBJECTIVE: Ms. Gottlieb is a 58-year-old female who has previously been seen by Dr. Andria Glover in this clinic, who is seen in followup for issues pertaining to neck pain. She is status post surgery on her neck following a work-related injury in December of 1992. The patient has been complaining of intense pain in the back of her neck radiating into her right upper extremity and variable numbness in the face and arm, and difficultly with ambulation. She has also had problems with urinary urgency and has been treated for urinary tract infection in the past. The patient also relates multiple diagnoses in the past, including fibromyalgia syndrome as well as cauda equina syndrome, and has had a fairly extensive evaluation with EMG nerve conduction studies, which have only documented mild sensory and motor neuropathy. The patient had also undergone an MRI of the cervical spine, which at one time had shown mild to moderate stenosis from C4 to C7, and her brain MRI scan had shown some T2-weighted abnormalities, which were felt to be ischemic in nature. The patient, when seen by Dr. Glover in December of 1998, was on Neurontin 400 mg per day, OxyContin, Fosamax, hydrochlorothiazide, and Stadol for her headaches. Subsequent to that clinic visit, the patient has had continuing problems with generalized body ache, chronic fatigue, and worsening of fibromyalgia symptoms. She now endorses that her low back pain extends up and down her spine and also extends down her left lower extremity. She endorses total loss of sensation over her entire left leg extending up to the interscapular spine but only on the left side. She also endorses muscle pain from the top of her rib area down to her toes, and denies any major problems with gait, balance or coordination. The patient, of note, has undergone surgery of her neck by Dr. Acharya in 1994, and subsequent to that, by her report, has experienced further problems with neck pain and right shoulder discomfort. Given the worsening nature of her symptom complex, she has undergone MR imaging of the cervical and lumbar spine in September of 1996. The MRI of the cervical spine does, in fact, document multiple-level degenerative disk disease with focal disk protrusion at C4-5 and C5-6, causing indentation and flattening of the anterior cord margin and slight displacement of the right ventral nerve roots of C5 at C4-5 level and C7 at the C6-7 level. The radiologist comments that these disk herniations have progressed since a prior MRI in May of 1995. The patient additionally has undergone an MRI of the lumbar spine, which is significant for multiple-level degenerative disk disease, with the most severe narrowing being at L2-3 with annular disk bulge, but with no significant nerve root impingement. There is mild bilateral neural foraminal narrowing by annular disk bulges from L2-3 through L4-5, but without any spinal canal or nerve root compromise. There is no evidence of myelopathic features of metastatic disease or other pathology on this MRI. CURRENT MEDICATIONS: The patient is currently on a variety of medications including triamterene hydrochlorothiazide and Neurontin 400 mg 5 capsules a day. She also takes OxyContin 10 mg three times a day, Celebrex 200 mg twice a day, folic acid one p.o. daily, cyclobenzaprine (Flexeril) 10 mg at bedtime. She has not tried increasing the dose of this. Her other current medications include Miacalcin and Climara. ALLERGIES: SHE ENDORSES AN ALLERGY TO MARCAINE AND DEMEROL. PAST MEDICAL HISTORY: Significant for cardiac arrhythmia going back 20 years, high blood pressure of 5 years' duration, episodes of vertigo on and off for 2 years, headaches since 1992, numbness as noted above, fibromyalgia, low back pain and arthritis-type symptoms since [id number]. She also endorses chronic fatigue, TMJ, osteoporosis, numbness of her face, bowel disorder, irritable bowel syndrome and impaired hearing. PAST SURGICAL HISTORY: Tonsillectomy, hysterectomy, surgery on her sinuses, bilateral carpal tunnel surgery in 1988, bowel surgery, and surgery on her neck. OBJECTIVE: GENERAL: Ms. Bull walked into the examination area unaided. She was very despondent and was endorsing a lot of pain. She, however, did not have significant difficulty with her transfer. Range of neck motions are compromised on account of pain, particularly flexion/extension, rather than side to side. She walks into the examination area with a left antalgic limp. NEUROLOGIC: Review of cranial nerves 2-12 is unremarkable. The Spurling's sign is positive, Lhermitte's sign is negative. Tinel's sign is negative at the palmar crease of both wrists, behind both medial epicondyles and lateral to both fibular heads. Motor strength testing today is 5/5 in both upper extremities in the proximal and distal musculature, and 4-/5 at the left iliopsoas with a give-way component and pain. She has well-preserved strength in the ankle dorsi- and plantar flexors as well as in the extensor hallucis longus. Deep tendon reflexes are 3+ in the upper extremities, 2+ in the lower extremities, plantars are flexor bilaterally. Sensory system exam is very variable. The patient is very inconsistent in her response, and on repeated lower extremity sensory testing, there is no true pattern of sensory compromise. Cerebellar exam is intact to [id number] testing. She has difficulty with tandem walking, but this appears to be more related to pain. ANALYSIS AND PLAN: Ms. Gottlieb is seen in followup today for a variety of issues, the most predominant of which pertain to chronic fatigue, low back pain, left lower extremity pain, numbness and weakness. The numbness is not dermatomal in distribution and she varies in the extent of her response. The patient endorses worsening of neck pain but has no classic features of cervical radiculopathy. I also do not detect any classic features of lumbosacral radiculopathy, although she endorses worsening of pain with the straight leg raising test today. She has give-way weakness of the left iliopsoas and there are no long tract findings on her exam, specifically plantar responses are flexor. However, given the MRI documentation of worsening of the degenerative process in her cervical spine, despite her previous surgery in 1994, I am referring her back to Dr. Acharya, the neurosurgeon, for another opinion regarding the need for further surgical intervention. With regard to her low back pain and left lower extremity numbness, there is nothing in her presentation today to suggest lumbosacral radiculopathy, and her lumbar MRI scan from September of 1996 does not document significant neural foraminal compromise. Prior to repeating this study, it would be more prudent to obtain electrodiagnostic studies to evaluate for possible nerve root compromise, given the vague and nonfocal nature of her neurologic exam today. The patient should also benefit from vigorous sessions of physical therapy to include lumbar traction, active range of motion, heat and ultrasound. The patient, however, informs me that her current insurance coverage will not pay for such therapies. She does have the use of a TENS unit at home but has not found this to be particularly beneficial. At this point, I think she can also benefit from increasing the dose of her Flexeril gradually from 10 mg at bedtime to 10 mg p.o. t.i.d. The patient will be referred to Dr. Acharya and will also undergo EMG nerve conduction studies on her lower extremities. She will be seen in followup in this clinic after her neurosurgical evaluation by Dr. Acharya and after obtaining the results of the EMG nerve conduction studies for review. At that point, we could make a decision about possibly repeating the MRI of the lower back. All of these issues were discussed with Mr. Gottlieb and her and they are agreeable to this plan. Tran Solitario M.D. / [id number] / [id number] / [id number] / [id number] cc: Brad Acharya M.D. Department of Neurosurgery Juan M Huang M.D. [address] [place] [address] [id number] signed by Interface, Patent Examiner In at 01/18/2006 5:05 AM PSTdocume nted in this encounter Plan of Treatment Not on filedocumented as of this encounter Visit Diagnoses Not on filedocumented in this encounter"
--- OUTSIDE RECORDS SUMMARY | ~2019-07-25 | XMS | Encounter Summary ---
Demographics + + + | Address | [address] | | | [place] [address] | + + + | Home Phone | | + + + | Preferred Language | Unknown | + + + | Marital Status | | + + + | Mormonism Affiliation | Unknown | + + + | Race | White | + + + | Ethnic Group | Not or | + + + Author + + + | Author | [facility] | + + + | Organization | [facility] | + + + | Address [...] Team Providers + +------+ + | Care Customer Experience Associate Name | Role | Phone | + +------+ + PCP | Unavailable | + +------+ + Encounter Details +--------+ + + + + | Date | Type | Department | Care Team | Description | +--------+ + + + + | 01/20/ | Procedure - | UNKNOWN DEPARTMENT | Other, Faculty | EEG | | 1998 | | [facility] | [phone] | | | | Transcribed | [address] | | | | | | [place], [place] | | | | | | [phone] | | | +--------+ + + + [...] this encounter Progress Notes Other, Faculty - 01/20/1999 12:00 AM PSTAssociated Order(s): EEG ROUTINE CLINIC DATE: 01/20/99 Log # [id number] CLINICAL COMMENTS: Ms. Gottlieb is a 58 year old woman with multiple complaints of pain and numbness since an accident in 1992. The complaints have varied somewhat according to the clinic visit. At last clinic visit, she clearly stated that her worst pain was in her neck, radiating into the right arm. She now says that the left is worse than the right, and did not want the right side evaluated by EMG. Her neurologic examination has been relatively unremarkable with the exception of slight decrease in sensory modalities in the distal lower extremities. Extensive laboratory evaluation and imaging studies have not shown a cause of her symptoms. TEST DESCRIPTION: Motor nerve studies: The left median and left and right ulnar motor nerve conductions were normal, with normal F responses. The left deep peroneal motor nerve conductions were normal, with normal F responses. The left tibial motor nerve conductions were slightly reduced in amplitude with normal F responses. Sensory nerve studies: The left sural sensory nerve action potential was slightly reduced in amplitude for age, with slight prolongation of peak latency and reduced conduction velocity. The left median, ulnar sensory nerve action potentials showed slightly reduced conduction velocity and slightly prolonged peak latencies. The left radial sensory nerve action potential was normal for age. Needle Electromyography: Muscles of the left and right arm and cervical paraspinal muscles were extensively sampled. There was no active denervation or chronic reinnervation. IMPRESSION: This is a mildly abnormal study. The electrophysiologic findings are most consistent with a generalized mild axonal sensorimotor neuropathy. There is no electrophysiologic evidence of a cervical radiculopathy. There is no progression since the last study of 08/09/97 Andria Glover M.D.Ph.D. [facility] documented in this encou nter Plan of Treatment Not on filedocumented as of this encounter Procedures + +--------+ + + + | Procedure Name | Priori | Date/Time | Associated Diagnosis | Comments | | | ty | | | | + +--------+ + + + | EEG ROUTINE | | 01/20/1999 | | Results for this | | | | 12:00 AM | | procedure are in the | | | | PST | | results section. | + +--------+ + + + documented in this encounter Results EEG ROUTINE (01/20/1999 12:00 AM PST) + + | Procedure Note | + + | Other, Faculty - 01/20/1999 12:00 AM PST | | CLINIC DATE: 01/20/99 Log # [id number] | | | | | | CLINICAL COMMENTS: | | Ms. Gottlieb is a 58 year old woman with multiple complaints of pain and | | numbness since an accident in 1992. The complaints have varied somewhat | | according to the clinic visit. At last clinic visit, she clearly stated | | that her worst pain was in her neck, radiating into the right arm. She now | | says that the left is worse than the right, and did not want the right side | | evaluated by EMG. Her neurologic examination has been relatively | | unremarkable with the exception of slight decrease in sensory modalities in | | the distal lower extremities. Extensive laboratory evaluation and imaging | | studies have not shown a cause of her symptoms. | | | | TEST DESCRIPTION: | | Motor nerve studies: The left median and left and right ulnar motor | | nerve conductions were normal, with normal F responses. The left deep | | peroneal motor nerve conductions were normal, with normal F responses. The | | left tibial motor nerve conductions were slightly reduced in amplitude with | | normal F responses. | | Sensory nerve studies: The left sural sensory nerve action potential | | was slightly reduced in amplitude for age, with slight prolongation of peak | | latency and reduced conduction velocity. The left median, ulnar sensory | | nerve action potentials showed slightly reduced conduction velocity and | | slightly prolonged peak latencies. The left radial sensory nerve action | | potential was normal for age. | | Needle Electromyography: Muscles of the left and right arm and | | cervical paraspinal muscles were extensively sampled. There was no active | | denervation or chronic reinnervation. | | | | IMPRESSION: | | This is a mildly abnormal study. The electrophysiologic findings are | | most consistent with a generalized mild axonal sensorimotor neuropathy. | | There is no electrophysiologic evidence of a cervical radiculopathy. There | | is no progression since the last study of 08/09/97 | | | | | | | | | | Andria Gloevr M.D.Ph.D. | | [facility] | | | + + documented in this encounter Visit Diagnoses Not on filedocumented in this encounter"
--- OUTSIDE RECORDS SUMMARY | ~2019-07-25 | XMS | Encounter Summary ---
Demographics + + + | Address | [address] | | | [place] [address] | + + + | Home Phone [...] Team Providers + +------+ + | Care Hammerer Name | Role | Phone | + +------+ + PCP | Unavailable | + +------+ + Encounter Details +--------+ + + + + | Date | Type | Department | Care Team | Description | +--------+ + + + + | 07/01/ | Transcribed | | Dictation, Other | [...] of this encounter Progress Notes Interface, Medical Collector In - 01/01/2006 5:13 AM [facility] and [place] [address] [place], [place] [address] or July 01, 2000 Juan M Huang D.O. [address] [place] [address] RE: KAREN BENOIT MR #: [id number] Dear Dr. Huang: Thank you for referring Ms. Karen Benoit to us. She is, as you know, a very kindly 59-year-old woman with a long history of back pain and left lower extremity pain, numbness, and tingling. She denies bowel or bladder difficulty. She has been on a variety of medications and has not responded and notes low back pain worse than leg pain that is accentuated by any activity, most of all by slight forward flexion. She denies that any medications have significantly improved her symptomatology. She has undergone a recent MRI in January 2000 which reveals no central canal stenosis but multi-level disk degeneration with a small disk bulge, more on the right than the left. Physical examination reveals she has full lumbar range of motion, although this accentuates her pain, and she has full strength in plantar flexion, dorsiflexion, knee extensor, and knee flexor. ASSESSMENT AND PLAN: I believe that this patient's low back pain symptoms may be due to degenerative disease. We are going to get a diskogram to rule out the possibility of degenerative disk disease. Thank you for referring this patient to us. Eloy Hardy M.D. / MARYANN [id number] / [id number] / [id number] / [id number] signed by Interface, Medical Collector In at 01/01/2006 5:13 AM PDTdocume nted in this encounter Plan of Treatment Not on filedocumented as of this encounter Visit Diagnoses Not on filedocumented in this encounter"
--- OUTSIDE RECORDS SUMMARY | ~2019-07-25 | XMS | Clinical Summary ---
Demographics + + + | Address | [address] | | | [place] [address] | + + + | Home Phone | | + + + | Preferred Language | Unknown | + + + | Marital Status | | + + + | Orthodox Affiliation | Unknown | + + + | Race | Unknown | + + + | Ethnic Group | Unknown | + + + Author + + + | Author | [facility] (Historical as of | | | 10-21-18) | + + + | Organization | [facility] (Historical as of | | | 10-21-18) | + + + | Address | Unknown | + + + | Phone | Unavailable | + + + Support + + + + + | Name | Relationship | Address | Phone | + + + + + | Eron Gottlieb | ECON | [address] | | | | | [place] [address] | | + + + + + Care Team Providers + +------+ + | Care Workers Compensation Examiner Name | Role | Phone | + +------+ + | Dr. Subha | PP | Unavailable | + +------+ + Allergies Not on File Current Medications Not on file Active Problems Not on file Social History [...] on file | | + + + Plan of Treatment Not on file Results Not on filefrom Last 3 Months"
--- OUTSIDE RECORDS SUMMARY | ~2019-07-25 | XMS | Encounter Summary ---
Demographics + + + | Address | [address] | | | [place] [address] | + + + | Home Phone | | + + + | Preferred Language | Unknown | + + + | Marital Status | | + + + | Jehovah'S Witness Affiliation | Unknown | + + + [...] Team Providers + +------+ + | Care Avionics Systems Engineer Name | Role | Phone | + +------+ + PCP | Unavailable | + +------+ + Encounter Details +--------+ + + + + | Date | Type | Department | Care Team | Description | +--------+ + + + + | 01/21/ | Transcribed | | Dictation, Other | Transcribed | | 2000 | | | | | +--------+ + [...] as of this encounter Progress Notes Interface, Promotions Associate In - 01/12/2006 5:03 AM [facility] [place] [address] [place], [place] [address] or January 22, 2000 Juan M Huang D.O. [address] [place] [address] RE: KAREN BENOIT MR #: [id number] Dear Dr. Huang: I have just seen Karen Benoit in my Neurosurgery Clinic. She is a woman whom I have seen previously for complaints of back pain and pain in her left leg. I did an extensive evaluation on her in 1997 and really could not find an anatomical reason for her pain. She now presents with a low back pain and pain into her left leg. In fact, she is quite teary eyed. She is on a great deal of pain medication. This back pain is in the posterior aspect of her leg and towards her calf. It is not necessarily in a dermatomal distribution. The pain, she says, she has all the time, and no matter what she does, it seems to be there for her. She is quite uncomfortable. She denies any bowel or bladder problems. She denies any right leg pain problems. Her examination shows give-away weakness in her left lower extremity; she says this is due to pain. She does, however, have a good strength in her lower extremities. Particularly, I noticed her strength is quite good when she is walking. She has no sensory deficits, and her reflexes are intact and symmetrical in her lower extremities. She has had a lumbar MRI done on January 11, 2000. This MRI actually looks quite good. She has a small disk bulge on the right at L4-L5, but otherwise I did not see a remarkable abnormality. She has no structural lesion that could explain her pain symptomatology. As a neurosurgeon, I have really nothing I can offer to improve her situation. There seems to be a psychodynamic component to this problem. I think that an epidural steroid injection may be helpful, and I have recommended that she see our Pain Clinic regarding this. There was a question as to whether she would be a candidate for a morphine pump for chronic back pain. I am not at liberty to address this issue, although I suspect that it would not be something that most individuals would think would be effective. I appreciate your sending her to me. I wish I could be of more help, but unfortunately I cannot. Clinic time was 15 minutes in length. Sincerely, Brad Acharya M.D. CARMEN[place] / MARYANN [id number] / [id number] / [id number] / [id number] signed by Interface, Promotions Associate In at 01/12/2006 5:03 AM PSTdocume nted in this encounter Plan of Treatment Not on filedocumented as of this encounter Visit Diagnoses Not on filedocumented in this encounter"
--- OUTSIDE RECORDS SUMMARY | ~2019-07-25 | XMS | Encounter Summary ---
Demographics + + + | Address | [address] | | | [place] [address] | + + + | Home Phone | | + + + | Preferred Language | Unknown | + + + | Marital Status | | + + + | Adventism Affiliation | 1025 | + + + | Race | Unknown | + + + | Ethnic Group | Unknown | + + + Author + + + | Author | [facility] | | | and [place] | + + + | Organization | [facility] | | | [...] Eron Benoit | ECON | [address] [place] [address] | | | | | [place] [address] | | + + + + + Care Team Providers + +------+ + | Care Teen Counselor Name | Role | Phone | + +------+ + | Juan M Huang DO | PCP | | + +------+ + Encounter Details +--------+ + + + + | Date | Type | Department | Care Team | Description | +--------+ + + + + | 09/28/ | [facility] | | | 2012 - | Encounter | [facility] SUR[facility] | | | | | | [address] | | | | 09/29/ | | [place] [address] | | | | 2012 | | [phone] | | | +--------+ + + + [...] documented as of this encounter Discharge Summaries Provider Not, In System - 09/29/2012 8:25 [place] [address] Patient Name: KAREN BENOIT Provider: Cristian Tinoco DO Unit #: [id number] Location: [facility] : 1940 ADMISSION DATE: 09/28/2012 DISCHARGE DATE: 09/29/2012 ADMITTING DIAGNOSIS Myelopathy C3-4. DISCHARGE DIAGNOSIS MYELOPATHY C3-4. PROCEDURE: Anterior cervical discectomy and fusion, C3-4, performed by Dr. Tinoco on 09/28. SERVICE: Neurosurgery, Dr. Tinoco, attending. HOSPITAL COURSE: The patient presented 09/28/2012 to undergo elective surgical fusion of C 3-4. The patient tolerated the procedure very well. Postoperatively her course was uneventf ul. She says, her radiating pain to the back of her head has resolved as well as her arm pa in. The patient is tolerating her oral diet, and pain is controlled on oral medications, she i s voiding, and requesting to be discharged home. DISPOSITION: Discharge to home. CONDITION: Improving. SPECIAL INSTRUCTIONS: The patient is instructed to avoid any extreme bending or twisting o f her neck, any lifting more than 5 pounds, and to followup as directed. The patient verbally agrees to comply with these instructions. DISCHARGE MEDICATIONS 1. Effexor 75 mg p.o. daily. 2. Flexeril 10 mg p.o. three times a day as needed for spasm. 3. Hydrochlorothiazide 50 mg p.o. daily. 4. Mobic 15 mg p.o. daily. 5. OxyContin 60 mg p.o. q.12h. 6. Percocet 7.5/325 one to two p.o. q.4h. p.r.n. pain. 7. Toprol XL 25 mg p.o. daily. 8. Verapamil 240 mg p.o. daily. 9. Vitamin B3 Complex p.o. daily. 10. Valium 5 mg p.o. q.6h. p.r.n. muscle spasm. DICTATED BY: DO Bobby Mejia JOB #: [id number] EXT JOB #:[id number] <<Signature on File>> BRIAN Engel 10/02/12 0743 < documented in this encounter Medications at Time of Discharge [...] + + + +---------+ + + | diazepam (VALIUM) | Take 1 tablet by | 60 | 0 | 09/22/19 | | | 5 mg | mouth every 6 hours | tablet | | 13 | | | tabletIndications: | as needed for | | | | | | Status post cervical | Anxiety. | | | | | | spinal fusion | | | | | | + + + +---------+ + + | | Take 25 mg by mouth | | 0 | | | | hydrochlorothiazide | Daily. | | | | | | 25 mg tablet | | | | | | + + + +---------+ + + | Lactulose 20 | Take 20 g by mouth | 240 mL | 1 | 09/22/19 | | | GM/30ML | every 6 hours as | | | 13 | | | SOLNIndications: | needed. | | | | | | Status post cervical | | | | | | | spinal fusion | | | | | | + [...] +---------+ + + | verapamil (VERELAN | 1/2-1 tablet at | | 0 | 11/19/19 | | | PM) 240 MG 24 hr | bedtime | | | 12 | | | capsule | | | | | | + + + +---------+ + + | | Take 1-2 tablets by | 60 | 0 | 09/22/19 | | | oxyCODONE-acetaminop | mouth every 4 hours | tablet | | 13 | 3 | | hen (PERCOCET) | as needed for Pain | | | | | | 10-325 mg per | for 10 days. | | | | | | tabletIndications: | | | | | | | Status post cervical | | | | | | | spinal fusion | | | | | | + + + +---------+ + + documented as of this encounter Plan of Treatment Not on filedocumented as of this encounter Procedures + +--------+ + + + | Procedure Name | Priori | Date/Time | Associated Diagnosis | Comments | | | ty | | | | + +--------+ + + + | XR SPINE 1 VW | Routin | 09/28/2012 | | Results for this | | | e | 1:41 PM | | procedure are in the | | | | PDT | | results section. | + +--------+ + + + | TYPE AND SCREEN | Routin | 09/28/2012 | | Results for this | | | e | 6:57 AM | | procedure are in the | | | | PDT | | results section. | + +--------+ + + + documented in this encounter Results XR Spine 1 Vw (09/28/2012 1:41 PM PDT) + + | Specimen | + + | | + + + + + | Narrative | Performed At | + + + | [facility] | [place] | | Department [address] | [facility] | | [ rep [address]] [ rep [facility] | | [facility]] Signed | - IMAGING | | | | | Patient Name: KAREN BENOIT Physician: | | | RAJ. : 1940 Age: 72 Sex: F Unit #: [id number] | | | Exam Date: 09/28/12 Location: [address] [place] [address] | | | Report #: [id number] Page: | | | %(RAD)RES..mtdd.print.filter("pg") of %(RAD) | | | RES..mtdd.print.filter("tpg") | | | | | | Accession Number: [id number] | | | CERVICAL SPINE, 09/28/2012 CLINICAL HISTORY: STATUS POST | | | FUSION. COMPARISON: Cervical spine x-ray dated 09/20/2012. | | | FINDINGS: Lateral view of the cervical spine was | | | obtained. Visualized skull is unremarkable. There is minimal | | | soft tissue thickening involving the prevertebral soft tissues that | | | has increased, likely post-surgical. There is loss of the usual | | | lordosis. There has been interval placement of zero profile | | | hardware extending between C3 and C4 with apparent interbody hardware | | | at this level. Drainage catheters are visualized anteriorly. | | | There is mild anterolisthesis of C3 over C4 that has increased. | | | Osseous fusion is noted between C4 and C5. Moderate sized anterior | | | osteophytes are at C3 and C4. Small anterior osteophytes are seen | | | at C5 and C6. Disk heights are maintained. The facet joints are | | | intact. IMPRESSION: 1. INTERVAL PLACEMENT OF | | | ZERO PROFILE HARDWARE EXTENDING BETWEEN C3 AND C4 WITH APPARENT | | | INTERBODY GRAFT MATERIAL AT C3-4. THERE IS INCREASED MILD | | | ANTEROLISTHESIS OF C3 OVER C4 COMPARED TO THE PREVIOUS STUDY. | | | 2. OSSEOUS FUSION BETWEEN C4 AND C5. Dictated | | | Date/Time: 09/28/2012 13:41 Transcribed Date/Time: 09/28/2012 | | | 17:39 Salvage Grinder: <<Signature on | | | File>> | | | Augusto | | | MD Shaji09/28/12 3860 <Electronically signed by Augusto Girard MD> | | | Augusto Girard MD 09/28/12 1341 Salvage Grinder: Avery | | | Lwokbzarnuaez00/25/13 3469 Cristian Tinoco DO | | + + + + + + + + | Performing | Address | City/State/Zipcode | Phone Number | | Organization | | | | + + + + + | [facility] | [address] | [place] | [phone] | | [facility] | | [address] | | | - IMAGING | | | | + + + + + Type and Screen (09/28/2012 6:57 AM PDT) + + + + + + | Component | Value | Ref Range | Performed | Pathologist | | | | | At | Signature | + + + + + + | [facility] | [facility] | | [facility] | [facility] | [facility] | [facility] | | | | | [facility] - | | | | | | LABORATORY | | + + + + + + | Antibody | NEGATIVE | | [facility] | | | Screen | | | [facility] | | [...] + | [facility] | [address] | [place] | [phone] | | [facility] | | [address] | | | - LABORATORY | | | | + + + + + | [facility] | [address] | [place] | | | [facility] | | [address] [place] [address] | | | - LABORATORY | | | | + + + + + documented in this encounter Visit Diagnoses Not on filedocumented in this encounter
--- OUTSIDE RECORDS SUMMARY | ~2019-07-25 | XMS | Encounter Summary ---
Demographics + + + | Address | [address] | | | [place] [address] | + + + | Home Phone [...] Team Providers + +------+ + | Care Print Line Supervisor Name | Role | Phone | + +------+ + PCP | Unavailable | + +------+ + Encounter Details +--------+ + + + + | Date | Type | Department | Care Team | Description | +--------+ + + + + | 11/25/ | Transcribed | | Dictation, Other | [...] as of this encounter Progress Notes Interface, Returned Goods Sorter In - 12/13/2005 3:11 AM [facility] [place] [address] [place], [place] [address] or November 25, 2000 Juan M Huang D.O. [address] [place] [address] RE: KAREN BENOIT MR #: [id number] Dear Dr Huang: I have seen Ms. Karen Benoit in our Neurosurgery Clinic. She is a 59-year-old woman with a long history of back pain, left lower extremity pain, numbness, and tingling. She states that her pain starts to radiate to the right leg also recently. She is here today to discuss her diskogram results. Physical examination reveals she has full lumbar range of motion, and she has full strength in iliopsoas, quadriceps, gastrocnemius, tibialis anterior, and EHL muscles bilaterally. She does have stocking-type hyperesthesia in the lower extremities. She has 2+ patellar and Achilles reflexes. She does not have any pathological reflexes. Her recent MRI in January 2000 revealed no signs of canal stenosis with multiple disk degeneration with a small disk bulge, more on the right than the left, low recent diskogram. She states that during the diskogram, she did not have any significant pain more than her usual pains. According to results, her diskogram was not so impressive. We believe that this patient's low back pain is not related to the surgical fusion. We recommend her to go to the Pain Management Clinic. She will call if she has an increase in her symptoms. Thank you for referring this patient to us. Sincerely, Yolanda Lovelace M.D. GHAZAL / MARYANN [id number] / [id number] / [id number] / [id number] signed by Interface, Returned Goods Sorter In at 12/13/2005 3:11 AM PDTdocume nted in this encounter Plan of Treatment Not on filedocumented as of this encounter Visit Diagnoses Not on filedocumented in this encounter"
--- OUTSIDE RECORDS SUMMARY | ~2019-07-25 | XMS | Encounter Summary ---
Demographics + + + | Address | [address] | | | [place] [address] | + + + | Home Phone | | + + + | Preferred Language | Unknown | + + + | Marital Status | | + + + | Faith Affiliation | 1025 | + + + | Race | Unknown | + + + | Ethnic Group | Unknown | + + + Author + + + | Author | [facility] | | | and [place] | + + + | Organization | [facility] | | [...] | + + + + + | Erno Benoit | ECON | [address] [place] [address] | | | | | [place] [address] | | + + + + + Care Team Providers + +------+ + | Care Science Job Titles Name | Role | Phone | + [...] | Services | | Cervical | Jac F, | Cristian Norris DO | | | Required | | spondylosis | MD [address] | [address] | | | | | with | [address] | [address] | | | | | myelopathy | [place], | [place] | | | | | S/P lumbar | [place] [address] | [address] Phone: | | | | | fusion S/P | Phone: | [phone] | | | | | cervical | [phone] | Fax: | | | | | spinal | [phone] Fax: | [phone] | | | | | fusion | | | | | | | Cervical | [phone] | | | | | | stenosis [...] | | | | | | CT OFFICE | | | | | | | CONSULTATION | | | | | | | NEW/ESTAB | | | | | | | PATIENT 60 | | | | | | | MIN | | | +--------+ + + + + + Reason for Visit + + + | Reason | Comments | + + + | Follow-up | Discuss MRI and CT | + + + Encounter Details +--------+---------+ + + + | Date | Type | Department | Care Team | Description | +--------+---------+ + + + | 07/10/ | Office | [facility] [place] | Jac Riley | Cervical spondylosis | | 2012 | Visit | NEUROSURGERY [address] | [facility] | with myelopathy | | | | [address] | [address] [place] | (Primary Dx); S/P | | | | [place] | [address] | lumbar fusion; S/P | | | | [phone] | [phone] | cervical spinal | | | | [phone] | | fusion; Cervical | | | | | | stenosis of spinal | | | | | | canal; Leg swelling; | | | | | | Peripheral | | | | | | neuropathy; DISC | | | | | | DISEASE, LUMBOSACRAL | | | | | | SPINE; Lumbago; | | | | | | Bilateral hip pain; | | | | | | Left knee pain; | | | | | | Fibromyalgia; | | | | | | Obesity | +--------+---------+ + + + Social History [...] + + + | Blood Pressure | 127/108 | 07/10/2012 2:28 PM | | | | | PDT | | + + + + + | Pulse | 104 | 07/10/2012 2:28 PM | | | | | PDT | | + + + + + | Temperature | - | - | | + + + + + | Respiratory Rate | 18 | 07/10/2012 2:28 PM | | | | | PDT | | + + + + + | Oxygen Saturation | - | - | | + + + + + | Inhaled Oxygen | - | - | | | Concentration | | | | + + + + + | Weight | 95.3 kg (210 lb) | 07/10/2012 2:28 PM | | | | | PDT | | + + + + + | Height | 160 cm (5' 3") | 07/10/2012 2:28 PM | | | | | PDT | | + + + + + | Body Mass Index | 37.2 | 07/10/2012 2:28 PM | | | | | PDT | | + + + + + documented in this encounter Patient Instructions Patient Instructions Jac Riley MD - 07/10/2012 3:58 PM PDTPlease follow up [facility] Guy for evaluation for possible neck surgery. documented in this encounter Progress Notes Jac Riley MD - 07/10/2012 3:26 PM PDTFormatting of this note might be differen t from the original. Jac Riley MD [address] [facility], [address] [place] [address] FAX: NEUROSURGERY FOLLOW-UP CHIEF COMPLAINT: Chief Complaint Patient presents with Follow-up Discuss MRI and CT HISTORY OF PRESENT ILLNESS: The patient is a 72 y.o. female that had a L3-S1 fusion by Dr Ángel Riley around 10 months ago for scoliosis, spondylolisthesis, and instability after a p rior L3-S1 decompression by another surgeon. She returns and overall is doing ok. The bina ent complains of persistent left hip pain which she finds is present all day and generally i mproves when she lays down. She also complains of low back pain towards the evening and as she gets tired. She also complains of left knee pain and pain in the back of her knee and f inds that her knee wants to "go backwards". She complains of left thigh "tightness and swel ling," as well as burning heels on both sides, but with all of symptoms the left leg is far worse than the right side. . She has been doing pool physical therapy for the last 5 weeks and she states that she feels pretty good when she is doing it, but afterwards everything r eturns to the way it was. She did manage to decrease the amount of OxyContin that she was t aking from 80 mg twice a day to 60 mg twice a day. When she tried to go to 40 mg she appare ntly went into withdrawal. He pain medication is managed by her PCP. She also complains of intermittent leg swelling, especially in her left thigh region. Her main complaint though i s a loss of balance and feeling as if she is unstable in her gait. Overall, she feels like she has improve since her surgery, but still has a high level of pain in her legs and over t he entirety of her body. PAST MEDICAL HISTORY: Past Medical History Diagnosis Date Hypertension Atrial fibrillation Gastric reflux Diverticulosis Anxiety Depression Fibromyalgia Sleep apnea Arthritis TMJ syndrome Injury Right leg fracture and neck injury 1996. Back Injury in 1997 PAST SURGICAL HISTORY: Past Surgical History Procedure Date Stomach flap and appendectomy 1987 Tonsillectomy and adenoidectomy 1955 Hysterectomy 1975 Back surgery 1994 [facility] Bilateral carpal tunnel release 1996 Hemorrhoid surgery 1987 Lumbar disc surgery 1997 Cholecystectomy 1997 CURRENT MEDICATIONS: Current Outpatient Prescriptions Medication Sig Dispense Refill OxyCODONE HCl (OXYCONTIN PO) Take 60 mg by mouth 2 times daily. oxyCODONE-acetaminophen (ENDOCET) 7.5-325 mg per tablet Take 1-3 tablets by mouth Daily as needed. aspirin 81 mg EC tablet Take 81 mg by mouth 2 times daily. pantoprazole (PROTONIX) 40 mg tablet Take 40 mg by mouth Daily. meloxicam (MOBIC) 7.5 mg tablet Take 7.5 mg by mouth Daily. Cholecalciferol (VITAMIN D3) 2000 UNITS CAPS Take by mouth Daily. lidocaine (LIDODERM) 5% patch Place 1 patch onto the skin Daily. Apply for 12 hours, th en remove for 12 hours. cyclobenzaprine (FLEXERIL) 10 mg tablet Take 10 mg by mouth 3 times daily. lubiprostone (AMITIZA) 24 mcg capsule Take 24 mcg by mouth 2 times daily. verapamil (VERELAN PM) 240 MG 24 hr capsule 1/2-1 tablet at bedtime triamterene-hydrochlorothiazide (MAXZIDE) 75-50 mg per tablet 1/2-1 tablets daily metoprolol succinate (TOPROL XL) 50 mg 24 hr tablet 1/2-1 tablets by mouth at bedtime ALLERGIES: Allergies Allergen Reactions Marcaine Anaphylaxis Fentanyl Meperidine Nausea Only Mushroom Extract Complex Other (See Comments) Yeast Infection Morphine Sulfate SOCIAL HISTORY: The patient reports that she has never smoked. She has never used smokeless tobacco. She r eports that she does not drink alcohol or use illicit drugs. FAMILY HISTORY: No family history on file. INTERIM PHYSICAL EXAMINATION: Blood pressure 127/108, pulse 104, resp. rate 18, height 1.6 m (5' 3"), weight 95.255 kg (2 10 lb). Body mass index is 37.20 kg/(m^2). GENERAL: Karen Benoit is in no [...] fr ont back and both sides from the hip down to the foot as well as left thigh numbness with bu rning heels bilaterally. REFLEXES: She has symmetric one out of four reflexes in the upper extremities at the bicep s triceps brachioradialis. She has a bilateral Escalera sign. She has 2-3 and brisk at the patellar. He has absent at the Achilles. She has bilateral equivocal plantar responses. RADIOGRAPHIC REVIEW: We reviewed the MRI of the lumbar spine performed with and without contrast on July 10, 2012. This demonstrates postsurgical changes with significant metallic artifact particularly tow serafin the left neuroforamina. However does appear that the foramina are patent. There was no evidence of any abnormal enhancement. The adjacent level does appear to be significantly d isease however there is not a large degree of foraminal stenosis at that level. CT scan of the lumbar spine performed without contrast on July 10, 2012 demonstrates what codie ears to be progressive arthrodesis at the fused levels. Again some metallic artifact limits the interpretation however it does appear that there is confluent bone. MRI the cervical spine performed on July 10, 2012 demonstrates spinal stenosis worst at the C 5-6 level. There is additionally the advanced degenerative disc disease evident at the C3-4 level. There is a lesser degree of disc degeneration also evident at the C6-7 level. ASSESSMENT: S/P L3-4 and L4-5 LAIF from the right and L5-S1 TLIF from the left for scoliosis, spondylol isthesis, instability, and status post L3-S1 laminectomy and decompression: Encounter Diagnoses Name Primary? Cervical spondylosis with myelopathy Yes S/P lumbar fusion S/P cervical spinal fusion Cervical stenosis of spinal canal Leg swelling Peripheral neuropathy DISC DISEASE, LUMBOSACRAL SPINE Lumbago Bilateral hip pain Left knee pain Fibromyalgia Obesity Past Medical History Diagnosis Date Hypertension Atrial [...] be anything significantly wrong with her fusion. Additionally she appears to have developed cervical spondylitic myelopathy at the adjacent level to her previous fusion. Given her medical comorbidities is unlikely that she would ma ke a rapid recovery. Given that I will be leaving the area within 2 months I am whitney clifford that she visit with my partner, Dr. Jeff Guy so that she can receive her postoperative ca re from the operating surgeon. Additionally I am concerned that she has developed intermittent swelling in the left leg. We will go ahead and obtain an ultrasound of the left lower extremity to evaluate for deep v enous thrombosis. I spent 30 minutes in visit with Karen Benoit and her Drake today with the majority of time spent counselling the patient on her recovery and coordinating her future care. ELECTRONICALLY SIGNED BY: Jac Riley MD, 07/10/2012 17:40 documented in this encounter Plan of Treatment + +---------+--------+ + + | Name | Type | Priori | Associated Diagnoses | Order Schedule | | | | ty | | | + +---------+--------+ + + | VAS Lower Extremity | Imaging | STAT | Leg swelling | Expected: | | Venous Bilatal | | | | 07/10/2012, Expires: | | | | | | 07/10/2013 | + +---------+--------+ + + + + +--------+ + + | Name | Type | Priori | Associated Diagnoses | Order Schedule | | | | ty | | | + + +--------+ + + | Ambulatory referral | Outpatient | Routin | Cervical | 1 Occurrences | | to Neurosurgery | Referral | e | spondylosis with | starting 07/10/2012 | | | | | myelopathy S/P | until 07/10/2013 | | | | | lumbar fusion S/P | | | | | | cervical spinal | | | | | | fusion Cervical | | | | | | stenosis of spinal | | | | | | canal Leg swelling | | | | | | Peripheral | | | | | | neuropathy DISC | | | | | | DISEASE, LUMBOSACRAL | | | | | | SPINE Lumbago | | | | | | Bilateral hip pain | | | | | | Left knee pain | | | | | | Fibromyalgia | | | | | | Obesity | | + + +--------+ + + documented as of this encounter Results VAS Lower Extremity Venous Left (07/10/2012 5:39 PM PDT) + + | Specimen | + + | | + + + + + | Narrative | Performed At | + + + | [facility] | [place] | | Department [address] [place] [address] | [facility] | | [ rep [address]] [ rep [facility] | | [facility]] Signed | - IMAGING | | | | | Patient Name: DEMETRI BENOITAMINTA Silva Physician: | | | ARRE.01 : 1940 Age: 72 Sex: F Unit #: [id number] | | | Exam Date: 07/10/12 [place] [facility] [place] | | | Report #: [id number] Page: | | | %(RAD)RES..mtdd.print.filter("pg") of %(RAD) | | | RES..mtdd.print.filter("tpg") | | | | | | Accession Number: [id number] | | | LEFT LOWER EXTREMITY DUPLEX [...] were communicated to Dr. Riley by the skoog machine operator performing the | | | study on 08/2012 at 1635 hours. Dictated | | | Date/Time: 07/10/2012 17:39 Transcribed Date/Time: 07/11/2012 | | | 02:10 Poultry Slaughterer: <<Signature | | | on File>> | | | Sammy Suarez | | | MD Clif07/11/12 0809 <Electronically signed by Sammy Menezes MD> | | | Sammy Menezes MD 07/10/12 6529 Poultry Slaughterer: | | | Avery Matzblmizkkej84/07/13 0210 Jac Riley | | | | | + + + + + + + + | Performing | Address | City/State/Zipcode | Phone Number | | Organization | | | | + + + + + | [facility] | [address] | [place] | [phone] | | [facility] | | [address] | | | - IMAGING | | | | + + + + + documented in this encounter Visit Diagnoses + + | Diagnosis | + + | Cervical spondylosis with myelopathy - Primary | + + | S/P lumbar fusion Arthrodesis status | + + | S/P cervical spinal fusion Arthrodesis status | + + | Cervical stenosis of spinal canal Spinal stenosis in cervical region | + + | Leg swelling Swelling of limb | + + | Peripheral neuropathy Unspecified hereditary and idiopathic peripheral neuropathy | + + | DISC DISEASE, LUMBOSACRAL SPINE Degeneration of lumbar or lumbosacral intervertebral | | disc | + + | Lumbago | + + | Bilateral hip pain Pain in joint, pelvic region and thigh | + + | Left knee pain Pain in joint, lower leg | + + | Fibromyalgia Mylagia and myositis, unspecified | + + | Obesity Obesity, unspecified | + + documented in this encounter
--- OUTSIDE RECORDS SUMMARY | ~2019-07-25 | XMS | Encounter Summary ---
Demographics + + + | Address | [address] | | | [place] [address] | + + + | Home Phone | | + + + | Preferred Language | Unknown | + + + | Marital Status | | + + + | Oriental Orthodox Affiliation | Unknown | + + + | Race | White | + + + | Ethnic Group | Not or | + + + Author + + + | Author | [facility] | + + + | Organization | [facility] | + + + | Address [...] Team Providers + +------+ + | Care Water Plant Pump Operator Supervisor Name | Role | Phone | + +------+ + PCP | Unavailable | + +------+ + Encounter Details +--------+ + + + + | Date | Type | Department | Care Team | Description | +--------+ + + + + | 12/05/ | Office | [facility] | Note, [...] as of this encounter Progress Notes Interface, Transit Mixer Operator In - 02/11/2006 5:12 AM PSTCLINIC DATE: 12/05/1998 NEUROLOGY CLINIC SUBJECTIVE: Ms. Gottlieb is a very pleasant 57-year-old woman with a history of multiple complaints and has returned for follow up evaluation. She was last seen in April 1998. She dates the onset of all of her current complaints to a work-related injury that occurred in 1992. She reports that her complaints are unchanged since the last visit. She continues to have fluctuating facial numbness, difficulty walking, pains in her knees, numbness, and tingling. She, in particular, continues to have intense pain in the back of her neck radiating often into her right arm. She has variable numbness in her face and in her arm and has noted the above difficulty ambulating. She has frequent urinary urgency and has recently had an urinary tract infection. She states that she has multiple diagnoses, none of which to my knowledge has been verified. for instance, she states that she has been told multiple times that she has cauda equina syndrome, but does not have specific symptoms related to this and has not actually had this diagnosis. 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 She has had a MRI of her C-spine which showed [id number] stenosis at C4-C7. She has had apparently a normal thoracic MRI and she had a MRI of her brain which apparently showed a number of T-tube like abnormalities which was felt to be ischemic in nature. However, has not had the opportunity to review this. She has also had x-rays of her hips which were a frequent area of complaint of pain. She has not had a lumbar puncture. CURRENT MEDICATIONS: Neurontin 400 mg, OxyContin, Fosamax, hydrochlorothiazide, and Stadol which she was recently started on by her primary care doctor. PHYSICAL EXAMINATION: VITAL SIGNS: Her weight is 189 pounds. Her blood pressure 122/78. Her pulse rate is 64. Her pulses are full and symmetric. NECK: Range of neck movement is reduced particularly on the right and with extension. NEUROLOGICAL: Her gait is very stiff appearing and slightly wide based and was somewhat difficult to interpret. Cranial nerves II-XII are intact. I cannot actually document decrease sensation. She did have a positive Romberg and had difficulty tandem walking. Strength examination was 5/5 throughout. Reflexes are 3+ in the right upper extremity and 2+ in left upper extremity. Trace in the lower extremities. Toes are downgoing. Sensory exam reveals decreased sensation in distal lower extremities. She describes that she could only feel sensation to all modalities about 40% of normal in the feet and ankles. She also had decreased sensation and distribution of the right ulnar nerve. Specifically, sensation is intact in the inguinal region, and I could not demonstrate a sensory level. Her exam has not been reliable from visit to visit. Cerebellar exam is intact to [id number] and [id number]. ASSESSMENT: Ms. Gottlieb has multiple complaints, most of which seem related to her cervical spine and she does have cervical spine disease, though the severity of that is somewhat in question. She may also have a neuropathy which has previously been demonstrated by an EMG study several years ago. I think that further evaluation is in order as well as further physical therapy and perhaps anesthesia pain service treatment. RECOMMENDATIONS 1. Repeat EMG studies to evaluate progression and help further localize the possibility of an ulnar neuropathy and cervical radiculopathy. 2. The above study will determine further evaluation and treatment though likely, she will warrant a referral to the pain service additional physical therapy. 3. I will plan on requesting the MRI of her brain which was done at [facility] in [place] which I have not yet had the opportunity to review. Andria Glover M.D.,Ph.D. ZAC / MARYANN [id number] / [id number] / [id number] / [id number] signed by Interface, Transit Mixer Operator In at 02/11/2006 5:12 AM PSTdocume nted in this encounter Plan of Treatment Not on filedocumented as of this encounter Visit Diagnoses Not on filedocumented in this encounter"
[~2019-07-25 18:19] MED LIST: ACETAMINOPHEN325 M1 PO; ANTACID CHEWAB1 EACH PO; ASPIRIN81 MG PO; BACLOFEN10 MG PO; CALCIUM CARBON500 MG PO; CILOSTAZOL50 MG PO; CIPRO500 MG PO; CIPROFLOXACIN250 MG PO; CRANBERRY500 MG PO; CYCLOBENZAPRINE10 MG PO; CYCLOBENZAPRINE5 MG PO; DETROL2 MG PO; FEXMID7.5 MG PO; HYDROCHLOROTHIA25 MG PO; KEFLEX500 MG PO; LACTULOSE20 GM/30 M PO; LINZESS290 MCG PO; MEDI-PATCH WIT1 EACH TOP; METOPROLOL SUCC25 MG PO; METOPROLOL TART25 MG; METOPROLOL TART25 MG PO; NAPROSYN500 MG PO; ONDANSETRON HCL8 MG PO; OXYCODONE10 MG/0.5 PO; OXYCONTIN60 MG PO; PERCOCET 5-3251 EACH PO; PLETAL50 MG PO; SENNA S TABLET1 EA PO; SIMETHICONE80 MG PO; SULFAMETHOXAZO1 EAC1 PO; TOPROL XL25 MG PO; VENLAFAXINE HCL75 MG PO; VERAPAMIL ER240 M1 PO; VERAPAMIL ER240 MG PO; ZIAC 2.5-6.25 MG1 EA
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
--- NOTE | 2019-07-25 20:24 | NUR ---
PT AT THIS TIME REFUSES TO HAVE HER BP TAKEN AND ALSO HER PT IDENTIFIACTION BAND.
--- NOTE | 2019-07-25 21:00 | NUR ---
ALL LOBES ARE CLEAR, PT WAS TURNED, PT BRIEF IS STILL DRY, PT STATED THAT SHE WAS HAVING SOME PAIN BUT DID NOT PROVIDE A PAIN # OR ANY OTHER INDICATIOR FOR A PAIN SCALE. PT NOW TRYING TO SLEEP.
--- NOTE | 2019-07-25 22:00 | NUR ---
BG FOR NOW WILL BE DONE Q 2HR. PT WAS ALSO TURNED. NO NEW CONCERNS NOTED AT THIS TIME.
--- NOTE | 2019-07-25 22:06 | NUR ---
PT IS SLEEPING AT THIS TIME. NO NEW CONCERNS NOTED.
--- NOTE | 2019-07-25 22:35 | NUR ---
PT WAS CALLING OUT FOR HER MOTHER... PT ALSO STATED THAT SHE WAS IN PAIN. PRN OXY PO 5MG TO BE GIVEN. PT BRIEF IS STILL DRY. PT WAS TURNED. NO NEW CONCERNS NOTED AT THIS TIME.
--- NOTE | 2019-07-26 00:15 | NUR ---
PT IS SLEEPING AT THIS TIME. NO NEW CONCERNS NOTED.
--- NOTE | 2019-07-26 02:06 | NUR ---
PT AT THIS TIME IS SLEEPING. PT WAS RE-POSITIONED.
--- NOTE | 2019-07-26 04:32 | NUR ---
PT AT THIS TIME WAS TURNED. PT WAS STILL SLEEPING. BRIEF WAS ALSO CHANGED. NO NEW CONCERNS NOTED AT THIS TIME.
--- NOTE | 2019-07-26 06:06 | NUR ---
PT IS STILL SLEEPING. PT WAS TURNED AGAIN. NO NEW CONCERNS NOTED.
--- NOTE | 2019-07-26 07:30 | NUR ---
SHIFT REPORT RECIEVED FROM FURNITURE RENTAL CONSULTANT RN. PATIENT RESTING IN BED AT THIS TIME. PER REPORT PATIENT SLEPT OFF AND ON LAST NIGHT. PATIENT WOKE UP IN PAIN ONCE LAST NIGHT. NO OTHER NEEDS AT THIS TIME. WILL CONTINUE TO CLOSELY MONITOR.
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
--- NOTE | 2019-07-26 09:00 | NUR ---
PATIENT RESTING IN BED. MD CHONGCH IN TO SEE PATIENT THIS AM AND PATIENT IS STILL VERY SLEEPY. PATIENT DENIES ANY OTHER NEEDS AT THIS TIME. WILL ORDER BREAKFAST.
--- NOTE | 2019-07-26 10:00 | NUR ---
HOSPICE NURSE IN TO SEE PATIENT AND DO ASSESSMENT AND VITAL SIGNS. PATIENT WOKE FROM SLEEPING AND STATES HER LEFT ARM HURTS. PER REPORT THIS IS A NORMAL PAIN. PATIENT USES LIDOCIAN TOPICAL CREAM AND PATCHES TO HELP WITH LEFT ARM PAIN. PATIENT TRIED TO USE THE BEDPAN, BUT WAS UNABLE TO USE IT. PAD PLACED UNDER PATIENT D/T TO INCONTINENCE EPISODES. REPOSITIONED PATIENT FOR COMFORT. BREAKFAST AT THE BEDSIDE AND SHE ONLY ATE A FEW BITES AND DELINED ANYMORE. GAVE AM MEDICATIONS. ASSESSMENT COMPLETED. NO OTHER NEEDS AT THIS TIME. CALLED MD SEXTON TO ASK IF PATIENT COULD GET THE LIDOCAIN CREAM AND MD SEXTON IS AGREEABLE TO THIS TREATMENT, THIS IS A MEDICATION THAT SHE NORMALLY USES WHILE ON HOSPICE CARE. PATIENTS DAUGHTER CALLED THIS AM AND UPDATED ON PLAN OF CARE. NO OTHER NEEDS AT THIS TIME.
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
--- NOTE | 2019-07-26 12:00 | NUR ---
PATIENT RESTING AT THIS TIME. REPOSITIONED FOR COMFORT. PATIENT DENIES WANTING ANY FOOD. WILL ALLOW REST AND CHECK BACK LATER.
--- NOTE | 2019-07-26 14:30 | NUR ---
PATIENT CONTINUES TO REST AT THIS TIME. REPOSITIONE DWITH PILLOW SUPPORT FOR COMFORT. PATIENT DANIES PAIN. WILL CONTINUE TO CLOSELY MONITOR.
--- NOTE | 2019-07-26 15:53 | NUR ---
PATIENT RESTING IN BED AT THIS TIME. REPOSITIONED FOR COMFORT AND CHANGED ATTENDS. CLEANED PATIENTS EYES D/T GOOP IN THEM. PATIENT DENIES WANTING ANYTHING TO EAT EXCEPT ICE CREAM. WILL ORDER ICE CREAM. PATIENT DENIES ANY OTHER NEEDS AT THIS TIME. SPOKE WITH PATIENTS DAUGHTER EARLIER AND UPDATED. PER PATIENTS DAUGHTER SHE TENDS TO SLEEP A LOT. PATIENT HAS BEEN RESTING MOST OF THE DAY. WILL CONTINUE TO CLOSELY MONITOR.
[2019-07-26] MEDS ORDERED: ULTRAM50 MG PO (16:21)
[2019-07-26] MEDS ORDERED: BACLOFEN10 MG PO (16:22)
[2019-07-26] MEDS ORDERED: NYSTATIN-TRIAMC15 G1 TOP (16:24)
[2019-07-26] MEDS ORDERED: LORAZEPAM INT2 MG/ML PO (16:25)
[2019-07-26] MEDS ORDERED: LIDODERM1 EACH TOP (16:26)
[2019-07-26] MEDS ORDERED: VITAMIN A10000 UNIT PO (16:27)
[2019-07-26] MEDS ORDERED: GAS RELIEF125 M1 PO (16:27)
[2019-07-26] MEDS ORDERED: VITAMIN D350 MC1 PO (16:28)
[2019-07-26] MEDS ORDERED: CYSTEX TABLET1 EACH PO (16:29)
[2019-07-26] MEDS ORDERED: CYMBALTA30 MG PO (16:30)
[2019-07-26] MEDS ORDERED: NYSTOP60 GM TOP (16:32)
[2019-07-26] MEDS ORDERED: BISACODYL10 MG PR (16:35)
[2019-07-26] MEDS ORDERED: MILK OF MA400 MG/5 M PO (16:37)
[2019-07-26] MEDS ORDERED: SENNA8.6 MG PO (16:38)
[2019-07-26] MEDS ORDERED: LACTULOSE10 GM/15 M PO (16:38)
[2019-07-26] MEDS ORDERED: ACETAMINOPHEN650 MG PR (16:42)
[2019-07-26] MEDS ORDERED: HYOSCYAMINE0.125 M2 PO (16:43)
[2019-07-26] MEDS ORDERED: HALOPERIDOL2 MG/1 ML PO (16:44)
[2019-07-26] MEDS ORDERED: LIDOCAINE35.44 GM TOP (16:46)
[2019-07-26] MEDS ORDERED: ATIVAN1 MG PO (16:47)
--- NOTE | 2019-07-26 16:48 | NUR ---
MED REC COMPLETE
--- NOTE | 2019-07-26 17:09 | NUR ---
IN TO SEE PATIENT. PATIENT IS AWAKE AND PLEASANT. GAVE HER SOME DRINKS OF HER CHOCOLATE ENSURE MILKSHAKE. CHANGED PATIENTS ATTENDS AND REFRESHED BEDDING. PATIENT REPOSITIONED WITH PILLOW SUPPORT. BED BATH PROVIDED. PATIENTS HAIR COMBED. PATIENT REFUSED TO LET STAFF BRUSH HER TEETH. NO OTHER NEEDS AT THIS TIME. WILL CONTINUE TO CLOSELY MONITOR.
--- NOTE | 2019-07-26 20:23 | NUR ---
PATIENT SAYS SHE IS COMFORTABLE AT THIS TIME. RESTING QUIETLY. PATIENT TURNED TO LEFT SIDE. CAN BE SEEN FROM NURSES STATION.
--- NOTE | 2019-07-26 21:36 | NUR ---
VITALS DONE AND CHARTED. CHECKED PT'S ATTENDS , SHE WAS DRY. PT DID NOT WAKE UP I WAS CHECKING HER AND GETTING HER VITALS. SHE ALSO DID NOT RESPOND WHEN I TRIED TO TALK TO HER. BEDSIDE TABLE AND CALL LIGHT IN REACH.
--- NOTE | 2019-07-26 22:55 | NUR ---
PATIENT REMAINS RESTING QUIETLY ON RIGHT SIDE AT THIS TIME, EYES CLOSED RESPIRATIONS SHALLOW AND EVEN.
--- NOTE | 2019-07-27 00:18 | NUR ---
PATIENT REMAINS TO REST QUIETLY, SUPINE NOW, NOT REALLY WAKING WHEN MOVING PATIENT, SHALLOW EVEN BREATHES, EYES CLOSED. Pt CAN BE OBSERVEDFROM THE NURSES STATION.
--- NOTE | 2019-07-27 01:55 | NUR ---
PATIENT CONTINUES TO REST QUIETLY WITH EVEN BUT SHALLOW RESPIRATIONS WITH EYES CLOSED. PATIENT CAN BE OBSERVED FROM THE NURSES STATION.
--- NOTE | 2019-07-27 04:31 | NUR ---
PATIENT HAS REMAINED QUIET AND RESTFUL THROUGH THE NIGHT WITH EYES CLOSED, RESPIRATIONS SHALLOW, BUT REGULAR, AND NO COMPLAINTS OF PAIN. NO INCONTINENCE UP TO THIS TIME.
--- NOTE | 2019-07-27 05:48 | NUR ---
WITH THE HELP OF JAH PERRIN WE REPOSITIONED PT AFTER CHANGING THE PADS UNDER HER WET WITH A SMALL AMOUNT OF URINE.
--- NOTE | 2019-07-27 07:41 | NUR ---
0705: Report recieved from Augusto TYSON. Pt sleeping at this time and appears in no distress.
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
--- NOTE | 2019-07-27 08:45 | NUR ---
PT WAS CLEANED UP AND AN ATTENDS WAS PLACED. PT APPEARS COMFORTABLE. PT REPOSITIONED AND COCCYX DRESSING REMAINS INTACT. PT REFUSED SOME OF HER MEDICATIONS AND HER BREAKFAST. SEE ASSESSMENT.
--- NOTE | 2019-07-27 09:32 | NUR ---
PT SLEEPING AT THIS TIME.
--- NOTE | 2019-07-27 10:15 | NUR ---
THIS FINANCIAL PLANNING ASSISTANT SAT PATIENT UP AND GAVE HER 3 SMALL SPOONS OF THICKENED WATER.REPOSITIONED PATIENT WITH HELP OF NORI GONSALES. CHECKED BRIEF, PATIENT WAS DRY. CALL LIGHT WITH REACH.
--- NOTE | 2019-07-27 11:12 | NUR ---
PT REPOSITIONED IN HER BED AT TIME. PT STATES SHE HAS SOME BACK PAIN WHICH SHE IS UNABLE TO RATE, PT MEDICATED FOR PAIN. HOSPICE NURSE TO HER ROOM AT THIS TIME.
--- NOTE | 2019-07-27 12:21 | NUR ---
Pt turned and repositioned and was found to be incont of bowels and urine. Pt cleaned up and fresh attends placed. Pt tolerated well and quickly fell back to sleep.
--- NOTE | 2019-07-27 13:26 | NUR ---
PT SLEEPING AT THIS TIME, RR 18. SHE APPEARS IN NO DISTRESS AT THIS TIME.
--- NOTE | 2019-07-27 15:34 | NUR ---
Pt states she is having some pain but is unable to rate it. Pt medicated, see emar. Pt turned and repositioned and cleaned up.
--- NOTE | 2019-07-27 15:40 | NUR ---
PATIENT IS RESTING WITH EYES CLOSED, WOKE FOR VITALS, AND REPOSITIONING. PATIENT WAS INCONT. BRIEF CHANGED. CALL LIGHT IN REACH.
--- NOTE | 2019-07-27 17:15 | NUR ---
Pt's attends dry. Pt repositioned and she denies any pain at this time. Pt took a few sips of thinckened water at this time.
--- NOTE | 2019-07-27 18:00 | NUR ---
PATIENT RESTING VERY COMFORTABLY WITH EYES CLOSED. DINNER TRAY AT BEDSIDE CALL LIGHT ON LAP. I&OS CHARTED.
--- NOTE | 2019-07-27 19:35 | NUR ---
PATIENT RESTING QUIETLY, EYES CLOSED, RESPIRATIONS REGULAR AND EVEN, CALL LIGHT IN REACH AND CAN BE OBSERVED FROM THE NURSES STATION.
--- NOTE | 2019-07-27 20:58 | NUR ---
PATIENT TURNED, PM MEDS GIVEN, PATIENT RESPONDING APPROPRIATELY, AND APPEARS ORIEINTED. ATTENDS ARE NOW DRY. PATIENT NEEDS NOTHING ELSE AT THIS TIME.
--- NOTE | 2019-07-27 21:08 | NUR ---
FIRE CONTROL MECHANIC ROUNDING NOTE. PT RESTING IN BED WITH EYES CLOSED. DOES NOT WAKE WHILE SYSTEMS ADMINISTRATOR AT DOORWAY. CALL LIGHT IN REACH. ROOM IN VIEW OF RN STATION. WHITE BOARD UPDATED.
--- NOTE | 2019-07-27 21:30 | NUR ---
PATIENT REPOSITIONED. ORAL CARE DONE.
--- NOTE | 2019-07-27 23:00 | NUR ---
PATIENT HAS BEEN REPOSITIONED TO LEFT SIDE, PATIENT HOS NOT WANT ANY MORE TO DRINK AND ATTENDS ARE DRY, PATIENT HAVING NO PAIN, AND HAS BEEN RESTING QUIETLY AND SAYS SHE IS WARM ENOUGH. CAN BE SEEN FROM THE NURSES STATION.
--- NOTE | 2019-07-28 01:15 | NUR ---
PATIENT REPOSITIONED TO THE SUPINE, HAS BEEN RESTING QUIETLY, OBSERVED FROM THE NURSES STATION, NO C/O PAIN.
--- NOTE | 2019-07-28 03:30 | NUR ---
PATIENT REFUSES ORAL CARE TURNED, TO HER LEFT SIDE, WANTS NO PO FLUIDS, DENIES PAIN. NO NEEDS AT THIS TIME. ATTENDS DRY.
--- NOTE | 2019-07-28 05:13 | NUR ---
PATIENT REPOSITIONED IN BED, LINENS CHANGED AND READJUSTED NEEDED. SKINCARE, PERICARE AND AM CARE DONE. PATIENT RESTING IN BED, CALL LIGHT IN REACH. NO FURTHER NEEDS AT THIS TIME.
--- NOTE | 2019-07-28 05:22 | NUR ---
PATIENT CURRENTLY POSITIONED TO HER RIGHT SIDE. SHE HAS NOT TAKEN ANY PO FLUIDS SINCE 2100 MED PASS, AND HAS REFUSED ORAL CARE. PATIENT HAD A SMALL LIQUIDISH BM AND A SMALL AMOUNT OF INCONTINENCE OF URINE. CHUX AND ATTENDS CHANGED. PATIENT CONFIRMED SHE WAS COMFORTABLE. NOT MUCH FOR ORAL INTAKE OR URINARY OUTPUT. PATIENT RESTING QUIETLY AT THIS TIME.
--- NOTE | 2019-07-28 07:52 | NUR ---
0720: REPORT RECEIVED FROM MARYCHUY TYSON. PT TURNED AND REPOSITIONED, ATTENDS ARE CLEAN AND DRY. PT APPEARS COMFORTABLE AND DENIES PAIN AT THIS TIME. PT VISIBLE FROM THE NURSING STATION.
--- NOTE | 2019-07-28 08:21 | NUR ---
PT APPEARS COMFORTABLE AND DENIES ANY PAIN OR PROBLEMS. ORAL CARE PROVIDED. SEE ASSESSMENT.
--- NOTE | 2019-07-28 09:56 | NUR ---
I WAS CALLED BY THE PT'S DAUGHTER (ISA) AND SHE WAS UPDATED TO THE PT'S STATUS AND HER QUESTIONS WERE ANSWERED.
--- NOTE | 2019-07-28 10:10 | NUR ---
PT WAS COMPLAINING OF HIP PAIN WHICH SHE IS UNABLE TO RATE. SHE WAS MEDICATED AT THIS TIME, SEE EMAR. PT WAS INCONT OF URINE AND STOOL AND SHE WAS CLEANED UP AND FRESH ATTENDS WERE PLACED. PT REPOSITIONED IN HER BED, COCCYX DRESSING REMAINS CDI.
--- NOTE | 2019-07-28 10:28 | NUR ---
ASSISTED PATIENT WITH BREAKFAST. PATIENT HAD INCONT, DADA CARE DONE, NEW ATTENDS IN PLACE, 2PA. PATIENT REPOSITIONED ONTO RIGHT SIDE. CALL LIGHT IN REACH. FRESH THICKENED WATER GIVEN. CALL LIGHT IN REACH. NO FURTHER NEEDS AT THIS TIME.
--- NOTE | 2019-07-28 12:55 | NUR ---
Attends cdi at this time. Pt repositioned. She appears comfortable and denies any pain. Oral care provided. Pt does seem a bit more somnolent and she quickly fell back to sleep.
--- NOTE | 2019-07-28 14:04 | NUR ---
PT CONTINUES TO DENY PAIN AT THIS TIME. SHE IS BEING SEEN BY ISABELLA TYSON FROM [facility] AT THIS TIME.
--- NOTE | 2019-07-28 14:47 | NUR ---
Pt appears comfortable at this time. Attends dry, pt repositioned.
--- NOTE | 2019-07-28 16:50 | NUR ---
ATTENDS DRY, PT REPOSITIONED AND SHE CONTINUES TO APPEAR COMFORTABLE. PT STATES SHE IS "DRY" AND SHE TOOK A FEW SMALL SIPS AND DECLINES ANY ADDITIONAL FLUIDS WHEN OFFERED. SHE ALSO REFUSED ORAL CARE AT THIS TIME AND QUICKLY FELL BACK TO SLEEP.
--- NOTE | 2019-07-28 19:00 | NUR ---
1844: PT REPOSITIONED. SHE DENIES PAIN AND TOOK A FEW SMALL SIPS OF WATER. ATTENDS DRY.
--- NOTE | 2019-07-28 20:12 | NUR ---
PATIENT RESTING QUIETLY, EYES CLOSED, WAS REPOSITIONED TO LEFT SIDE, COCCYX DRESSING CDI AND ATTENDS DRY. PATIENT HAVING NO DISCOMFORT AND CAN BE OBSERVED FROM THE NURSES STATION.
--- NOTE | 2019-07-28 20:26 | NUR ---
PILLOW FILLER ROUNDING NOTE. PT RESTINGIN BED WITH EYES CLOSED. DOES NOT WAKE WHILE AGRICULTURAL RESEARCHER AT DOORWAY. CALL LIGHT IN REACH. ROOM IN VIEW OF RN STATION. WHITEBOARD UPDATED.
--- NOTE | 2019-07-28 22:09 | NUR ---
PATIENT TURNED TO BACK SEMI-FOWLERS POSITION. WOULD NOT TAKE PO MEDS OR FLUIDS. ATTENDS DRY. DID ALLOW ORAL CARE, RESPIRATIONS REGULAR AND SHALLOW. PATIENT NON-VERBAL THIS EVENING. PATIENT CAN BE OBSERVED FROM NURSES STATION. TOPICAL MEDICATIONS APPLIED ORDERED.
--- NOTE | 2019-07-29 00:10 | NUR ---
PATIENT RESTING QUIETLY AND RESPIRATIONS REGULAR BUT SHALLOW. EYES CLOSED, PATIENT HAS NO APPEARANCE OF DISCOMFORT. PATIENT CAN BE OBSERVED FROM THE NURSES STATION.
--- NOTE | 2019-07-29 01:59 | NUR ---
PATIENT TURNED TTO RIGHT SIDE, ATTENDS DRY. PATIENT COMFORTABLE AND WARM. CAN BE SEEN FROM NURSES STATION.
--- NOTE | 2019-07-29 05:09 | NUR ---
PATIENT HAS SLEPT THROUGH MOST OF THE NIGHT, TURNING Q2 HOURS, PATIENT HAD 1 SMALL PASTY BROWN BM, AND WAS CLEANED, 1 SMALL INCONTINENCE URINE, ATTENDS ALSO CHANGED. NEW DRAW SHEET AND CHUX PLACED, JUST FOR FRESHENING UP. PATIENT REFUSED PO MEDS AT START OF SHIFT AND WAS NON-VERBAL FOR ME, BUT DRANK A LITTLE WATER THIS AM AND ANSWERED SIMPLE QUESTIONS APPROPRIATELY. JUST GIVEN WARM BLANKETS AND PATIENT NODED THAT SHE WAS COMFORTABLE AND WARM. COCCYX BANDAGE REMAINS IN PLACE AND PATIENT CAN BE OBSERVED FROM THE NURSES STATION.
--- NOTE | 2019-07-29 07:33 | NUR ---
0705: REPORT RECIEVED FROM MARYCHUY TYSON. PT SLEEPING AT THIS TIME AND IS VISIBLE FROM THE NURSING STATION. SHE APPEARS IN NO DISTRESS.
--- NOTE | 2019-07-29 08:23 | NUR ---
Pt repositioned. She was incont of bowels and urine and was cleaned and fresh attends placed. Pt was given her ordered ASA and she would not swallow it or chew it. The medication was removed from her mouth due to aspiration risks. Pt quickly back to sleep.
--- NOTE | 2019-07-29 08:33 | NUR ---
PATIENT IN BED, NURSE AND THIS EXTRACTIVE METALLURGIST CHANGED PATIENT, PATIENT ATE ABOUT 5% OF APPLSAUCE, AND HAD A FEW SIPS OF WATER, PATIENT RECIEVED AM CARE, AND A WARM WASH CLOTH, PATIENT IS RESTING
--- NOTE | 2019-07-29 10:01 | NUR ---
Pt turned and repositioned, attends dry. Pt awoke very briefly with the turning and is now back to sleep.
--- NOTE | 2019-07-29 11:41 | NUR ---
Pt was sleeping and awoke to touch. Attends dry and she was repositioned. With movement she states "ouch" and quickly fell back to sleep after repositioning.
--- NOTE | 2019-07-29 13:06 | NUR ---
PT WAS JUST SEEN BY SHANNON TYSON THE HOSPICE NURSE. SHE WAS REPOSITIONED AND GIVEN SEVERAL SMALL SIPS OF WATER. SHE APPEARS COMFORTABLE AT THIS TIME.
--- NOTE | 2019-07-29 13:13 | NUR ---
SEBASTIAN RN FROM HOSPICE HERE TO SEE PATIENT, PLAN IS TO SEND PATIENT HOME TOMORROW AT 10:00. SPOKE WITH DAUGHTER-BEVERLY AND SHE WILL MAKE SURE CAREGIVER IS THERE TO MEET PATIENT. NON-EMERGENT TRANSPORT WILL BE SET UP IN AM.
--- NOTE | 2019-07-29 13:39 | NUR ---
THE PT'S FACE WAS WASHED, ORAL CARE PROVIDED AND LIP BALM APPLIED. PT APPEARS IN NO DISTRESS AND SHE STATES SHE IS "OK". PT TOOK A FEW SMALL BITS OF YOUGART AND A FEW SMALL SIPS OF WATER AT THIS TIME.
--- NOTE | 2019-07-29 13:58 | NUR ---
Pt sleeping and she appears comfortable.
--- NOTE | 2019-07-29 14:08 | NUR ---
PATIENT IN BED RESTING, HOPSICE NURSE WAS IN AND REPOSTITIONED PATEINT, THIS SHEET PILE HAMMER OPERATOR CHECKED THE PATIENT AND THE DEPENDS IS DRY, PATIENT NEEDED NO OTHER ASSISTANCE.
--- NOTE | 2019-07-29 14:44 | NUR ---
Pt awoke to voice and states she is comfortable. Attends dry. She was repositioned and given some sips of water.
--- NOTE | 2019-07-29 14:58 | NUR ---
AFTER REPOSITIONING THE PT SHE STATES "I'M WET". SHE WAS CHECKED AGAIN AND SHE HAD JUST VOIDED AND HAD A SMALL BM. SHE WAS CLEANED AND FRESH ATTENDS PLACED. THIS TIME WITH MOVEMENT SHE COMPLAINS OF PAIN AND STATES "MY TOE". HER TOES APPEAR UNCHANGED. PT MEDICATED FOR PAIN, SEE EMAR.
--- NOTE | 2019-07-29 15:48 | NUR ---
Pt sleeping at this time.
--- NOTE | 2019-07-29 16:50 | NUR ---
Pt repositioned and given some sips of water. Pt quickly back to sleep.
--- NOTE | 2019-07-29 18:30 | NUR ---
Pt incont of stool and was cleaned and repositioned in her bed. She states she has some pain with the movement but was back to sleep before pain medication could be given.
--- NOTE | 2019-07-29 19:10 | NUR ---
BEDSIDE REPORT RECEIVED FROM OFFGOING RNSYDNI. PT RESTING IN BED WITH EYES CLOSED.
--- NOTE | 2019-07-29 21:58 | NUR ---
PT ASSESSMENT COMPLETE. RADIO TELEVISION ANNOUNCER X 2 IN ROOM REPOSITIONING PT. LIDOCAINE CREAM AND NYSTATIN APPLIED ORDERED. PT AWAKE, ANSWERS QUESTIONS. PT ATE DISH OF PUDDING AND TOOK FEW SIPS OF WATER. TOLERATED WELL. PT TOOK SCHEDULED PILL. DENIES FURTHER NEEDS. CALLLIGHT IN REACH. ROOM IN VIEW OF RN STATION.
--- NOTE | 2019-07-30 00:37 | NUR ---
PT RESTING IN BED WITH EYES CLOSED. RESPIRATIONS EVEN AND UNLABORED. PT APPEARS TO BE SLEEPING. CALL LIGHT IN REACH. ROOM IN VIEW OF RN STATION.
--- NOTE | 2019-07-30 00:46 | NUR ---
PATIENT SEEN MOVING HER ARM ACROSS HER BLANKET FROM NURSES STATION. PATIENT AWAKE, EYES OPEN. THIS DIRECTOR RECORDS MANAGEMENT ASSISTED PATIENT TO REPOSITION PILLOWS AND ADJUST HEAD ON PILLOW. ASSISTED PATIENT TO WASH HANDS AND FACE WITH WARM WASH CLOTH. PATIENT DECLINES ORAL CARE. PATIENT'S ARM IS COLD TO THE TOUCH, PATIENT AGREES TO WARM BLANKET. CALL LIGHT IN REACH, PATIENT VISIBLE FROM NURSES STATION. NO FURTHER NEEDS AT THIS TIME.
--- NOTE | 2019-07-30 02:57 | NUR ---
PT RESTING IN BED WITH EYES CLOSED. RESPIRATIONS EVEN AND UNLABORED. PT APPEARS TO BE SLEEPING. CALL LIGHT IN REACH. ROOM IN VIEW OF RN STATION.
--- NOTE | 2019-07-30 03:35 | NUR ---
PT CALLING OUT FOR HELP, SHOP LEAD TO ROOM. PT STATES THAT SHE IS HAVING PAIN, UNABLE TO IDENTIFY WHERE OR APPROPRIATELY USE PAIN SCALE. PRN OXYCODONE ADMINISTERED. CALL LIGHT IN REACH. ROOM IN VIEW OF RN STATION.
--- NOTE | 2019-07-30 04:51 | NUR ---
pt resting in bed with eyes closed. respirations even and unlabored. pt does not wake while wrtier in room. call light in [facility]. room in view of rn station.
--- NOTE | 2019-07-30 06:14 | NUR ---
PATIENT HAD SMALL INCONTINENCE EPISODE. PATIENT'S ATTENDS CHANGED, PERICARE PERFORMED. PATIENT REPOSITIONED, PILLOWS USED FOR UNDER LEGS AND LEFT ARM. PATIENT STATES SHE IS COMFORTABLE. ORAL CARE PERFORMED WITH SWABS, CHAPSTICK APPLIED TO PATIENT'S LIPS. PATIENT'S FACE AND HANDS WASHED WITH WARM WASH CLOTHES. CALL LIGHT IN REACH, PATIENT VISIBLE FROM NURSES STATION. NO FURTHER NEEDS AT THIS TIME.
--- NOTE | 2019-07-30 07:26 | NUR ---
PT RESTING EYES CLOSED AT TIME OF REPORT APPEARS COMFORTABLE
--- NOTE | 2019-07-30 07:58 | NUR ---
CHECKED ON PATIENT, PATIENT IS RESTING, WILL HELP PATIENT WITH BREAKFAST WHEN IT ARRIVES, NURSE IS IN THE ROOM
--- NOTE | 2019-07-30 09:36 | NUR ---
PT HAD SMALL BREAKFAST ALONG WITH MEDICATIONS. ASSISTED WITH DADA CARE AND FRESH DEPENDS APPLIED. NON EMERGENT TRANSPORT HERE PT LOADED TO A GURNEY SENT HOME, MEDICATIONS AND PERSONAL BELONGINGS PACKED AND SENT WITH HER
== END 2019-07-30 09:38 | disposition hospice, home (50) | DRG 951 ==
LOC: CCU 18:19 → MS 07-26 18:44
PROVIDERS: ADMIT Internal Medicine
DX: Z51.5 Encounter for palliative care (principal); E43 Unspecified severe protein-calorie malnutrition; I69.354 Hemiplegia and hemiparesis following cerebral infarction affecting left non-dominant side; M62.40 Contracture of muscle, unspecified site; R62.7 Adult failure to thrive; S31.000A Unspecified open wound of lower back and pelvis without penetration into retroperitoneum, initial encounter; I10 Essential (primary) hypertension; G89.29 Other chronic pain; R32 Unspecified urinary incontinence; Z68.21 Body mass index [BMI] 21.0-21.9, adult; Z74.01 Bed confinement status; Z88.5 Allergy status to narcotic agent; Z88.4 Allergy status to anesthetic agent; Z79.2 Long term (current) use of antibiotics; Z79.82 Long term (current) use of aspirin; Z79.891 Long term (current) use of opiate analgesic; Z79.899 Other long term (current) drug therapy